=== PATIENT | female | born 1965 | race Caucasian/White ===

== ENCOUNTER 2021-01-23 13:18 | Emergency (ER) | payer SELFPAY ==
[2021-01-23 13:51] VITALS: BP 150/113; PULSE 118; RESP 15; TEMP 36.4; O2SAT 100; BMI 19.2
--- NOTE | 2021-01-23 14:03 | XR_ITS ---
WS: [id number] Exam: XR chest 1V portable [id number] Date/Time of Exam: 01/23/2021 2:03 PM Reason For Exam: SOB No priors. There is significant widening of the bilateral mediastinum with masses identified at both liza as we ll as the left infrahilar region. This may represent pulmonary neoplasm and/or lymphadenopathy. Large left-sided pleural effusion noted with compressive atelectasis of the left lower lobe. Heart size is normal. No pneumothorax. No infiltrates visualized. Regional bony structures are intact. Recommendations: Contrast CT scanning of the chest is recommended for further workup. XR/XR chest 1V portable [id number] IMPRESSION: 1. Probable extensive bilateral mediastinal lymphadenopathy. Left infrahilar pu lmonary mass that may represent primary lung neoplasm. This measures approximat becca 4 cm at greatest dimension. 2. Prominent left basal pleural effusion with compressive atelectasis of the le ft lower lobe.
--- NOTE | 2021-01-23 14:03 | CT_ITS ---
WS: [id number] CT NECK WITH CONTRAST HISTORY: large firm R neck mass TECHNIQUE: Contiguous 5 mm axial images are performed through the neck with intravenous contrast. Sag ittal and coronal reformats are also submitted. All CT scans at [facility] use at least o ne of these dose optimization techniques: automated exposure control; mA and/or kV adjustment per pat ient size (includes targeted exams where dose is matched to clinical indication); or iterative recons truction. CONTRAST: CONTRAST: Omnipaque 300; 95 mL IV. DLP: 362.28 mGy.cm COMPARISON: None available. There is a very large soft tissue mass centered in the RIGHT neck with increased vascularity and a fe w areas of necrosis and scattered calcifications. This mass begins posterior to the RIGHT sternocleid omastoid muscle at the C4 level and extends inferiorly and posterior to the clavicle into the upper m ediastinum. The largest confluent mass extends over a length of 11.5 cm and transversely by 6.4 cm. T his large mass is obliterating and possibly invading into the jugular vein. The RIGHT carotid artery is being medially displaced. There is also mild LEFT displacement of the larynx and thyroid. Mass ext ends into the upper mediastinum. There are additional masses in the anterior mediastinum. High RIGHT paratracheal and anterior LEFT mediastinal nodules. There are additional masses which are probably ly mph nodes along the cervical chains. There is an additional incompletely visualized RIGHT supraclavic ular mass measuring 2.9 x 3.4 cm posterior to the distal RIGHT clavicle. There are smaller left-sided cervical chain lymph nodes. Possible invasion into the sternocleidomastoid muscle on the LEFT. Upper esophagus is being displaced to the LEFT with loss of the normal fat plane. Small mucous retention cyst in the RIGHT maxillary sinus. Small layering LEFT pleural effusion. Area of fibrosis or nodule at the RIGHT apex. CT/CT neck w con* [id number] IMPRESSION: 1. Large confluent enhancing mass centered within the RIGHT neck extends over a length of 11.5 cm x 6.4 cm. Most consistent with lymphadenopathy. There are a dditional several lymph nodes along the RIGHT cervical chain, RIGHT supraclavic ular and upper mediastinum. Favor metastatic disease versus lymphoma. 2. Small layering LEFT pleural effusion. 3. Occluded RIGHT jugular vein. Mass appears to be invading the RIGHT sternocl eidomastoid muscle.
--- NOTE | 2021-01-23 14:04 | W.ED.GENADLT ---
Documented by User: DANYELLE Garay 01/23/21 16:34 HPI - General Adult General: Chief complaint: General Medical Stated complaint: mass on neck Time Seen by Provider: 01/23/21 13:50 Source: patient Mode of arrival: ambulatory Limitations: no limitations History of Present Illness: HPI narrative: Patient is a very nice 55-year-old female who presents to ED today after being sent here from [facility] for further evaluation. Patient has a complaint of a large mass to the right side of her neck that has been present over the past month. Patient states she did not seek medical evaluation sooner because she was scared. She tells me she has had a 30 to 40 unintentional pound weight loss over the past month. She is complaining of fatigue. She has noticed shortness of breath with minimal exertion. She complains of some numbness to the right posterior calf. She states she has been seeing a chiropractor for this. She has trouble using the leg during ambulating and with driving. Patient is not having any trouble swallowing. She has not been running fevers. She admittedly does not see a medical provider regularly. Onset (ago): month(s) Location: neck Relieving factors: none Exacerbating factors: none Associated symptoms: Reports dyspnea and malaise; Deny chest pain, confusion, headache(s), nausea, rash, palpitations, syncope or vomiting Review of Systems Const: Reports: fatigue and malaise; Denies: fever(s), chills or body aches Eyes: Denies: change in vision, blurry vision or photophobia ENMT: Denies: throat pain, enlarged tonsils or odynophagia Card: Reports: dyspnea on exertion; Denies: chest pain, palpitations, irregular heart rhythm, edema, swelling of feet/ankles, lightheadedness, syncope, pre-syncope or orthopnea Resp: Reports: dyspnea; Denies: productive cough, non-productive cough, pain on inspiration or chest congestion GI: Denies: abdominal pain, nausea, vomiting or diarrhea : Denies: flank pain, difficulty voiding, dysuria, urinary frequency, urinary urgency or urinary hesitancy Musc: Denies: neck pain, back pain, extremity pain, extremity swelling, joint pain or joint swelling Skin/Breast: Denies: rash Neuro: Reports: numbness in extremities (R posterior calf) and sensory changes; Denies: headache(s), frequent falls, dizziness or confusion PFSH ED PFSH: Social History Smoking and tobacco status: former smoker Alcohol intake: current Alcohol intake frequency: holidays/special occasions only Physical Exam Const: COMMON NORMALS: no acute distress, patient oriented x3, no limitations and alert GENERAL APPEARANCE: cooperative ORIENTATION/CONSCIOUSNESS: Yes awake, Yes oriented to person, Yes oriented to place and Yes oriented to time HENMT: COMMON NORMALS: normocephalic, atraumatic and Normal external nose present HEAD & SCALP: normal to inspection, normocephalic and atraumatic FACE & SINUS: normal facial exam NOSE: Normal external nose present THROAT: posterior oropharynx normal, tonsils normal and uvula midline Eye: COMMON NORMALS: Equal, round and reactive pupils present and EOMs intact bilaterally SCLERA: scleral abnormal Laterality of scleral abnormality: positive bilateral scleral icterus PUPIL: Yes Equal, round and reactive pupils present Neck/C-Spine: COMMON NORMALS: full ROM OTHER: pt has a very large extremely firm mass to the R lateral neck; she has a large firm lymph node present to the inferior posterior aspect of the mass Resp: COMMON NORMALS: normal respiratory effort and clear to auscultation bilaterally AUSCULTATION: clear to auscultation bilaterally Cardio: COMMON NORMALS: regular rate RATE: regular rate and tachycardic GI: COMMON NORMALS: Normal to inspection, nondistended, normoactive bowel sounds present, Soft to palpation, non-tender, No hepatosplenomegaly present and no masses PALPATION: Yes Soft to palpation and Yes No hepatosplenomegaly present : COMMON NORMALS: Yes no CVA tenderness BLADDER/KIDNEY EXAM: Yes no CVA tenderness OTHER: extremely dark urine noted in cup in room Back/Pelvis: COMMON NORMALS: no CVA tenderness Neuro: MAN COMA SCALE: document GCS findings Man coma scale eye opening: Spontaneous [place] coma scale verbal response: Orientated [place] coma scale motor response: Obey commands [place] coma scale total score: 15 COMMON NORMALS: patient oriented x3 SENSORIUM/ORIENTATION: Yes alert, Yes oriented to person, Yes oriented to place and Yes oriented to time Skin: COMMON NORMALS: no rashes or lesions noted GENERAL SKIN EXAM: no rashes or lesions noted Course Vital Signs: Vital signs: Vital Signs Temperature 97.5 F L 01/23/21 13:51 Pulse Rate 118 H 01/23/21 13:51 Respiratory Rate 15 01/23/21 13:51 Blood Pressure 150/113 01/23/21 13:51 Pulse Oximetry 100 01/23/21 13:51 MDM - General Adult MDM Narrative: Medical decision making narrative: I have sat and discussed patient's CT findings extensively with her. I have discussed the emergent need for transfer given her findings. Patient has extensive metastatic disease. She has a pancreatic mass causing biliary obstruction. She has a critical total bili of 7.2. Patient understandably is very tearful and overwhelmed. 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 I have explained the potential consequences of an untreated biliary obstruction and patient verbalizes understanding. Patient states that at this time she would like to go home and get all of her ducks in a row . She promises to return tomorrow and would be agreeable to transfer at that time. I explained that a lot can change in just 24 hours and yet again she verbalizes understanding of this. Patient will sign out AMA and will be encouraged to return as soon as possible. Lab Data: Labs: Lab Results 01/23/21 01/23/21 01/23/21 Range/Units 14:50 15:05 15:05 WBC 10.6 H (4.0-10.0) 10^3/ uL RBC 4.50 (4.1-5.3) 10^6/u L Hgb 14.3 (11.5-15.3) g/dL Hct 42.5 (37.0-47.0) % MCV 94.4 (81-99) fL MCH 31.8 (28.0-34.0) pg MCHC 33.6 (30.0-36.0) g/dL RDW 12.2 (12.1-15.1) % Plt Count 560 H (130-400) 10^3/c mm MPV 8.9 (7.4-10.4) fL Neut % (Auto) 79.0 % Lymph % (Auto) 10.5 % [place] % (Auto) 8.6 % Eos % (Auto) 0.6 % Baso % (Auto) 1.0 % Neut # (Auto) 8.36 H (1.8-7.7) 10^3/u L Lymph # (Auto) 1.1 (0.8-4.8) 10^3/u L [place] # (Auto) 0.9 (0.2-0.9) 10^3/u L Eos # (Auto) 0.1 (0.0-0.8) 10^3/u L Baso # (Auto) 0.1 (0.0-0.1) 10^3/u L Nucleated RBC % (a uto) 0 % Nucleated RBCs # 0.0 /100WBC PT (12.1-14.9) SECO NDS INR (0.8-1.2) Sodium 130 L (136-145) mmol/L Potassium 4.5 (3.5-5.1) mmol/L Chloride 92 L (98-107) mmol/L Carbon Dioxide 26 (22-29) mmol/L Anion Gap 16.5 (5-19) BUN 7 (6-20) mg/dL Creatinine 0.4 L (0.5-0.9) mg/dL GFR Calculation 165.1 H (90-130) mL/min Glucose 117 H (65-115) mg/dL Calculated Osmolal ity 269 L (285-295) mOsm/k g Lactic Acid (0.5-2.2) mmol/L Calcium 9.8 (8.5-10.5) mg/dL Total Bilirubin 7.2 H* (0.15-1.2) mg/dL AST 287 H (0-32) U/L ALT 563 H (0-33) U/L Alkaline Phosphata se 1181 H* (35-105) IU/L Total Protein 7.4 (6.6-8.7) g/dL Albumin 3.9 (3.5-5.2) g/dL Globulin 3.5 (1.3-4.6) g/dL Lipase 193 H (13-60) U/L Urine Color Milvia (Yellow) Urine Appearance Clear (CLEAR) Urine pH 5 (5-7) Ur Specific Gravit y 1.025 (1.005-1.030) Urine Protein 1+ H (Negative) Urine Glucose (UA) Norm (Normal) Urine Ketones Negative (Negative) Urine Blood Neg (Negative) Urine Nitrate Negative (Negative) Urine Bilirubin 3+ H (Negative) Urine Urobilinogen 4 H (Negative) mg/dL Ur Leukocyte Yajaira ase Negative (Negative) Urine RBC None (0-2) /hpf Urine WBC 0-4 H (0-5) /hpf Ur Squamous Epith Cells 5-10 H (0-5) /hpf Amorphous Sediment Not Reportable Urine Bacteria Trace (NONE) /hpf Urine Mucus 2+ /hpf Hepatitis A IgM Ab (Nonreactive) Hep Bs Antigen (Nonreactive) Hep B Core IgM Ab (Nonreactive) Hepatitis C Antibo dy (Nonreactive) 01/23/21 01/23/21 01/23/21 Range/Units 15:05 15:05 15:05 WBC (4.0-10.0) 10^3/ uL RBC (4.1-5.3) 10^6/u L Hgb (11.5-15.3) g/dL Hct (37.0-47.0) % MCV (81-99) fL MCH (28.0-34.0) pg MCHC (30.0-36.0) g/dL RDW (12.1-15.1) % Plt Count (130-400) 10^3/c mm MPV (7.4-10.4) fL Neut % (Auto) % Lymph % (Auto) % [place] % (Auto) % Eos % (Auto) % Baso % (Auto) % Neut # (Auto) (1.8-7.7) 10^3/u L Lymph # (Auto) (0.8-4.8) 10^3/u L [place] # (Auto) (0.2-0.9) 10^3/u L Eos # (Auto) (0.0-0.8) 10^3/u L Baso # (Auto) (0.0-0.1) 10^3/u L Nucleated RBC % (a uto) % Nucleated RBCs # /100WBC PT 13.50 (12.1-14.9) SECO NDS INR 1.00 (0.8-1.2) Sodium (136-145) mmol/L Potassium (3.5-5.1) mmol/L Chloride (98-107) mmol/L Carbon Dioxide (22-29) mmol/L Anion Gap (5-19) BUN (6-20) mg/dL Creatinine (0.5-0.9) mg/dL GFR Calculation (90-130) mL/min Glucose (65-115) mg/dL Calculated Osmolal ity (285-295) mOsm/k g Lactic Acid 1.0 (0.5-2.2) mmol/L Calcium (8.5-10.5) mg/dL Total Bilirubin (0.15-1.2) mg/dL AST (0-32) U/L ALT (0-33) U/L Alkaline Phosphata se (35-105) IU/L Total Protein (6.6-8.7) g/dL Albumin (3.5-5.2) g/dL Globulin (1.3-4.6) g/dL Lipase (13-60) U/L Urine Color (Yellow) Urine Appearance (CLEAR) Urine pH (5-7) Ur Specific Gravit y (1.005-1.030) Urine Protein (Negative) Urine Glucose (UA) (Normal) Urine Ketones (Negative) Urine Blood (Negative) Urine Nitrate (Negative) Urine Bilirubin (Negative) Urine Urobilinogen (Negative) mg/dL Ur Leukocyte Yajaira ase (Negative) Urine RBC (0-2) /hpf Urine WBC (0-5) /hpf Ur Squamous Epith Cells (0-5) /hpf Amorphous Sediment Urine Bacteria (NONE) /hpf Urine Mucus /hpf Hepatitis A IgM Ab Non-reactive (Nonreactive) Hep Bs Antigen Non-reactive (Nonreactive) Hep B Core IgM Ab Non-reactive (Nonreactive) Hepatitis C Antibo dy Non-reactive (Nonreactive) Imaging Data^: CXR: Radiologist's impression: [address] [address] XRay Report Signed Patient: Herminia Mcgill #: [id number] : 1965Acct#:[id number] Age/Sex: 55 / FADM Date: 01/23/21 Loc: ERRoom/Bed: Attending Dr: Ordering Provider/Ordering MD: Portia Coon Date of Service: 01/23/21 Procedure(s): XR chest 1V portable [id number] Accession Number(s): [id number] Report Number: [id number] WS: [id number] Exam: XR chest 1V portable [id number] Date/Time of Exam: 01/23/2021 2:03 PM Reason For Exam: SOB No priors. There is significant widening of the bilateral mediastinum with masses identified at both liza as well as the left infrahilar region. This may represent pulmonary neoplasm and/or lymphadenopathy. Large left-sided pleural effusion noted with compressive atelectasis of the left lower lobe. Heart size is normal. No pneumothorax. No infiltrates visualized. Regional bony structures are intact. Recommendations: Contrast CT scanning of the chest is recommended for further workup. XR/XR chest 1V portable [id number] IMPRESSION: 1. Probable extensive bilateral mediastinal lymphadenopathy. Left infrahilar pulmonary mass that may represent primary lung neoplasm. This measures approximately 4 cm at greatest dimension. 2. Prominent left basal pleural effusion with compressive atelectasis of the left lower lobe. Dictated By:Peter Fernandez DO Signed By:Lamberto Oleary Date/Time:01/23/21 1424 DD/ 1417 CT chest/abdomen/pelvis: Radiologist's impression: [place] [address] CT Scan Report Signed Patient: Herminia Mcgill #: [id number] : 1965Acct#:[id number] Age/Sex: 55 / FADM Date: 01/23/21 Loc: ERRoom/Bed: Attending Dr: Ordering Provider/Ordering MD: Portia Coon Date of Service: 01/23/21 Procedure(s): CT chest abd pel w con* Accession Number(s): [id number] Report Number: [id number] WS: [id number] CT CHEST, ABDOMEN AND PELVIS WITH IV CONTRAST. HISTORY: SOB, jaundice, neck mass, abnormal CXR, R LE/gait abnormality TECHNIQUE: Contiguous 5 mm axial imaging performed through the chest, abdomen and pelvis with IV contrast, oral contrast has not been provided. Coronal and sagittal reformats chest. Coronal and sagittal reformats through the abdomen and pelvis. All CT scans at [facility] use at least one of these dose optimization techniques: automated exposure control; mA and/or kV adjustment per patient size (includes targeted exams where dose is matched to clinical indication); or iterative reconstruction. CONTRAST: Omnipaque 300; 95 mL IV. DLP: 1052.59 mGy.cm COMPARISON: None available. Chest CT: There is extensive lymphadenopathy throughout the chest. The right-sided neck mass extends into the upper mediastinum and posterior to the trachea and abuts the esophagus and displaces the esophagus. Partial encasement of the RIGHT carotid artery. Bilateral extensive mediastinal and hilar lymph node enlargement. Prevascular abnormal lymph nodes and subcarinal lymph nodes. Large clusters of lymph nodes measure 5.0 x 6.4 cm. This large cluster is at the AP window. There are additional similar large groups of lymph nodes. Abnormal axillary lymph nodes, greater on the RIGHT than the LEFT. There is encasement of the RIGHT and LEFT pulmonary arteries and the central bronchovascular structures. Mild displacement and narrowing of the esophagus. There is a larger soft tissue component that extends inferiorly along the LEFT lower lobe bronchovascular pathway. Small layering LEFT pleural effusion. Abnormal lymph node or metastatic positive posterior to the distal thoracic aorta measures 1.5 cm in diameter. Additional lymph node along the pericardium. Abdomen CT: Liver is normal size. There is moderate intrahepatic and extra hepatic duct dilatation. There is a soft tissue mass at the pancreatic head measuring 2.9 x 3.5 cm. Mild dilatation of the pancreatic duct. No atrophy of the pancreatic tail. There is a subcapsular mass along the RIGHT lobe of the liver measuring 3.5 cm. Spleen is negative. Gallbladder is slightly distended. Bilateral adrenal masses. The largest on the RIGHT measures 3.8 x 1.7 cm. No renal obstruction. Mild atherosclerosis aorta. There are numerous metastatic deposits within the abdomen. Metastatic sites adjacent to the spleen and liver and also in the central mesentery. No ascites. No GI tract obstruction. Pelvic CT: No fluid in the pelvis. No metastatic lymph nodes are identified. No destructive bone lesions are appreciated. CT/CT chest abd pel w con* IMPRESSION: 1. Severe adenopathy within the chest as described above. Extensive lymphadenopathy within the RIGHT neck, axilla, supraclavicular, mediastinum and hilar regions, distal thoracic aorta, pericardiac. Small layering effusion. 2. Pulmonary mass versus adenopathy extending along the bronchovascular structures of the LEFT lower lobe and along the pleura. Mass encases and partially obstructs the LEFT lower lobe bronchi. 3. Marked intrahepatic and extrahepatic biliary dilatation secondary to pancreatic head mass measuring 2.9 x 3.5 cm. 4. Metastatic deposits adjacent to the RIGHT lobe of the liver, LEFT upper quadrant and in the mesentery. 5. Bilateral adrenal masses consistent with metastatic disease. Dictated By:Martha Ventura DO Signed By:Martha Ventura DOSigned Date/Time:01/23/[address] neck: Radiologist's impression: [address] [place] [address] CT Scan Report Signed Patient: Melany Mcgill Unit #: [id number] : 1965 Age/Sex: 55 / F ADM Date: 01/23/21 Loc: ER Room/Bed: Attending Dr: Ordering Provider/Ordering MD: Portia Coon Date of Service: 01/23/21 Procedure(s): CT neck w con* [id number] Accession Number(s): [id number] Report Number: [id number] WS: [id number] CT NECK WITH CONTRAST HISTORY: large firm R neck mass TECHNIQUE: Contiguous 5 mm axial images are performed through the neck with intravenous contrast. Sagittal and coronal reformats are also submitted. All CT scans at [facility] use at least one of these dose optimization techniques: automated exposure control; mA and/or kV adjustment per patient size (includes targeted exams where dose is matched to clinical indication); or iterative reconstruction. CONTRAST: CONTRAST: Omnipaque 300; 95 mL IV. DLP: 362.28 mGy.cm COMPARISON: None available. There is a very large soft tissue mass centered in the RIGHT neck with increased vascularity and a few areas of necrosis and scattered calcifications. This mass begins posterior to the RIGHT mini rnocleidomastoid muscle at the C4 level and extends inferiorly and posterior to the clavicle into the upper mediastinum. The largest confluent mass extends over a length of 11.5 cm and transversely by 6.4 cm. This large mass is obliterating and possibly invading into the jugular vein. The RIGHT carotid artery is being medially displaced. There is also mild LEFT displacement of the larynx and thyroid. Mass extends into the upper mediastinum. There are additional masses in the anterior mediastinum. High RIGHT paratracheal and anterior LEFT mediastinal nodules. There are additional masses which are probably lymph nodes along the cervical chains. There is an additional incompletely visualized RIGHT supraclavicular mass measuring 2.9 x 3.4 cm posterior to the distal RIGHT clavicle. There are smaller left-sided cervical chain lymph nodes. Possible invasion into the sternocleidomastoid muscle on the LEFT. Upper esophagus is being displaced to the LEFT with loss of the normal fat plane. Small mucous retention cyst in the RIGHT maxillary sinus. Small layering LEFT pleural effusion. Area of fibrosis or nodule at the RIGHT apex. CT/CT neck w con* [id number] IMPRESSION: 1. Large confluent enhancing mass centered within the RIGHT neck extends over a length of 11.5 cm x 6.4 cm. Most consistent with lymphadenopathy. There are additional several lymph nodes along the RIGHT cervical chain, RIGHT supraclavicular and upper mediastinum. Favor metastatic disease versus lymphoma. 2. Small layering LEFT pleural effusion. 3. Occluded RIGHT jugular vein. Mass appears to be invading the RIGHT sternocleidomastoid muscle. Dictated By: Martha Ventura DO Signed By: Martha Ventura DO Signed Date/Time: 01/23/21 1539 DD/ 1511 Discharge Plan Discharge Patient Disposition: Left Against Medical Advice Clinical Impression: Widespread metastatic malignant neoplastic disease, Cancer of head of pancreas, Biliary obstruction, Obstructive hyperbilirubinemia Condition: Stable Prescriptions: No Action No Known Home Medications RF: 0 Referrals: Chava [place] DO [Primary Care Provider] - Activity Restrictions/Additional Instructions: As we have discussed I highly encourage you to return to the emergency department as soon as possible for transfer and evaluation of the metastatic disease that was discovered today. I understand you feel very overwhelmed with this diagnosis. We have discussed that you have a blockage of your biliary system and leaving this untreated can cause liver failure, sepsis, and . In addition you have several other critical findings that were discussed on your imaging. Please return to our facility as early as possible. Coding Level of Care Code ED Entry Table Operator for Chg Fwd Exam Comprehensive Documented by User: Jordan Groves MD 01/24/21 18:14 HPI - General Adult General: Chief complaint: General Medical Stated complaint: mass on neck Time Seen by Provider: 01/23/21 13:50 PFSH ED PFSH: Social History Smoking and tobacco status: former smoker Alcohol intake: current Alcohol intake frequency: holidays/special occasions only Course Vital Signs: Vital signs: Vital Signs Temperature 97.5 F L 01/23/21 13:51 Pulse Rate 118 H 01/23/21 13:51 Respiratory Rate 15 01/23/21 13:51 Blood Pressure 150/113 01/23/21 13:51 Pulse Oximetry 100 01/23/21 13:51 MDM - General Adult Lab Data: Labs: Lab Results 01/23/21 01/23/21 01/23/21 Range/Units 14:50 15:05 15:05 WBC 10.6 H (4.0-10.0) 10^3/ uL RBC 4.50 (4.1-5.3) 10^6/u L Hgb 14.3 (11.5-15.3) g/dL Hct 42.5 (37.0-47.0) % MCV 94.4 (81-99) fL MCH 31.8 (28.0-34.0) pg MCHC 33.6 (30.0-36.0) g/dL RDW 12.2 (12.1-15.1) % Plt Count 560 H (130-400) 10^3/c mm MPV 8.9 (7.4-10.4) fL Neut % (Auto) 79.0 % Lymph % (Auto) 10.5 % [place] % (Auto) 8.6 % Eos % (Auto) 0.6 % Baso % (Auto) 1.0 % Neut # (Auto) 8.36 H (1.8-7.7) 10^3/u L Lymph # (Auto) 1.1 (0.8-4.8) 10^3/u L [place] # (Auto) 0.9 (0.2-0.9) 10^3/u L Eos # (Auto) 0.1 (0.0-0.8) 10^3/u L Baso # (Auto) 0.1 (0.0-0.1) 10^3/u L Nucleated RBC % (a uto) 0 % Nucleated RBCs # 0.0 /100WBC PT (12.1-14.9) SECO NDS INR (0.8-1.2) Sodium 130 L (136-145) mmol/L Potassium 4.5 (3.5-5.1) mmol/L Chloride 92 L (98-107) mmol/L Carbon Dioxide 26 (22-29) mmol/L Anion Gap 16.5 (5-19) BUN 7 (6-20) mg/dL Creatinine 0.4 L (0.5-0.9) mg/dL GFR Calculation 165.1 H (90-130) mL/min Glucose 117 H (65-115) mg/dL Calculated Osmolal ity 269 L (285-295) mOsm/k g Lactic Acid (0.5-2.2) mmol/L Calcium 9.8 (8.5-10.5) mg/dL Total Bilirubin 7.2 H* (0.15-1.2) mg/dL AST 287 H (0-32) U/L ALT 563 H (0-33) U/L Alkaline Phosphata se 1181 H* (35-105) IU/L Total Protein 7.4 (6.6-8.7) g/dL Albumin 3.9 (3.5-5.2) g/dL Globulin 3.5 (1.3-4.6) g/dL Lipase 193 H (13-60) U/L Urine Color Milvia (Yellow) Urine Appearance Clear (CLEAR) Urine pH 5 (5-7) Ur Specific Gravit y 1.025 (1.005-1.030) Urine Protein 1+ H (Negative) Urine Glucose (UA) Norm (Normal) Urine Ketones Negative (Negative) Urine Blood Neg (Negative) Urine Nitrate Negative (Negative) Urine Bilirubin 3+ H (Negative) Urine Urobilinogen 4 H (Negative) mg/dL Ur Leukocyte Yajaira ase Negative (Negative) Urine RBC None (0-2) /hpf Urine WBC 0-4 H (0-5) /hpf Ur Squamous Epith Cells 5-10 H (0-5) /hpf Amorphous Sediment Not Reportable Urine Bacteria Trace (NONE) /hpf Urine Mucus 2+ /hpf Hepatitis A IgM Ab (Nonreactive) Hep Bs Antigen (Nonreactive) Hep B Core IgM Ab (Nonreactive) Hepatitis C Antibo dy (Nonreactive) 01/23/21 01/23/21 01/23/21 Range/Units 15:05 15:05 15:05 WBC (4.0-10.0) 10^3/ uL RBC (4.1-5.3) 10^6/u L Hgb (11.5-15.3) g/dL Hct (37.0-47.0) % MCV (81-99) fL MCH (28.0-34.0) pg MCHC (30.0-36.0) g/dL RDW (12.1-15.1) % Plt Count (130-400) 10^3/c mm MPV (7.4-10.4) fL Neut % (Auto) % Lymph % (Auto) % [place] % (Auto) % Eos % (Auto) % Baso % (Auto) % Neut # (Auto) (1.8-7.7) 10^3/u L Lymph # (Auto) (0.8-4.8) 10^3/u L [place] # (Auto) (0.2-0.9) 10^3/u L Eos # (Auto) (0.0-0.8) 10^3/u L Baso # (Auto) (0.0-0.1) 10^3/u L Nucleated RBC % (a uto) % Nucleated RBCs # /100WBC PT 13.50 (12.1-14.9) SECO NDS INR 1.00 (0.8-1.2) Sodium (136-145) mmol/L Potassium (3.5-5.1) mmol/L Chloride (98-107) mmol/L Carbon Dioxide (22-29) mmol/L Anion Gap (5-19) BUN (6-20) mg/dL Creatinine (0.5-0.9) mg/dL GFR Calculation (90-130) mL/min Glucose (65-115) mg/dL Calculated Osmolal ity (285-295) mOsm/k g Lactic Acid 1.0 (0.5-2.2) mmol/L Calcium (8.5-10.5) mg/dL Total Bilirubin (0.15-1.2) mg/dL AST (0-32) U/L ALT (0-33) U/L Alkaline Phosphata se (35-105) IU/L Total Protein (6.6-8.7) g/dL Albumin (3.5-5.2) g/dL Globulin (1.3-4.6) g/dL Lipase (13-60) U/L Urine Color (Yellow) Urine Appearance (CLEAR) Urine pH (5-7) Ur Specific Gravit y (1.005-1.030) Urine Protein (Negative) Urine Glucose (UA) (Normal) Urine Ketones (Negative) Urine Blood (Negative) Urine Nitrate (Negative) Urine Bilirubin (Negative) Urine Urobilinogen (Negative) mg/dL Ur Leukocyte Yajaira ase (Negative) Urine RBC (0-2) /hpf Urine WBC (0-5) /hpf Ur Squamous Epith Cells (0-5) /hpf Amorphous Sediment Urine Bacteria (NONE) /hpf Urine Mucus /hpf Hepatitis A IgM Ab Non-reactive (Nonreactive) Hep Bs Antigen Non-reactive (Nonreactive) Hep B Core IgM Ab Non-reactive (Nonreactive) Hepatitis C Antibo dy Non-reactive (Nonreactive) Discharge Plan Discharge Patient Disposition: Left Against Medical Advice Clinical Impression: Widespread metastatic malignant neoplastic disease, Cancer of head of pancreas, Biliary obstruction, Obstructive hyperbilirubinemia Condition: Stable Prescriptions: No Action No Known Home Medications RF: 0 Referrals: Chava [place], DO [Primary Care Provider] - Activity Restrictions/Additional Instructions: As we have discussed I highly encourage you to return to the emergency department as soon as possible for transfer and evaluation of the metastatic disease that was discovered today. I understand you feel very overwhelmed with this diagnosis. We have discussed that you have a blockage of your biliary system and leaving this untreated can cause liver failure, sepsis, and . In addition you have several other critical findings that were discussed on your imaging. Please return to our facility as early as possible. Coding Level of Care Code ED Entry Table Operator for Alberto Fwd Exam Comprehensive
--- NOTE | 2021-01-23 14:25 | CT_ITS ---
WS: [id number] CT CHEST, ABDOMEN AND PELVIS WITH IV CONTRAST. HISTORY: SOB, jaundice, neck mass, abnormal CXR, R LE/gait abnormality TECHNIQUE: Contiguous 5 mm axial imaging performed through the chest, abdomen and pelvis with IV cont rast, oral contrast has not been provided. Coronal and sagittal reformats chest. Coronal and sagittal reformats through the abdomen and pelvis. All CT scans at [facility] use at least one of these dose optimization techniques: automated exposure control; mA and/or kV adjustment per patient size (includes targeted exams where dose is matched to clinical indication); or iterative reconstruct ion. CONTRAST: Omnipaque 300; 95 mL IV. DLP: 1052.59 mGy.cm COMPARISON: None available. Chest CT: There is extensive lymphadenopathy throughout the chest. The right-sided neck mass extends into the upper mediastinum and posterior to the trachea and abuts the esophagus and displaces the eso phagus. Partial encasement of the RIGHT carotid artery. Bilateral extensive mediastinal and hilar lym ph node enlargement. Prevascular abnormal lymph nodes and subcarinal lymph nodes. Large clusters of l ymph nodes measure 5.0 x 6.4 cm. This large cluster is at the AP window. There are additional similar large groups of lymph nodes. Abnormal axillary lymph nodes, greater on the RIGHT than the LEFT. Ther e is encasement of the RIGHT and LEFT pulmonary arteries and the central bronchovascular structures. Mild displacement and narrowing of the esophagus. There is a larger soft tissue component that extend s inferiorly along the LEFT lower lobe bronchovascular pathway. Small layering LEFT pleural effusion. Abnormal lymph node or metastatic positive posterior to the distal thoracic aorta measures 1.5 cm in diameter. Additional lymph node along the pericardium. Abdomen CT: Liver is normal size. There is moderate intrahepatic and extra hepatic duct dilatation. T here is a soft tissue mass at the pancreatic head measuring 2.9 x 3.5 cm. Mild dilatation of the panc reatic duct. No atrophy of the pancreatic tail. There is a subcapsular mass along the RIGHT lobe of t he liver measuring 3.5 cm. Spleen is negative. Gallbladder is slightly distended. Bilateral adrenal m asses. The largest on the RIGHT measures 3.8 x 1.7 cm. No renal obstruction. Mild atherosclerosis aor ta. There are numerous metastatic deposits within the abdomen. Metastatic sites adjacent to the spleen an d liver and also in the central mesentery. No ascites. No GI tract obstruction. Pelvic CT: No fluid in the pelvis. No metastatic lymph nodes are identified. No destructive bone lesions are appreciated. CT/CT chest abd pel w con* IMPRESSION: 1. Severe adenopathy within the chest as described above. Extensive lymphadeno greer within the RIGHT neck, axilla, supraclavicular, mediastinum and hilar reg ions, distal thoracic aorta, pericardiac. Small layering effusion. 2. Pulmonary mass versus adenopathy extending along the bronchovascular struct ures of the LEFT lower lobe and along the pleura. Mass encases and partially ob structs the LEFT lower lobe bronchi. 3. Marked intrahepatic and extrahepatic biliary dilatation secondary to pancre atic head mass measuring 2.9 x 3.5 cm. 4. Metastatic deposits adjacent to the RIGHT lobe of the liver, LEFT upper ella drant and in the mesentery. 5. Bilateral adrenal masses consistent with metastatic disease.
[2021-01-23 15:09] LABS: Basophils # 0.1 10^3/uL (0.0-0.1); Eosinophils # 0.1 10^3/uL (0.0-0.8); Eosinophils % 0.6 %; Hematocrit 42.5 % (37.0-47.0); Hemoglobin 14.3 g/dL (11.5-15.3); Lymphocytes # 1.1 10^3/uL (0.8-4.8); Lymphocytes % 10.5 %; Mean Corpuscular HGB Conc 33.6 g/dL (30.0-36.0); Mean Corpuscular Hemoglobin 31.8 pg (28.0-34.0); Mean Corpuscular Volume 94.4 fL (81-99); Mean Platelet Volume 8.9 fL (7.4-10.4); Monocytes # 0.9 10^3/uL (0.2-0.9); Monocytes % 8.6 %; Neutrophils # 8.36 10^3/uL (1.8-7.7); Nucleated Red Blood Cells % 0 %; Platelet Count 560 10^3/cmm (130-400); Red Cell Distribution Width 12.2 % (12.1-15.1); White Blood Count 10.6 10^3/uL (4.0-10.0)
[2021-01-23] MEDS: iohexol 300 mg/mL 100 mL Btl IV ×2 (15:09→15:12)
[2021-01-23 15:10] LABS: Bilirubin Urine 3+ (Negative); Blood Urine Neg (Negative); Glucose Urine UA Norm (Normal); Ketones Urine Negative (Negative); Nitrate Urine Negative (Negative); Protein Urine 1+ (Negative); Specific Gravity, Urine 1.025 (1.005-1.030); Urine Appearance Clear (CLEAR); Urine Color Amber (Yellow); pH Urine 5 (5-7)
[2021-01-23 15:11] LABS: Add Urine Culture? No; Add Urine Microscopic? YES; Bacteria Urine TRACE /hpf; Leukocyte Esterase Urine Negative (Negative); Mucus Urine 2+ /hpf; Urobilinogen Urine 4 mg/dL (Negative); WBC Urine 0-4 /hpf (0-5)
[2021-01-23 15:26] LABS: Alanine Aminotransferase 563 U/L (0-33); Albumin Level 3.9 g/dL (3.5-5.2); Alkaline Phosphatase 1181 IU/L (35-105); Anion Gap 16.5 (5-19); Aspartate Amino Transferase 287 U/L (0-32); Blood Urea Nitrogen 7 mg/dL (6-20); Calcium 9.8 mg/dL (8.5-10.5); Carbon Dioxide 26 mmol/L (22-29); Chloride 92 mmol/L (98-107); Globulin 3.5 g/dL (1.3-4.6); Glomerular Filtration Rate 165.1 mL/min (90-130); Glucose 117 mg/dL (65-115); Lipase 193 U/L (13-60); Osmolality Calculated 269 mOsm/kg (285-295); Potassium 4.5 mmol/L (3.5-5.1); Sodium 130 mmol/L (136-145); Total Protein 7.4 g/dL (6.6-8.7)
[2021-01-23 15:28] LABS: Total Bilirubin 7.2 mg/dL (0.15-1.2)
[2021-01-23 17:39] LABS: Hepatitis A Antibody IgM Non-Reactive (Nonreactive); Hepatitis B Core IgM Non-Reactive (Nonreactive); Hepatitis B Surface Antigen Non-Reactive (Nonreactive); Hepatitis C Virus Antibody Non-Reactive (Nonreactive)
== END 2021-01-23 16:25 | disposition left against medical advice (07) ==
PROVIDERS: Emergency Provider Physician Assistant; PCP Family Medicine
DX: C25.0 Malignant neoplasm of head of pancreas (principal); C79.9 Secondary malignant neoplasm of unspecified site; E80.6 Other disorders of bilirubin metabolism; K83.1 Obstruction of bile duct; Z87.891 Personal history of nicotine dependence; Z53.21 Procedure and treatment not carried out due to patient leaving prior to being seen by health care provider
CPT/HCPCS: 70491; 71045; 71260; 74177; 80053; 80074; 81001; 83605; 83690; 85025; 85610; 99284; Q9967

== ENCOUNTER 2021-01-24 09:48 | Emergency (ER) | payer SELFPAY ==
[2021-01-24 10:03] VITALS: BP 116/80; PULSE 108; RESP 18; TEMP 36.3; O2SAT 96; BMI 19.2
[2021-01-24 11:07] VITALS: O2SAT 99
[2021-01-24 11:34] VITALS: BP 153/94; PULSE 99; O2SAT 99
[2021-01-24 12:05] LABS: Basophils # 0.1 10^3/uL (0.0-0.1); Eosinophils % 0.3 %; Hematocrit 44.1 % (37.0-47.0); Hemoglobin 14.7 g/dL (11.5-15.3); Lymphocytes # 0.9 10^3/uL (0.8-4.8); Lymphocytes % 10.8 %; Mean Corpuscular HGB Conc 33.3 g/dL (30.0-36.0); Mean Corpuscular Hemoglobin 31.3 pg (28.0-34.0); Mean Corpuscular Volume 93.8 fL (81-99); Mean Platelet Volume 8.9 fL (7.4-10.4); Monocytes # 0.8 10^3/uL (0.2-0.9); Monocytes % 8.9 %; Neutrophils # 6.83 10^3/uL (1.8-7.7); Neutrophils % 78.5 %; Nucleated Red Blood Cells % 0 %; Platelet Count 561 10^3/cmm (130-400); Red Cell Distribution Width 12.1 % (12.1-15.1); White Blood Count 8.7 10^3/uL (4.0-10.0)
[2021-01-24 12:20] LABS: Ketone (Acetest) Serum Negative (Negative)
[2021-01-24] MEDS: sodium chloride 0.9% 1,000 ML 999 ML IV (12:20)
--- NOTE | 2021-01-24 12:23 | W.ED.RECABL ---
Documented by User: Kodak Cho DO 01/27/21 17:13 HPI - Recheck/Abnormal Lab/Rx General: Chief Complaint: Recheck/Abnormal Lab/Rx Stated Complaint: BLOOD WORK, WAS TOLD TO COME BACK TO ER Time Seen by Provider: 01/24/21 10:57 History of Present Illness: HPI narrative: 55-year-old female returns emergency room. 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 She also biliary obstruction with onset of jaundice she is somewhat worse today. She has a large lymph nodes emanating from the right side of the base of her neck as well. CT and labs from yesterday reviewed patient has very obvious scleral icterus. She denies any chest pain abdominal pain difficulty breathing. She is a lifelong smoker. She reports 30-40 weight pound weight loss in the last few months. Initial visit (ago): day(s) Review of Systems Const: Denies: fever(s), chills, body aches, change in appetite, fatigue or malaise ENMT: Denies: throat pain, ear or mastoid pain, nasal discharge or nasal congestion Card: Denies: chest pain, edema, dyspnea on exertion or orthopnea Resp: Denies: dyspnea, productive cough or non-productive cough GI: Denies: abdominal pain, nausea, vomiting, hematemesis, coffee ground emesis, diarrhea, constipation, bloating, hematochezia or melena : Denies: flank pain, difficulty voiding, dysuria, urinary frequency or urinary urgency Skin/Breast: Denies: rash or pruritus PFS ED PFSH: Social History Smoking and tobacco status: former smoker Alcohol intake: current Alcohol intake frequency: holidays/special occasions only Physical Exam Const: COMMON NORMALS: no acute distress GENERAL APPEARANCE: cooperative and comfortable ORIENTATION/CONSCIOUSNESS: Yes awake, Yes oriented to person, Yes oriented to place and Yes oriented to time HENMT: COMMON NORMALS: normocephalic, atraumatic and hearing grossly normal bilaterally HEAD & SCALP: normocephalic and atraumatic Neck/C-Spine: COMMON NORMALS: no JVD Lymph: LYMPHATIC: lymphadenopathy anterior cervical multiple, fixed, matted and tender Resp: COMMON NORMALS: normal respiratory effort, No retractions, No use of accessory muscles and clear to auscultation bilaterally AUSCULTATION: clear to auscultation bilaterally Cardio: COMMON NORMALS: no JVD, regular rate, regular rhythm and No murmurs present (Cardio) RATE: regular rate RHYTHM: regular rhythm GI: COMMON NORMALS: Soft to palpation and No hepatosplenomegaly present AUSCULTATION: Yes normoactive bowel sounds PALPATION: Yes Soft to palpation, No Tenderness to palpation present (GI), No Guarding due to palpation present (GI) and Yes No hepatosplenomegaly present Extremity: COMMON NORMALS: normal to inspection, capillary refill normal, no clubbing, cyanosis or edema, no calf tenderness and no pedal edema Neuro: SENSORIUM/ORIENTATION: Yes oriented to person, Yes oriented to place and Yes oriented to time Skin: COMMON NORMALS: no rashes or lesions noted GENERAL SKIN EXAM: no rashes or lesions noted Course Vital Signs: Vital signs: Vital Signs Temperature 97.3 F L 01/24/21 10:03 Pulse Rate 90 01/25/21 17:14 Respiratory Rate 20 H 01/25/21 17:14 Blood Pressure 165/94 01/25/21 17:14 Pulse Oximetry 97 01/25/21 17:14 MDM - Recheck/Abnormal Lab/Rx MDM Narrative: Medical decision making narrative: Arrangements made for transfer to [place] we have an accepting physician we are waiting on a bed assignment. Lab Data: Labs: Lab Results 01/24/21 01/24/21 01/24/21 Range/Units 11:50 11:50 11:50 WBC 8.7 (4.0-10.0) 10^3/ uL RBC 4.70 (4.1-5.3) 10^6/u L Hgb 14.7 (11.5-15.3) g/dL Hct 44.1 (37.0-47.0) % MCV 93.8 (81-99) fL MCH 31.3 (28.0-34.0) pg MCHC 33.3 (30.0-36.0) g/dL RDW 12.1 (12.1-15.1) % Plt Count 561 H (130-400) 10^3/c mm MPV 8.9 (7.4-10.4) fL Neut % (Auto) 78.5 % Lymph % (Auto) 10.8 % [place] % (Auto) 8.9 % Eos % (Auto) 0.3 % Baso % (Auto) 1.0 % Neut # (Auto) 6.83 (1.8-7.7) 10^3/u L Lymph # (Auto) 0.9 (0.8-4.8) 10^3/u L [place] # (Auto) 0.8 (0.2-0.9) 10^3/u L Eos # (Auto) 0.0 (0.0-0.8) 10^3/u L Baso # (Auto) 0.1 (0.0-0.1) 10^3/u L Nucleated RBC % (a uto) 0 % Nucleated RBCs # 0.0 /100WBC Sodium 128 L (136-145) mmol/L Potassium 4.2 (3.5-5.1) mmol/L Chloride 92 L (98-107) mmol/L Carbon Dioxide 24 (22-29) mmol/L Anion Gap 16.2 (5-19) BUN 9 (6-20) mg/dL Creatinine 0.3 L (0.5-0.9) mg/dL GFR Calculation 230.1 H (90-130) mL/min Glucose 103 (65-115) mg/dL Calculated Osmolal ity 265 L (285-295) mOsm/k g Lactic Acid 1.1 (0.5-2.2) mmol/L Calcium 9.6 (8.5-10.5) mg/dL Magnesium 2.2 (1.7-2.3) mg/dL Total Bilirubin 7.7 H* (0.15-1.2) mg/dL AST 259 H (0-32) U/L ALT 561 H (0-33) U/L Alkaline Phosphata se 1436 H* (35-105) IU/L Creatine Kinase 39 (26-192) U/L Total Protein 7.6 (6.6-8.7) g/dL Albumin 3.8 (3.5-5.2) g/dL Globulin 3.8 (1.3-4.6) g/dL Lipase 238 H (13-60) U/L Urine Color (Yellow) Urine Appearance (CLEAR) Urine pH (5-7) Ur Specific Gravit y (1.005-1.030) Urine Protein (Negative) Urine Glucose (UA) (Normal) Urine Ketones (Negative) Urine Blood (Negative) Urine Nitrate (Negative) Urine Bilirubin (Negative) Urine Urobilinogen (Negative) mg/dL Ur Leukocyte Yajaira ase (Negative) Urine RBC (0-2) /hpf Urine WBC (0-5) /hpf Ur Squamous Epith Cells (0-5) /hpf Amorphous Sediment Urine Bacteria (NONE) /hpf Urine Mucus /hpf Serum Ketones (Negative) SARS-CoV-2 Ag (Rap id) (Negative) 01/24/21 01/24/21 01/24/21 Range/Units 11:50 12:08 14:00 WBC (4.0-10.0) 10^3/ uL RBC (4.1-5.3) 10^6/u L Hgb (11.5-15.3) g/dL Hct (37.0-47.0) % MCV (81-99) fL MCH (28.0-34.0) pg MCHC (30.0-36.0) g/dL RDW (12.1-15.1) % Plt Count (130-400) 10^3/c mm MPV (7.4-10.4) fL Neut % (Auto) % Lymph % (Auto) % [place] % (Auto) % Eos % (Auto) % Baso % (Auto) % Neut # (Auto) (1.8-7.7) 10^3/u L Lymph # (Auto) (0.8-4.8) 10^3/u L [place] # (Auto) (0.2-0.9) 10^3/u L Eos # (Auto) (0.0-0.8) 10^3/u L Baso # (Auto) (0.0-0.1) 10^3/u L Nucleated RBC % (a uto) % Nucleated RBCs # /100WBC Sodium (136-145) mmol/L Potassium (3.5-5.1) mmol/L Chloride (98-107) mmol/L Carbon Dioxide (22-29) mmol/L Anion Gap (5-19) BUN (6-20) mg/dL Creatinine (0.5-0.9) mg/dL GFR Calculation (90-130) mL/min Glucose (65-115) mg/dL Calculated Osmolal ity (285-295) mOsm/k g Lactic Acid (0.5-2.2) mmol/L Calcium (8.5-10.5) mg/dL Magnesium (1.7-2.3) mg/dL Total Bilirubin (0.15-1.2) mg/dL AST (0-32) U/L ALT (0-33) U/L Alkaline Phosphata se (35-105) IU/L Creatine Kinase (26-192) U/L Total Protein (6.6-8.7) g/dL Albumin (3.5-5.2) g/dL Globulin (1.3-4.6) g/dL Lipase (13-60) U/L Urine Color Milvia (Yellow) Urine Appearance Cloudy (CLEAR) Urine pH 6.5 (5-7) Ur Specific Gravit y 1.020 (1.005-1.030) Urine Protein 1+ H (Negative) Urine Glucose (UA) Norm (Normal) Urine Ketones Negative (Negative) Urine Blood Neg (Negative) Urine Nitrate Negative (Negative) Urine Bilirubin 3+ H (Negative) Urine Urobilinogen 4 H (Negative) mg/dL Ur Leukocyte Yajaira ase Trace H (Negative) Urine RBC 0-4 H (0-2) /hpf Urine WBC 5-10 H (0-5) /hpf Ur Squamous Epith Cells 15-25 H (0-5) /hpf Amorphous Sediment Not Reportable Urine Bacteria 2+ H (NONE) /hpf Urine Mucus 2+ /hpf Serum Ketones Negative (Negative) SARS-CoV-2 Ag (Rap id) Negative (Negative) 01/25/21 01/25/21 Range/Units 15:10 15:10 WBC 7.5 (4.0-10.0) 10^3/ uL RBC 4.40 (4.1-5.3) 10^6/u L Hgb 13.9 (11.5-15.3) g/dL Hct 41.2 (37.0-47.0) % MCV 93.6 (81-99) fL MCH 31.6 (28.0-34.0) pg MCHC 33.7 (30.0-36.0) g/dL RDW 12.2 (12.1-15.1) % Plt Count 541 H (130-400) 10^3/c mm MPV 9.0 (7.4-10.4) fL Neut % (Auto) 73.6 % Lymph % (Auto) 13.7 % [place] % (Auto) 10.2 % Eos % (Auto) 0.8 % Baso % (Auto) 1.3 % Neut # (Auto) 5.48 (1.8-7.7) 10^3/u L Lymph # (Auto) 1.0 (0.8-4.8) 10^3/u L [place] # (Auto) 0.8 (0.2-0.9) 10^3/u L Eos # (Auto) 0.1 (0.0-0.8) 10^3/u L Baso # (Auto) 0.1 (0.0-0.1) 10^3/u L Nucleated RBC % (a uto) 0 % Nucleated RBCs # 0.0 /100WBC Sodium 125 L (136-145) mmol/L Potassium 4.3 (3.5-5.1) mmol/L Chloride 90 L (98-107) mmol/L Carbon Dioxide 27 (22-29) mmol/L Anion Gap 12.3 (5-19) BUN 7 (6-20) mg/dL Creatinine 0.3 L (0.5-0.9) mg/dL GFR Calculation 230.1 H (90-130) mL/min Glucose 95 (65-115) mg/dL Calculated Osmolal ity 258 L (285-295) mOsm/k g Lactic Acid (0.5-2.2) mmol/L Calcium 9.2 (8.5-10.5) mg/dL Magnesium (1.7-2.3) mg/dL Total Bilirubin 8.3 H* (0.15-1.2) mg/dL AST 221 H (0-32) U/L ALT 482 H (0-33) U/L Alkaline Phosphata se 1187 H* (35-105) IU/L Creatine Kinase (26-192) U/L Total Protein 7.1 (6.6-8.7) g/dL Albumin 3.7 (3.5-5.2) g/dL Globulin 3.4 (1.3-4.6) g/dL Lipase 210 H (13-60) U/L Urine Color (Yellow) Urine Appearance (CLEAR) Urine pH (5-7) Ur Specific Gravit y (1.005-1.030) Urine Protein (Negative) Urine Glucose (UA) (Normal) Urine Ketones (Negative) Urine Blood (Negative) Urine Nitrate (Negative) Urine Bilirubin (Negative) Urine Urobilinogen (Negative) mg/dL Ur Leukocyte Yajaira ase (Negative) Urine RBC (0-2) /hpf Urine WBC (0-5) /hpf Ur Squamous Epith Cells (0-5) /hpf Amorphous Sediment Urine Bacteria (NONE) /hpf Urine Mucus /hpf Serum Ketones (Negative) SARS-CoV-2 Ag (Rap id) (Negative) Discharge Plan Discharge Patient Disposition: Cancer/Child Hosp w Plan Readm Prescriptions: No Action No Known Home Medications RF: 0 Referrals: Chava Houston DO [Primary Care Provider] - Coding Level of Care Code ED [employer] Sales Agent for Chg Fwd Exam Comprehensive Documented by User: Ellie Encarnacion MD 01/24/21 19:46 HPI - Recheck/Abnormal Lab/Rx General: Chief Complaint: Recheck/Abnormal Lab/Rx Stated Complaint: BLOOD WORK, WAS TOLD TO COME BACK TO ER Time Seen by Provider: 01/24/21 10:57 PFSH ED PFSH: Social History Smoking and tobacco status: former smoker Alcohol intake: current Alcohol intake frequency: holidays/special occasions only Course ED course: I received signout on this patient at [address] Dubon. She has a new diagnosis of widely metastatic cancer and biliary obstruction, is awaiting transfer to [facility] for MRCP. Lab work reviewed, vital signs reviewed. Received update from [facility] that no beds will be available tonight, hopefully tomorrow after discharges. Went to speak with the patient and her friend to let her know of this development. She is agreeable to staying overnight. Her only pain at this time is her tailbone and buttocks area. On exam there is erythema but no skin breakdown or sores. We will try to switch her bed out for a regular hospital bed to make her more comfortable. She can start a clear liquid diet up until midnight, after which she should be n.p.o. unless we are informed of any further delay. 0.5 mg Ativan IV x1 to help her rest. Vital Signs: Vital signs: Vital Signs Temperature 97.3 F L 01/24/21 10:03 Pulse Rate 90 01/25/21 17:14 Respiratory Rate 20 H 01/25/21 17:14 Blood Pressure 165/94 01/25/21 17:14 Pulse Oximetry 97 01/25/21 17:14 MDM - Recheck/Abnormal Lab/Rx Lab Data: Labs: Lab Results 01/24/21 01/24/21 01/24/21 Range/Units 11:50 11:50 11:50 WBC 8.7 (4.0-10.0) 10^3/ uL RBC 4.70 (4.1-5.3) 10^6/u L Hgb 14.7 (11.5-15.3) g/dL Hct 44.1 (37.0-47.0) % MCV 93.8 (81-99) fL MCH 31.3 (28.0-34.0) pg MCHC 33.3 (30.0-36.0) g/dL RDW 12.1 (12.1-15.1) % Plt Count 561 H (130-400) 10^3/c mm MPV 8.9 (7.4-10.4) fL Neut % (Auto) 78.5 % Lymph % (Auto) 10.8 % [place] % (Auto) 8.9 % Eos % (Auto) 0.3 % Baso % (Auto) 1.0 % Neut # (Auto) 6.83 (1.8-7.7) 10^3/u L Lymph # (Auto) 0.9 (0.8-4.8) 10^3/u L [place] # (Auto) 0.8 (0.2-0.9) 10^3/u L Eos # (Auto) 0.0 (0.0-0.8) 10^3/u L Baso # (Auto) 0.1 (0.0-0.1) 10^3/u L Nucleated RBC % (a uto) 0 % Nucleated RBCs # 0.0 /100WBC Sodium 128 L (136-145) mmol/L Potassium 4.2 (3.5-5.1) mmol/L Chloride 92 L (98-107) mmol/L Carbon Dioxide 24 (22-29) mmol/L Anion Gap 16.2 (5-19) BUN 9 (6-20) mg/dL Creatinine 0.3 L (0.5-0.9) mg/dL GFR Calculation 230.1 H (90-130) mL/min Glucose 103 (65-115) mg/dL Calculated Osmolal ity 265 L (285-295) mOsm/k g Lactic Acid 1.1 (0.5-2.2) mmol/L Calcium 9.6 (8.5-10.5) mg/dL Magnesium 2.2 (1.7-2.3) mg/dL Total Bilirubin 7.7 H* (0.15-1.2) mg/dL AST 259 H (0-32) U/L ALT 561 H (0-33) U/L Alkaline Phosphata se 1436 H* (35-105) IU/L Creatine Kinase 39 (26-192) U/L Total Protein 7.6 (6.6-8.7) g/dL Albumin 3.8 (3.5-5.2) g/dL Globulin 3.8 (1.3-4.6) g/dL Lipase 238 H (13-60) U/L Urine Color (Yellow) Urine Appearance (CLEAR) Urine pH (5-7) Ur Specific Gravit y (1.005-1.030) Urine Protein (Negative) Urine Glucose (UA) (Normal) Urine Ketones (Negative) Urine Blood (Negative) Urine Nitrate (Negative) Urine Bilirubin (Negative) Urine Urobilinogen (Negative) mg/dL Ur Leukocyte Yajaira ase (Negative) Urine RBC (0-2) /hpf Urine WBC (0-5) /hpf Ur Squamous Epith Cells (0-5) /hpf Amorphous Sediment Urine Bacteria (NONE) /hpf Urine Mucus /hpf Serum Ketones (Negative) SARS-CoV-2 Ag (Rap id) (Negative) 01/24/21 01/24/21 01/24/21 Range/Units 11:50 12:08 14:00 WBC (4.0-10.0) 10^3/ uL RBC (4.1-5.3) 10^6/u L Hgb (11.5-15.3) g/dL Hct (37.0-47.0) % MCV (81-99) fL MCH (28.0-34.0) pg MCHC (30.0-36.0) g/dL RDW (12.1-15.1) % Plt Count (130-400) 10^3/c mm MPV (7.4-10.4) fL Neut % (Auto) % Lymph % (Auto) % [place] % (Auto) % Eos % (Auto) % Baso % (Auto) % Neut # (Auto) (1.8-7.7) 10^3/u L Lymph # (Auto) (0.8-4.8) 10^3/u L [place] # (Auto) (0.2-0.9) 10^3/u L Eos # (Auto) (0.0-0.8) 10^3/u L Baso # (Auto) (0.0-0.1) 10^3/u L Nucleated RBC % (a uto) % Nucleated RBCs # /100WBC Sodium (136-145) mmol/L Potassium (3.5-5.1) mmol/L Chloride (98-107) mmol/L Carbon Dioxide (22-29) mmol/L Anion Gap (5-19) BUN (6-20) mg/dL Creatinine (0.5-0.9) mg/dL GFR Calculation (90-130) mL/min Glucose (65-115) mg/dL Calculated Osmolal ity (285-295) mOsm/k g Lactic Acid (0.5-2.2) mmol/L Calcium (8.5-10.5) mg/dL Magnesium (1.7-2.3) mg/dL Total Bilirubin (0.15-1.2) mg/dL AST (0-32) U/L ALT (0-33) U/L Alkaline Phosphata se (35-105) IU/L Creatine Kinase (26-192) U/L Total Protein (6.6-8.7) g/dL Albumin (3.5-5.2) g/dL Globulin (1.3-4.6) g/dL Lipase (13-60) U/L Urine Color [place] (Yellow) Urine Appearance Cloudy (CLEAR) Urine pH 6.5 (5-7) Ur Specific Gravit y 1.020 (1.005-1.030) Urine Protein 1+ H (Negative) Urine Glucose (UA) Norm (Normal) Urine Ketones Negative (Negative) Urine Blood Neg (Negative) Urine Nitrate Negative (Negative) Urine Bilirubin 3+ H (Negative) Urine Urobilinogen 4 H (Negative) mg/dL Ur Leukocyte Yajaira ase Trace H (Negative) Urine RBC 0-4 H (0-2) /hpf Urine WBC 5-10 H (0-5) /hpf Ur Squamous Epith Cells 15-25 H (0-5) /hpf Amorphous Sediment Not Reportable Urine Bacteria 2+ H (NONE) /hpf Urine Mucus 2+ /hpf Serum Ketones Negative (Negative) SARS-CoV-2 Ag (Rap id) Negative (Negative) 01/25/21 01/25/21 Range/Units 15:10 15:10 WBC 7.5 (4.0-10.0) 10^3/ uL RBC 4.40 (4.1-5.3) 10^6/u L Hgb 13.9 (11.5-15.3) g/dL Hct 41.2 (37.0-47.0) % MCV 93.6 (81-99) fL MCH 31.6 (28.0-34.0) pg MCHC 33.7 (30.0-36.0) g/dL RDW 12.2 (12.1-15.1) % Plt Count 541 H (130-400) 10^3/c mm MPV 9.0 (7.4-10.4) fL Neut % (Auto) 73.6 % Lymph % (Auto) 13.7 % [place] % (Auto) 10.2 % Eos % (Auto) 0.8 % Baso % (Auto) 1.3 % Neut # (Auto) 5.48 (1.8-7.7) 10^3/u L Lymph # (Auto) 1.0 (0.8-4.8) 10^3/u L [place] # (Auto) 0.8 (0.2-0.9) 10^3/u L Eos # (Auto) 0.1 (0.0-0.8) 10^3/u L Baso # (Auto) 0.1 (0.0-0.1) 10^3/u L Nucleated RBC % (a uto) 0 % Nucleated RBCs # 0.0 /100WBC Sodium 125 L (136-145) mmol/L Potassium 4.3 (3.5-5.1) mmol/L Chloride 90 L (98-107) mmol/L Carbon Dioxide 27 (22-29) mmol/L Anion Gap 12.3 (5-19) BUN 7 (6-20) mg/dL Creatinine 0.3 L (0.5-0.9) mg/dL GFR Calculation 230.1 H (90-130) mL/min Glucose 95 (65-115) mg/dL Calculated Osmolal ity 258 L (285-295) mOsm/k g Lactic Acid (0.5-2.2) mmol/L Calcium 9.2 (8.5-10.5) mg/dL Magnesium (1.7-2.3) mg/dL Total Bilirubin 8.3 H* (0.15-1.2) mg/dL AST 221 H (0-32) U/L ALT 482 H (0-33) U/L Alkaline Phosphata se 1187 H* (35-105) IU/L Creatine Kinase (26-192) U/L Total Protein 7.1 (6.6-8.7) g/dL Albumin 3.7 (3.5-5.2) g/dL Globulin 3.4 (1.3-4.6) g/dL Lipase 210 H (13-60) U/L Urine Color (Yellow) Urine Appearance (CLEAR) Urine pH (5-7) Ur Specific Gravit y (1.005-1.030) Urine Protein (Negative) Urine Glucose (UA) (Normal) Urine Ketones (Negative) Urine Blood (Negative) Urine Nitrate (Negative) Urine Bilirubin (Negative) Urine Urobilinogen (Negative) mg/dL Ur Leukocyte Yajaira ase (Negative) Urine RBC (0-2) /hpf Urine WBC (0-5) /hpf Ur Squamous Epith Cells (0-5) /hpf Amorphous Sediment Urine Bacteria (NONE) /hpf Urine Mucus /hpf Serum Ketones (Negative) SARS-CoV-2 Ag (Rap id) (Negative) Discharge Plan Discharge Patient Disposition: Cancer/Child Hosp w Plan Readm Prescriptions: No Action No Known Home Medications RF: 0 Referrals: Chava Houston DO [Primary Care Provider] - Coding Level of Care Code ED [employer] Sales Agent for Chg Fwd Exam Comprehensive
[2021-01-24 12:26] LABS: Alanine Aminotransferase 561 U/L (0-33); Albumin Level 3.8 g/dL (3.5-5.2); Anion Gap 16.2 (5-19); Aspartate Amino Transferase 259 U/L (0-32); Blood Urea Nitrogen 9 mg/dL (6-20); Calcium 9.6 mg/dL (8.5-10.5); Carbon Dioxide 24 mmol/L (22-29); Chloride 92 mmol/L (98-107); Creatine Phosphokinase 39 U/L (26-192); Globulin 3.8 g/dL (1.3-4.6); Glomerular Filtration Rate 230.1 mL/min (90-130); Glucose 103 mg/dL (65-115); Lipase 238 U/L (13-60); Magnesium 2.2 mg/dL (1.7-2.3); Osmolality Calculated 265 mOsm/kg (285-295); Potassium 4.2 mmol/L (3.5-5.1); Sodium 128 mmol/L (136-145); Total Protein 7.6 g/dL (6.6-8.7)
[2021-01-24 12:28] LABS: Lactic Sepsis W/Reflex 1.1 mmol/L (0.5-2.2)
[2021-01-24 12:34] LABS: Total Bilirubin 7.7 mg/dL (0.15-1.2)
[2021-01-24 12:52] LABS: Alkaline Phosphatase 1436 IU/L (35-105)
[2021-01-24 12:56] LABS: Add Urine Microscopic? YES; Bilirubin Urine 3+ (Negative); Blood Urine Neg (Negative); Glucose Urine UA Norm (Normal); Ketones Urine Negative (Negative); Leukocyte Esterase Urine Trace (Negative); Nitrate Urine Negative (Negative); Protein Urine 1+ (Negative); Urine Appearance Cloudy (CLEAR); Urine Color Amber (Yellow); Urobilinogen Urine 4 mg/dL (Negative); pH Urine 6.5 (5-7)
[2021-01-24 12:57] LABS: RBC Urine 0-4 /hpf (0-2)
[2021-01-24 12:58] LABS: Bacteria Urine 2+ /hpf; Squamous Epithelial Cell Urine 15-25 /hpf (0-5)
[2021-01-24 12:59] LABS: Add Urine Culture? No; Mucus Urine 2+ /hpf
[2021-01-24 13:55] VITALS: BP 154/97; PULSE 102; RESP 19; O2SAT 98
[2021-01-24 15:28] LABS: SARS Covid-2 Antigen Negative (Negative)
[2021-01-24 17:06] VITALS: BP 157/112; PULSE 98; RESP 23; O2SAT 98
--- NOTE | 2021-01-24 19:00 | PC.NURSE ---
updated from [facility] and was told that bed will likely not be available until tomorrow. Dr. Encarnacion (ED physician) went into Pt's room to speak with Pt and update her on plan of care. Pt verbalized understanding. maintenance supervisor 2nd shift nurse states she will get pt a hospital bed for comfort and allow her to eat up until midnight tonight.
[2021-01-24 19:25] VITALS: BP 179/108; PULSE 98; RESP 18; O2SAT 99
[2021-01-25] VITALS (7 sets, daily range): BP systolic 157–169; BP diastolic 89–102; PULSE 86–99; RESP 18–20; O2SAT 96–99
--- NOTE | 2021-01-25 14:26 | PC.NURSE ---
ED physician in room to continue to update pt and her family. Pt and family verbalized understanding.
[2021-01-25] MEDS: D5-NS 0.45% + KCL 20 mEq 20 MEQ/1,000 ML BAG 125 MEQ IV (15:00)
[2021-01-25 15:23] LABS: Basophils # 0.1 10^3/uL (0.0-0.1); Basophils % 1.3 %; Eosinophils # 0.1 10^3/uL (0.0-0.8); Eosinophils % 0.8 %; Hematocrit 41.2 % (37.0-47.0); Hemoglobin 13.9 g/dL (11.5-15.3); Lymphocytes % 13.7 %; Mean Corpuscular HGB Conc 33.7 g/dL (30.0-36.0); Mean Corpuscular Hemoglobin 31.6 pg (28.0-34.0); Mean Corpuscular Volume 93.6 fL (81-99); Monocytes # 0.8 10^3/uL (0.2-0.9); Monocytes % 10.2 %; Neutrophils # 5.48 10^3/uL (1.8-7.7); Neutrophils % 73.6 %; Nucleated Red Blood Cells % 0 %; Platelet Count 541 10^3/cmm (130-400); Red Cell Distribution Width 12.2 % (12.1-15.1); White Blood Count 7.5 10^3/uL (4.0-10.0)
[2021-01-25 15:42] LABS: Alanine Aminotransferase 482 U/L (0-33); Albumin Level 3.7 g/dL (3.5-5.2); Anion Gap 12.3 (5-19); Aspartate Amino Transferase 221 U/L (0-32); Blood Urea Nitrogen 7 mg/dL (6-20); Calcium 9.2 mg/dL (8.5-10.5); Carbon Dioxide 27 mmol/L (22-29); Chloride 90 mmol/L (98-107); Globulin 3.4 g/dL (1.3-4.6); Glomerular Filtration Rate 230.1 mL/min (90-130); Glucose 95 mg/dL (65-115); Lipase 210 U/L (13-60); Osmolality Calculated 258 mOsm/kg (285-295); Potassium 4.3 mmol/L (3.5-5.1); Sodium 125 mmol/L (136-145); Total Protein 7.1 g/dL (6.6-8.7)
[2021-01-25 15:51] LABS: Total Bilirubin 8.3 mg/dL (0.15-1.2)
[2021-01-25 15:52] LABS: Alkaline Phosphatase 1187 IU/L (35-105)
== END 2021-01-25 18:00 | disposition designated cancer center or children's hospital, planned readmission (85) ==
PROVIDERS: Emergency Medicine; Emergency Provider Family Medicine; PCP Family Medicine
DX: C80.1 Malignant (primary) neoplasm, unspecified (principal); K83.1 Obstruction of bile duct; Z87.891 Personal history of nicotine dependence
CPT/HCPCS: 80053; 81001; 82009; 82550; 83605; 83690; 83735; 85025; 87426; 96365; 96366; 96375; 99284; J7040

== ENCOUNTER 2021-02-21 09:43 | Outpatient (CLI) | payer SELFPAY ==
[2021-02-21 13:19] LABS: Basophils % 0.7 %; Eosinophils # 0.1 10^3/uL (0.0-0.8); Eosinophils % 2.2 %; Hematocrit 34.6 % (37.0-47.0); Hemoglobin 11.4 g/dL (11.5-15.3); Lymphocytes # 0.7 10^3/uL (0.8-4.8); Lymphocytes % 25.8 %; Mean Corpuscular HGB Conc 32.9 g/dL (30.0-36.0); Mean Corpuscular Hemoglobin 31.2 pg (28.0-34.0); Mean Corpuscular Volume 94.8 fL (81-99); Mean Platelet Volume 8.4 fL (7.4-10.4); Monocytes # 0.5 10^3/uL (0.2-0.9); Monocytes % 19.6 %; Neutrophils # 1.41 10^3/uL (1.8-7.7); Neutrophils % 51.3 %; Nucleated Red Blood Cells % 0 %; Platelet Count 500 10^3/cmm (130-400); Red Blood Count 3.65 10^6/uL (4.1-5.3); Red Cell Distribution Width 12.9 % (12.1-15.1); White Blood Count 2.8 10^3/uL (4.0-10.0)
[2021-02-21 13:36] LABS: Alanine Aminotransferase 41 U/L (0-33); Albumin Level 3.9 g/dL (3.5-5.2); Alkaline Phosphatase 231 IU/L (35-105); Aspartate Amino Transferase 16 U/L (0-32); Blood Urea Nitrogen 9 mg/dL (6-20); Calcium 9.1 mg/dL (8.5-10.5); Carbon Dioxide 28 mmol/L (22-29); Chloride 95 mmol/L (98-107); Glomerular Filtration Rate 165.1 mL/min (90-130); Glucose 106 mg/dL (65-115); Osmolality Calculated 271 mOsm/kg (285-295); Sodium 131 mmol/L (136-145); Total Bilirubin 0.7 mg/dL (0.15-1.2); Total Protein 6.9 g/dL (6.6-8.7)
--- NOTE | 2021-02-21 17:01 | ONC CON_ITS ---
Dr. Chapman New Patient Note Patient: Melany Mcgill Unit #: [id number]: 1965 Dicatated By: Stephanie Chapman M.D.Date of Visit: Feb 21, 2021 Onc MED New Patient/Consult Referring Physician: [facility] History of Present Illness: Ms. Melany Ram, is a 55-year-old female with 1 month history of right neck mass which was nontender,, 30 to 40 pounds weight loss, jaundice, and also complaining of right lower extremity weakness/numbness for which she was seeing a chiropractor without much relief, eventually, on January 23, 2021 she presented to [facility] and her bilirubin level was 7.2, alk phos was 1181, AST 287, ALT 5.63, hepatitis panel was negative, CT neck showed large confluent enhancing mass in the right neck which was 11.5 x 6.4 cm with occlusion of right jugular vein and invading her right SCM muscle consistent with LAD with additional lymph nodes in the right cervical chain, right supraclavicular and upper mediastinum favored to be metastatic versus lymphoma, CT scan of chest abdomen pelvis showed severe adenopathy in the chest with LAD as noted above and also distal thoracic aorta, pericardiac, pulmonary mass versus adenopathy extending along bronchovascular structure of left lower lobe and along the pleura, mass encases and partially obstruct the left lower lobe bronchi, marked intrahepatic and extrahepatic biliary dilation secondary to pancreatic head mass measuring 2.9 x 3.5 cm, mets in the liver, bilateral adrenal glands., Patient was transferred to [facility] for biliary stent and malignancy work-up, Where she underwent MRI brain which showed brain mets, ultrasound guided biopsy of right neck mass done on January 26, 2021 was consistent with small cell carcinoma, biopsy of pancreatic head mass was also obtained which was consistent with small cell carcinoma as well. 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 Denies any abdominal pain no jaundice denies any hemoptysis or hematemesis denies any shortness of breath, right leg weakness is also improving., Patient has decided to pursue further chemotherapy in [place] Past Medical History: There is no documented medical history. Past Surgical History: Ms. Mcgill's surgical/procedural history consists of tonsillectomy in 1969. Medications: guaiFENesin-Codeine 5 mL (of 100-10 mg/5mL) Solution Oral PRN, Ibuprofen 1 Caplet (of 200 mg) Capsule Oral PRN Allergies: No Known Allergies. Social History: Ms. Mcgill is single. She quit smoking 1 year ago but had smoked 3.0 packs/day for 30 years. She drinks occasionally. Family History: Ms. Mcgill's mother at age 85: lymphoma. Ms. Mcgill's father at age 62: lymphoma. Ms. Mcgill has 1 brother who is : chronic kidney disease. Review Of Symptoms: Review of Systems is not available for this patient. Vital Signs: Performed on Feb 21, 2021 11:14: 9, 0, 19.52, 1.73 sq.m, 69 in, 99 %, 99 /min, 18 /min, 116/73 mm(hg), 98.3 F (LOW), and 132.2 lbs (HIGH). Performance Status: 2 - Ambulatory/capable of all self-care, unable to perform any work activities. Up and about more than 50% of waking hours. (ECOG) Physical Examination: ENMT - No mouth sores, no thrush, no jaundice, Respiratory - Lungs are clear to auscultation, Cardiovascular - Regular rate and rhythm of heart, Abdomen - Soft, bowel sounds present, Extremities - No visible edema. Lab/Imaging: Test performed on Feb 21, 2021 13:09 Creatinine 0.3 mg/dL Cr Clearance (Est) 198.22 mL/min Impression: Metastatic small cell lung cancer, per right neck mass biopsy done on January 26, 2021 biopsy-proven pancreatic head mass done on January 27, 2021, CT scan of the chest abdomen pelvis done on January 23 2021 showed extensive disease involving right neck mass 11.5 x 6.4 cm with occlusion of right jugular vein and invading right SCM muscle with additional lymph nodes in the right cervical chain, right supraclavicular upper mediastinum. And extensive lymphadenopathy in the chest also noted in thoracic aorta, pericardiac, pulmonary mass extending along bronchovascular structures of left lower lobe and along the pleura, mass encases and partially obstruct left lower lobe bronchi, marked intrahepatic and extrahepatic biliary dilation secondary to pancreatic head mass measuring 2.9 x 3.5 cm, liver mets, bilateral adrenal mets. Status post CBD stenting done on January 27, 2021, with improvement in jaundice as well as LFTs Started on systemic chemotherapy with carboplatin/etoposide on February 01, 2021 MRI scan of the brain showed brain mets status post radiation therapy completed on February 17, 2021 Plan: Discussed with patient regarding her disease status and treatment options, patient has received 1 cycle of chemotherapy with carboplatin/etoposide at [place] on February 01, 2021, for extensive disease involving the brain as well as liver, pancreas and bilateral adrenal glands, she tolerated her systemic chemotherapy well and she also received 10 days course of radiation therapy to the brain for brain mets. Due to inconvenience of traveling back and forth to [place], patient has decided to pursue further treatment here in [place] We will repeat her CBC CMP today to ensure blood count recovery and then consider second cycle of chemotherapy with carboplatin/etoposide, will also discuss about adding immunotherapy/Tecentriq and consider Port-A-Cath placement , CBC done today shows white blood count 2.8 hemoglobin 11.4 hematocrit 34.6 platelets 500,000 ANC 1410 CMP sodium 131 otherwise within normal range, we will repeat her CBC on Diego if it shows resolution of leukopenia/neutropenia, will start her on second cycle of chemotherapy with carboplatin/etoposide and will also ask patient navigator to seek drug assistance program for immunotherapy/Tecentriq Patient will return to clinic 1 week after her second cycle of chemotherapy with CBC CMP Signed By: Stephanie Chapman M.D. <<Signature on File>>
== END 2021-02-21 09:44 | disposition home or self-care (01) ==
PROVIDERS: PCP Internal Medicine; Visit Provider Internal Medicine Hematology & Oncology
DX: C25.0 Malignant neoplasm of head of pancreas (principal); C78.02 Secondary malignant neoplasm of left lung; C77.8 Secondary and unspecified malignant neoplasm of lymph nodes of multiple regions; C79.72 Secondary malignant neoplasm of left adrenal gland; C79.71 Secondary malignant neoplasm of right adrenal gland; C79.31 Secondary malignant neoplasm of brain; Z92.21 Personal history of antineoplastic chemotherapy; Z79.899 Other long term (current) drug therapy
CPT/HCPCS: 36415; 80053; 85025; 99205

== ENCOUNTER 2021-02-27 06:08 | Outpatient (CLI) | payer SELFPAY ==
[2021-02-27 10:49] LABS: Basophils # 0.1 10^3/uL (0.0-0.1); Basophils % 0.9 %; Eosinophils # 0.1 10^3/uL (0.0-0.8); Eosinophils % 0.7 %; Hematocrit 36.8 % (37.0-47.0); Hemoglobin 12.2 g/dL (11.5-15.3); Lymphocytes # 1.1 10^3/uL (0.8-4.8); Mean Corpuscular HGB Conc 33.2 g/dL (30.0-36.0); Mean Corpuscular Hemoglobin 31.7 pg (28.0-34.0); Mean Corpuscular Volume 95.6 fL (81-99); Mean Platelet Volume 8.1 fL (7.4-10.4); Monocytes # 0.9 10^3/uL (0.2-0.9); Monocytes % 10.1 %; Neutrophils # 6.94 10^3/uL (1.8-7.7); Nucleated Red Blood Cells % 0 %; Platelet Count 514 10^3/cmm (130-400); Red Blood Count 3.85 10^6/uL (4.1-5.3); Red Cell Distribution Width 13.3 % (12.1-15.1); White Blood Count 9.1 10^3/uL (4.0-10.0)
[2021-02-27 13:35] LABS: Alanine Aminotransferase 24 U/L (0-33); Albumin Level 3.5 g/dL (3.5-5.2); Alkaline Phosphatase 169 IU/L (35-105); Anion Gap 15.7 (5-19); Aspartate Amino Transferase 18 U/L (0-32); Blood Urea Nitrogen 11 mg/dL (6-20); Calcium 9.3 mg/dL (8.5-10.5); Carbon Dioxide 22 mmol/L (22-29); Chloride 99 mmol/L (98-107); Globulin 3.2 g/dL (1.3-4.6); Glomerular Filtration Rate 165.1 mL/min (90-130); Glucose 99 mg/dL (65-115); Osmolality Calculated 273 mOsm/kg (285-295); Potassium 4.7 mmol/L (3.5-5.1); Sodium 132 mmol/L (136-145); Total Bilirubin 0.6 mg/dL (0.15-1.2); Total Protein 6.7 g/dL (6.6-8.7)
[2021-02-27] MEDS: sodium chloride 0.9% 250 ML IV (14:13)
[2021-02-27] MEDS: ondansetron 2 mg/ML SDV 2 mL 8 MG IVP (14:13)
== END 2021-02-27 06:09 | disposition home or self-care (01) ==
LOC: ONCMED 06:09
PROVIDERS: PCP Internal Medicine; Visit Provider Internal Medicine Hematology & Oncology
DX: Z51.11 Encounter for antineoplastic chemotherapy (principal); C34.32 Malignant neoplasm of lower lobe, left bronchus or lung; Z79.899 Other long term (current) drug therapy
CPT/HCPCS: 80053; 85025; 96367; 96413; 96417; J1100; J2405; J7040; J7050; J9045; J9181

== ENCOUNTER 2021-03-01 07:18 | Outpatient (RCR) | payer SELFPAY ==
[2021-02-28] MEDS: ondansetron 2 mg/ML SDV 2 mL 8 MG IVP (11:08)
[2021-02-28] MEDS: sodium chloride 0.9% 250 ML IV (11:08)
[2021-02-28] MEDS: acetaminophen 650 mg/20.3 mL UDC PO (11:55)
[2021-03-01] MEDS: sodium chloride 0.9% 250 ML IV (10:35)
[2021-03-01] MEDS: palonosetron 0.25 mg/5 mL SDV IVP (10:39)
== END 2021-03-03 23:59 | disposition home or self-care (01) ==
LOC: ONCMED 07:18
PROVIDERS: PCP Internal Medicine; Visit Provider Internal Medicine Hematology & Oncology
DX: Z51.11 Encounter for antineoplastic chemotherapy (principal); C34.32 Malignant neoplasm of lower lobe, left bronchus or lung
CPT/HCPCS: 96367; 96413; J1100; J2405; J2469; J7040; J7050; J9181

== ENCOUNTER 2021-03-20 08:42 | Day surgery (SDC) | payer MEDICAID, SELFPAY ==
[2021-03-17 16:13] VITALS: BMI 18.7
--- NOTE | 2021-03-20 | SCC_ITS ---
Procedure Done: 1-Right subclavian vein PowerPort placement 2-Fluoroscopic guidance done by me through the whole entire procedure 25.1 seconds of fluoroscopic guidance, for a cumulative dose of 1.85 mGy, was provided to Dr. Sherwood by the radiology department. C-arm images of the chest were saved for the patient's permanent record. [facility]
--- NOTE | 2021-03-20 08:51 | SC_ITS ---
WS: [id number] INTRAOPERATIVE TECHNIQUE: 3 Spot fluoroscopic images for intraoperative purposes. FLUOROSCOPY TIME: 25.1 seconds CLINICAL INFORMATION: Powerport Placement COMPARISON: None. FINDINGS: Right Port-A-Cath with tip in the proximal SVC. No visualized pneumothorax. SC/C-arm FL for CVA [id number] IMPRESSION: Images obtained for intraoperative purposes.
[2021-03-20 09:04] VITALS: BP 120/79; PULSE 97; RESP 18; TEMP 36.2; O2SAT 100
[2021-03-20] MEDS: sodium chloride 0.9% 1,000 ML 30 ML IV (09:24)
--- NOTE | 2021-03-20 10:02 | ANES.PREANE2 ---
Pre-Anesthetic Assessment Pre-Anesthetic Assessment: Height/Weight: Height 1.75 m Weight 57.606 kg Temp Pulse Resp BP Pulse Ox 97.2 F L 97 18 120/79 100 03/20/21 09:04 03/20/21 09:04 03/20/21 09:04 03/20/21 09:04 03/20/21 09:04 Preop Diagnosis: Metastatic lung cancer Proposed Procedure: Operation Date: 03/20/21 10:30 Proposed Procedures p Portacath Placement 15693 C34.90(Not Applicable) - Jamil Sherwood MD Was Beta Jasson taken within 24 hours: N/A Was Clonidine taken within 24 hours: N/A Last intake: Intake Last Liquid Date 03/19/21 Last Liquid Time 23:45 Last Solid Date 03/19/21 Last Solid Time 21:00 Social: Social History: Tobacco and No alcohol Exam: Pre-Anes Outpt Exam: alert, oriented x 3 and regular rate & rhythm Airway: Submandibular: WNL Cervical ROM: WNL MP: 2 Dentition: Full Pulmonary: Pulmonary: COPD Comments: Small cell CA Anesthetic Plan: ASA status: 3 Anesthesia: MAC Risk of > 500 ml blood loss (7ml/kg in children): No Meds/Allergies Current Medications: Current Medications Generic Name Dose Route Start Last Admin Trade Name Freq PRN Reason Stop Dose Admin Sodium Chloride 1,000 mls @ 30 ml s/hr 03/20/21 09:00 03/20/21 09:24 Sodium Chloride 0.9% IV 03/21/21 08:59 30 mls/hr .Q24H TANISHA Administration PFSH Anesthesia PFSH: Family History Mother Cancer Father Cancer Other CAD (coronary artery disease) Denies family history of Diabetes Hypertension Stroke Social History Smoking and tobacco status: former smoker Alcohol intake: current Alcohol intake frequency: holidays/special occasions only Data Anesthesia Cardiac Studies: No Data to Display
--- NOTE | 2021-03-20 11:24 | W.PM.OPSUD ---
Surgery/Procedure H&P Update DATE OF PROCEDURE: March 20, 2021 DATE H&P PERFORMED: 03/08/21 H&P UPDATE INFORMATION: I have reviewed H&P completed within last 30 days, I have examined patient prior to procedure and No changes to prior documentation PREOP DIAGNOSIS: Metastatic lung cancer PRIMARY INDICATION FOR PROCEDURE: The same PLANNED PROCEDURE: Operation Date: 03/20/21 10:30 Proposed Procedures p Portacath Placement 92910 C34.90(Not Applicable) - Jamil Sherwood MD
[2021-03-20] MEDS: lidocaine 2% INJ 20 mL INJECTION (12:14)
[2021-03-20] MEDS: heparin, porcine 1,000 unit/mL INJ 10 mL 9000 UNIT XX (12:18)
--- NOTE | 2021-03-20 12:35 | PM.OP ---
Operative Report Date of procedure: March 20, 2021 Pre-op Diagnosis: Metastatic lung cancer Post-op diagnosis: same Procedure Done: 1-Right subclavian vein PowerPort placement 2-Fluoroscopic guidance done by me through the whole entire procedure Implants: Right subclavian vein PowerPort Surgeon: Jamil Sherwood Substation Electrician Supervisor: technical inspector Tommy/Megan Circulating nurses Keena and Johnathon Anesthesia: MAC (Shakir Floyd) Estimated blood loss (mL): 5 Condition: stable Disposition: same day Brief History: Lung cancer with metastatic disease requiring PowerPort placement.Full H&P and informed consent per chart. Procedure: Patient was identified in the holding area and taken to the operative room and placed in supine position IV propofol was given by the anesthesia provider ,both arms were tucked,Time-out was done verifying the patient's name/date of /planned procedure and destination after the procedure, all were in agreement. SCDs confirmed to be functioning, preoperative antibiotics administered per protocol, and beta tammy protocol was confirmed, appropriate positioning of the patient was done by me. Medications were reviewed to assess for anticoagulant usage. Risks and benefits and prevention of central line associated blood stream infection (CLABSI) were discussed with the patient/CPOA, and a consent was obtained. Monitors were in place and monitored throughout the procedure. All necessary supplies were available prior to start. Hand hygiene was completed prior to starting. Maximum barrier technique was utilized including a sterile gown, sterile gloves with a hat and mask. Site was was prepped with [chlorhexidine] and a full body drape was placed. 5 mL of 2% lidocaine was injected into the skin with a 25 gauge needle. Prep& drape was done under the usual sterile technique, lidocaine 2% was injected at the site of the stick, started by right subclavian stick that retrieved venous blood was obtained from the first stick, a guidewire was then threaded and under the guidance of fluoroscopy position was confirmed to be in the IVC and my interpretation, there was no PVC changes, at that point the guidewire was secured to the drapes with a hemostat and the needle was taken out, attention was then deviated towards creation of a pocket for the port were lidocaine 2% was injected using an 15 blade knife skin incision was created dissection using the Bovie to create a pocket for the Port-A-Cath to be accommodated, hemostasis was secured, after the port being appropriately flushed it was inserted into the pocket and a tunneler was used to accommodate the catheter of the port cath to be delivered through the incision first created at the site of the stick, at that point under fluoroscopy an estimated length was measured for the catheter and was cut at the designed level, followed by that a dilator with the sheath introduced onto the guidewire the dilator and the wire were retrieved and the catheter of the port was introduced via the sheath where it was peeled off and the catheter maintained to be in the SVC that was confirmed with fluoroscopy, and the fluoroscopy interpretation was done by me throughout the entire procedure. The port was kept in its pocket, 4-0 Vicryl deep subdermal interrupted sutures, skin was then closed by 4-0 Monocryl as subcuticular closure. The stick site was closed by 4-0 Monocryl and Dermabond was used followed by dressing. Patient tolerated the procedure well was taken to the recovery area Count was correct at the end of the procedure I was present for the whole entire procedure. Position of the catheter was checked with a postoperative chest x-ray and it was in good position without evidence of pneumothorax
--- NOTE | 2021-03-20 12:37 | XRR_ITS ---
PROCEDURE INFORMATION: Exam: XR Chest Exam date and time: 03/20/2021 12:38 PM Age: 55 years old Clinical indication: Other vascular access device placement or adjustment; Patient HX: Power port placement; Additional info: Status post right subclavian vein TECHNIQUE: Imaging protocol: XR of the chest. Views: 1 view. COMPARISON: CT chest abd pel w con* 01/23/2021 3:24 PM FINDINGS: Tubes, catheters and devices: Right central venous catheter tip in the superior vena cava. Common bile duct stent. Lungs: Minimal left lower lung opacity. Pleural spaces: Minimal left costophrenic angle blunting. No pneumothorax. Heart/Mediastinum: No cardiomegaly. Bones/joints: No acute findings. XR/XR chest 1V portable [id number] IMPRESSION: Right central venous catheter tip in the superior vena cava. Minimal left lower lung atelectasis versus pneumonia, possible small left pleural effusion.
[2021-03-20 12:42] VITALS: BP 114/73; PULSE 88; RESP 18; TEMP 36.2; O2SAT 100
[2021-03-20 12:45] VITALS: BP 115/74; PULSE 85; RESP 16; TEMP 36.2; O2SAT 100
[2021-03-20 13:00] VITALS: BP 143/99; PULSE 95; RESP 18; TEMP 37.1; O2SAT 100
--- NOTE | 2021-03-20 13:07 | SUR.PHASEII ---
Patient complaining of H/A . Will give pain med as ordered.
[2021-03-20 13:14] VITALS: BP 135/94; PULSE 96; RESP 18; O2SAT 100
[2021-03-20] MEDS: HYDROcodone-acetaminophen 5-325 mg Tablet 1 TAB PO (13:19)
--- NOTE | 2021-03-20 14:57 | ANE.PACU2 ---
Inpatient post-anesthesia follow up: Airway intact: Yes Vital signs: Temperature 98.7 F Pulse Rate 96 Respiratory Rate 18 Blood Pressure 135/94 Pulse Oximetry 100 Oxygen Delivery Me thod Room Air Oxygen Flow Rate Fraction of Inspir ed Oxygen Hydration adequate: Yes Nausea and vomiting: No Pain level: 1 Mental status: Baseline
== END 2021-03-20 13:45 | disposition home or self-care (01) ==
PROVIDERS: PCP Internal Medicine; Visit Provider Surgery
PROC: (CPT 36561; principal; 2021-03-20 10:20)
DX: C34.90 Malignant neoplasm of unspecified part of unspecified bronchus or lung (principal); J44.9 Chronic obstructive pulmonary disease, unspecified; Z87.891 Personal history of nicotine dependence
CPT/HCPCS: 36561; 71045; 77001; C1788; J0690; J1644; J7030

== ENCOUNTER 2021-03-30 05:37 | Outpatient (RCR) | payer MEDICAID, SELFPAY ==
[2021-03-08 10:46] LABS: Basophils % 1.4 %; Eosinophils % 1.1 %; Hematocrit 31.6 % (37.0-47.0); Hemoglobin 10.2 g/dL (11.5-15.3); Lymphocytes % 33.5 %; Mean Corpuscular HGB Conc 32.3 g/dL (30.0-36.0); Mean Corpuscular Hemoglobin 31.2 pg (28.0-34.0); Mean Corpuscular Volume 96.6 fL (81-99); Mean Platelet Volume 8.8 fL (7.4-10.4); Monocytes # 0.2 10^3/uL (0.2-0.9); Monocytes % 6.7 %; Neutrophils # 1.62 10^3/uL (1.8-7.7); Neutrophils % 56.9 %; Nucleated Red Blood Cells % 0 %; Platelet Count 206 10^3/cmm (130-400); Red Blood Count 3.27 10^6/uL (4.1-5.3); White Blood Count 2.8 10^3/uL (4.0-10.0)
[2021-03-08 11:03] LABS: Alanine Aminotransferase 178 U/L (0-33); Alkaline Phosphatase 459 IU/L (35-105); Anion Gap 9.7 (5-19); Aspartate Amino Transferase 52 U/L (0-32); Blood Urea Nitrogen 13 mg/dL (6-20); Calcium 9.4 mg/dL (8.5-10.5); Carbon Dioxide 30 mmol/L (22-29); Chloride 95 mmol/L (98-107); Globulin 2.9 g/dL (1.3-4.6); Glomerular Filtration Rate 127.6 mL/min (90-130); Glucose 110 mg/dL (65-115); Osmolality Calculated 273 mOsm/kg (285-295); Potassium 3.7 mmol/L (3.5-5.1); Sodium 131 mmol/L (136-145); Total Bilirubin 1.2 mg/dL (0.15-1.2); Total Protein 6.9 g/dL (6.6-8.7)
[2021-03-08] MEDS: sodium chloride 0.9% 1,000 ML 999 ML IV (14:36)
[2021-03-14 14:07] LABS: Basophils % 0.6 %; Hemoglobin 9.9 g/dL (11.5-15.3); Lymphocytes # 0.9 10^3/uL (0.8-4.8); Lymphocytes % 56.9 %; Mean Corpuscular Hemoglobin 31.7 pg (28.0-34.0); Mean Corpuscular Volume 96.2 fL (81-99); Mean Platelet Volume 9.2 fL (7.4-10.4); Monocytes # 0.3 10^3/uL (0.2-0.9); Monocytes % 18.1 %; Neutrophils % 24.4 %; Nucleated Red Blood Cells % 0 %; Platelet Count 259 10^3/cmm (130-400); Red Blood Count 3.12 10^6/uL (4.1-5.3); Red Cell Distribution Width 12.9 % (12.1-15.1); White Blood Count 1.6 10^3/uL (4.0-10.0)
[2021-03-14 14:31] LABS: Alanine Aminotransferase 69 U/L (0-33); Albumin Level 3.8 g/dL (3.5-5.2); Alkaline Phosphatase 250 IU/L (35-105); Anion Gap 12.2 (5-19); Aspartate Amino Transferase 25 U/L (0-32); Blood Urea Nitrogen 9 mg/dL (6-20); Carbon Dioxide 28 mmol/L (22-29); Chloride 97 mmol/L (98-107); Globulin 2.6 g/dL (1.3-4.6); Glomerular Filtration Rate 165.1 mL/min (90-130); Glucose 106 mg/dL (65-115); Osmolality Calculated 275 mOsm/kg (285-295); Potassium 4.2 mmol/L (3.5-5.1); Sodium 133 mmol/L (136-145); Thyroid Stimulating Hormone 1.73 uIU/mL (0.27-4.20); Total Bilirubin 0.6 mg/dL (0.15-1.2); Total Protein 6.4 g/dL (6.6-8.7)
[2021-03-14 14:58] LABS: Neutrophils # 0.39 10^3/uL (1.8-7.7); Slide Review Slide Review Perform
[2021-03-21 14:25] LABS: Basophils % 0.5 %; Hematocrit 29.5 % (37.0-47.0); Hemoglobin 9.7 g/dL (11.5-15.3); Lymphocytes # 1.1 10^3/uL (0.8-4.8); Lymphocytes % 29.8 %; Mean Corpuscular HGB Conc 32.9 g/dL (30.0-36.0); Mean Corpuscular Hemoglobin 31.6 pg (28.0-34.0); Mean Corpuscular Volume 96.1 fL (81-99); Mean Platelet Volume 8.4 fL (7.4-10.4); Monocytes # 0.8 10^3/uL (0.2-0.9); Monocytes % 21.8 %; Neutrophils # 1.72 10^3/uL (1.8-7.7); Neutrophils % 45.8 %; Nucleated Red Blood Cells % 0 %; Platelet Count 694 10^3/cmm (130-400); Red Blood Count 3.07 10^6/uL (4.1-5.3); Red Cell Distribution Width 14.6 % (12.1-15.1); White Blood Count 3.8 10^3/uL (4.0-10.0)
[2021-03-21 14:54] LABS: Alanine Aminotransferase 23 U/L (0-33); Albumin Level 3.6 g/dL (3.5-5.2); Alkaline Phosphatase 155 IU/L (35-105); Anion Gap 12.9 (5-19); Aspartate Amino Transferase 17 U/L (0-32); Blood Urea Nitrogen 8 mg/dL (6-20); Calcium 8.6 mg/dL (8.5-10.5); Carbon Dioxide 28 mmol/L (22-29); Chloride 97 mmol/L (98-107); Globulin 2.8 g/dL (1.3-4.6); Glomerular Filtration Rate 127.6 mL/min (90-130); Glucose 117 mg/dL (65-115); Osmolality Calculated 277 mOsm/kg (285-295); Potassium 3.9 mmol/L (3.5-5.1); Sodium 134 mmol/L (136-145); Total Bilirubin 0.4 mg/dL (0.15-1.2); Total Protein 6.4 g/dL (6.6-8.7)
--- NOTE | 2021-03-27 11:47 | ONC FU_ITS ---
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 Mcgill is a 55-year-old female with 1 month history of non tender right neck mass,30 to 40 pounds weight loss, jaundice, and right lower extremity weakness/numbness for which she was seeing a chiropractor without much relief. On January 23, 2021, she presented to [facility] ER and her bilirubin level was 7.2, alk phos was 1181, AST 287, ALT 563. Her hepatitis panel was negative. A CT of the neck with contrast showed large confluent enhancing mass in the right neck. It measeured 11.5 x 6.4 cm with occlusion of right jugular vein and invading her right SCM muscle. This was consistent with LAD with additional lymph nodes in the right cervical chain, right supraclavicular and upper mediastinum favored to be metastatic versus lymphoma. CT scan of chest abdomen pelvis with contrast showed severe adenopathy in the chest with LAD as noted above. It also reported distal thoracic, aorta, pericardiac, pulmonary mass versus adenopathy extending along bronchovascular structure of left lower lobe and along the pleura. The mass encased and partially obstructed the left lower lobe bronchus with marked intrahepatic and extrahepatic biliary dilation secondary to a pancreatic head mass measuring 2.9 x 3[address] also reported mets in the liver and bilateral adrenal glands. On January 25, 2021, she was transferred to [facility] for biliary stent and malignancy work-up. She underwent MRI brain which did show metastatic disease in the brain . An ultrasound guided biopsy of right neck mass done on January 26, 2021. This was consistent with small cell carcinoma. A biopsy of pancreatic head mass was also obtained which was consistent with small cell carcinoma as well. Ms Mcgill was started on systemic chemotherapy with carboplatin/etoposide on February 01, 2021. She tolerated first cycle of chemotherapy well. She was started on dexamethasone for brain mets and she was referred to radiation oncology for whole brain radiation therapy. She received 10 days of radiation therapy which she completed on February 17, 2021, Ms Mcgill underwent ERCP/EUS on January 27, 2021 for hyperbilirubinemia and elevated LFT. After stenting, her LFTs improved. 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 Her sodium was stable between 127-133 on discharge. Ms. Fay transferred her care to Dr. Chapman at [facility] [place] to be closer to home. She received her second dose of chemotherapy with carboplatin etoposide beginning on February 27, 2021. She tolerated it well. She presents today with mild chemotherapy-induced neutropenia with a day 8 ANC of 1620. She states overall she is feeling pretty good. Her energy is still marginal. Her appetite count of comes and goes but is okay for the most part . She is eating small amounts frequently throughout the day and tolerating this well. She denies any abdominal pain. She denies any fever or chills. She denies mouth sores, sore throat or difficulty swallowing. She has had some hair loss. She denies any mouth sores or sore throat. She had no trouble swallowing. She states the adenopathy is better overall. She denies any nausea or vomiting. She said no diarrhea or constipation. She denies any peripheral neuropathy. She still has some tingling and numbness but states it is overall much better than when she went to the ER on January 23, 2021. She states she is slowly feeling better. Her ECOG is 2. Past Medical History: Brain [id number]-Yitnfs in 2020 Past Surgical History: ERCP/EUS???[facility] in 2020 Fine-needle core biopsy pancreatic head mass???[facility] in 2020 Right neck lymph node core needle biopsy in 2020 Right neck, soft tissue core needle biopsy???[facility] in 2020 Tonsillectomy in 1970 Allergies: No Known Allergies. Medications: Acetaminophen 1 - 2 Tablet (of 325 mg) Oral daily PRN guaiFENesin-Codeine 5 mL (of 100-10 mg/5mL) Solution Oral PRN Ondansetron HCl 1 Tablet (of 4 mg) Oral q 4 hours PRN Family History: Ms. Mcgill's mother at age 85: lymphoma. Ms. Mcgill's father at age 62: lymphoma. Ms. Mcgill has 1 brother who is : chronic kidney disease. Social History: Ms. Mcgill is single. She quit smoking 1 year ago but had smoked 3.0 packs/day for 30 years. She drinks occasionally. Review Of Symptoms: <See Above> Vital Signs: Performed on March 08, 2021 13:21 Height - 69.00 in Weight - 124.6 lbs (LOW) BSA - 1.69 sq.m BMI - 18.40 Temperature - 97.0 F (LOW) Pulse - 80 /min Respiration - 17 /min BP - 87/59 mm(hg) (LOW) O2 Sat - 96 % Pain - 0,2 - Ambulatory/capable of all self-care, unable to perform any work activities. Up and about more than 50% of waking hours. (ECOG) Physical Examination: Constitutional Alert, oriented, no acute distress. Skin pink, warm and dry. Head Normocephalic; atraumatic. Eyes Conjunctivae and sclerae are clear and without icterus. Pupils are reactive and equal. ENMT No oral exudates, ulcers, masses, thrush or mucositis. Oropharynx clear. Tongue normal. Neck Supple without masses or thyromegaly. No jugular venous distension. Hematologic/Lymphatic No petechiae or purpura. No tender or palpable lymph nodes in the cervical or supraclavicular areas. Respiratory Lungs are clear to auscultation without rhonchi or wheezing. Cardiovascular Regular rate and rhythm of heart without murmurs,clicks, gallops or rubs. Abdomen Non-tender, non-distended, no masses or ascites. Good bowel sounds noted in all quads. No guarding or rebound tenderness. No pulsatile masses. Back/Spine Non-tender to palpation. Extremities No visible deformities, no cyanosis, clubbing or edema. Musculoskeletal No tenderness or swelling, normal range of motion without obvious weakness. Integumentary No rashes or lesions. Neurologic No sensory or motor deficits, normal cerebellar function, normal gait. Psychiatric Alert and oriented times three. Coherent speech. Verbalizes understanding of our discussions today. Laboratory:Test performed on March 08, 2021 10:31 Sodium 131 mmol/L Potassium 3.7 mmol/L Chloride 95 mmol/L CO2 30 mmol/L Anion Gap 9.7 BUN 13 mg/dL Creatinine 0.5 mg/dL Cr Clearance (Est) 118.9300 mL/min eGFR 127.6 mL/min Glucose 110 mg/dL Osmolality - Calculated 273 mOsm/kg Calcium 9.4 mg/dL Protein, Total 6.9 g/dL Albumin 4.0 g/dL Globulin 2.9 g/dL Bilirubin, Total 1.2 mg/dL ALT (SGPT) 178 U/L AST (SGOT) 52 U/L Alkaline Phosphatase 459 IU/L WBC 2.8 10 3/uL RBC 3.27 10 6/uL HGB 10.2 g/dL HCT 31.6 % MCV 96.6 fL MCH 31.2 pg MCHC 32.3 g/dL RDW 13.0 % Platelet Count 206 10 3/cmm MPV 8.8 fL Neutrophils 1.62 10 3/uL Lymphocytes 1.0 10 3/uL Monocytes 0.2 10 3/uL Eosinophils 0.0 10 3/uL Basophils 0.0 10 3/uL Neutrophil % 56.9 % Lymphocyte % 33.5 % Monocyte % 6.7 % Eosinophil % 1.1 % Basophils % 1.4 % NRBC % 0 % Impression: Metastatic small cell lung cancer, per right neck mass biopsy done on January 26, 2021 biopsy-proven pancreatic head mass done on January 27, 2021 @ [facility] CT scan of the chest abdomen pelvis done on January 23 2021 showed extensive disease involving right neck mass 11.5 x 6.4 cm with occlusion of right jugular vein and invading right SCM muscle with additional lymph nodes in the right cervical chain, right supraclavicular upper mediastinum. There was also extensive lymphadenopathy in the chest also noted in thoracic aorta, pericardiac, pulmonary mass extending along bronchovascular structures of left lower lobe and along the pleura, mass encases and partially obstruct left lower lobe bronchi, marked intrahepatic and extrahepatic biliary dilation secondary to pancreatic head mass measuring 2.9 x 3.5 cm, liver mets, bilateral adrenal mets. Status post CBD stenting done on January 27, 2021, with improvement in jaundice as well as LFTs Started on systemic chemotherapy with carboplatin/etoposide on February 01, 2021-first cycle given at [facility]. MRI scan of the brain showed brain mets status post radiation therapy completed on February 17, 2021 at [facility]. Plan/Problems Addressed at this Visit: 1. Metastatic small cell lung cancer involving right neck mass, pancreatic head mass and extensive lymphadenopathy in the chest abdomen and pelvis. She also had brain metastasis for which she received radiation therapy at [facility] completed on February 17, 2021. She began her first cycle of chemotherapy with carboplatin etoposide at [facility] on February 01, 2021. Her second cycle was given here on February 27, 2021. A. Proceed with cycle 2 this is day 8. B. She seems to be tolerating therapy well but we will do hydration today as she has had some decreased oral intake over the weekend. C. Today's labs reviewed in detail discussed with Mrs. Fay and a copy was given to her. WBC 2.8, hemoglobin 10.2, platelets 206,000 ANC is 1620. Sodium 131 which is stable creatinine 0.5 random glucose 110 her total bilirubin is 1.2, ALT is 178, AST is 52, alk phos is 459. D. We will plan to recheck her CBC CMP TSH in 1 week. She will have weekly CBC CMP in 2 weeks and follow-up in 3 weeks to include CBC CMP. E. I have also asked for an echocardiogram prior to her next appointment for HTN and chemo monitoring. F. She has follow-up with Dr. Sherwood later today for discussion of a Port-A-Cath for venous access. G. Ms. Mcgill was instructed to contact us in interim should questions or problems arise. H. She may have supportive care as needed in the interim to include hydration and antiemetics. I. Dr. Chapman's last office visit indicated that he is considering adding immunotherapy/Tecentriq to her treatment plan with cycle 3. She is to have a Port-A-Cath placed prior to that. Total time spent on Ms. Mcgill's care today included time reviewing her records prior to her visit; discussion of her treatment plan, identification and management of side effects and answering questions regarding disease and treatment plan and including post visit documentation was 60 minutes. Signed By: Dawood Avina-SMITHA, AOCNP Stephanie Chapman MD <<Signature on File>>
[2021-03-28 09:13] LABS: Basophils # 0.1 10^3/uL (0.0-0.1); Basophils % 0.7 %; Eosinophils % 0.3 %; Hematocrit 32.8 % (37.0-47.0); Hemoglobin 10.9 g/dL (11.5-15.3); Lymphocytes # 1.1 10^3/uL (0.8-4.8); Lymphocytes % 11.6 %; Mean Corpuscular HGB Conc 33.2 g/dL (30.0-36.0); Mean Corpuscular Hemoglobin 31.3 pg (28.0-34.0); Mean Corpuscular Volume 94.3 fL (81-99); Mean Platelet Volume 8.7 fL (7.4-10.4); Monocytes # 1.3 10^3/uL (0.2-0.9); Monocytes % 12.8 %; Neutrophils # 7.26 10^3/uL (1.8-7.7); Neutrophils % 74.1 %; Nucleated Red Blood Cells % 0 %; Platelet Count 517 10^3/cmm (130-400); Red Blood Count 3.48 10^6/uL (4.1-5.3); Red Cell Distribution Width 14.5 % (12.1-15.1); White Blood Count 9.8 10^3/uL (4.0-10.0)
[2021-03-28 09:31] LABS: Alanine Aminotransferase 18 U/L (0-33); Albumin Level 3.9 g/dL (3.5-5.2); Alkaline Phosphatase 136 IU/L (35-105); Anion Gap 12.4 (5-19); Aspartate Amino Transferase 22 U/L (0-32); Blood Urea Nitrogen 8 mg/dL (6-20); Carbon Dioxide 27 mmol/L (22-29); Chloride 95 mmol/L (98-107); Globulin 3.2 g/dL (1.3-4.6); Glomerular Filtration Rate 165.1 mL/min (90-130); Glucose 98 mg/dL (65-115); Osmolality Calculated 268 mOsm/kg (285-295); Potassium 4.4 mmol/L (3.5-5.1); Sodium 130 mmol/L (136-145); Total Bilirubin 0.4 mg/dL (0.15-1.2); Total Protein 7.1 g/dL (6.6-8.7)
[2021-03-28] MEDS: ondansetron 2 mg/ML SDV 2 mL 8 MG IVP (11:15)
[2021-03-28] MEDS: sodium chloride 0.9% 250 ML 75 ML IV (11:20)
--- NOTE | 2021-03-28 14:39 | ONC FU_ITS ---
Dr. Chapman follow up note Patient: Melany Mcgill Unit #: [id number]: 1965 Dicatated By: Stephanie Chapman M.D.Date of Visit:March 28, 2021 Onc Med Follow-up/Prog Note History of Present Illness: Ms. Mcgill is a 55-year-old female with 1 month history of non tender right neck mass,30 to 40 pounds weight loss, jaundice, and right lower extremity weakness/numbness for which she was seeing a chiropractor without much relief. On January 23, 2021, she presented to [facility] ER and her bilirubin level was 7.2, alk phos was 1181, AST 287, ALT 563. Her hepatitis panel was negative. A CT of the neck with contrast showed large confluent enhancing mass in the right neck. It measeured 11.5 x 6.4 cm with occlusion of right jugular vein and invading her right SCM muscle. This was consistent with LAD with additional lymph nodes in the right cervical chain, right supraclavicular and upper mediastinum favored to be metastatic versus lymphoma. CT scan of chest abdomen pelvis with contrast showed severe adenopathy in the chest with LAD as noted above. It also reported distal thoracic, aorta, pericardiac, pulmonary mass versus adenopathy extending along bronchovascular structure of left lower lobe and along the pleura. The mass encased and partially obstructed the left lower lobe bronchus with marked intrahepatic and extrahepatic biliary dilation secondary to a pancreatic head mass measuring 2.9 x 3.[address] also reported mets in the liver and bilateral adrenal glands. On January 25, 2021, she was transferred to [facility] for biliary stent and malignancy work-up. She underwent MRI brain which did show metastatic disease in the brain . An ultrasound guided biopsy of right neck mass done on January 26, 2021. This was consistent with small cell carcinoma. A biopsy of pancreatic head mass was also obtained which was consistent with small cell carcinoma as well. Ms Mcgill was started on systemic chemotherapy with carboplatin/etoposide on February 01, 2021. She tolerated first cycle of chemotherapy well. She was started on dexamethasone for brain mets and she was referred to radiation oncology for whole brain radiation therapy. She received 10 days of radiation therapy which she completed on February 17, 2021, Ms Mcgill underwent ERCP/EUS on January 27, 2021 for hyperbilirubinemia and elevated LFT. After stenting, her LFTs improved. 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 Her sodium was stable between 127-133 on discharge. Ms. Fay transferred her care us at [facility] to be closer to home. She received her second dose of chemotherapy with carboplatin etoposide beginning on February 27, 2021. She tolerated it well. She presents today with mild chemotherapy-induced neutropenia with a day 8 ANC of 1620. Came for follow-up, complaining of cough and postnasal discharge, still complaining of mass in the right neck but no dysphagia, no hemoptysis or hematemesis, no headaches no blurred vision, mild discomfort in the epigastric area,, no fever chills, no yellowish phlegm, no sore throat. Tolerating systemic chemotherapy with carboplatin/etoposide well . Medications: Acetaminophen 1 - 2 Tablet (of 325 mg) Oral daily PRN, guaiFENesin-Codeine 5 mL (of 100-10 mg/5mL) Solution Oral PRN, HYDROcodone-Acetaminophen (5-325 mg) Tablet Oral four times a day PRN, Ondansetron HCl 1 Tablet (of 4 mg) Oral q 4 hours PRN, Psyllium Powder Oral daily PRN Allergies: No Known Allergies. Review of Systems: Review of Systems is not available for this patient. Vital Signs: Performed on March 28, 2021 10:49 Height - 69.00 in Weight - 127.8 lbs (HIGH) BSA - 1.71 sq.m BMI - 18.87 Temperature - 96.4 F (LOW) Pulse - 101 /min (HIGH) Respiration - 18 /min BP - 99/62 mm(hg) O2 Sat - 99 % Pain - 1 Fatigue - 2 Performance Status: 1 - No physically strenuous activity, but ambulatory and able to carry out light or sedentary work (e.g. office work, light house work). (ECOG) Physical Examination: ENMT - No mouth sores, no thrush, no jaundice large lobulated mass in the right neck/supraclavicular area mildly tender, no overlying skin changes, Respiratory - Lungs are clear to auscultation, Cardiovascular - Regular rate and rhythm of heart, Abdomen - Soft, bowel sounds present, Extremities - No visible edema. Lab/Imaging: Test performed on March 28, 2021 08:38 Sodium 130 mmol/L Potassium 4.4 mmol/L Chloride 95 mmol/L CO2 27 mmol/L Anion Gap 12.4 BUN 8 mg/dL Creatinine 0.4 mg/dL Cr Clearance (Est) 148.6700 mL/min eGFR 165.1 mL/min Glucose 98 mg/dL Osmolality - Calculated 268 mOsm/kg Calcium 9.0 mg/dL Protein, Total 7.1 g/dL Albumin 3.9 g/dL Globulin 3.2 g/dL Bilirubin, Total 0.4 mg/dL ALT (SGPT) 18 U/L AST (SGOT) 22 U/L Alkaline Phosphatase 136 IU/L WBC 9.8 10 3/uL RBC 3.48 10 6/uL HGB 10.9 g/dL HCT 32.8 % MCV 94.3 fL MCH 31.3 pg MCHC 33.2 g/dL RDW 14.5 % Platelet Count 517 10 3/cmm MPV 8.7 fL Neutrophils 7.26 10 3/uL Lymphocytes 1.1 10 3/uL Monocytes 1.3 10 3/uL Eosinophils 0.0 10 3/uL Basophils 0.1 10 3/uL Neutrophil % 74.1 % Lymphocyte % 11.6 % Monocyte % 12.8 % Eosinophil % 0.3 % Basophils % 0.7 % NRBC % 0 % Impression: Metastatic small cell lung cancer, per right neck mass biopsy done on January 26, 2021 biopsy-proven pancreatic head mass done on January 27, 2021 @ [facility]. CT scan of the chest abdomen pelvis done on January 23 2021 showed extensive disease involving right neck mass 11.5 x 6.4 cm with occlusion of right jugular vein and invading right SCM muscle with additional lymph nodes in the right cervical chain, right supraclavicular upper mediastinum. There was also extensive lymphadenopathy in the chest also noted in thoracic aorta, pericardiac, pulmonary mass extending along bronchovascular structures of left lower lobe and along the pleura, mass encases and partially obstruct left lower lobe bronchi, marked intrahepatic and extrahepatic biliary dilation secondary to pancreatic head mass measuring 2.9 x 3.5 cm, liver mets, bilateral adrenal mets. Status post CBD stenting done on January 27, 2021, with improvement in jaundice as well as LFTs Started on systemic chemotherapy with carboplatin/etoposide on February 01, 2021-first cycle given at [facility]. MRI scan of the brain showed brain mets status post radiation therapy completed on February 17, 2021 at [facility]. Plan: Discussed with patient regarding her labs white blood count 9.8 hemoglobin 10.9 hematocrit 32.8 platelets 517,000 CMP within normal limit except sodium 130 Clinically, patient is doing well with no new signs symptom suggestive of disease progression but she has persistent right neck mass which is somewhat smaller, but no dysphagia, she is tolerating systemic therapy with carboplatin/etoposide well, will proceed with cycle #3 of carboplatin/etoposide today followed by Magdalenalasta to prevent chemotherapy-induced neutropenia, will also consider adding Tecentriq immunotherapy, patient return to clinic in 2 weeks with CBC CMP and if follow-up evaluation shows persistent right neck mass or no improvement, may consider rebiopsy of right neck mass to see if she has low-grade neuroendocrine tumor, otherwise will consider follow-up CT PET scan to assess overall disease response to the treatment and the PET scan shows improvement everywhere else but persistent right neck mass, may consider refer to radiation oncology for evaluation. As far as mildly productive cough is concerned, probably due to postnasal drip, patient was advised to try Claritin and Chloraseptic throat spray, and gargles and if no improvement consider evaluation. Signed By: Stephanie Chapman M.D. <<Signature on File>>
[2021-03-29] MEDS: ondansetron 2 mg/ML SDV 2 mL 8 MG IVP (15:25)
[2021-03-30] MEDS: sodium chloride 0.9% 250 ML IV (13:40)
[2021-03-30] MEDS: palonosetron 0.25 mg/5 mL SDV IVP (13:42)
[2021-03-30] MEDS: pegfilgrastim 6 mg/0.6 mL Kit (onpro) SUBCUT (15:01)
== END 2021-04-03 23:59 | disposition home or self-care (01) ==
LOC: ONCMED 05:37
PROVIDERS: Nurse Practitioner; PCP Internal Medicine; Visit Provider Internal Medicine Hematology & Oncology
DX: Z51.11 Encounter for antineoplastic chemotherapy (principal); C34.32 Malignant neoplasm of lower lobe, left bronchus or lung; C78.89 Secondary malignant neoplasm of other digestive organs; C77.8 Secondary and unspecified malignant neoplasm of lymph nodes of multiple regions; C79.31 Secondary malignant neoplasm of brain; R17 Unspecified jaundice; Z79.899 Other long term (current) drug therapy; Z92.21 Personal history of antineoplastic chemotherapy
CPT/HCPCS: 36415; 36591; 80053; 84443; 85025; 87635; 96360; 96367; 96375; 96377; 96413; 96417; 99215; J1100; J2250; J2405; J2469; J2505; J2704; J7030; J7040; J7050; J9045; J9181

== ENCOUNTER 2021-04-26 05:58 | Outpatient (RCR) | payer MEDICAID, SELFPAY ==
[2021-04-11 14:27] LABS: Basophils # 0.2 10^3/uL (0.0-0.1); Basophils % 0.8 %; Eosinophils % 0.2 %; Hematocrit 27.6 % (37.0-47.0); Hemoglobin 8.9 g/dL (11.5-15.3); Lymphocytes # 1.7 10^3/uL (0.8-4.8); Lymphocytes % 8.9 %; Mean Corpuscular HGB Conc 32.2 g/dL (30.0-36.0); Mean Corpuscular Hemoglobin 31.1 pg (28.0-34.0); Mean Corpuscular Volume 96.5 fL (81-99); Mean Platelet Volume 9.7 fL (7.4-10.4); Monocytes # 1.5 10^3/uL (0.2-0.9); Monocytes % 7.8 %; Neutrophils # 13.91 10^3/uL (1.8-7.7); Neutrophils % 73.4 %; Nucleated Red Blood Cells % 0.1 %; Platelet Count 152 10^3/cmm (130-400); Red Blood Count 2.86 10^6/uL (4.1-5.3); Red Cell Distribution Width 15.6 % (12.1-15.1); White Blood Count 18.9 10^3/uL (4.0-10.0)
[2021-04-11 14:40] LABS: Alanine Aminotransferase 94 U/L (0-33); Albumin Level 3.8 g/dL (3.5-5.2); Alkaline Phosphatase 351 IU/L (35-105); Aspartate Amino Transferase 30 U/L (0-32); Blood Urea Nitrogen 10 mg/dL (6-20); Calcium 8.7 mg/dL (8.5-10.5); Carbon Dioxide 28 mmol/L (22-29); Chloride 98 mmol/L (98-107); Globulin 2.9 g/dL (1.3-4.6); Glomerular Filtration Rate 165.1 mL/min (90-130); Glucose 118 mg/dL (65-115); Osmolality Calculated 278 mOsm/kg (285-295); Sodium 134 mmol/L (136-145); Total Bilirubin 0.2 mg/dL (0.15-1.2); Total Protein 6.7 g/dL (6.6-8.7)
[2021-04-11 14:45] LABS: Slide Review Slide Review Perform
--- NOTE | 2021-04-12 13:31 | ONC FU_ITS ---
Dr. Chapman follow up note Patient: Melany Mcgill Unit #: [id number]: 1965 Dicatated By: Stephanie Chapman M.D.Date of Visit:Apr 12, 2021 Onc Med Follow-up/Prog Note History of Present Illness: Ms. Mcgill is a 55-year-old female with 1 month history of non tender right neck mass,30 to 40 pounds weight loss, jaundice, and right lower extremity weakness/numbness for which she was seeing a chiropractor without much relief. On January 23, 2021, she presented to [facility] ER and her bilirubin level was 7.2, alk phos was 1181, AST 287, ALT 563. Her hepatitis panel was negative. A CT of the neck with contrast showed large confluent enhancing mass in the right neck. It measeured 11.5 x 6.4 cm with occlusion of right jugular vein and invading her right SCM muscle. This was consistent with LAD with additional lymph nodes in the right cervical chain, right supraclavicular and upper mediastinum favored to be metastatic versus lymphoma. CT scan of chest abdomen pelvis with contrast showed severe adenopathy in the chest with LAD as noted above. It also reported distal thoracic, aorta, pericardiac, pulmonary mass versus adenopathy extending along bronchovascular structure of left lower lobe and along the pleura. The mass encased and partially obstructed the left lower lobe bronchus with marked intrahepatic and extrahepatic biliary dilation secondary to a pancreatic head mass measuring 2.9 x 3[address] also reported mets in the liver and bilateral adrenal glands. On January 25, 2021, she was transferred to [facility] for biliary stent and malignancy work-up. She underwent MRI brain which did show metastatic disease in the brain . An ultrasound guided biopsy of right neck mass done on January 26, 2021. This was consistent with small cell carcinoma. A biopsy of pancreatic head mass was also obtained which was consistent with small cell carcinoma as well. Ms Mcgill was started on systemic chemotherapy with carboplatin/etoposide on February 01, 2021. She tolerated first cycle of chemotherapy well. She was started on dexamethasone for brain mets and she was referred to radiation oncology for whole brain radiation therapy. She received 10 days of radiation therapy which she completed on February 17, 2021, Ms Mcgill underwent ERCP/EUS on January 27, 2021 for hyperbilirubinemia and elevated LFT. After stenting, her LFTs improved. 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 Her sodium was stable between 127-133 on discharge. Ms. Fay transferred her care us at [facility] to be closer to home. She received her second dose of chemotherapy with carboplatin etoposide beginning on February 27, 2021. She tolerated it well. She presents today with mild chemotherapy-induced neutropenia with a day 8 ANC of 1620. Came for follow-up, denies any specific complaint, no fever chills, no nausea or vomiting, no diarrhea or constipation, as palpation, right neck mass is shrinking, tolerating systemic therapy with carboplatin/etoposide, well . Medications: Acetaminophen 1 - 2 Tablet (of 325 mg) Oral daily PRN, guaiFENesin-Codeine 5 mL (of 100-10 mg/5mL) Solution Oral PRN, HYDROcodone-Acetaminophen (5-325 mg) Tablet Oral four times a day PRN, Ondansetron HCl 1 Tablet (of 4 mg) Oral q 4 hours PRN, Psyllium Powder Oral daily PRN Allergies: No Known Allergies. Review of Systems: Review of Systems is not available for this patient. Vital Signs: Performed on Apr 12, 2021 08:17 Height - 69.00 in Weight - 131.4 lbs (HIGH) BSA - 1.73 sq.m BMI - 19.40 Temperature - 97.0 F (LOW) Pulse - 98 /min Respiration - 18 /min BP - 116/72 mm(hg) O2 Sat - 100 % Pain - 0 Performance Status: 0 - Fully active, able to carry on all predisease activities without restrictions. (ECOG) Physical Examination: ENMT - No mouth sores, no thrush, significant reduction in size of right neck/supraclavicular fullness, Respiratory - Lungs are clear to auscultation, Cardiovascular - Regular rate and rhythm of heart, Abdomen - Soft, bowel sounds present, Extremities - No visible edema. Lab/Imaging: Test performed on March 28, 2021 08:38 Sodium 130 mmol/L Potassium 4.4 mmol/L Chloride 95 mmol/L CO2 27 mmol/L Anion Gap 12.4 BUN 8 mg/dL Creatinine 0.4 mg/dL Cr Clearance (Est) 148.6700 mL/min eGFR 165.1 mL/min Glucose 98 mg/dL Osmolality - Calculated 268 mOsm/kg Calcium 9.0 mg/dL Protein, Total 7.1 g/dL Albumin 3.9 g/dL Globulin 3.2 g/dL Bilirubin, Total 0.4 mg/dL ALT (SGPT) 18 U/L AST (SGOT) 22 U/L Alkaline Phosphatase 136 IU/L WBC 9.8 10 3/uL RBC 3.48 10 6/uL HGB 10.9 g/dL HCT 32.8 % MCV 94.3 fL MCH 31.3 pg MCHC 33.2 g/dL RDW 14.5 % Platelet Count 517 10 3/cmm MPV 8.7 fL Neutrophils 7.26 10 3/uL Lymphocytes 1.1 10 3/uL Monocytes 1.3 10 3/uL Eosinophils 0.0 10 3/uL Basophils 0.1 10 3/uL Neutrophil % 74.1 % Lymphocyte % 11.6 % Monocyte % 12.8 % Eosinophil % 0.3 % Basophils % 0.7 % NRBC % 0 % Impression: Metastatic small cell lung cancer, per right neck mass biopsy done on January 26, 2021 biopsy-proven pancreatic head mass done on January 27, 2021 @ [facility] CT scan of the chest abdomen pelvis done on January 23 2021 showed extensive disease involving right neck mass 11.5 x 6.4 cm with occlusion of right jugular vein and invading right SCM muscle with additional lymph nodes in the right cervical chain, right supraclavicular upper mediastinum. There was also extensive lymphadenopathy in the chest also noted in thoracic aorta, pericardiac, pulmonary mass extending along bronchovascular structures of left lower lobe and along the pleura, mass encases and partially obstruct left lower lobe bronchi, marked intrahepatic and extrahepatic biliary dilation secondary to pancreatic head mass measuring 2.9 x 3.5 cm, liver mets, bilateral adrenal mets. Status post CBD stenting done on January 27, 2021, with improvement in jaundice as well as LFTs Started on systemic chemotherapy with carboplatin/etoposide on February 01, 2021-first cycle given at [place]. MRI scan of the brain showed brain mets status post radiation therapy completed on February 17, 2021 at [place]. Plan: Discussed with patient regarding her labs white blood count 18.9 hemoglobin 8.9 hematocrit 27.6 platelets 152,000 CMP within normal limits Clinically, patient doing well with no new signs symptom suggestive of disease progression, her right neck mass is significantly improved, at this point will consider follow-up CT PET scan if it shows excellent response and persistent activity in the right neck mass, may consider biopsy or excisional biopsy to rule out low-grade neuroendocrine tumor on the other hand if she has a persistent disease or progression may consider changing her therapy to other regimen. As well as mild/moderate normocytic normochromic anemia is concerned, etiology is unclear, could be due to chemotherapy, will consider anemia work-up including iron studies, B12 level, reticulocyte count return to clinic 1 week with follow-up CT PET scan and CBC CMP Signed By: Stephanie Chapman M.D. <<Signature on File>>
[2021-04-18 14:03] LABS: Basophils % 0.4 %; Eosinophils % 0.3 %; Hematocrit 28.5 % (37.0-47.0); Hemoglobin 9.2 g/dL (11.5-15.3); Lymphocytes # 1.3 10^3/uL (0.8-4.8); Lymphocytes % 13.5 %; Mean Corpuscular HGB Conc 32.3 g/dL (30.0-36.0); Mean Corpuscular Hemoglobin 31.1 pg (28.0-34.0); Mean Corpuscular Volume 96.3 fL (81-99); Mean Platelet Volume 8.4 fL (7.4-10.4); Monocytes # 1.2 10^3/uL (0.2-0.9); Monocytes % 12.4 %; Neutrophils # 7.17 10^3/uL (1.8-7.7); Neutrophils % 72.2 %; Nucleated Red Blood Cells % 0 %; Platelet Count 694 10^3/cmm (130-400); Red Blood Count 2.96 10^6/uL (4.1-5.3); Red Cell Distribution Width 16.4 % (12.1-15.1); White Blood Count 9.9 10^3/uL (4.0-10.0)
[2021-04-18 14:56] LABS: Ferritin 961 ng/mL (15-150); Iron 30 ug/dL (37-145); Percent Saturation 12.6 % (20-50); Total Iron Binding Capacity 237 mcg/dl; Unsaturated Iron Binding 207 ug/dL (112-347)
[2021-04-18 15:41] LABS: Vitamin B12 > 2000 pg/mL (232-1245)
[2021-04-18 17:12] LABS: Alanine Aminotransferase 28 U/L (0-33); Albumin Level 3.9 g/dL (3.5-5.2); Alkaline Phosphatase 173 IU/L (35-105); Anion Gap 16.1 (5-19); Aspartate Amino Transferase 16 U/L (0-32); Blood Urea Nitrogen 9 mg/dL (6-20); Calcium 8.8 mg/dL (8.5-10.5); Carbon Dioxide 23 mmol/L (22-29); Chloride 98 mmol/L (98-107); Globulin 2.7 g/dL (1.3-4.6); Glomerular Filtration Rate 127.6 mL/min (90-130); Glucose 122 mg/dL (65-115); Osmolality Calculated 276 mOsm/kg (285-295); Potassium 4.1 mmol/L (3.5-5.1); Sodium 133 mmol/L (136-145); Total Bilirubin 0.2 mg/dL (0.15-1.2); Total Protein 6.6 g/dL (6.6-8.7)
--- NOTE | 2021-04-19 17:28 | ONC FU_ITS ---
Dr. Chapman follow up note Patient: Melany Mcgill Unit #: [id number]: 1965 Dicatated By: Stephanie Chapman M.D.Date of Visit:Apr 19, 2021 Onc Med Follow-up/Prog Note History of Present Illness: Ms. Mcgill is a 55-year-old female with 1 month history of non tender right neck mass,30 to 40 pounds weight loss, jaundice, and right lower extremity weakness/numbness for which she was seeing a chiropractor without much relief. On January 23, 2021, she presented to [facility] ER and her bilirubin level was 7.2, alk phos was 1181, AST 287, ALT 563. Her hepatitis panel was negative. A CT of the neck with contrast showed large confluent enhancing mass in the right neck. It measeured 11.5 x 6.4 cm with occlusion of right jugular vein and invading her right SCM muscle. This was consistent with LAD with additional lymph nodes in the right cervical chain, right supraclavicular and upper mediastinum favored to be metastatic versus lymphoma. CT scan of chest abdomen pelvis with contrast showed severe adenopathy in the chest with LAD as noted above. It also reported distal thoracic, aorta, pericardiac, pulmonary mass versus adenopathy extending along bronchovascular structure of left lower lobe and along the pleura. The mass encased and partially obstructed the left lower lobe bronchus with marked intrahepatic and extrahepatic biliary dilation secondary to a pancreatic head mass measuring 2.9 x 3[address] also reported mets in the liver and bilateral adrenal glands. On January 25, 2021, she was transferred to [facility] for biliary stent and malignancy work-up. She underwent MRI brain which did show metastatic disease in the brain . An ultrasound guided biopsy of right neck mass done on January 26, 2021. This was consistent with small cell carcinoma. A biopsy of pancreatic head mass was also obtained which was consistent with small cell carcinoma as well. Ms Mcgill was started on systemic chemotherapy with carboplatin/etoposide on February 01, 2021. She tolerated first cycle of chemotherapy well. She was started on dexamethasone for brain mets and she was referred to radiation oncology for whole brain radiation therapy. She received 10 days of radiation therapy which she completed on February 17, 2021, Ms Mcgill underwent ERCP/EUS on January 27, 2021 for hyperbilirubinemia and elevated LFT. After stenting, her LFTs improved. 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 Her sodium was stable between 127-133 on discharge. Ms. Fay transferred her care us at [facility] to be closer to home. She received her second dose of chemotherapy with carboplatin etoposide beginning on February 27, 2021. She tolerated it well. She presents today with mild chemotherapy-induced neutropenia with a day 8 ANC of 1620. Follow-up CT PET scan after 3 cycles of carboplatin/etoposide on April 15, 2021 showed improvement in the right neck mass size from January 2021 CT scan now mass measured 4 x 3.4 cm with SUV of 5.3 compared to 11.5 x 6.[address] scan of neck. Uptake in 1.6 cm left lower lobe perihilar nodule which is SUV of 5.6. Left hilar lymph nodes have SUV up to 7.7. Multiple FDG positive mediastinal nodes are present in the AP window, prevascular, superior mediastinal, right thoracic inlet. Right paratracheal, left para-aortic [place]. Other FDG positive lymph nodes are evident in the right posterior triangle, cervical level 4 level 3 territories. At the level of abdomen, uptake in the pancreatic head has SUV of 3.9, evaluate mildly greater than the background. Biliary stent in place. Liver adrenal shows no abnormality. There is a dominant central mesenteric lymph node below the level of aortic bifurcation measuring 1.4 cm with SUV of 3.3. Came for follow-up, denies any specific complaints, no fever chills, no nausea or vomiting, no diarrhea constipation, no shortness of breath, no jaundice, no melena or hematochezia, no hemoptysis or hematemesis. Patient is anxious about her follow-up CTs PET scan report. As per patient she is supposed to go back to [place] for CBD stent replacement as it was placed in for 90 days only. . Medications: Acetaminophen 1 - 2 Tablet (of 325 mg) Oral daily PRN, guaiFENesin-Codeine 5 mL (of 100-10 mg/5mL) Solution Oral PRN, HYDROcodone-Acetaminophen (5-325 mg) Tablet Oral four times a day PRN, Ondansetron HCl 1 Tablet (of 4 mg) Oral q 4 hours PRN, Psyllium Powder Oral daily PRN Allergies: No Known Allergies. Review of Systems: Review of Systems is not available for this patient. Vital Signs: Performed on Apr 19, 2021 08:44 Height - 69.00 in Weight - 127.8 lbs (LOW) BSA - 1.71 sq.m BMI - 18.87 Temperature - 97.7 F (LOW) Pulse - 108 /min (HIGH) Respiration - 18 /min BP - 114/74 mm(hg) O2 Sat - 98 % Pain - 0 Performance Status: 0 - Fully active, able to carry on all predisease activities without restrictions. (ECOG) Physical Examination: ENMT - No mouth sores, no thrush, no jaundice, significant improvement in her right neck mass, Respiratory - Lungs are clear to auscultation, Cardiovascular - Regular rate and rhythm of heart, Abdomen - Soft, bowel sounds present, Extremities - No visible edema or rash. Lab/Imaging: Test performed on March 28, 2021 08:38 Sodium 130 mmol/L Potassium 4.4 mmol/L Chloride 95 mmol/L CO2 27 mmol/L Anion Gap 12.4 BUN 8 mg/dL Creatinine 0.4 mg/dL Cr Clearance (Est) 148.6700 mL/min eGFR 165.1 mL/min Glucose 98 mg/dL Osmolality - Calculated 268 mOsm/kg Calcium 9.0 mg/dL Protein, Total 7.1 g/dL Albumin 3.9 g/dL Globulin 3.2 g/dL Bilirubin, Total 0.4 mg/dL ALT (SGPT) 18 U/L AST (SGOT) 22 U/L Alkaline Phosphatase 136 IU/L WBC 9.8 10 3/uL RBC 3.48 10 6/uL HGB 10.9 g/dL HCT 32.8 % MCV 94.3 fL MCH 31.3 pg MCHC 33.2 g/dL RDW 14.5 % Platelet Count 517 10 3/cmm MPV 8.7 fL Neutrophils 7.26 10 3/uL Lymphocytes 1.1 10 3/uL Monocytes 1.3 10 3/uL Eosinophils 0.0 10 3/uL Basophils 0.1 10 3/uL Neutrophil % 74.1 % Lymphocyte % 11.6 % Monocyte % 12.8 % Eosinophil % 0.3 % Basophils % 0.7 % NRBC % 0 % Impression: Metastatic small cell lung cancer, per right neck mass biopsy done on January 26, 2021 biopsy-proven pancreatic head mass done on January 27, 2021 @ [facility]. CT scan of the chest abdomen pelvis done on January 23 2021 showed extensive disease involving right neck mass 11.5 x 6.4 cm with occlusion of right jugular vein and invading right SCM muscle with additional lymph nodes in the right cervical chain, right supraclavicular upper mediastinum. There was also extensive lymphadenopathy in the chest also noted in thoracic aorta, pericardiac, pulmonary mass extending along bronchovascular structures of left lower lobe and along the pleura, mass encases and partially obstruct left lower lobe bronchi, marked intrahepatic and extrahepatic biliary dilation secondary to pancreatic head mass measuring 2.9 x 3.5 cm, liver mets, bilateral adrenal mets. Status post CBD stenting done on January 27, 2021, with improvement in jaundice as well as LFTs Started on systemic chemotherapy with carboplatin/etoposide on February 01, 2021-first cycle given at [place]. MRI scan of the brain showed brain mets status post radiation therapy completed on February 17, 2021 at [place]. Follow-up CT PET scanAfter 3 cycles of chemotherapy with carboplatin/etoposide done on April 15, 2021 shows improvement in the right neck mass size no major 4 x 3.4 cm with SUV of 5.3 compared to 11.5 x 6.4 cm in January [address] scan. Normal liver and adrenal gland, significant improvement in extensive mediastinal, right-sided cervical and posterior cervical triangle lymphadenopathy. Also improvement in the left perihilar nodule. Solitary mesenteric FDG positive lymph node. Plan: Discussed with patient regarding her labs white blood count 9.9 hemoglobin 9.2 hematocrit 28.5 platelets 694,000 and iron saturation 12.6% ferritin 961 iron 30, TIBC 237, vitamin B12 more than 2000, calculated transferrin saturation about 12% and follow-up CT PET scan which showed excellent response when compared with diagnostic CT scan of chest and abdomen which showed extensive hepatic and adrenal metastatic disease as well as large right neck mass and extensive intrathoracic disease. Clinically, patient is doing well, tolerating systemic therapy with carboplatin/etoposide well, at this point, will consider adding Tecentriq if available through patient assistance and consider CT PET scan after 3 more cycles of systemic chemotherapy with carboplatin/etoposide plus Tecentriq if available. Patient will return to clinic on Saturday to start cycle #4 with carboplatin/etoposide plus Tecentriq 1200 mg every 3 weeks if available, all the side effect possible benefits associated Tecentriq including but not limited to allergic reaction, endocrinopathy especially hypothyroidism, risk of colitis, pneumonitis, jaundice, skin rash were mentioned, further teaching will done by chemotherapy nurse. As for the anemia is concerned, her ferritin is elevated probably as a inflammatory marker as iron saturation and iron level is low and calculated transferrin saturation is also low, she may benefit from iron supplement, will try oral iron Signed By: Stephanie Chapman M.D. <<Signature on File>>
[2021-04-24 10:38] LABS: Basophils # 0.1 10^3/uL (0.0-0.1); Basophils % 0.9 %; Eosinophils % 0.3 %; Hematocrit 30.5 % (37.0-47.0); Hemoglobin 9.9 g/dL (11.5-15.3); Lymphocytes # 0.8 10^3/uL (0.8-4.8); Lymphocytes % 8.8 %; Mean Corpuscular HGB Conc 32.5 g/dL (30.0-36.0); Mean Corpuscular Hemoglobin 31.4 pg (28.0-34.0); Mean Corpuscular Volume 96.8 fL (81-99); Mean Platelet Volume 8.7 fL (7.4-10.4); Monocytes # 0.9 10^3/uL (0.2-0.9); Monocytes % 9.9 %; Neutrophils # 7.16 10^3/uL (1.8-7.7); Neutrophils % 79.8 %; Nucleated Red Blood Cells % 0 %; Platelet Count 498 10^3/cmm (130-400); Red Blood Count 3.15 10^6/uL (4.1-5.3); Red Cell Distribution Width 16.3 % (12.1-15.1)
[2021-04-24 11:11] LABS: Alanine Aminotransferase 16 U/L (0-33); Albumin Level 3.8 g/dL (3.5-5.2); Alkaline Phosphatase 127 IU/L (35-105); Anion Gap 12.8 (5-19); Aspartate Amino Transferase 14 U/L (0-32); Blood Urea Nitrogen 10 mg/dL (6-20); Calcium 8.5 mg/dL (8.5-10.5); Carbon Dioxide 24 mmol/L (22-29); Chloride 99 mmol/L (98-107); Globulin 2.4 g/dL (1.3-4.6); Glomerular Filtration Rate 165.1 mL/min (90-130); Glucose 113 mg/dL (65-115); Osmolality Calculated 274 mOsm/kg (285-295); Potassium 3.8 mmol/L (3.5-5.1); Sodium 132 mmol/L (136-145); Total Bilirubin 0.3 mg/dL (0.15-1.2); Total Protein 6.2 g/dL (6.6-8.7)
[2021-04-24] MEDS: ondansetron 2 mg/ML SDV 2 mL 8 MG IVP (11:47)
[2021-04-24] MEDS: sodium chloride 0.9% 250 ML IV (11:47)
[2021-04-25] MEDS: sodium chloride 0.9% (100 ml) 100 ML 30 ML (14:32)
[2021-04-25] MEDS: ondansetron 2 mg/ML SDV 2 mL 8 MG IVP (14:32)
[2021-04-26] MEDS: palonosetron 0.25 mg/5 mL SDV IV (14:48)
[2021-04-26] MEDS: pegfilgrastim 6 mg/0.6 mL Kit (onpro) SUBCUT (16:12)
== END 2021-05-03 23:59 | disposition home or self-care (01) ==
LOC: ONCMED 05:58
PROVIDERS: PCP Internal Medicine; Visit Provider Internal Medicine Hematology & Oncology
DX: Z51.11 Encounter for antineoplastic chemotherapy (principal); C34.32 Malignant neoplasm of lower lobe, left bronchus or lung; C77.8 Secondary and unspecified malignant neoplasm of lymph nodes of multiple regions; C78.7 Secondary malignant neoplasm of liver and intrahepatic bile duct; C79.71 Secondary malignant neoplasm of right adrenal gland; C79.72 Secondary malignant neoplasm of left adrenal gland; C79.31 Secondary malignant neoplasm of brain; D50.9 Iron deficiency anemia, unspecified; Z79.899 Other long term (current) drug therapy
CPT/HCPCS: 36591; 80053; 82607; 82728; 83540; 83550; 85025; 96367; 96372; 96375; 96377; 96413; 96417; 99214; J1100; J2405; J2469; J2505; J7040; J7050; J9045; J9181

== ENCOUNTER 2021-05-17 05:57 | Outpatient (RCR) | payer MEDICAID, SELFPAY ==
[2021-05-04 12:44] LABS: Basophils # 0.1 10^3/uL (0.0-0.1); Basophils % 1.2 %; Eosinophils # 0.1 10^3/uL (0.0-0.8); Eosinophils % 0.8 %; Hematocrit 24.1 % (37.0-47.0); Hemoglobin 7.8 g/dL (11.5-15.3); Lymphocytes # 1.1 10^3/uL (0.8-4.8); Lymphocytes % 13.3 %; Mean Corpuscular HGB Conc 32.4 g/dL (30.0-36.0); Mean Corpuscular Hemoglobin 31.8 pg (28.0-34.0); Mean Corpuscular Volume 98.4 fL (81-99); Mean Platelet Volume 9.3 fL (7.4-10.4); Monocytes % 12.4 %; Neutrophils # 5.91 10^3/uL (1.8-7.7); Neutrophils % 71.5 %; Nucleated Red Blood Cells % 0 %; Platelet Count 184 10^3/cmm (130-400); Positive M 1; Red Blood Count 2.45 10^6/uL (4.1-5.3); Red Cell Distribution Width 15.8 % (12.1-15.1); White Blood Count 8.3 10^3/uL (4.0-10.0)
[2021-05-04 13:17] LABS: Alanine Aminotransferase 48 U/L (0-33); Albumin Level 3.8 g/dL (3.5-5.2); Alkaline Phosphatase 211 IU/L (35-105); Aspartate Amino Transferase 23 U/L (0-32); Blood Urea Nitrogen 10 mg/dL (6-20); Calcium 8.6 mg/dL (8.5-10.5); Carbon Dioxide 24 mmol/L (22-29); Chloride 98 mmol/L (98-107); Globulin 2.4 g/dL (1.3-4.6); Glomerular Filtration Rate 165.1 mL/min (90-130); Glucose 102 mg/dL (65-115); Osmolality Calculated 271 mOsm/kg (285-295); Sodium 131 mmol/L (136-145); Total Bilirubin 0.3 mg/dL (0.15-1.2); Total Protein 6.2 g/dL (6.6-8.7)
--- NOTE | 2021-05-05 11:58 | ONC FU_ITS ---
Dr. Chapman follow up note Patient: Melany Mcgill Unit #: [id number]: [id number] Dicatated By: Stephanie Chapman M.D.Date of Visit:May 05, 2021 Onc Med Follow-up/Prog Note History of Present Illness: Ms. Mcgill is a 55-year-old female with 1 month history of non tender right neck mass,30 to 40 pounds weight loss, jaundice, and right lower extremity weakness/numbness for which she was seeing a chiropractor without much relief. On January 23, 2021, she presented to [facility] and her bilirubin level was 7.2, alk phos was 1181, AST 287, ALT 563. Her hepatitis panel was negative. A CT of the neck with contrast showed large confluent enhancing mass in the right neck. It measeured 11.5 x 6.4 cm with occlusion of right jugular vein and invading her right SCM muscle. This was consistent with LAD with additional lymph nodes in the right cervical chain, right supraclavicular and upper mediastinum favored to be metastatic versus lymphoma. CT scan of chest abdomen pelvis with contrast showed severe adenopathy in the chest with LAD as noted above. It also reported distal thoracic, aorta, pericardiac, pulmonary mass versus adenopathy extending along bronchovascular structure of left lower lobe and along the pleura. The mass encased and partially obstructed the left lower lobe bronchus with marked intrahepatic and extrahepatic biliary dilation secondary to a pancreatic head mass measuring 2.9 x 3[address] also reported mets in the liver and bilateral adrenal glands. On January 25, 2021, she was transferred to [facility] for biliary stent and malignancy work-up. She underwent MRI brain which did show metastatic disease in the brain . An ultrasound guided biopsy of right neck mass done on January 26, 2021. This was consistent with small cell carcinoma. A biopsy of pancreatic head mass was also obtained which was consistent with small cell carcinoma as well. Ms Mcgill was started on systemic chemotherapy with carboplatin/etoposide on February 01, 2021. She tolerated first cycle of chemotherapy well. She was started on dexamethasone for brain mets and she was referred to radiation oncology for whole brain radiation therapy. She received 10 days of radiation therapy which she completed on February 17, 2021, Ms Mcgill underwent ERCP/EUS on January 27, 2021 for hyperbilirubinemia and elevated LFT. After stenting, her LFTs improved. 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 Her sodium was stable between 127-133 on discharge. Ms. Fay transferred her care us at [facility] to be closer to home. She received her second dose of chemotherapy with carboplatin etoposide beginning on February 27, 2021. She tolerated it well. She presents today with mild chemotherapy-induced neutropenia with a day 8 ANC of 1620. Follow-up CT PET scan after 3 cycles of carboplatin/etoposide on April 15, 2021 showed improvement in the right neck mass size from January 2021 CT scan now mass measured 4 x 3.4 cm with SUV of 5.3 compared to 11.5 x 6.[address] scan of neck. Uptake in 1.6 cm left lower lobe perihilar nodule which is SUV of 5.6. Left hilar lymph nodes have SUV up to 7.7. Multiple FDG positive mediastinal nodes are present in the AP window, prevascular, superior mediastinal, right thoracic inlet. Right paratracheal, left para-aortic Territories. Other FDG positive lymph nodes are evident in the right posterior triangle, cervical level 4 level 3 territories. At the level of abdomen, uptake in the pancreatic head has SUV of 3.9, evaluate mildly greater than the background. Biliary stent in place. Liver adrenal shows no abnormality. There is a dominant central mesenteric lymph node below the level of aortic bifurcation measuring 1.4 cm with SUV of 3.3. Came for follow-up, denies any specific complaints, no fever chills, no nausea or vomiting, no diarrhea constipation, still has persistent right neck mass which is smaller than before but fluctuating in size e.g. after chemotherapy it improves. But no dysphagia, no hemoptysis or hematemesis, no shortness of breath, no melena or hematochezia, no lightheadedness or dizziness. No jaundice . Medications: Acetaminophen 1 - 2 Tablet (of 325 mg) Oral daily PRN, guaiFENesin-Codeine 5 mL (of 100-10 mg/5mL) Solution Oral PRN, HYDROcodone-Acetaminophen (5-325 mg) Tablet Oral four times a day PRN, Ondansetron HCl 1 Tablet (of 4 mg) Oral q 4 hours PRN, Psyllium Powder Oral daily PRN Allergies: No Known Allergies. Review of Systems: Review of Systems is not available for this patient. Vital Signs: Performed on May 05, 2021 09:10 Height - 69.00 in Weight - 134.6 lbs (HIGH) BSA - 1.75 sq.m BMI - 19.88 Temperature - 97.4 F (LOW) Pulse - 103 /min (HIGH) Respiration - 18 /min BP - 106/64 mm(hg) O2 Sat - 99 % Pain - 0 Fatigue - 0 Performance Status: 1 - No physically strenuous activity, but ambulatory and able to carry out light or sedentary work (e.g. office work, light house work). (ECOG) Physical Examination: ENMT - No mouth sores, no thrush, no jaundice, Persistent right neck mass but smaller, Respiratory - Lungs are clear to auscultation, Cardiovascular - Regular rate and rhythm of heart, Abdomen - Soft, bowel sounds present, Extremities - No visible edema. Lab/Imaging: Test performed on Apr 24, 2021 11:27 Creatinine 0.4 mg/dL Cr Clearance (Est) 148.67 mL/min Test performed on March 28, 2021 08:38 Sodium 130 mmol/L Potassium 4.4 mmol/L Chloride 95 mmol/L CO2 27 mmol/L Anion Gap 12.4 BUN 8 mg/dL eGFR 165.1 mL/min Glucose 98 mg/dL Osmolality - Calculated 268 mOsm/kg Calcium 9.0 mg/dL Protein, Total 7.1 g/dL Albumin 3.9 g/dL Globulin 3.2 g/dL Bilirubin, Total 0.4 mg/dL ALT (SGPT) 18 U/L AST (SGOT) 22 U/L Alkaline Phosphatase 136 IU/L WBC 9.8 10 3/uL RBC 3.48 10 6/uL HGB 10.9 g/dL HCT 32.8 % MCV 94.3 fL MCH 31.3 pg MCHC 33.2 g/dL RDW 14.5 % Platelet Count 517 10 3/cmm MPV 8.7 fL Neutrophils 7.26 10 3/uL Lymphocytes 1.1 10 3/uL Monocytes 1.3 10 3/uL Eosinophils 0.0 10 3/uL Basophils 0.1 10 3/uL Neutrophil % 74.1 % Lymphocyte % 11.6 % Monocyte % 12.8 % Eosinophil % 0.3 % Basophils % 0.7 % NRBC % 0 % Impression: Metastatic small cell lung cancer, per right neck mass biopsy done on January 26, 2021 biopsy-proven pancreatic head mass done on January 27, 2021 @ [facility] CT scan of the chest abdomen pelvis done on January 23 2021 showed extensive disease involving right neck mass 11.5 x 6.4 cm with occlusion of right jugular vein and invading right SCM muscle with additional lymph nodes in the right cervical chain, right supraclavicular upper mediastinum. There was also extensive lymphadenopathy in the chest also noted in thoracic aorta, pericardiac, pulmonary mass extending along bronchovascular structures of left lower lobe and along the pleura, mass encases and partially obstruct left lower lobe bronchi, marked intrahepatic and extrahepatic biliary dilation secondary to pancreatic head mass measuring 2.9 x 3.5 cm, liver mets, bilateral adrenal mets. Status post CBD stenting done on January 27, 2021, with improvement in jaundice as well as LFTs Started on systemic chemotherapy with carboplatin/etoposide on February 01, 2021-first cycle given at [place]. MRI scan of the brain showed brain mets status post radiation therapy completed on February 17, 2021 at [place]. Follow-up CT PET scanAfter 3 cycles of chemotherapy with carboplatin/etoposide done on April 15, 2021 shows improvement in the right neck mass size no major 4 x 3.4 cm with SUV of 5.3 compared to 11.5 x 6.4 cm in January [address] scan. Normal liver and adrenal gland, significant improvement in extensive mediastinal, right-sided cervical and posterior cervical triangle lymphadenopathy. Also improvement in the left perihilar nodule. Solitary mesenteric FDG positive lymph node. Plan: Discussed with patient regarding her labs white blood count 8.3 hemoglobin 7.8 hematocrit 24.1 platelets 184,000 CMP within normal limit except sodium 131 Clinically, patient doing well with no new signs symptom except generalized weakness and fatigue which could be multifactorial including chemotherapy and progressive anemia, patient was offered packed RBC but patient declined, knowing it may improve her symptoms, patient will rather take oral iron supplement. As far as right neck mass is concerned, it is fluctuating in size just prior to chemotherapy it increases in size then after chemotherapy it improves, which is unusual as her recently done CT PET scan shows excellent response and other metastatic sites., At this point ,will consider another cycle of chemotherapy and after that we will consider CT PET scan if it shows no evidence of disease beyond right neck and then will refer him to radiation oncology for consolidation. And also trying to get patient assistance for Tecentriq, once available, will add to her chemotherapy regimen. Patient return to clinic in a week from Saturday with CBC CMP, if reasonable, for cycle #5 with carboplatin/etoposide and if Tecentriq is available, will add that too Signed By: Stephanie Chapman M.D. <<Signature on File>>
[2021-05-15 09:28] LABS: Basophils # 0.1 10^3/uL (0.0-0.1); Basophils % 0.6 %; Eosinophils # 0.1 10^3/uL (0.0-0.8); Eosinophils % 1.3 %; Hematocrit 28.2 % (37.0-47.0); Hemoglobin 8.9 g/dL (11.5-15.3); Lymphocytes # 0.9 10^3/uL (0.8-4.8); Mean Corpuscular HGB Conc 31.6 g/dL (30.0-36.0); Mean Corpuscular Volume 101.4 fL (81-99); Mean Platelet Volume 8.5 fL (7.4-10.4); Monocytes # 0.8 10^3/uL (0.2-0.9); Monocytes % 10.8 %; Neutrophils # 5.88 10^3/uL (1.8-7.7); Neutrophils % 75.4 %; Nucleated Red Blood Cells % 0 %; Platelet Count 277 10^3/cmm (130-400); Red Blood Count 2.78 10^6/uL (4.1-5.3); Red Cell Distribution Width 17.7 % (12.1-15.1); White Blood Count 7.8 10^3/uL (4.0-10.0)
[2021-05-15 09:53] LABS: Alanine Aminotransferase 318 U/L (0-33); Albumin Level 3.9 g/dL (3.5-5.2); Alkaline Phosphatase 394 IU/L (35-105); Anion Gap 13.5 (5-19); Aspartate Amino Transferase 239 U/L (0-32); Blood Urea Nitrogen 10 mg/dL (6-20); Calcium 8.9 mg/dL (8.5-10.5); Carbon Dioxide 24 mmol/L (22-29); Chloride 99 mmol/L (98-107); Globulin 2.7 g/dL (1.3-4.6); Glomerular Filtration Rate 165.1 mL/min (90-130); Glucose 94 mg/dL (65-115); Osmolality Calculated 273 mOsm/kg (285-295); Potassium 4.5 mmol/L (3.5-5.1); Sodium 132 mmol/L (136-145); Total Bilirubin 0.2 mg/dL (0.15-1.2); Total Protein 6.6 g/dL (6.6-8.7)
[2021-05-15] MEDS: ondansetron 2 mg/ML SDV 2 mL 8 MG IVP (11:35)
[2021-05-15] MEDS: sodium chloride 0.9% 250 ML IV (11:35)
[2021-05-16] MEDS: sodium chloride 0.9% 250 ML IV (10:28)
[2021-05-16] MEDS: ondansetron 2 mg/ML SDV 2 mL 8 MG IVP (10:28)
[2021-05-17] MEDS: palonosetron 0.25 mg/5 mL SDV IV (14:38)
[2021-05-17] MEDS: sodium chloride 0.9% (100 ml) 100 ML 75 ML (14:38)
[2021-05-17] MEDS: pegfilgrastim 6 mg/0.6 mL Kit (onpro) SUBCUT (16:04)
== END 2021-06-03 23:59 | disposition home or self-care (01) ==
LOC: ONCMED 05:57
PROVIDERS: PCP Internal Medicine; Visit Provider Internal Medicine Hematology & Oncology
DX: Z51.11 Encounter for antineoplastic chemotherapy (principal); C34.32 Malignant neoplasm of lower lobe, left bronchus or lung; C77.8 Secondary and unspecified malignant neoplasm of lymph nodes of multiple regions; C78.7 Secondary malignant neoplasm of liver and intrahepatic bile duct; C79.71 Secondary malignant neoplasm of right adrenal gland; C79.72 Secondary malignant neoplasm of left adrenal gland; C78.89 Secondary malignant neoplasm of other digestive organs; C79.31 Secondary malignant neoplasm of brain; Z79.899 Other long term (current) drug therapy; Z92.21 Personal history of antineoplastic chemotherapy
CPT/HCPCS: 36591; 80053; 85025; 96367; 96375; 96377; 96413; 96417; 99215; J1100; J2405; J2469; J2505; J7040; J7050; J9045; J9181

== ENCOUNTER 2021-06-26 05:32 | Outpatient (RCR) | payer MEDICAID, SELFPAY ==
[2021-06-05] MEDS: alteplase 1 mg/mL SDV 2 mL 2 MG IV (08:35)
[2021-06-05 09:20] LABS: Basophils % 0.5 %; Eosinophils # 0.1 10^3/uL (0.0-0.8); Eosinophils % 1.2 %; Hematocrit 25.8 % (37.0-47.0); Hemoglobin 8.2 g/dL (11.5-15.3); Lymphocytes # 0.9 10^3/uL (0.8-4.8); Lymphocytes % 22.7 %; Mean Corpuscular HGB Conc 31.8 g/dL (30.0-36.0); Mean Corpuscular Hemoglobin 32.9 pg (28.0-34.0); Mean Corpuscular Volume 103.6 fL (81-99); Monocytes # 0.5 10^3/uL (0.2-0.9); Monocytes % 12.7 %; Neutrophils % 62.4 %; Nucleated Red Blood Cells % 0 %; Platelet Count 240 10^3/cmm (130-400); Red Blood Count 2.49 10^6/uL (4.1-5.3); Red Cell Distribution Width 19.5 % (12.1-15.1)
[2021-06-05 09:45] LABS: Alanine Aminotransferase 28 U/L (0-33); Albumin Level 4.1 g/dL (3.5-5.2); Alkaline Phosphatase 167 IU/L (35-105); Anion Gap 13.2 (5-19); Aspartate Amino Transferase 21 U/L (0-32); Blood Urea Nitrogen 12 mg/dL (6-20); Calcium 9.1 mg/dL (8.5-10.5); Carbon Dioxide 25 mmol/L (22-29); Chloride 100 mmol/L (98-107); Globulin 2.7 g/dL (1.3-4.6); Glomerular Filtration Rate 127.2 mL/min (90-130); Glucose 93 mg/dL (65-115); Osmolality Calculated 277 mOsm/kg (285-295); Potassium 4.2 mmol/L (3.5-5.1); Sodium 134 mmol/L (136-145); Total Bilirubin 0.2 mg/dL (0.15-1.2); Total Protein 6.8 g/dL (6.6-8.7)
[2021-06-05] MEDS: ondansetron 2 mg/ML SDV 2 mL 8 MG IVP (11:00)
[2021-06-05] MEDS: sodium chloride 0.9% 250 ML IV (11:00)
--- NOTE | 2021-06-05 13:21 | ONC FU_ITS ---
Dr. Chapman follow up note Patient: Melany Mcgill Unit #: [id number]: [id number] Dicatated By: Stephanie Chapman M.D.Date of Visit:Jun 05, 2021 Onc Med Follow-up/Prog Note History of Present Illness: Ms. Mcgill is a 55-year-old female with 1 month history of non tender right neck mass,30 to 40 pounds weight loss, jaundice, and right lower extremity weakness/numbness for which she was seeing a chiropractor without much relief. On January 23, 2021, she presented to [facility] and her bilirubin level was 7.2, alk phos was 1181, AST 287, ALT 563. Her hepatitis panel was negative. A CT of the neck with contrast showed large confluent enhancing mass in the right neck. It measeured 11.5 x 6.4 cm with occlusion of right jugular vein and invading her right SCM muscle. This was consistent with LAD with additional lymph nodes in the right cervical chain, right supraclavicular and upper mediastinum favored to be metastatic versus lymphoma. CT scan of chest abdomen pelvis with contrast showed severe adenopathy in the chest with LAD as noted above. It also reported distal thoracic, aorta, pericardiac, pulmonary mass versus adenopathy extending along bronchovascular structure of left lower lobe and along the pleura. The mass encased and partially obstructed the left lower lobe bronchus with marked intrahepatic and extrahepatic biliary dilation secondary to a pancreatic head mass measuring 2.9 x 3[address] also reported mets in the liver and bilateral adrenal glands. On January 25, 2021, she was transferred to [facility] for biliary stent and malignancy work-up. She underwent MRI brain which did show metastatic disease in the brain . An ultrasound guided biopsy of right neck mass done on January 26, 2021. This was consistent with small cell carcinoma. A biopsy of pancreatic head mass was also obtained which was consistent with small cell carcinoma as well. Ms Mcgill was started on systemic chemotherapy with carboplatin/etoposide on February 01, 2021. She tolerated first cycle of chemotherapy well. She was started on dexamethasone for brain mets and she was referred to radiation oncology for whole brain radiation therapy. She received 10 days of radiation therapy which she completed on February 17, 2021, Ms Mcgill underwent ERCP/EUS on January 27, 2021 for hyperbilirubinemia and elevated LFT. After stenting, her LFTs improved. 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 Her sodium was stable between 127-133 on discharge. Ms. Fay transferred her care us at [facility] to be closer to home. She received her second dose of chemotherapy with carboplatin etoposide beginning on February 27, 2021. She tolerated it well. She presents today with mild chemotherapy-induced neutropenia with a day 8 ANC of 1620. Follow-up CT PET scan after 3 cycles of carboplatin/etoposide on April 15, 2021 showed improvement in the right neck mass size from January 2021 CT scan now mass measured 4 x 3.4 cm with SUV of 5.3 compared to 11.5 x 6.[address] scan of neck. Uptake in 1.6 cm left lower lobe perihilar nodule which is SUV of 5.6. Left hilar lymph nodes have SUV up to 7.7. Multiple FDG positive mediastinal nodes are present in the AP window, prevascular, superior mediastinal, right thoracic inlet. Right paratracheal, left para-aortic Territories. Other FDG positive lymph nodes are evident in the right posterior triangle, cervical level 4 level 3 territories. At the level of abdomen, uptake in the pancreatic head has SUV of 3.9, evaluate mildly greater than the background. Biliary stent in place. Liver adrenal shows no abnormality. There is a dominant central mesenteric lymph node below the level of aortic bifurcation measuring 1.4 cm with SUV of 3.3. Tecentriq was added to carboplatin/etoposide on June 05, 2021, Although it was ordered earlier but due to patient's self-pay status it took a long to get immunotherapy under patient assistance program Came for follow-up, denies any specific complaints, no fever chills, no nausea or vomiting, no diarrhea or constipation, no abdominal pain, no hemoptysis hematemesis, no dysphagia, as per patient her right neck mass usually shrink more than half after each chemotherapy and then grow back somewhat and it did happen this time too, denies any pain or discomfort in the mass denies any fever chills, denies any overlying skin changes and denies any right shoulder pain or weakness in right arm. Tolerating systemic therapy with carboplatin/etoposide well, because of her self-pay status, we could not get Tecentriq under patient assistance program earlier now finally we did get approval from [employer] and patient will receive her first dose of Tecentriq along with her carboplatin/etoposide today . Medications: Acetaminophen 1 - 2 Tablet (of 325 mg) Oral daily PRN, guaiFENesin-Codeine 5 mL (of 100-10 mg/5mL) Solution Oral PRN, HYDROcodone-Acetaminophen (5-325 mg) Tablet Oral four times a day PRN, Ondansetron HCl 1 Tablet (of 4 mg) Oral q 4 hours PRN, Psyllium Powder Oral daily PRN Allergies: No Known Allergies. Review of Systems: Review of Systems is not available for this patient. Vital Signs: Performed on Jun 05, 2021 10:55 Height - 69.00 in Weight - 139.6 lbs (HIGH) BSA - 1.77 sq.m BMI - 20.62 Temperature - 96.5 F (LOW) Pulse - 108 /min (HIGH) Respiration - 18 /min BP - 108/68 mm(hg) O2 Sat - 99 % Pain - 0 Fatigue - 0 Performance Status: 0 - Fully active, able to carry on all predisease activities without restrictions. (ECOG) Physical Examination: ENMT - Persistent mass in her right neck nontender no fluctuation no overlying skin changes no visible mouth sores or thrush, Respiratory - Lungs are clear to auscultation, Cardiovascular - Regular rate and rhythm of heart, Abdomen - Soft, bowel sounds present, Extremities - No visible edema. Lab/Imaging: Test performed on Jun 05, 2021 10:40 Creatinine 0.5 mg/dL Cr Clearance (Est) 117.52 mL/min Test performed on March 28, 2021 08:38 Sodium 130 mmol/L Potassium 4.4 mmol/L Chloride 95 mmol/L CO2 27 mmol/L Anion Gap 12.4 BUN 8 mg/dL eGFR 165.1 mL/min Glucose 98 mg/dL Osmolality - Calculated 268 mOsm/kg Calcium 9.0 mg/dL Protein, Total 7.1 g/dL Albumin 3.9 g/dL Globulin 3.2 g/dL Bilirubin, Total 0.4 mg/dL ALT (SGPT) 18 U/L AST (SGOT) 22 U/L Alkaline Phosphatase 136 IU/L WBC 9.8 10 3/uL RBC 3.48 10 6/uL HGB 10.9 g/dL HCT 32.8 % MCV 94.3 fL MCH 31.3 pg MCHC 33.2 g/dL RDW 14.5 % Platelet Count 517 10 3/cmm MPV 8.7 fL Neutrophils 7.26 10 3/uL Lymphocytes 1.1 10 3/uL Monocytes 1.3 10 3/uL Eosinophils 0.0 10 3/uL Basophils 0.1 10 3/uL Neutrophil % 74.1 % Lymphocyte % 11.6 % Monocyte % 12.8 % Eosinophil % 0.3 % Basophils % 0.7 % NRBC % 0 % Impression: Metastatic small cell lung cancer, per right neck mass biopsy done on January 26, 2021 biopsy-proven pancreatic head mass done on January 27, 2021 @ [facility]. CT scan of the chest abdomen pelvis done on January 23 2021 showed extensive disease involving right neck mass 11.5 x 6.4 cm with occlusion of right jugular vein and invading right SCM muscle with additional lymph nodes in the right cervical chain, right supraclavicular upper mediastinum. There was also extensive lymphadenopathy in the chest also noted in thoracic aorta, pericardiac, pulmonary mass extending along bronchovascular structures of left lower lobe and along the pleura, mass encases and partially obstruct left lower lobe bronchi, marked intrahepatic and extrahepatic biliary dilation secondary to pancreatic head mass measuring 2.9 x 3.5 cm, liver mets, bilateral adrenal mets. Status post CBD stenting done on January 27, 2021, with improvement in jaundice as well as LFTs Started on systemic chemotherapy with carboplatin/etoposide on February 01, 2021-first cycle given at [place]. MRI scan of the brain showed brain mets status post radiation therapy completed on February 17, 2021 at [place]. Follow-up CT PET scanAfter 3 cycles of chemotherapy with carboplatin/etoposide done on April 15, 2021 shows improvement in the right neck mass size no major 4 x 3.4 cm with SUV of 5.3 compared to 11.5 x 6.4 cm in January 2021 [address] scan. Normal liver and adrenal gland, significant improvement in extensive mediastinal, right-sided cervical and posterior cervical triangle lymphadenopathy. Also improvement in the left perihilar nodule. Solitary mesenteric FDG positive lymph node. Plan: Discussed with patient regarding her labs white blood count 4 hemoglobin 8.2 with hematocrit 25.8 platelets 240,000 CMP within normal limit except sodium 134 Clinically, patient doing reasonably well with no new signs symptom, she has persistent right neck mass which is fluctuating in size but no sign of infection, earlier plan was to consider CT PET scan after 5 doses of chemo but now patient got Tecentriq approved under patient assistance program so we will consider adding immunotherapy/Tecentriq to her next cycle of chemotherapy with carboplatin/etoposide today and then repeat CT PET scan prior to next visit and if it shows no evidence of disease anywhere else except in right neck, then will consider referring her to radiation oncology for evaluation for radiation therapy to right neck residual/persistent disease and switch her to maintenance therapy with Tecentriq alone. We will proceed with next cycle of chemotherapy with carboplatin/etoposide and also add Tecentriq 1200 mg every 3 weeks. As far as anemia is concerned, is due to iron deficiency patient is on oral iron, follow-up CBC shows no improvement so which could be due to noncompliance or iron malabsorption, patient was offered parenteral iron, again due to self-pay status patient is reluctant to consider parenteral iron in the meantime we will continue with oral and patient was advised to be compliant and follow her CBC and if there is a drop in her hemoglobin below 8 g, will consider blood transfusion. Signed By: Stephanie Chapman M.D. <<Signature on File>>
[2021-06-06] MEDS: ondansetron 2 mg/ML SDV 2 mL 8 MG IVP (14:50)
[2021-06-06] MEDS: sodium chloride 0.9% 250 ML IV (14:50)
[2021-06-07] MEDS: sodium chloride 0.9% 250 ML IV (14:30)
[2021-06-07] MEDS: palonosetron 0.25 mg/5 mL SDV IVP (14:30)
[2021-06-07] MEDS: pegfilgrastim 6 mg/0.6 mL Kit (onpro) SUBCUT (16:10)
[2021-06-26 08:53] LABS: Basophils % 0.6 %; Eosinophils # 0.1 10^3/uL (0.0-0.8); Eosinophils % 1.1 %; Hematocrit 26.3 % (37.0-47.0); Hemoglobin 8.3 g/dL (11.5-15.3); Lymphocytes % 15.2 %; Mean Corpuscular HGB Conc 31.6 g/dL (30.0-36.0); Mean Corpuscular Hemoglobin 33.5 pg (28.0-34.0); Mean Platelet Volume 8.6 fL (7.4-10.4); Monocytes # 0.9 10^3/uL (0.2-0.9); Monocytes % 14.5 %; Neutrophils # 4.29 10^3/uL (1.8-7.7); Nucleated Red Blood Cells % 0 %; Platelet Count 357 10^3/cmm (130-400); Red Blood Count 2.48 10^6/uL (4.1-5.3); Red Cell Distribution Width 21.4 % (12.1-15.1); White Blood Count 6.4 10^3/uL (4.0-10.0)
[2021-06-26 09:14] LABS: Alanine Aminotransferase 27 U/L (0-33); Albumin Level 3.9 g/dL (3.5-5.2); Alkaline Phosphatase 135 IU/L (35-105); Anion Gap 14.3 (5-19); Aspartate Amino Transferase 21 U/L (0-32); Blood Urea Nitrogen 9 mg/dL (6-20); Calcium 8.8 mg/dL (8.5-10.5); Carbon Dioxide 25 mmol/L (22-29); Chloride 100 mmol/L (98-107); Globulin 2.5 g/dL (1.3-4.6); Glomerular Filtration Rate 127.2 mL/min (90-130); Glucose 85 mg/dL (65-115); Osmolality Calculated 278 mOsm/kg (285-295); Potassium 4.3 mmol/L (3.5-5.1); Sodium 135 mmol/L (136-145); Total Bilirubin 0.2 mg/dL (0.15-1.2); Total Protein 6.4 g/dL (6.6-8.7)
[2021-06-26] MEDS: sodium chloride 0.9% 250 ML 999 ML IV (11:06)
--- NOTE | 2021-06-26 17:06 | ONC FU_ITS ---
Dr. Chapman follow up note Patient: Melany Mcgill Unit #: [id number]: [id number] Dicatated By: Stephanie Chapman M.D.Date of Visit:Jun 26, 2021 Onc Med Follow-up/Prog Note History of Present Illness: Ms. Mcgill is a 56-year-old female with 1 month history of non tender right neck mass,30 to 40 pounds weight loss, jaundice, and right lower extremity weakness/numbness for which she was seeing a chiropractor without much relief. On January 23, 2021, she presented to [facility] ER and her bilirubin level was 7.2, alk phos was 1181, AST 287, ALT 563. Her hepatitis panel was negative. A CT of the neck with contrast showed large confluent enhancing mass in the right neck. It measeured 11.5 x 6.4 cm with occlusion of right jugular vein and invading her right SCM muscle. This was consistent with LAD with additional lymph nodes in the right cervical chain, right supraclavicular and upper mediastinum favored to be metastatic versus lymphoma. CT scan of chest abdomen pelvis with contrast showed severe adenopathy in the chest with LAD as noted above. It also reported distal thoracic, aorta, pericardiac, pulmonary mass versus adenopathy extending along bronchovascular structure of left lower lobe and along the pleura. The mass encased and partially obstructed the left lower lobe bronchus with marked intrahepatic and extrahepatic biliary dilation secondary to a pancreatic head mass measuring 2.9 x 3[address] also reported mets in the liver and bilateral adrenal glands. On January 25, 2021, she was transferred to [facility] for biliary stent and malignancy work-up. She underwent MRI brain which did show metastatic disease in the brain . An ultrasound guided biopsy of right neck mass done on January 26, 2021. This was consistent with small cell carcinoma. A biopsy of pancreatic head mass was also obtained which was consistent with small cell carcinoma as well. Ms Mcgill was started on systemic chemotherapy with carboplatin/etoposide on February 01, 2021. She tolerated first cycle of chemotherapy well. She was started on dexamethasone for brain mets and she was referred to radiation oncology for whole brain radiation therapy. She received 10 days of radiation therapy which she completed on February 17, 2021, Ms Mcgill underwent ERCP/EUS on January 27, 2021 for hyperbilirubinemia and elevated LFT. After stenting, her LFTs improved. 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 Her sodium was stable between 127-133 on discharge. Ms. Fay transferred her care us at [facility] to be closer to home. She received her second dose of chemotherapy with carboplatin etoposide beginning on February 27, 2021. She tolerated it well. She presents today with mild chemotherapy-induced neutropenia with a day 8 ANC of 1620. Follow-up CT PET scan after 3 cycles of carboplatin/etoposide on April 15, 2021 showed improvement in the right neck mass size from January 2021 CT scan now mass measured 4 x 3.4 cm with SUV of 5.3 compared to 11.5 x 6.[address] scan of neck. Uptake in 1.6 cm left lower lobe perihilar nodule which is SUV of 5.6. Left hilar lymph nodes have SUV up to 7.7. Multiple FDG positive mediastinal nodes are present in the AP window, prevascular, superior mediastinal, right thoracic inlet. Right paratracheal, left para-aortic Territories. Other FDG positive lymph nodes are evident in the right posterior triangle, cervical level 4 level 3 territories. At the level of abdomen, uptake in the pancreatic head has SUV of 3.9, evaluate mildly greater than the background. Biliary stent in place. Liver adrenal shows no abnormality. There is a dominant central mesenteric lymph node below the level of aortic bifurcation measuring 1.4 cm with SUV of 3.3. Tecentriq was added to carboplatin/etoposide on June 05, 2021, Although it was ordered earlier but due to patient's self-pay status it took a long to get immunotherapy under patient assistance program Follow-up CT PET scan done on June 17, 2021, when compared with CT PET scan done on April 15, 2021, showed improvement in left perihilar nodule, hilar lymph nodes, mediastinal lymph nodes, no change in pancreatic head uptake and biliary stent placement. Resolution of activity and slightly mesenteric lymph node, reactive right axillary lymphadenopathy seen on prior studies resolved. But progressive right neck mass with stability of other right cervical lymph nodes Came for follow-up, denies any specific complaint except persistent right neck mass and off-and-on discomfort in the right shoulder but no dysphagia, no fever chills but generalized weakness and fatigue but no melena or hematochezia, no hemoptysis or hematemesis, no jaundice, no headaches blurred vision or double vision, no skin rash, no mucus in stool. Tolerated chemoimmunotherapy with carboplatin/etoposide/Tecentriq which was ordered first time with cycle #6 with carboplatin/etoposide . Medications: Acetaminophen 1 - 2 Tablet (of 325 mg) Oral daily PRN, guaiFENesin-Codeine 5 mL (of 100-10 mg/5mL) Solution Oral PRN, HYDROcodone-Acetaminophen (5-325 mg) Tablet Oral four times a day PRN, Ondansetron HCl 1 Tablet (of 4 mg) Oral q 4 hours PRN, Psyllium Powder Oral daily PRN Allergies: No Known Allergies. Review of Systems: Review of Systems is not available for this patient. Vital Signs: Performed on Jun 26, 2021 09:00 Height - 69.00 in Weight - 142.2 lbs (HIGH) BSA - 1.79 sq.m BMI - 21.00 Temperature - 97.6 F (LOW) Pulse - 97 /min Respiration - 18 /min BP - 107/69 mm(hg) O2 Sat - 99 % Pain - 0 Fatigue - 0 Performance Status: 0 - Fully active, able to carry on all predisease activities without restrictions. (ECOG) Physical Examination: ENMT - No mouth sores, no thrush, no jaundice but persistent right neck mass about 5 cm, nontender, Respiratory - Lungs are clear to auscultation, Cardiovascular - Regular rate and rhythm of heart, Abdomen - Soft, bowel sounds present, Extremities - No visible edema. Lab/Imaging: Test performed on Jun 26, 2021 08:20 Sodium 135 mmol/L Potassium 4.3 mmol/L Chloride 100 mmol/L CO2 25 mmol/L Anion Gap 14.3 BUN 9 mg/dL Creatinine 0.5 mg/dL Cr Clearance (Est) 117.5200 mL/min eGFR 127.2 mL/min Glucose 85 mg/dL Osmolality - Calculated 278 mOsm/kg Calcium 8.8 mg/dL Protein, Total 6.4 g/dL Albumin 3.9 g/dL Globulin 2.5 g/dL Bilirubin, Total 0.2 mg/dL ALT (SGPT) 27 U/L AST (SGOT) 21 U/L Alkaline Phosphatase 135 IU/L WBC 6.4 10 3/uL RBC 2.48 10 6/uL HGB 8.3 g/dL HCT 26.3 % MCV 106.0 fl MCH 33.5 pg MCHC 31.6 g/dL RDW 21.4 % Platelet Count 357 10 3/cmm MPV 8.6 fL Neutrophils 4.29 10 3/uL Lymphocytes 1.0 10 3/uL Monocytes 0.9 10 3/uL Eosinophils 0.1 10 3/uL Basophils 0.0 10 3/uL Neutrophil % 67.0 % Lymphocyte % 15.2 % Monocyte % 14.5 % Eosinophil % 1.1 % Basophils % 0.6 % NRBC % 0 % Impression: Metastatic small cell lung cancer, per right neck mass biopsy done on January 26, 2021 biopsy-proven pancreatic head mass done on January 27, 2021 @ [facility]. CT scan of the chest abdomen pelvis done on January 23 2021 showed extensive disease involving right neck mass 11.5 x 6.4 cm with occlusion of right jugular vein and invading right SCM muscle with additional lymph nodes in the right cervical chain, right supraclavicular upper mediastinum. There was also extensive lymphadenopathy in the chest also noted in thoracic aorta, pericardiac, pulmonary mass extending along bronchovascular structures of left lower lobe and along the pleura, mass encases and partially obstruct left lower lobe bronchi, marked intrahepatic and extrahepatic biliary dilation secondary to pancreatic head mass measuring 2.9 x 3.5 cm, liver mets, bilateral adrenal mets. Status post CBD stenting done on January 27, 2021, with improvement in jaundice as well as LFTs Started on systemic chemotherapy with carboplatin/etoposide on February 01, 2021-first cycle given at [place]. MRI scan of the brain showed brain mets status post radiation therapy completed on February 17, 2021 at [place]. Follow-up CT PET scanAfter 3 cycles of chemotherapy with carboplatin/etoposide done on April 15, 2021 shows improvement in the right neck mass size no major 4 x 3.4 cm with SUV of 5.3 compared to 11.5 x 6.4 cm in January [address] CT scan. Normal liver and adrenal gland, significant improvement in extensive mediastinal, right-sided cervical and posterior cervical triangle lymphadenopathy. Also improvement in the left perihilar nodule. Solitary mesenteric FDG positive lymph node. follow-up CT PET done after 6 cycles of carboplatin/etoposide and a dose of Tecentriq which was added with the last cycle, patient could not get it earlier because of her no insurance status and time taken by patient assistance program, done on June 17howed improvement in the left perihilar nodule, hilar nodes, mediastinal lymph nodes. No change in the pancreatic head uptake and biliary stent placement. Resolution of solitary mesenteric lymph node. Resolution of right axillary lymphadenopathy but progression of right neck mass with stability of other right cervical lymph node Carboplatin/etoposide was discontinued on June 26, 2021 but continue with single agent Tecentriq, while she was referred to [place] for evaluation of persistent right neck mass as patient was recommended right neck mass biopsy Plan: Discussed with patient regarding her labs white blood count 6.4 hemoglobin 8.3 hematocrit 26.3 platelets 357,000 CMP within normal limits except sodium 135 and follow-up CT PET scan done on June 17, 2000 6:21 cycles of carboplatin/etoposide and a dose of Tecentriq which was added with the last cycle, patient could not get it earlier because of her no insurance status and time taken by patient assistance program, showed improvement in the left perihilar nodule, hilar nodes, mediastinal lymph nodes. No change in the pancreatic head uptake and biliary stent placement. Resolution of solitary mesenteric lymph node. Resolution of right axillary lymphadenopathy but progression of right neck mass with stability of other right cervical lymph node Clinically, patient doing reasonably well, tolerating systemic chemotherapy with carboplatin/etoposide and with the last cycle, Tecentriq was added, well but with expected side effect e.g. persistent normocytic anemia, her follow-up CT PET scan shows overall good response e.g. resolution of hepatic metastatic disease and adrenal involvement and improvement in other multiple involved sites but concern is persistent right neck mass/lymphadenopathy, could be due to chemotherapy resistant disease or other other than small cell histology, right neck mass biopsies recommended to confirm persistent disease or verify the histology and also repeat molecular profile to identify therapeutic targetable mutations. As far as anemia is concerned, will consider repeating anemia work-up, iron studies B12 folic acid and reticulocyte count and supplement if needed or consider blood transfusion if hemoglobin less than 8 g We will refer her, back to [facility], patient is established patient here for right neck mass biopsy and also evaluation for clinical trial if available. In the meantime, we will discontinue carboplatin/etoposide but proceed with single agent Tecentriq and then she will return to clinic in 3 weeks with CBC CMP, Signed By: Stephanie Chapman M.D. <<Signature on File>>
== END 2021-07-04 23:59 | disposition home or self-care (01) ==
LOC: ONCMED 05:32
PROVIDERS: PCP Internal Medicine; Visit Provider Internal Medicine Hematology & Oncology
DX: Z51.12 Encounter for antineoplastic immunotherapy (principal); Z51.11 Encounter for antineoplastic chemotherapy; C34.32 Malignant neoplasm of lower lobe, left bronchus or lung; C78.89 Secondary malignant neoplasm of other digestive organs; C78.7 Secondary malignant neoplasm of liver and intrahepatic bile duct; C79.72 Secondary malignant neoplasm of left adrenal gland; C79.71 Secondary malignant neoplasm of right adrenal gland; C79.31 Secondary malignant neoplasm of brain; Z79.899 Other long term (current) drug therapy; Z92.21 Personal history of antineoplastic chemotherapy; Z92.3 Personal history of irradiation
CPT/HCPCS: 36415; 36593; 80053; 85025; 96367; 96372; 96375; 96377; 96413; 96417; 99215; J1100; J2405; J2469; J2505; J2997; J7040; J7050; J9022; J9045; J9181

== ENCOUNTER 2021-07-24 07:53 | Outpatient (RCR) | payer MEDICAID, SELFPAY ==
[2021-07-17 09:43] LABS: Basophils # 0.1 10^3/uL (0.0-0.1); Basophils % 1.2 %; Eosinophils # 0.3 10^3/uL (0.0-0.8); Hematocrit 32.5 % (37.0-47.0); Hemoglobin 11.1 g/dL (11.5-15.3); Lymphocytes # 0.8 10^3/uL (0.8-4.8); Lymphocytes % 12.8 %; Mean Corpuscular HGB Conc 34.2 g/dL (30.0-36.0); Mean Corpuscular Hemoglobin 33.2 pg (28.0-34.0); Mean Corpuscular Volume 97.3 fl (81-99); Mean Platelet Volume 8.5 fL (7.4-10.4); Monocytes # 0.8 10^3/uL (0.2-0.9); Neutrophils # 4.37 10^3/uL (1.8-7.7); Neutrophils % 67.7 %; Nucleated Red Blood Cells % 0 %; Platelet Count 318 10^3/cmm (130-400); Red Blood Count 3.34 10^6/uL (4.1-5.3); Red Cell Distribution Width 14.7 % (12.1-15.1); Reticulocyte % 2.6 % (0.5-2.0); White Blood Count 6.5 10^3/uL (4.0-10.0)
[2021-07-17 10:27] LABS: Alanine Aminotransferase 78 U/L (0-33); Albumin Level 4.4 g/dL (3.5-5.2); Alkaline Phosphatase 137 IU/L (35-105); Anion Gap 15.2 (5-19); Aspartate Amino Transferase 26 U/L (0-32); Blood Urea Nitrogen 11 mg/dL (6-20); Carbon Dioxide 23 mmol/L (22-29); Chloride 87 mmol/L (98-107); Ferritin 511 ng/mL (15-150); Globulin 2.9 g/dL (1.3-4.6); Glomerular Filtration Rate 229.3 mL/min (90-130); Glucose 97 mg/dL (65-115); Iron 52 ug/dL (37-145); Osmolality Calculated 251 mOsm/kg (285-295); Percent Saturation 17.7 % (20-50); Potassium 4.2 mmol/L (3.5-5.1); Sodium 121 mmol/L (136-145); Total Bilirubin 0.4 mg/dL (0.15-1.2); Total Iron Binding Capacity 293 mcg/dl; Total Protein 7.3 g/dL (6.6-8.7); Unsaturated Iron Binding 241 ug/dL (112-347)
[2021-07-17 10:40] LABS: Vitamin B12 1480 pg/mL (232-1245)
[2021-07-17] MEDS: sodium chloride 0.9% 250 ML 75 ML IV (12:25)
[2021-07-17 13:28] LABS: Folate Level 11.1 ng/mL (4.8-37.3)
--- NOTE | 2021-07-17 13:45 | ONC FU_ITS ---
Dr. Chapman follow up note Patient: Melany Mcgill Unit #: [id number]: [id number] Dicatated By: Stephanie Chapman M.D.Date of Visit:Jul 17, 2021 Onc Med Follow-up/Prog Note History of Present Illness: Ms. Mcgill is a 56-year-old female with 1 month history of non tender right neck mass,30 to 40 pounds weight loss, jaundice, and right lower extremity weakness/numbness for which she was seeing a chiropractor without much relief. On January 23, 2021, she presented to [facility] ER and her bilirubin level was 7.2, alk phos was 1181, AST 287, ALT 563. Her hepatitis panel was negative. A CT of the neck with contrast showed large confluent enhancing mass in the right neck. It measeured 11.5 x 6.4 cm with occlusion of right jugular vein and invading her right SCM muscle. This was consistent with LAD with additional lymph nodes in the right cervical chain, right supraclavicular and upper mediastinum favored to be metastatic versus lymphoma. CT scan of chest abdomen pelvis with contrast showed severe adenopathy in the chest with LAD as noted above. It also reported distal thoracic, aorta, pericardiac, pulmonary mass versus adenopathy extending along bronchovascular structure of left lower lobe and along the pleura. The mass encased and partially obstructed the left lower lobe bronchus with marked intrahepatic and extrahepatic biliary dilation secondary to a pancreatic head mass measuring 2.9 x 3[address] also reported mets in the liver and bilateral adrenal glands. On January 25, 2021, she was transferred to [facility] for biliary stent and malignancy work-up. She underwent MRI brain which did show metastatic disease in the brain . An ultrasound guided biopsy of right neck mass done on January 26, 2021. This was consistent with small cell carcinoma. A biopsy of pancreatic head mass was also obtained which was consistent with small cell carcinoma as well. Ms Mcgill was started on systemic chemotherapy with carboplatin/etoposide on February 01, 2021. She tolerated first cycle of chemotherapy well. She was started on dexamethasone for brain mets and she was referred to radiation oncology for whole brain radiation therapy. She received 10 days of radiation therapy which she completed on February 17, 2021, Ms Mcgill underwent ERCP/EUS on January 27, 2021 for hyperbilirubinemia and elevated LFT. After stenting, her LFTs improved. 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 Her sodium was stable between 127-133 on discharge. Ms. Fay transferred her care us at [facility] to be closer to home. She received her second dose of chemotherapy with carboplatin etoposide beginning on February 27, 2021. She tolerated it well. She presents today with mild chemotherapy-induced neutropenia with a day 8 ANC of 1620. Follow-up CT PET scan after 3 cycles of carboplatin/etoposide on April 15, 2021 showed improvement in the right neck mass size from January 2021 CT scan now mass measured 4 x 3.4 cm with SUV of 5.3 compared to 11.5 x 6.[address] scan of neck. Uptake in 1.6 cm left lower lobe perihilar nodule which is SUV of 5.6. Left hilar lymph nodes have SUV up to 7.7. Multiple FDG positive mediastinal nodes are present in the AP window, prevascular, superior mediastinal, right thoracic inlet. Right paratracheal, left para-aortic Territories. Other FDG positive lymph nodes are evident in the right posterior triangle, cervical level 4 level 3 territories. At the level of abdomen, uptake in the pancreatic head has SUV of 3.9, evaluate mildly greater than the background. Biliary stent in place. Liver adrenal shows no abnormality. There is a dominant central mesenteric lymph node below the level of aortic bifurcation measuring 1.4 cm with SUV of 3.3. Tecentriq was added to carboplatin/etoposide on June 05, 2021, Although it was ordered earlier but due to patient's self-pay status it took a long to get immunotherapy under patient assistance program Follow-up CT PET scan done on June 17, 2021, when compared with CT PET scan done on April 15, 2021, showed improvement in left perihilar nodule, hilar lymph nodes, mediastinal lymph nodes, no change in pancreatic head uptake and biliary stent placement. Resolution of activity and slightly mesenteric lymph node, reactive right axillary lymphadenopathy seen on prior studies resolved. But progressive right neck mass with stability of other right cervical lymph nodes Came for follow-up, denies any specific complaint except persistent right lower mass, with slightly more prominent, off and on pain/numbness in the right shoulder, also felt in the right throat but it was transient. Denies any dysphagia denies any hemoptysis or hematemesis denies any right arm weakness or radiating pain. Denies any skin rash denies any diarrhea denies any jaundice denies any headaches blurred vision or double vision tolerating maintenance immunotherapy with Tecentriq well, patient was referred back to [place] for evaluation of persistent/fluctuating right neck mass, patient was diagnosed at [place] with metastatic small cell lung cancer she received radiation therapy to her brain and the first course of chemotherapy at [place] but this time, because of her self-pay status, she was not accepted back for further evaluation . Medications: Acetaminophen 1 - 2 Tablet (of 325 mg) Oral daily PRN, guaiFENesin-Codeine 5 mL (of 100-10 mg/5mL) Solution Oral PRN, HYDROcodone-Acetaminophen (5-325 mg) Tablet Oral four times a day PRN, Ondansetron HCl 1 Tablet (of 4 mg) Oral q 4 hours PRN, Psyllium Powder Oral daily PRN Allergies: No Known Allergies. Review of Systems: Review of Systems is not available for this patient. Vital Signs: Performed on Jul 17, 2021 12:57 Height - 69.00 in Temperature - 97.5 F (LOW) Pulse - 81 /min Respiration - 18 /min BP - 104/70 mm(hg) O2 Sat - 99 % Performed on Jul 17, 2021 11:12 Height - 69.00 in Weight - 141.6 lbs (LOW) BSA - 1.78 sq.m BMI - 20.91 Temperature - 97.5 F (LOW) Pulse - 101 /min (HIGH) Respiration - 18 /min BP - 125/76 mm(hg) O2 Sat - 99 % Pain - 0 Fatigue - 8 Performance Status: 0 - Fully active, able to carry on all predisease activities without restrictions. (ECOG) Physical Examination: ENMT - No mouth sores, no thrush, no jaundice but persistent right lower neck mass with overlying skin changes but no discharge seen, mildly tender, Respiratory - Lungs are clear to auscultation, Cardiovascular - Regular rate and rhythm of heart, Abdomen - Soft, bowel sounds present, Extremities - No visible edema. Lab/Imaging: Test performed on Jul 17, 2021 11:27 Creatinine 0.3 mg/dL Cr Clearance (Est) 195.86 mL/min Test performed on Jul 17, 2021 09:08 Ferritin 511 ng/mL Iron 52 mcg/dL Sodium 121 mmol/L Vitamin B12 1480 pg/mL Iron Binding Capacity (TIBC) 293 mcg/dl Potassium 4.2 mmol/L % Iron Saturation 17.7 % Chloride 87 mmol/L CO2 23 mmol/L UIBC 241 mcg/dL Anion Gap 15.2 BUN 11 mg/dL eGFR 229.3 mL/min Glucose 97 mg/dL Osmolality - Calculated 251 mOsm/kg Calcium 9.0 mg/dL Protein, Total 7.3 g/dL Albumin 4.4 g/dL Globulin 2.9 g/dL Bilirubin, Total 0.4 mg/dL ALT (SGPT) 78 U/L AST (SGOT) 26 U/L Alkaline Phosphatase 137 IU/L Retic Count % 2.6 % WBC 6.5 10 3/uL RBC 3.34 10 6/uL HGB 11.1 g/dL HCT 32.5 % MCV 97.3 fl MCH 33.2 pg MCHC 34.2 g/dL RDW 14.7 % Platelet Count 318 10 3/cmm MPV 8.5 fL Neutrophils 4.37 10 3/uL Lymphocytes 0.8 10 3/uL Monocytes 0.8 10 3/uL Eosinophils 0.3 10 3/uL Basophils 0.1 10 3/uL Neutrophil % 67.7 % Lymphocyte % 12.8 % Monocyte % 13.0 % Eosinophil % 5.0 % Basophils % 1.2 % NRBC % 0 % Impression: Metastatic small cell lung cancer, per right neck mass biopsy done on January 26, 2021 biopsy-proven pancreatic head mass done on January 27, 2021 @ [facility]. CT scan of the chest abdomen pelvis done on January 23 2021 showed extensive disease involving right neck mass 11.5 x 6.4 cm with occlusion of right jugular vein and invading right SCM muscle with additional lymph nodes in the right cervical chain, right supraclavicular upper mediastinum. There was also extensive lymphadenopathy in the chest also noted in thoracic aorta, pericardiac, pulmonary mass extending along bronchovascular structures of left lower lobe and along the pleura, mass encases and partially obstruct left lower lobe bronchi, marked intrahepatic and extrahepatic biliary dilation secondary to pancreatic head mass measuring 2.9 x 3.5 cm, liver mets, bilateral adrenal mets. Status post CBD stenting done on January 27, 2021, with improvement in jaundice as well as LFTs Started on systemic chemotherapy with carboplatin/etoposide on February 01, 2021-first cycle given at [place]. MRI scan of the brain showed brain mets status post radiation therapy completed on February 17, 2021 at [place]. Follow-up CT PET scanAfter 3 cycles of chemotherapy with carboplatin/etoposide done on April 15, 2021 shows improvement in the right neck mass size no major 4 x 3.4 cm with SUV of 5.3 compared to 11.5 x 6.4 cm in January 2021 CT scan. Normal liver and adrenal gland, significant improvement in extensive mediastinal, right-sided cervical and posterior cervical triangle lymphadenopathy. Also improvement in the left perihilar nodule. Solitary mesenteric FDG positive lymph node. follow-up CT PET done after 6 cycles of carboplatin/etoposide and a dose of Tecentriq which was added with the last cycle, patient could not get it earlier because of her no insurance status and time taken by patient assistance program, done on June 17howed improvement in the left perihilar nodule, hilar nodes, mediastinal lymph nodes. No change in the pancreatic head uptake and biliary stent placement. Resolution of solitary mesenteric lymph node. Resolution of right axillary lymphadenopathy but progression of right neck mass with stability of other right cervical lymph node Carboplatin/etoposide was discontinued on June 26, 2021 but continue with single agent Tecentriq, while she was referred to [place] for evaluation of persistent right neck mass as patient was recommended right neck mass biopsy Plan: Discussed with patient regarding her labs white blood count 6.5 hemoglobin 11.1 g compared to 8.3 previously hematocrit 32.5 platelets 318,000, CMP pending Clinically, patient is doing reasonably well, now with persistent right neck mass, now being treated with maintenance therapy with Tecentriq, will proceed with the next dose of Tecentriq today and then return to clinic in 3 weeks As far as persistent right neck mass is concerned, either she has immune/chemo resistance disease or mixed histology or other primary as her follow-up scan shows response at other sites, she may benefit from repeat biopsy or needle aspiration as long as sufficient specimen is obtained for molecular profiling or histopathology. Patient was referred back to [place] for evaluation, as per office, because of patient's self-pay status she was not given a return appointment, in that case we will refer her to [facility] thoracic oncology for evaluation. In the meantime we will refer her to radiation oncology for evaluation, as if there is a further disease progression and causing symptoms, she may benefit from palliative radiotherapy. As far as anemia is concerned, her hemoglobin has improved, will continue to monitor. Patient was advised in case there is evidence of dysphagia or respiratory distress or worsening of pain or numbness in right shoulder, she need to call us or go to hospital immediately for further evaluation. Signed By: Stephanie Chapman M.D. <<Signature on File>>
[2021-07-24 09:06] LABS: Basophils # 0.1 10^3/uL (0.0-0.1); Basophils % 1.3 %; Eosinophils # 0.5 10^3/uL (0.0-0.8); Eosinophils % 8.8 %; Hematocrit 32.5 % (37.0-47.0); Hemoglobin 10.8 g/dL (11.5-15.3); Lymphocytes # 0.8 10^3/uL (0.8-4.8); Lymphocytes % 13.4 %; Mean Corpuscular HGB Conc 33.2 g/dL (30.0-36.0); Mean Corpuscular Hemoglobin 32.8 pg (28.0-34.0); Mean Corpuscular Volume 98.8 fl (81-99); Mean Platelet Volume 8.4 fL (7.4-10.4); Monocytes # 0.5 10^3/uL (0.2-0.9); Monocytes % 9.1 %; Neutrophils # 3.76 10^3/uL (1.8-7.7); Nucleated Red Blood Cells % 0 %; Platelet Count 293 10^3/cmm (130-400); Red Blood Count 3.29 10^6/uL (4.1-5.3); Red Cell Distribution Width 14.6 % (12.1-15.1); White Blood Count 5.6 10^3/uL (4.0-10.0)
[2021-07-24 09:26] LABS: Alanine Aminotransferase 148 U/L (0-33); Alkaline Phosphatase 176 IU/L (35-105); Anion Gap 12.8 (5-19); Aspartate Amino Transferase 36 U/L (0-32); Blood Urea Nitrogen 9 mg/dL (6-20); Calcium 9.2 mg/dL (8.5-10.5); Carbon Dioxide 24 mmol/L (22-29); Chloride 90 mmol/L (98-107); Globulin 2.7 g/dL (1.3-4.6); Glomerular Filtration Rate 164.5 mL/min (90-130); Glucose 111 mg/dL (65-115); Osmolality Calculated 255 mOsm/kg (285-295); Potassium 3.8 mmol/L (3.5-5.1); Sodium 123 mmol/L (136-145); Total Bilirubin 0.3 mg/dL (0.15-1.2); Total Protein 6.7 g/dL (6.6-8.7)
== END 2021-08-03 23:59 | disposition home or self-care (01) ==
LOC: ONCMED 07:53
PROVIDERS: PCP Internal Medicine; Visit Provider Internal Medicine Hematology & Oncology
DX: Z51.12 Encounter for antineoplastic immunotherapy (principal); C34.32 Malignant neoplasm of lower lobe, left bronchus or lung; C78.7 Secondary malignant neoplasm of liver and intrahepatic bile duct; C79.71 Secondary malignant neoplasm of right adrenal gland; C79.72 Secondary malignant neoplasm of left adrenal gland; C79.31 Secondary malignant neoplasm of brain; Z79.899 Other long term (current) drug therapy; Z92.21 Personal history of antineoplastic chemotherapy
CPT/HCPCS: 36591; 80053; 82607; 82728; 82746; 83540; 83550; 85025; 85045; 96413; 99215; J7050; J9022

== ENCOUNTER 2021-08-31 06:14 | Outpatient (RCR) | payer MEDICAID, SELFPAY ==
[2021-08-07 12:31] LABS: Basophils % 0.4 %; Eosinophils # 0.1 10^3/uL (0.0-0.8); Eosinophils % 1.2 %; Hematocrit 33.8 % (37.0-47.0); Hemoglobin 11.7 g/dL (11.5-15.3); Lymphocytes # 0.7 10^3/uL (0.8-4.8); Lymphocytes % 9.5 %; Mean Corpuscular HGB Conc 34.6 g/dL (30.0-36.0); Mean Corpuscular Hemoglobin 32.1 pg (28.0-34.0); Mean Corpuscular Volume 92.9 fl (81-99); Mean Platelet Volume 8.4 fL (7.4-10.4); Monocytes # 0.5 10^3/uL (0.2-0.9); Monocytes % 7.4 %; Neutrophils # 5.93 10^3/uL (1.8-7.7); Neutrophils % 81.2 %; Nucleated Red Blood Cells % 0 %; Platelet Count 369 10^3/cmm (130-400); Red Blood Count 3.64 10^6/uL (4.1-5.3); Red Cell Distribution Width 13.8 % (12.1-15.1); White Blood Count 7.3 10^3/uL (4.0-10.0)
[2021-08-07 12:43] LABS: Alanine Aminotransferase 369 U/L (0-33); Albumin Level 4.2 g/dL (3.5-5.2); Alkaline Phosphatase 1040 IU/L (35-105); Anion Gap 15.1 (5-19); Aspartate Amino Transferase 168 U/L (0-32); Blood Urea Nitrogen 7 mg/dL (6-20); Calcium 9.7 mg/dL (8.5-10.5); Carbon Dioxide 24 mmol/L (22-29); Chloride 83 mmol/L (98-107); Globulin 3.1 g/dL (1.3-4.6); Glomerular Filtration Rate 229.3 mL/min (90-130); Glucose 113 mg/dL (65-115); Osmolality Calculated 245 mOsm/kg (285-295); Potassium 4.1 mmol/L (3.5-5.1); Total Bilirubin 0.8 mg/dL (0.15-1.2); Total Protein 7.3 g/dL (6.6-8.7)
[2021-08-07 12:50] LABS: Sodium 118 mmol/L (136-145)
--- NOTE | 2021-08-09 11:45 | US_ITS ---
WS: [id number] RIGHT UPPER QUADRANT ULTRASOUND HISTORY: ELEVATED LIVER FUNCTION, LUNG CANCER COMPARISON: CT 01/23/2021, PET/CT 06/17/2021 Liver: 16.4 cm in length. Normal size liver. No mass is identified. There is moderate intrahepatic du ct dilatation which was previously described. Gallbladder: Normally distended gallbladder with no stones or wall thickening. CBD: 1.8 cm; moderate dilatation. Common bile duct stent was noted on a prior PET/CT but this is not evident today. Pancreas: There is a soft tissue mass centered in the region of the pancreatic head. This is a low ec hogenicity mass which is solid with increased vascularity measuring 3.9 x 2.7 cm. Right kidney: 10.6 cm in length. Normal size and echogenicity. No hydronephrosis or mass. Aorta and IVC: Unremarkable abdominal aorta and IVC. No ascites. US/US liver [id number] IMPRESSION: 1. No metastatic disease to the liver identified. 2. Intrahepatic and extra hepatic bile duct dilatation. 3. Hypoechoic mass centered in the pancreatic head measures 3.9 x 2.7 cm. Comm on bile duct stent is not identified by ultrasound. Stent was noted on a prior PET/CT of 06/17/2021.
--- NOTE | 2021-08-11 15:48 | ONC FU_ITS ---
Dr. Chapman follow up note Patient: Melany Mcgill Unit #: [id number]: [id number] Dicatated By: Stephanie Chapman M.D.Date of Visit:Aug 07, 2021 Onc Med Follow-up/Prog Note History of Present Illness: Ms. Mcgill is a 56-year-old female with 1 month history of non tender right neck mass,30 to 40 pounds weight loss, jaundice, and right lower extremity weakness/numbness for which she was seeing a chiropractor without much relief. On January 23, 2021, she presented to [facility] ER and her bilirubin level was 7.2, alk phos was 1181, AST 287, ALT 563. Her hepatitis panel was negative. A CT of the neck with contrast showed large confluent enhancing mass in the right neck. It measeured 11.5 x 6.4 cm with occlusion of right jugular vein and invading her right SCM muscle. This was consistent with LAD with additional lymph nodes in the right cervical chain, right supraclavicular and upper mediastinum favored to be metastatic versus lymphoma. CT scan of chest abdomen pelvis with contrast showed severe adenopathy in the chest with LAD as noted above. It also reported distal thoracic, aorta, pericardiac, pulmonary mass versus adenopathy extending along bronchovascular structure of left lower lobe and along the pleura. The mass encased and partially obstructed the left lower lobe bronchus with marked intrahepatic and extrahepatic biliary dilation secondary to a pancreatic head mass measuring 2.9 x 3[address] also reported mets in the liver and bilateral adrenal glands. On January 25, 2021, she was transferred to [facility] for biliary stent and malignancy work-up. She underwent MRI brain which did show metastatic disease in the brain . An ultrasound guided biopsy of right neck mass done on January 26, 2021. This was consistent with small cell carcinoma. A biopsy of pancreatic head mass was also obtained which was consistent with small cell carcinoma as well. Ms Mcgill was started on systemic chemotherapy with carboplatin/etoposide on February 01, 2021. She tolerated first cycle of chemotherapy well. She was started on dexamethasone for brain mets and she was referred to radiation oncology for whole brain radiation therapy. She received 10 days of radiation therapy which she completed on February 17, 2021, Ms Mcgill underwent ERCP/EUS on January 27, 2021 for hyperbilirubinemia and elevated LFT. After stenting, her LFTs improved. 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 Her sodium was stable between 127-133 on discharge. Ms. Fay transferred her care us at [facility] to be closer to home. She received her second dose of chemotherapy with carboplatin etoposide beginning on February 27, 2021. She tolerated it well. She presents today with mild chemotherapy-induced neutropenia with a day 8 ANC of 1620. Follow-up CT PET scan after 3 cycles of carboplatin/etoposide on April 15, 2021 showed improvement in the right neck mass size from January 2021 CT scan now mass measured 4 x 3.4 cm with SUV of 5.3 compared to 11.5 x 6.[address] scan of neck. Uptake in 1.6 cm left lower lobe perihilar nodule which is SUV of 5.6. Left hilar lymph nodes have SUV up to 7.7. Multiple FDG positive mediastinal nodes are present in the AP window, prevascular, superior mediastinal, right thoracic inlet. Right paratracheal, left para-aortic Territ[place]. Other FDG positive lymph nodes are evident in the right posterior triangle, cervical level 4 level 3 territories. At the level of abdomen, uptake in the pancreatic head has SUV of 3.9, evaluate mildly greater than the background. Biliary stent in place. Liver adrenal shows no abnormality. There is a dominant central mesenteric lymph node below the level of aortic bifurcation measuring 1.4 cm with SUV of 3.3. Tecentriq was added to carboplatin/etoposide on June 05, 2021, Although it was ordered earlier but due to patient's self-pay status it took a long to get immunotherapy under patient assistance program Follow-up CT PET scan done on June 17, 2021, when compared with CT PET scan done on April 15, 2021, showed improvement in left perihilar nodule, hilar lymph nodes, mediastinal lymph nodes, no change in pancreatic head uptake and biliary stent placement. Resolution of activity and slightly mesenteric lymph node, reactive right axillary lymphadenopathy seen on prior studies resolved. But progressive right neck mass with stability of other right cervical lymph nodes Came for follow-up, complaining of progressive right neck mass, generalized weakness and fatigue, no shortness of breath, no diarrhea constipation, no jaundice, no fever chills, patient said she received a call from [facility] radiation oncology department regarding follow-up as per patient she told them she would rather see medical oncology regarding her progressive right neck mass so the person and radiation oncologist told her that she would make some calls and try to get her back in the clinic., Patient is on Tecentriq, tolerating well otherwise . Medications: Acetaminophen 1 - 2 Tablet (of 325 mg) Oral daily PRN, Ondansetron HCl 1 Tablet (of 4 mg) Oral q 4 hours PRN, Psyllium Powder Oral daily PRN Allergies: No Known Allergies. Review of Systems: Review of Systems is not available for this patient. Vital Signs: Performed on Aug 07, 2021 16:15 Height - 69.00 in Weight - 137 lbs (LOW) BSA - 1.76 sq.m BMI - 20.23 Temperature - 97.9 F (LOW) Pulse - 108 /min (HIGH) Respiration - 18 /min BP - 116/73 mm(hg) O2 Sat - 100 % Pain - 4 Fatigue - 8 Performance Status: 1 - No physically strenuous activity, but ambulatory and able to carry out light or sedentary work (e.g. office work, light house work). (ECOG) Physical Examination: ENMT - No mouth sores, no thrush, no jaundice, about 10 x 12 cm mass in the right neck with mild skin erythema but no discharge, Respiratory - Lungs are clear to auscultation, Cardiovascular - Regular rate and rhythm of heart, Abdomen - Soft, bowel sounds present, Extremities - No visible edema. Lab/Imaging: Test performed on Aug 07, 2021 11:31 Creatinine 0.4 mg/dL Cr Clearance (Est) 146.90 mL/min Test performed on Jul 17, 2021 09:08 Ferritin 511 ng/mL Iron 52 mcg/dL Sodium 121 mmol/L Vitamin B12 1480 pg/mL Iron Binding Capacity (TIBC) 293 mcg/dl Potassium 4.2 mmol/L % Iron Saturation 17.7 % Chloride 87 mmol/L CO2 23 mmol/L UIBC 241 mcg/dL Anion Gap 15.2 BUN 11 mg/dL eGFR 229.3 mL/min Glucose 97 mg/dL Osmolality - Calculated 251 mOsm/kg Calcium 9.0 mg/dL Protein, Total 7.3 g/dL Albumin 4.4 g/dL Globulin 2.9 g/dL Bilirubin, Total 0.4 mg/dL ALT (SGPT) 78 U/L AST (SGOT) 26 U/L Alkaline Phosphatase 137 IU/L Retic Count % 2.6 % WBC 6.5 10 3/uL RBC 3.34 10 6/uL HGB 11.1 g/dL HCT 32.5 % MCV 97.3 fl MCH 33.2 pg MCHC 34.2 g/dL RDW 14.7 % Platelet Count 318 10 3/cmm MPV 8.5 fL Neutrophils 4.37 10 3/uL Lymphocytes 0.8 10 3/uL Monocytes 0.8 10 3/uL Eosinophils 0.3 10 3/uL Basophils 0.1 10 3/uL Neutrophil % 67.7 % Lymphocyte % 12.8 % Monocyte % 13.0 % Eosinophil % 5.0 % Basophils % 1.2 % NRBC % 0 % Impression: Metastatic small cell lung cancer, per right neck mass biopsy done on January 26, 2021 biopsy-proven pancreatic head mass done on January 27, 2021 @ [facility]. CT scan of the chest abdomen pelvis done on January 23 2021 showed extensive disease involving right neck mass 11.5 x 6.4 cm with occlusion of right jugular vein and invading right SCM muscle with additional lymph nodes in the right cervical chain, right supraclavicular upper mediastinum. There was also extensive lymphadenopathy in the chest also noted in thoracic aorta, pericardiac, pulmonary mass extending along bronchovascular structures of left lower lobe and along the pleura, mass encases and partially obstruct left lower lobe bronchi, marked intrahepatic and extrahepatic biliary dilation secondary to pancreatic head mass measuring 2.9 x 3.5 cm, liver mets, bilateral adrenal mets. Status post CBD stenting done on January 27, 2021, with improvement in jaundice as well as LFTs Started on systemic chemotherapy with carboplatin/etoposide on February 01, 2021-first cycle given at [facility]. MRI scan of the brain showed brain mets status post radiation therapy completed on February 17, 2021 at [facility]. Follow-up CT PET scanAfter 3 cycles of chemotherapy with carboplatin/etoposide done on April 15, 2021 shows improvement in the right neck mass size no major 4 x 3.4 cm with SUV of 5.3 compared to 11.5 x 6.4 cm in [address] scan. Normal liver and adrenal gland, significant improvement in extensive mediastinal, right-sided cervical and posterior cervical triangle lymphadenopathy. Also improvement in the left perihilar nodule. Solitary mesenteric FDG positive lymph node. follow-up CT PET done after 6 cycles of carboplatin/etoposide and a dose of Tecentriq which was added with the last cycle, patient could not get it earlier because of her no insurance status and time taken by patient assistance program, done on June 17howed improvement in the left perihilar nodule, hilar nodes, mediastinal lymph nodes. No change in the pancreatic head uptake and biliary stent placement. Resolution of solitary mesenteric lymph node. Resolution of right axillary lymphadenopathy but progression of right neck mass with stability of other right cervical lymph node Carboplatin/etoposide was discontinued on June 26, 2021 but continue with single agent Tecentriq, while she was referred to [facility] for evaluation of persistent right neck mass as patient was recommended right neck mass biopsy Plan: Discussed with patient regarding her labs white blood count 7.3 hemoglobin 11.7 hematocrit 33.8 platelets 369,000 CMP within normal limit except sodium 118 ALT 369 AST 168 alk phos 1040, bilirubin 0.8 Clinically, patient is doing reasonably well, she has persistent no progressive right neck mass and her lab work-up shows elevated transaminases, etiology unclear, metastatic disease versus immunotherapy related, at this point we will hold her chemotherapy with Tecentriq and consider right upper quadrant sonogram to assess liver status. And also as her right neck mass is progressive will discontinue Tecentriq and consider lurbinectedin , all the side effect possible benefits associated including but not limited to bone marrow suppression, generalized weakness and fatigue hepatotoxicity, poor appetite generalized muscle pain/discomfort, renal insufficiency were mentioned, further teaching will be done by chemotherapy nurse, will obtain approval from her insurance prior to the treatment Signed By: Stephanie Chapman M.D. <<Signature on File>>
[2021-08-23] MEDS: alteplase 1 mg/mL SDV 2 mL 2 MG IV (09:40)
[2021-08-23 09:56] LABS: Basophils % 0.7 %; Eosinophils # 0.1 10^3/uL (0.0-0.8); Eosinophils % 1.4 %; Hematocrit 33.6 % (37.0-47.0); Hemoglobin 11.5 g/dL (11.5-15.3); Lymphocytes # 0.4 10^3/uL (0.8-4.8); Lymphocytes % 7.6 %; Mean Corpuscular HGB Conc 34.2 g/dL (30.0-36.0); Mean Corpuscular Hemoglobin 31.3 pg (28.0-34.0); Mean Corpuscular Volume 91.3 fl (81-99); Mean Platelet Volume 8.2 fL (7.4-10.4); Monocytes # 0.5 10^3/uL (0.2-0.9); Monocytes % 7.9 %; Neutrophils # 4.65 10^3/uL (1.8-7.7); Nucleated Red Blood Cells % 0 %; Platelet Count 335 10^3/cmm (130-400); Red Blood Count 3.68 10^6/uL (4.1-5.3); Red Cell Distribution Width 14.3 % (12.1-15.1); White Blood Count 5.7 10^3/uL (4.0-10.0)
[2021-08-23 10:20] LABS: Alanine Aminotransferase 285 U/L (0-33); Albumin Level 3.9 g/dL (3.5-5.2); Anion Gap 15.7 (5-19); Aspartate Amino Transferase 133 U/L (0-32); Blood Urea Nitrogen 6 mg/dL (6-20); Calcium 9.4 mg/dL (8.5-10.5); Carbon Dioxide 25 mmol/L (22-29); Chloride 81 mmol/L (98-107); Glomerular Filtration Rate 164.5 mL/min (90-130); Glucose 118 mg/dL (65-115); Osmolality Calculated 245 mOsm/kg (285-295); Potassium 3.7 mmol/L (3.5-5.1); Total Bilirubin 3.4 mg/dL (0.15-1.2); Total Protein 6.9 g/dL (6.6-8.7)
[2021-08-23 10:22] LABS: Sodium 118 mmol/L (136-145)
[2021-08-23 10:34] LABS: Alkaline Phosphatase 1501 IU/L (35-105)
[2021-08-31 10:40] LABS: Basophils % 0.6 %; Eosinophils # 0.1 10^3/uL (0.0-0.8); Eosinophils % 1.6 %; Hematocrit 35.1 % (37.0-47.0); Hemoglobin 11.9 g/dL (11.5-15.3); Lymphocytes # 0.8 10^3/uL (0.8-4.8); Lymphocytes % 12.2 %; Mean Corpuscular HGB Conc 33.9 g/dL (30.0-36.0); Mean Corpuscular Hemoglobin 31.2 pg (28.0-34.0); Mean Corpuscular Volume 91.9 fl (81-99); Mean Platelet Volume 8.2 fL (7.4-10.4); Monocytes # 0.5 10^3/uL (0.2-0.9); Monocytes % 8.7 %; Neutrophils # 4.77 10^3/uL (1.8-7.7); Neutrophils % 76.6 %; Nucleated Red Blood Cells % 0 %; Platelet Count 309 10^3/cmm (130-400); Red Blood Count 3.82 10^6/uL (4.1-5.3); White Blood Count 6.2 10^3/uL (4.0-10.0)
[2021-08-31 10:56] LABS: Alanine Aminotransferase 67 U/L (0-33); Albumin Level 4.1 g/dL (3.5-5.2); Alkaline Phosphatase 746 IU/L (35-105); Aspartate Amino Transferase 29 U/L (0-32); Blood Urea Nitrogen 8 mg/dL (6-20); Calcium 9.3 mg/dL (8.5-10.5); Carbon Dioxide 25 mmol/L (22-29); Chloride 81 mmol/L (98-107); Globulin 2.9 g/dL (1.3-4.6); Glomerular Filtration Rate 164.5 mL/min (90-130); Glucose 116 mg/dL (65-115); Osmolality Calculated 239 mOsm/kg (285-295); Total Bilirubin 0.9 mg/dL (0.15-1.2)
[2021-08-31 10:57] LABS: Sodium 115 mmol/L (136-145)
[2021-08-31] MEDS: sodium chloride 0.9% 250 ML 75 ML IV (11:30)
[2021-08-31] MEDS: ondansetron 2 mg/ML SDV 2 mL 8 MG IV (11:32)
--- NOTE | 2021-08-31 14:14 | ONC FU_ITS ---
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 Mcgill is a 56-year-old female with 1 month history of non tender right neck mass,30 to 40 pounds weight loss, jaundice, and right lower extremity weakness/numbness for which she was seeing a chiropractor without much relief. On January 23, 2021, she presented to [facility] ER and her bilirubin level was 7.2, alk phos was 1181, AST 287, ALT 563. Her hepatitis panel was negative. A CT of the neck with contrast showed large confluent enhancing mass in the right neck. It measured 11.5 x 6.4 cm with occlusion of right jugular vein and invading her right SCM muscle. This was consistent with LAD with additional lymph nodes in the right cervical chain, right supraclavicular and upper mediastinum favored to be metastatic versus lymphoma. CT scan of chest abdomen pelvis with contrast showed severe adenopathy in the chest with LAD as noted above. It also reported distal thoracic, aorta, pericardiac, pulmonary mass versus adenopathy extending along bronchovascular structure of left lower lobe and along the pleura. The mass encased and partially obstructed the left lower lobe bronchus with marked intrahepatic and extrahepatic biliary dilation secondary to a pancreatic head mass measuring 2.9 x 3[address] also reported mets in the liver and bilateral adrenal glands. On January 25, 2021, she was transferred to [facility] for biliary stent and malignancy work-up. She underwent MRI brain which did show metastatic disease in the brain . An ultrasound guided biopsy of right neck mass done on January 26, 2021. This was consistent with small cell carcinoma. A biopsy of pancreatic head mass was also obtained which was consistent with small cell carcinoma as well. Ms Mcgill was started on systemic chemotherapy with carboplatin/etoposide on February 01, 2021. She tolerated first cycle of chemotherapy well. She was started on dexamethasone for brain mets and she was referred to radiation oncology for whole brain radiation therapy. She received 10 days of radiation therapy which she completed on February 17, 2021, Ms Mcgill underwent ERCP/EUS on January 27, 2021 for hyperbilirubinemia and elevated LFT. After stenting, her LFTs improved. 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 Her sodium was stable between 127-133 on discharge. Ms. Fay transferred her care us at [facility] to be closer to home. She received her second dose of chemotherapy with carboplatin etoposide beginning on February 27, 2021. She tolerated it well. She presents today with mild chemotherapy-induced neutropenia with a day 8 ANC of 1620. Follow-up CT PET scan after 3 cycles of carboplatin/etoposide on April 15, 2021 showed improvement in the right neck mass size from January 2021 CT scan now mass measured 4 x 3.4 cm with SUV of 5.3 compared to 11.5 x 6.[address] scan of neck. Uptake in 1.6 cm left lower lobe perihilar nodule which is SUV of 5.6. Left hilar lymph nodes have SUV up to 7.7. Multiple FDG positive mediastinal nodes are present in the AP window, prevascular, superior mediastinal, right thoracic inlet. Right paratracheal, left para-aortic Territ[place]. Other FDG positive lymph nodes are evident in the right posterior triangle, cervical level 4 level 3 territories. At the level of abdomen, uptake in the pancreatic head has SUV of 3.9, evaluate mildly greater than the background. Biliary stent in place. Liver adrenal shows no abnormality. There is a dominant central mesenteric lymph node below the level of aortic bifurcation measuring 1.4 cm with SUV of 3.3. Tecentriq was added to carboplatin/etoposide on June 05, 2021, Although it was ordered earlier but due to patient's self-pay status it took a long to get immunotherapy under patient assistance program Follow-up CT PET scan done on June 17, 2021, when compared with CT PET scan done on April 15, 2021, showed improvement in left perihilar nodule, hilar lymph nodes, mediastinal lymph nodes, no change in pancreatic head uptake and biliary stent placement. Resolution of activity and slightly mesenteric lymph node, reactive right axillary lymphadenopathy seen on prior studies resolved. But progressive right neck mass with stability of other right cervical lymph nodes Dr Chapman had seen her for followup on 08/07/2021. She had progressive right neck mass, generalized weakness and fatigue. She was followup on 09/06 & 09/07/2021 at [facility] for neck mass biopsy. Dr Chapman had recommended that she proceed with treatment of Zepzelca and she is here today for followup and initiation of her first cycle. She presents with mild jaundice and elevated LFTs. Her sodium is 118, total bilirubin 3.4, ALT 285, AST 133 and alk phos of 1501. Her CBC is stable. She denies any abdominal pain or concerns today. She states the neck mass is getting bigger and she is having some problems turning her neck. She denies any problems swallowing or choking. She states it does hurt at times but her pain medication helps with that and she feels it is controlled enough she does not want to change any pain medication. She denies any new breathing concerns or cough. She does not have nausea to speak of . She states her bowels and bladder is normal for her. She states she does not feel bad overall. She denies breathing concerns or cough. She has not had hemoptysis. Her ECOG is 1. . Past Medical History: Brain [id number] in 2020 Past Surgical History: ERCP/EUS???[facility] in 2020 Fine-needle core biopsy pancreatic head mass???[facility] in 2020 Right neck lymph node core needle biopsy in 2020 Right neck, soft tissue core needle biopsy???[facility] in 2020 Tonsillectomy in 1970 Allergies: No Known Allergies. Medications: Acetaminophen 1 - 2 Tablet (of 325 mg) Oral daily PRN Ondansetron HCl 1 Tablet (of 4 mg) Oral q 4 hours PRN Psyllium Powder Oral daily PRN Family History: Ms. Mcgill's mother at age 85: lymphoma. Ms. Mcgill's father at age 62: lymphoma. Ms. Mcgill has 1 brother who is : chronic kidney disease. Social History: Ms. Mcgill is single. She quit smoking 1 year ago but had smoked 3.0 packs/day for 30 years. She drinks occasionally. Review Of Symptoms: <See Above> Vital Signs: Performed on Aug 23, 2021 12:02 Height - 69.00 in Weight - 134 lbs (LOW) BSA - 1.74 sq.m BMI - 19.79 Temperature - 98.1 F (LOW) Pulse - 103 /min (HIGH) Respiration - 18 /min BP - 138/86 mm(hg) O2 Sat - 98 % Pain - 6 Fatigue - 0,1 - No physically strenuous activity, but ambulatory and able to carry out light or sedentary work (e.g. office work, light house work). (ECOG) Physical Examination: Constitutional Alert, oriented, no acute distress. Skin pink, warm and dry. Head Normocephalic; atraumatic. Eyes Conjunctivae normal but mild jaundice noted in bilateral sclerae.. Pupils are reactive and equal. ENMT No oral exudates, ulcers, masses, thrush or mucositis. Oropharynx clear. Tongue normal. Neck Supple without masses or thyromegaly. No jugular venous distension. Hematologic/Lymphatic No petechiae or purpura. No tender or palpable lymph nodes in the cervical or supraclavicular areas. Respiratory Lungs are clear to auscultation without rhonchi or wheezing. Cardiovascular Regular rate and rhythm of heart without murmurs,clicks, gallops or rubs. Abdomen Non-tender, non-distended, no masses or ascites. Good bowel sounds noted in all quads. No guarding or rebound tenderness. No pulsatile masses. Back/Spine Non-tender to palpation. Extremities No visible deformities, no cyanosis, clubbing or edema. Musculoskeletal No tenderness or swelling, normal range of motion without obvious weakness. Integumentary No rashes or lesions. Neurologic No sensory or motor deficits, normal cerebellar function, normal gait. Psychiatric Alert and oriented times three. Coherent speech. Verbalizes understanding of our discussions today. Laboratory:Test performed on Aug 23, 2021 09:42 Sodium 118 mmol/L Potassium 3.7 mmol/L Chloride 81 mmol/L CO2 25 mmol/L Anion Gap 15.7 BUN 6 mg/dL Creatinine 0.4 mg/dL Cr Clearance (Est) 148.90 mL/min eGFR 164.5 mL/min Glucose 118 mg/dL Osmolality - Calculated 245 mOsm/kg Calcium 9.4 mg/dL Protein, Total 6.9 g/dL Albumin 3.9 g/dL Globulin 3.0 g/dL Bilirubin, Total 3.4 mg/dL ALT (SGPT) 285 U/L AST (SGOT) 133 U/L Alkaline Phosphatase 1501 IU/L WBC 5.7 10 3/uL RBC 3.68 10 6/uL HGB 11.5 g/dL HCT 33.6 % MCV 91.3 fl MCH 31.3 pg MCHC 34.2 g/dL RDW 14.3 % Platelet Count 335 10 3/cmm MPV 8.2 fL Neutrophils 4.65 10 3/uL Lymphocytes 0.4 10 3/uL Monocytes 0.5 10 3/uL Eosinophils 0.1 10 3/uL Basophils 0.0 10 3/uL Neutrophil % 82.0 % Lymphocyte % 7.6 % Monocyte % 7.9 % Eosinophil % 1.4 % Basophils % 0.7 % NRBC % 0 % Test performed on Jul 17, 2021 09:08 Ferritin 511 ng/mL Iron 52 mcg/dL Vitamin B12 1480 pg/mL Iron Binding Capacity (TIBC) 293 mcg/dl % Iron Saturation 17.7 % UIBC 241 mcg/dL Retic Count % 2.6 % Impression: 1. Metastatic small cell lung cancer, per right neck mass biopsy done on January 26, 2021 2. biopsy-proven pancreatic head mass done on January 27, 2021 @ [facility]. Plan/Problems Addressed at this Visit: 1. Metastatic small cell lung cancer January 26, 2021. CT scan of the chest abdomen pelvis done on January 23 2021 showed extensive disease involving right neck mass 11.5 x 6.4 cm with occlusion of right jugular vein and invading right SCM muscle with additional lymph nodes in the right cervical chain, right supraclavicular upper mediastinum. There was also extensive lymphadenopathy in the chest also noted in thoracic aorta, pericardiac, pulmonary mass extending along bronchovascular structures of left lower lobe and along the pleura, mass encases and partially obstruct left lower lobe bronchi, marked intrahepatic and extrahepatic biliary dilation secondary to pancreatic head mass measuring 2.9 x 3.5 cm, liver mets, bilateral adrenal mets. Status post CBD stenting done on January 27, 2021, with improvement in jaundice as well as LFTs Started on systemic chemotherapy with carboplatin/etoposide on February 01, 2021-first cycle given at [facility]. MRI scan of the brain showed brain mets status post radiation therapy completed on February 17, 2021 at [facility]. Follow-up CT PET scanAfter 3 cycles of chemotherapy with carboplatin/etoposide done on April 15, 2021 shows improvement in the right neck mass size no major 4 x 3.4 cm with SUV of 5.3 compared to 11.5 x 6.4 cm in January [address] scan. Normal liver and adrenal gland, significant improvement in extensive mediastinal, right-sided cervical and posterior cervical triangle lymphadenopathy. Also improvement in the left perihilar nodule. Solitary mesenteric FDG positive lymph node. follow-up CT PET done after 6 cycles of carboplatin/etoposide and a dose of Tecentriq which was added with the last cycle, patient could not get it earlier because of her no insurance status and time taken by patient assistance program, done on June 17howed improvement in the left perihilar nodule, hilar nodes, mediastinal lymph nodes. No change in the pancreatic head uptake and biliary stent placement. Resolution of solitary mesenteric lymph node. Resolution of right axillary lymphadenopathy but progression of right neck mass with stability of other right cervical lymph node Carboplatin/etoposide was discontinued on June 26, 2021 but continue with single agent Tecentriq, while she was referred to [facility] for evaluation of persistent right neck mass as patient was recommended right neck mass biopsy. He biopsy is scheduled 09/06-02/2021. Dr Chapman has recommended that she pursue treatment with Zepzelca in the interim. \[CT scan of the chest abdomen pelvis done on January 23 2021 showed extensive disease involving right neck mass 11.5 x 6.4 cm with occlusion of right jugular vein and invading right SCM muscle with additional lymph nodes in the right cervical chain, right supraclavicular upper mediastinum. There was also extensive lymphadenopathy in the chest also noted in thoracic aorta, pericardiac, pulmonary mass extending along bronchovascular structures of left lower lobe and along the pleura, mass encases and partially obstruct left lower lobe bronchi, marked intrahepatic and extrahepatic biliary dilation secondary to pancreatic head mass measuring 2.9 x 3.5 cm, liver mets, bilateral adrenal mets. Status post CBD stenting done on January 27, 2021, with improvement in jaundice as well as LFTs Started on systemic chemotherapy with carboplatin/etoposide on February 01, 2021-first cycle given at [facility]. MRI scan of the brain showed brain mets status post radiation therapy completed on February 17, 2021 at [facility]. Follow-up CT PET scanAfter 3 cycles of chemotherapy with carboplatin/etoposide done on April 15, 2021 shows improvement in the right neck mass size no major 4 x 3.4 cm with SUV of 5.3 compared to 11.5 x 6.4 cm in January [address] scan. Normal liver and adrenal gland, significant improvement in extensive mediastinal, right-sided cervical and posterior cervical triangle lymphadenopathy. Also improvement in the left perihilar nodule. Solitary mesenteric FDG positive lymph node. follow-up CT PET done after 6 cycles of carboplatin/etoposide and a dose of Tecentriq which was added with the last cycle, patient could not get it earlier because of her no insurance status and time taken by patient assistance program, done on June 17howed improvement in the left perihilar nodule, hilar nodes, mediastinal lymph nodes. No change in the pancreatic head uptake and biliary stent placement. Resolution of solitary mesenteric lymph node. Resolution of right axillary lymphadenopathy but progression of right neck mass with stability of other right cervical lymph node Carboplatin/etoposide was discontinued on June 26, 2021 but continue with single agent Tecentriq, while she was referred to [facility] for evaluation of persistent right neck mass as patient was recommended right neck mass biopsy. She is scheduled for biopsy 09/06-02/2021. Dr Chapman recommended that she proceed with treatment with Zepzelca. 1. Hold planned initiation of Zepzelca due to elevated total bilirubin. elevated LFT's and alk phos. 2. She was instructed to proceed directly to [facility] ER for elevation of elevated LFT's and possible hepatic/biliary obstruction. 3. We will reassess her when she returns from [facility] and plan to initiate her treatment at that time. She is concerned that the neck mass is growing and does not want to delay treatment until the biopsy. 4. 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 We did discuss the pro's and con's of waiting with life threating obstruction being high on the list. She is aware of this but states she still wants to complete her CE. She is aware that she can present to the ER here at [facility] if needed and possibly be transferred out from there. 5. Ms Mcgill was enouraged to proceed to [facility] now, but was also encouraged to call us when she returns so that we may get her treatment started. Clinically, patient is doing reasonably well, she has persistent no progressive right neck mass and her lab work-up shows elevated transaminases, etiology unclear, metastatic disease versus immunotherapy related, at this point we will hold her chemotherapy with Tecentriq and consider right upper quadrant sonogram to assess liver status. And also as her right neck mass is progressive will discontinue Tecentriq and consider lurbinectedin , all the side effect possible benefits associated including but not limited to bone marrow suppression, generalized weakness and fatigue hepatotoxicity, poor appetite generalized muscle pain/discomfort, renal insufficiency were mentioned, further teaching will be done by chemotherapy nurse, will obtain approval from her insurance prior to the treatment Signed By: Dawood Avina-, AOCNP Stephanie Chapman MD <<Signature on File>>
== END 2021-09-03 23:59 | disposition home or self-care (01) ==
LOC: ONCMED 06:14
PROVIDERS: Nurse Practitioner; PCP Internal Medicine; Visit Provider Internal Medicine Hematology & Oncology
DX: Z51.11 Encounter for antineoplastic chemotherapy (principal); C34.32 Malignant neoplasm of lower lobe, left bronchus or lung; C79.31 Secondary malignant neoplasm of brain; C77.8 Secondary and unspecified malignant neoplasm of lymph nodes of multiple regions; C78.7 Secondary malignant neoplasm of liver and intrahepatic bile duct; C79.71 Secondary malignant neoplasm of right adrenal gland; C79.72 Secondary malignant neoplasm of left adrenal gland; Z79.899 Other long term (current) drug therapy; Z92.3 Personal history of irradiation
CPT/HCPCS: 36591; 36593; 76705; 80053; 85025; 96365; 96367; 96375; 96413; 99214; J1100; J2405; J2997; J7050; J9999

== ENCOUNTER 2021-09-27 06:30 | Outpatient (RCR) | payer MEDICAID, SELFPAY ==
[2021-09-05 12:18] LABS: Basophils % 0.6 %; Eosinophils # 0.1 10^3/uL (0.0-0.8); Eosinophils % 0.9 %; Lymphocytes # 0.7 10^3/uL (0.8-4.8); Lymphocytes % 12.7 %; Mean Corpuscular HGB Conc 34.3 g/dL (30.0-36.0); Mean Corpuscular Volume 90.4 fl (81-99); Mean Platelet Volume 7.9 fL (7.4-10.4); Monocytes # 0.1 10^3/uL (0.2-0.9); Monocytes % 0.9 %; Neutrophils # 4.47 10^3/uL (1.8-7.7); Neutrophils % 84.5 %; Nucleated Red Blood Cells % 0 %; Platelet Count 219 10^3/cmm (130-400); Red Blood Count 3.87 10^6/uL (4.1-5.3); White Blood Count 5.3 10^3/uL (4.0-10.0)
[2021-09-05 12:35] LABS: Alanine Aminotransferase 56 U/L (0-33); Albumin Level 4.1 g/dL (3.5-5.2); Alkaline Phosphatase 512 IU/L (35-105); Anion Gap 14.2 (5-19); Aspartate Amino Transferase 33 U/L (0-32); Blood Urea Nitrogen 10 mg/dL (6-20); Calcium 8.9 mg/dL (8.5-10.5); Carbon Dioxide 23 mmol/L (22-29); Chloride 85 mmol/L (98-107); Globulin 2.4 g/dL (1.3-4.6); Glomerular Filtration Rate 229.3 mL/min (90-130); Glucose 103 mg/dL (65-115); Osmolality Calculated 245 mOsm/kg (285-295); Potassium 4.2 mmol/L (3.5-5.1); Total Bilirubin 0.8 mg/dL (0.15-1.2); Total Protein 6.5 g/dL (6.6-8.7)
[2021-09-05 12:39] LABS: Sodium 118 mmol/L (136-145)
[2021-09-19 09:42] LABS: Basophils # 0.1 10^3/uL (0.0-0.1); Basophils % 1.5 %; Eosinophils % 0.3 %; Hematocrit 30.4 % (37.0-47.0); Hemoglobin 10.9 g/dL (11.5-15.3); Lymphocytes # 0.9 10^3/uL (0.8-4.8); Lymphocytes % 26.6 %; Mean Corpuscular HGB Conc 35.9 g/dL (30.0-36.0); Mean Corpuscular Hemoglobin 31.8 pg (28.0-34.0); Mean Corpuscular Volume 88.6 fl (81-99); Mean Platelet Volume 8.3 fL (7.4-10.4); Monocytes # 0.6 10^3/uL (0.2-0.9); Monocytes % 19.3 %; Neutrophils # 1.72 10^3/uL (1.8-7.7); Nucleated Red Blood Cells % 0 %; Platelet Count 275 10^3/cmm (130-400); Red Blood Count 3.43 10^6/uL (4.1-5.3); Red Cell Distribution Width 14.6 % (12.1-15.1); White Blood Count 3.3 10^3/uL (4.0-10.0)
[2021-09-19 10:10] LABS: Alanine Aminotransferase 20 U/L (0-33); Albumin Level 3.7 g/dL (3.5-5.2); Alkaline Phosphatase 216 IU/L (35-105); Blood Urea Nitrogen 6 mg/dL (6-20); Calcium 8.6 mg/dL (8.5-10.5); Carbon Dioxide 25 mmol/L (22-29); Chloride 87 mmol/L (98-107); Globulin 2.6 g/dL (1.3-4.6); Glomerular Filtration Rate 164.5 mL/min (90-130); Glucose 134 mg/dL (65-115); Osmolality Calculated 256 mOsm/kg (285-295); Sodium 123 mmol/L (136-145); Total Bilirubin 0.4 mg/dL (0.15-1.2); Total Protein 6.3 g/dL (6.6-8.7)
[2021-09-19 10:12] LABS: Anion Gap 14.4 (5-19); Aspartate Amino Transferase 18 U/L (0-32); Potassium 3.4 mmol/L (3.5-5.1)
[2021-09-27] MEDS: alteplase 1 mg/mL SDV 2 mL 2 MG IV (10:10)
[2021-09-27 10:47] LABS: Basophils % 0.2 %; Eosinophils # 0.2 10^3/uL (0.0-0.8); Eosinophils % 2.3 %; Hematocrit 33.3 % (37.0-47.0); Hemoglobin 11.7 g/dL (11.5-15.3); Lymphocytes # 0.7 10^3/uL (0.8-4.8); Mean Corpuscular HGB Conc 35.1 g/dL (30.0-36.0); Mean Corpuscular Hemoglobin 30.5 pg (28.0-34.0); Mean Corpuscular Volume 86.7 fl (81-99); Mean Platelet Volume 8.4 fL (7.4-10.4); Monocytes # 0.7 10^3/uL (0.2-0.9); Monocytes % 8.3 %; Neutrophils % 79.6 %; Nucleated Red Blood Cells % 0 %; Platelet Count 163 10^3/cmm (130-400); Red Blood Count 3.84 10^6/uL (4.1-5.3); Red Cell Distribution Width 15.1 % (12.1-15.1); White Blood Count 8.2 10^3/uL (4.0-10.0)
[2021-09-27 11:06] LABS: Alanine Aminotransferase 20 U/L (0-33); Albumin Level 3.8 g/dL (3.5-5.2); Alkaline Phosphatase 181 IU/L (35-105); Anion Gap 14.9 (5-19); Aspartate Amino Transferase 19 U/L (0-32); Blood Urea Nitrogen 6 mg/dL (6-20); Calcium 8.4 mg/dL (8.5-10.5); Carbon Dioxide 26 mmol/L (22-29); Chloride 87 mmol/L (98-107); Globulin 2.4 g/dL (1.3-4.6); Glomerular Filtration Rate 164.5 mL/min (90-130); Glucose 105 mg/dL (65-115); Osmolality Calculated 256 mOsm/kg (285-295); Potassium 3.9 mmol/L (3.5-5.1); Sodium 124 mmol/L (136-145); Total Bilirubin 0.4 mg/dL (0.15-1.2); Total Protein 6.2 g/dL (6.6-8.7)
--- NOTE | 2021-09-27 17:15 | ONC FU_ITS ---
Dr. Chapman follow up note Patient: Melany Mcgill Unit #: [id number]: 1965 Dicatated By: Stephanie Chapman M.D.Date of Visit:Sep 27, 2021 Onc Med Follow-up/Prog Note History of Present Illness: Ms. Mcgill is a 56-year-old female with 1 month history of non tender right neck mass,30 to 40 pounds weight loss, jaundice, and right lower extremity weakness/numbness for which she was seeing a chiropractor without much relief. On January 23, 2021, she presented to [facility] ER and her bilirubin level was 7.2, alk phos was 1181, AST 287, ALT 563. Her hepatitis panel was negative. A CT of the neck with contrast showed large confluent enhancing mass in the right neck. It measured 11.5 x 6.4 cm with occlusion of right jugular vein and invading her right SCM muscle. This was consistent with LAD with additional lymph nodes in the right cervical chain, right supraclavicular and upper mediastinum favored to be metastatic versus lymphoma. CT scan of chest abdomen pelvis with contrast showed severe adenopathy in the chest with LAD as noted above. It also reported distal thoracic, aorta, pericardiac, pulmonary mass versus adenopathy extending along bronchovascular structure of left lower lobe and along the pleura. The mass encased and partially obstructed the left lower lobe bronchus with marked intrahepatic and extrahepatic biliary dilation secondary to a pancreatic head mass measuring 2.9 x 3[address] also reported mets in the liver and bilateral adrenal glands. On January 25, 2021, she was transferred to [facility] for biliary stent and malignancy work-up. She underwent MRI brain which did show metastatic disease in the brain . An ultrasound guided biopsy of right neck mass done on January 26, 2021. This was consistent with small cell carcinoma. A biopsy of pancreatic head mass was also obtained which was consistent with small cell carcinoma as well. Ms Mcgill was started on systemic chemotherapy with carboplatin/etoposide on February 01, 2021. She tolerated first cycle of chemotherapy well. She was started on dexamethasone for brain mets and she was referred to radiation oncology for whole brain radiation therapy. She received 10 days of radiation therapy which she completed on February 17, 2021, Ms Mcgill underwent ERCP/EUS on January 27, 2021 for hyperbilirubinemia and elevated LFT. After stenting, her LFTs improved. 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 Her sodium was stable between 127-133 on discharge. Ms. Fay transferred her care us at [facility] [place]. She received her second dose of chemotherapy with carboplatin etoposide beginning on February 27, 2021. She tolerated it well. She presents today with mild chemotherapy-induced neutropenia with a day 8 ANC of 1620. Follow-up CT PET scan after 3 cycles of carboplatin/etoposide on April 15, 2021 showed improvement in the right neck mass size from January 2021 CT scan now mass measured 4 x 3.4 cm with SUV of 5.3 compared to 11.5 x 6.[address] scan of neck. Uptake in 1.6 cm left lower lobe perihilar nodule which is SUV of 5.6. Left hilar lymph nodes have SUV up to 7.7. Multiple FDG positive mediastinal nodes are present in the AP window, prevascular, superior mediastinal, right thoracic inlet. Right paratracheal, left para-aortic Territories. Other FDG positive lymph nodes are evident in the right posterior triangle, cervical level 4 level 3 territories. At the level of abdomen, uptake in the pancreatic head has SUV of 3.9, evaluate mildly greater than the background. Biliary stent in place. Liver adrenal shows no abnormality. There is a dominant central mesenteric lymph node below the level of aortic bifurcation measuring 1.4 cm with SUV of 3.3. Tecentriq was added to carboplatin/etoposide on June 05, 2021, Although it was ordered earlier but due to patient's self-pay status it took a long to get immunotherapy under patient assistance program Follow-up CT PET scan done on June 17, 2021, when compared with CT PET scan done on April 15, 2021, showed improvement in left perihilar nodule, hilar lymph nodes, mediastinal lymph nodes, no change in pancreatic head uptake and biliary stent placement. Resolution of activity and slightly mesenteric lymph node, reactive right axillary lymphadenopathy seen on prior studies resolved. But progressive right neck mass with stability of other right cervical lymph nodes Patient was referred to [place] for evaluation and for clinical trial if available she underwent CT PET scan on September 06, 2021 at [place] which shows marked in our clinic and metabolic progression of metastatic disease involving lymph nodes predominantly above the diaphragm and scattered below and suspected within left lung and possibly within left pleura since last PET scan done on April 15, 2021. Progressive activity surrounding and replaced biliary stent is favored to be inflammatory. Brain mets are much better evaluated on the concurrent MRI brain., MRI scan of the brain done on September 06, 2021 shows interval decrease in size and number of numerous cystic lesions within the bilateral cerebral and cerebellar hemispheres Patient was evaluated at the thoracic oncology clinic at [place] on September 07, [address] Ramirez, and her recommendations were, considering palliative therapy versus if patient agrees screening for clinical trial but because of inconvenience due to traveling back and forth, patient declined clinical trial unless other treatment done in [place]. And patient was informed our facility do not participate in those clinical trials so she has to travel to [place] in [place] for treatment if she chooses clinical trials. And patient declined. Patient underwent right neck lymph node biopsy on September 18, 2021 which confirmed metastatic small cell carcinoma, Came for follow-up, denies any specific complaint except generalized weakness and fatigue sore throat with yellowish phlegm, patient says she tried Augmentin for few days without much help but denies any fever or chills, or hemoptysis or hematemesis or shortness of breath at rest, no nausea or vomiting, no diarrhea or constipation, no headaches blurred vision or double vision denies any new bony pains . Medications: Acetaminophen 1 - 2 Tablet (of 325 mg) Oral daily PRN, Ondansetron HCl 1 Tablet (of 4 mg) Oral q 4 hours PRN, Psyllium Powder Oral daily PRN Allergies: No Known Allergies. Review of Systems: Review of Systems is not available for this patient. Vital Signs: Performed on Sep 27, 2021 11:23 Height - 69.00 in Weight - 126.6 lbs (LOW) BSA - 1.70 sq.m BMI - 18.70 Temperature - 98.8 F Pulse - 109 /min (HIGH) Respiration - 16 /min BP - 120/71 mm(hg) O2 Sat - 99 % Pain - 0 Fatigue - 8 Performance Status: 1 - No physically strenuous activity, but ambulatory and able to carry out light or sedentary work (e.g. office work, light house work). (ECOG) Physical Examination: ENMT - No mouth sores, no thrush, no jaundice, Persistent right neck mass with some crusting no discharge, status post biopsy done on September 18, 2021, Respiratory - Poor air entry otherwise clear, Cardiovascular - Regular rate and rhythm of heart, Abdomen - Soft, bowel sounds present, Extremities - No visible edema. Lab/Imaging: Test performed on Aug 31, 2021 10:15 Sodium 115 mmol/L Potassium 4.0 mmol/L Chloride 81 mmol/L CO2 25 mmol/L Anion Gap 13.0 BUN 8 mg/dL Creatinine 0.4 mg/dL Cr Clearance (Est) 148.9000 mL/min eGFR 164.5 mL/min Glucose 116 mg/dL Osmolality - Calculated 239 mOsm/kg Calcium 9.3 mg/dL Protein, Total 7.0 g/dL Albumin 4.1 g/dL Globulin 2.9 g/dL Bilirubin, Total 0.9 mg/dL ALT (SGPT) 67 U/L AST (SGOT) 29 U/L Alkaline Phosphatase 746 IU/L WBC 6.2 10 3/uL RBC 3.82 10 6/uL HGB 11.9 g/dL HCT 35.1 % MCV 91.9 fl MCH 31.2 pg MCHC 33.9 g/dL RDW 14.0 % Platelet Count 309 10 3/cmm MPV 8.2 fL Neutrophils 4.77 10 3/uL Lymphocytes 0.8 10 3/uL Monocytes 0.5 10 3/uL Eosinophils 0.1 10 3/uL Basophils 0.0 10 3/uL Neutrophil % 76.6 % Lymphocyte % 12.2 % Monocyte % 8.7 % Eosinophil % 1.6 % Basophils % 0.6 % NRBC % 0 % Test performed on Jul 17, 2021 09:08 Ferritin 511 ng/mL Iron 52 mcg/dL Vitamin B12 1480 pg/mL Iron Binding Capacity (TIBC) 293 mcg/dl % Iron Saturation 17.7 % UIBC 241 mcg/dL Retic Count % 2.6 % Impression: 1. Metastatic small cell lung cancer, per right neck mass biopsy done on January 26, 2021 , Status post carboplatin/etoposide till June 07, 2021 with mixed response e.g. persistent right neck mass, switched to Tecentriq alone on June 26, 2021, last dose was given on July 17, 2021 Due to persistent right neck mass, to rule out mixed histology,Underwent right neck biopsy at [place] on September 18, 2021 confirmed metastatic small cell lung cancer Patient was referred to [place] for evaluation and for clinical trial if available she underwent CT PET scan on September 06, 2021 at [place] which shows marked in our clinic and metabolic progression of metastatic disease involving lymph nodes predominantly above the diaphragm and scattered below and suspected within left lung and possibly within left pleura since last PET scan done on April 15, 2021. Progressive activity surrounding and replaced biliary stent is favored to be inflammatory. Brain mets are much better evaluated on the concurrent MRI brain., MRI scan of the brain done on September 06, 2021 shows interval decrease in size and number of numerous cystic lesions within the bilateral cerebral and cerebellar hemispheres Patient was evaluated at the thoracic oncology clinic at [place] on September 07, [address] Ramirez, and her recommendations were, considering palliative therapy versus if patient agrees screening for clinical trial but because of inconvenience due to traveling back and forth, patient declined clinical trial unless other treatment done in [place]. And patient was informed our facility do not participate in those clinical trials so she has to travel to [place] in [place] for treatment if she chooses clinical trials. And patient declined. Patient underwent right neck lymph node biopsy on September 18, 2021 which confirmed metastatic small cell carcinoma, 2. biopsy-proven pancreatic head mass done on January 27, 2021 @ [facility]. Plan: Discussed with patient regarding her labs white blood count 8.2 hemoglobin 11.7 hematocrit 33.3 platelets 163,000 CMP within normal limit except sodium 124 Clinically, patient is doing reasonably well not with acute signs symptom except mild sore throat, patient tried Augmentin without much help, at this point will try Levaquin 500 mg p.o. daily for 1 week Her case was discussed with Dr. Ramirez, medical oncologist at thoracic oncology at [place] and as patient underwent CT PET scan and MRI scan of brain as well as right neck biopsy at [place], her follow-up CT PET scan shows disease progression with extensive mediastinal lymphadenopathy and scattered intra-abdominal, treatment options were discussed with Dr. Ramirez and patient, earlier plan was to consider lurbinectedin, for resistant metastatic small cell lung cancer but there was a concern whether she has a mixed histology as her CT PET scan after systemic therapy with carboplatin/etoposide showed mixed response so as per discussion with Dr. Ramirez, taxane-based regimen may be better option so we will consider docetaxel 75 mg/m??? every 3 weeks with Neulasta support to prevent chemotherapy-induced neutropenia instead of lurbinectedin. All the side effect possible benefits associated with docetaxel including but not limited to hair loss, nausea vomiting, bone marrow suppression, peripheral neuropathy were discussed, further teaching will be done by chemotherapy nurse, will obtain approval from her insurance prior to the treatment that she return to clinic in 1 week with CBC CMP. As far as mild hyponatremia is concerned probably multifactorial including excessive free water intake and SIADH due to metastatic small cell lung cancer, patient was advised to cut down free water intake or use water with electrolytes or Gatorade. We will monitor her sodium level. Signed By: Stephanie Chapman M.D. <<Signature on File>>
== END 2021-10-03 23:59 | disposition home or self-care (01) ==
LOC: ONCMED 06:30
PROVIDERS: PCP Internal Medicine; Visit Provider Internal Medicine Hematology & Oncology
DX: C34.32 Malignant neoplasm of lower lobe, left bronchus or lung (principal); C79.31 Secondary malignant neoplasm of brain; C77.8 Secondary and unspecified malignant neoplasm of lymph nodes of multiple regions; Z79.899 Other long term (current) drug therapy; Z92.21 Personal history of antineoplastic chemotherapy
CPT/HCPCS: 36415; 36591; 36593; 80053; 85025; 96374; 99214; J2997

== ENCOUNTER 2021-10-05 06:51 | Outpatient (RCR) | payer MEDICAID, SELFPAY ==
[2021-10-05] MEDS: sodium chloride 0.9% 1,000 mL Bolus 999 ML IV (15:25)
[2021-10-05] MEDS: ondansetron 2 mg/ML SDV 2 mL 8 MG IVP (15:25)
[2021-10-05 15:58] LABS: Basophils % 0.3 %; Eosinophils % 0.6 %; Hematocrit 33.1 % (37.0-47.0); Hemoglobin 11.2 g/dL (11.5-15.3); Lymphocytes # 0.6 10^3/uL (0.8-4.8); Lymphocytes % 20.5 %; Mean Corpuscular HGB Conc 33.8 g/dL (30.0-36.0); Mean Corpuscular Hemoglobin 30.6 pg (28.0-34.0); Mean Corpuscular Volume 90.4 fl (81-99); Monocytes # 0.3 10^3/uL (0.2-0.9); Monocytes % 10.6 %; Neutrophils % 67.4 %; Nucleated Red Blood Cells % 0 %; Platelet Count 141 10^3/cmm (130-400); Red Blood Count 3.66 10^6/uL (4.1-5.3); Red Cell Distribution Width 15.8 % (12.1-15.1); White Blood Count 3.1 10^3/uL (4.0-10.0)
[2021-10-05 16:22] LABS: Alanine Aminotransferase 16 U/L (0-33); Albumin Level 3.7 g/dL (3.5-5.2); Alkaline Phosphatase 149 IU/L (35-105); Anion Gap 14.5 (5-19); Aspartate Amino Transferase 20 U/L (0-32); Blood Urea Nitrogen 8 mg/dL (6-20); Calcium 8.5 mg/dL (8.5-10.5); Carbon Dioxide 24 mmol/L (22-29); Chloride 91 mmol/L (98-107); Globulin 2.6 g/dL (1.3-4.6); Glomerular Filtration Rate 229.3 mL/min (90-130); Glucose 149 mg/dL (65-115); Osmolality Calculated 263 mOsm/kg (285-295); Potassium 3.5 mmol/L (3.5-5.1); Sodium 126 mmol/L (136-145); Total Bilirubin 0.4 mg/dL (0.15-1.2); Total Protein 6.3 g/dL (6.6-8.7)
== END 2021-10-05 16:00 | disposition home or self-care (01) ==
LOC: ONCMED 06:51
PROVIDERS: PCP Internal Medicine; Visit Provider Internal Medicine Hematology & Oncology
DX: C34.32 Malignant neoplasm of lower lobe, left bronchus or lung (principal); Z79.899 Other long term (current) drug therapy
CPT/HCPCS: 80053; 85025; 96374; J2405; J7030

== ENCOUNTER 2021-10-05 16:02 | Inpatient (IN) | payer MEDICAID, SELFPAY ==
[2021-10-05 16:08] VITALS: BP 132/99; PULSE 110; RESP 16; TEMP 36.3; O2SAT 95; BMI 18.4
--- NOTE | 2021-10-05 16:09 | ED_ITS ---
HPI - Syncope General: Chief Complaint: General Medical Stated Complaint: NEAR SYNCOPE/ POSSIBLE COVID Time Seen by Provider: 10/05/21 16:09 History of Present Illness: HPI narrative: Ms. Mcgill is a 56-year-old lady with significant history of lung cancer who presents to the emergency department due to near syncope. She endorses worsening frequent cough for the past 7 days and has felt weak and tired and generalized malaise for the past few days. She went to have routine blood draw and felt so weak that she was evaluated by the oncologist at that time. She received Zofran and fluids and was referred to the emergency department. Intensity of symptoms is moderate. Course has been worsening. She has not had chemotherapy for approximately 3 weeks due to blood labs. She denies other significant changes in health, specific exacerbating or alleviating factors. Review of Systems General: Reports: 10 or more systems reviewed and unremarkable except in HPI and below PFSH ED PFSH: Medical History (Updated 10/09/21 @ 00:00 by ) Chronic hyponatremia Metastatic lung cancer (metastasis from lung to other site) Neck mass Neck mass Orthostatic hypotension SIADH (syndrome of inappropriate ADH production) Surgical History (Updated 10/06/21 @ 04:43 by Liz Blakely MD) History of tonsillectomy Family History Mother Cancer Father Cancer Other CAD (coronary artery disease) Denies family history of Diabetes Hypertension Stroke Social History Smoking and tobacco status: former smoker Alcohol intake: current Alcohol intake frequency: holidays/special occasions only Physical Exam Narrative: EXAM NARRATIVE: GENERAL/CONSTITUTIONAL - quite ill appearance. Eyes - PERRL, no conjunctival injection ENMT - Atraumatic external nose and ears. Dry mucous membranes NECK - large right-sided neck mass without hemorrhage or airway compromise. Supple. trachea midline CARDIOVASCULAR -tachycardic rate and regular rhythm. Normal peripheral perfusion. RESPIRATORY -coarse to auscultation bilaterally. ABDOMEN/GI - Nontender/Nondistended. No tenderness to percussion or evidence of peritonitis MSK - Extremities without obvious deformity or tenderness to palpation SKIN - Warm, Dry NEURO - alert and appropriately oriented. No focal neurologic deficits. Moves all extremities equally. Course ED course: - Patient was seen and evaluated by me at bedside - Patient placed on cardiac monitors, IV access obtained - Initial evaluation notable for ill appearance, no focal findings. Patient does have productive cough and coarse breath sounds. -Fluids given. - Labs notable for mild leukopenia, normocytic anemia, thrombocytopenia present. Metabolic panel with hyponatremia though this is improved from baseline, bicarb mildly low. Urinalysis not concerning for urinary tract infection given squamous epithelial contamination. Covid negative. - Imaging notable for somewhat unimpressive findings given degree of patient's infectious symptoms/cough. She has been on courses of antibiotics. - Upon serial reexamination after treatment the patient was still ill in appearance. Additional fluids ordered. Despite 2 L of fluids patient remains ill, blood pressure is mildly improved however orthostatic hypotension continues to be present. As such patient requires further inpatient evaluation and rehydration. - Based on patient history, evaluation, labs, and imaging as interpreted the most likely cause of the patient's condition is dehydration with treatment refractory orthostatic hypotension, cough, metastatic lung cancer. - The results of ED evaluation were discussed with the patient including plan for admission due to requirement for level of care not available if discharged to prevent significant worsening/deterioration. - Hospitalist service contacted and agreed admit the patient. After discussion, will order CTA, results pending at time of admission. - Patient was admitted without further deterioration or significant events. Vital Signs: Vital signs: Vital Signs Temperature 98.5 F 10/08/21 15:45 Pulse Rate 88 10/08/21 15:45 Respiratory Rate 17 10/08/21 15:45 Blood Pressure 118/87 10/08/21 15:45 Pulse Oximetry 96 10/08/21 15:45 MDM - Syncope Medical Records: Attestation: I reviewed the patient's medical records. Lab Data: Attestation: I reviewed the patient's lab results. Labs: Lab Results 10/05/21 10/05/21 10/05/21 16:30 16:30 16:30 WBC 3.6 10^3/uL L 10^ 3/uL (4.0-10.0) RBC 3.54 10^6/uL L 10 ^6/uL (4.1-5.3) Hgb 10.9 g/dL L g/dL (11.5-15.3) Hct 31.8 % L % (37.0-47.0) MCV 89.8 fl fl (81-99) MCH 30.8 pg pg (28.0-34.0) MCHC 34.3 g/dL g/dL (30.0-36.0) RDW 15.8 % H % (12.1-15.1) Plt Count 123 10^3/cmm L 10 ^3/cmm (130-400) MPV 8.7 fL fL (7.4-10.4) Neut % (Auto) 74.2 % % Lymph % (Auto) 14.3 % % [place] % (Auto) 9.9 % % Eos % (Auto) 0.5 % % Baso % (Auto) 0.3 % % Neut # (Auto) 2.70 10^3/uL 10^3 /uL (1.8-7.7) Lymph # (Auto) 0.5 10^3/uL L 10^ 3/uL (0.8-4.8) [place] # (Auto) 0.4 10^3/uL 10^3/ uL (0.2-0.9) Eos # (Auto) 0.0 10^3/uL 10^3/ uL (0.0-0.8) Baso # (Auto) 0.0 10^3/uL 10^3/ uL (0.0-0.1) Nucleated RBC % (a uto) 0 % % Nucleated RBCs # 0.0 /100WBC /100W BC Sodium 128 mmol/L L mmol /L (136-145) Potassium 3.5 mmol/L mmol/L (3.5-5.1) Chloride 94 mmol/L L mmol/ L (98-107) Carbon Dioxide 20 mmol/L L mmol/ L (22-29) Anion Gap 17.5 (5-19) BUN 8 mg/dL mg/dL (6-20) Creatinine 0.3 mg/dL L mg/dL (0.5-0.9) GFR Calculation 229.3 mL/min H mL /min (90-130) Glucose 113 mg/dL mg/dL (65-115) Calculated Osmolal ity 265 mOsm/kg L mOs m/kg (285-295) Lactate 1.0 mmol/L mmol/L (0.5-2.2) Calcium 7.8 mg/dL L mg/dL (8.5-10.5) Iron TIBC % Saturation Unsat Iron Binding Total Bilirubin 0.3 mg/dL mg/dL (0.15-1.2) AST 17 U/L U/L (0-32) ALT 14 U/L U/L (0-33) Alkaline Phosphata se 144 IU/L H IU/L (35-105) C-Reactive Protein 19.7 mg/L H mg/L (0.0-4.9) NT-Pro-B Natriuret Pep Total Protein 5.5 g/dL L g/dL (6.6-8.7) Albumin 3.6 g/dL g/dL (3.5-5.2) Globulin 1.9 g/dL g/dL (1.3-4.6) Triglycerides Cholesterol LDL Cholesterol, C alc Total VLDL Cholest ene HDL Cholesterol Cholesterol/HDL Ra zoya Procalcitonin 0.27 ng/mL ng/mL (0-0.5) TSH Random Cortisol Urine Color Urine Appearance Urine pH Ur Specific Gravit y Urine Protein Urine Glucose (UA) Urine Ketones Urine Blood Urine Nitrate Urine Bilirubin Urine Urobilinogen Ur Leukocyte Yajaira ase Urine RBC Urine WBC Ur Squamous Epith Cells Amorphous Sediment Urine Bacteria Urine Mucus Ur Random Sodium Ur Random Potassiu m Ur Random Chloride Influenza Type A A g Influenza Type B A g SARS-CoV-2 RNA (RT -PCR) SARS-CoV-2 Ag (Rap id) 10/05/21 10/05/21 10/05/21 16:30 16:55 20:15 WBC RBC Hgb Hct MCV MCH MCHC RDW Plt Count MPV Neut % (Auto) Lymph % (Auto) [place] % (Auto) Eos % (Auto) Baso % (Auto) Neut # (Auto) Lymph # (Auto) [place] # (Auto) Eos # (Auto) Baso # (Auto) Nucleated RBC % (a uto) Nucleated RBCs # Sodium Potassium Chloride Carbon Dioxide Anion Gap BUN Creatinine GFR Calculation Glucose Calculated Osmolal ity Lactate Calcium Iron TIBC % Saturation Unsat Iron Binding Total Bilirubin AST ALT Alkaline Phosphata se C-Reactive Protein NT-Pro-B Natriuret Pep Total Protein Albumin Globulin Triglycerides Cholesterol LDL Cholesterol, C alc Total VLDL Cholest ene HDL Cholesterol Cholesterol/HDL Ra zoya Procalcitonin TSH 2.71 uIU/mL uIU/m L (0.27-4.20) Random Cortisol Urine Color Yellow (Yellow) Urine Appearance Hazy A (CLEAR) Urine pH 7 (5-7) Ur Specific Gravit y 1.015 (1.005-1.030) Urine Protein Neg (Negative) Urine Glucose (UA) Norm (Normal) Urine Ketones 1+ H (Negative) Urine Blood Neg (Negative) Urine Nitrate Negative (Negative) Urine Bilirubin 1+ H (Negative) Urine Urobilinogen 4 mg/dL H mg/dL (Negative) Ur Leukocyte Yajaira ase Trace H (Negative) Urine RBC Not Reportable Urine WBC 5-10 /hpf H /hpf (0-5) Ur Squamous Epith Cells 25-40 /hpf H /hpf (0-5) Amorphous Sediment Not Reportable Urine Bacteria Trace /hpf /hpf (NONE) Urine Mucus 2+ /hpf /hpf Ur Random Sodium Ur Random Potassiu m Ur Random Chloride Influenza Type A A g Influenza Type B A g SARS-CoV-2 RNA (RT -PCR) SARS-CoV-2 Ag (Rap id) Negative (Negative) 10/05/21 10/06/21 10/06/21 20:15 05:46 05:46 WBC RBC Hgb Hct MCV MCH MCHC RDW Plt Count MPV Neut % (Auto) Lymph % (Auto) [place] % (Auto) Eos % (Auto) Baso % (Auto) Neut # (Auto) Lymph # (Auto) [place] # (Auto) Eos # (Auto) Baso # (Auto) Nucleated RBC % (a uto) Nucleated RBCs # Sodium 124 mmol/L L mmol /L (136-145) Potassium 3.7 mmol/L mmol/L (3.5-5.1) Chloride 91 mmol/L L mmol/ L (98-107) Carbon Dioxide 20 mmol/L L mmol/ L (22-29) Anion Gap 16.7 (5-19) BUN 5 mg/dL L mg/dL (6-20) Creatinine 0.3 mg/dL L mg/dL (0.5-0.9) GFR Calculation 229.3 mL/min H mL /min (90-130) Glucose 94 mg/dL mg/dL (65-115) Calculated Osmolal ity 255 mOsm/kg L mOs m/kg (285-295) Lactate Calcium 8.0 mg/dL L mg/dL (8.5-10.5) Iron 33 ug/dL L ug/dL (37-145) TIBC 228 mcg/dl mcg/dl % Saturation 14.4 % L % (20-50) Unsat Iron Binding 195 ug/dL ug/dL (112-347) Total Bilirubin 0.3 mg/dL mg/dL (0.15-1.2) AST 20 U/L U/L (0-32) ALT 13 U/L U/L (0-33) Alkaline Phosphata se 138 IU/L H IU/L (35-105) C-Reactive Protein NT-Pro-B Natriuret Pep 182 pg/mL H pg/mL (0-125) Total Protein 5.8 g/dL L g/dL (6.6-8.7) Albumin 3.5 g/dL g/dL (3.5-5.2) Globulin 2.3 g/dL g/dL (1.3-4.6) Triglycerides 80 mg/dL mg/dL (0-150) Cholesterol 167 mg/dL mg/dL (0-200) LDL Cholesterol, C alc 120 mg/dL mg/dL (50-129) Total VLDL Cholest ene 16 mg/dL mg/dL (0-30) HDL Cholesterol 31 mg/dL L mg/dL (60-100) Cholesterol/HDL Ra zoya 5.39 mg/dL H mg/d L (0.0-4.40) Procalcitonin 0.19 ng/mL ng/mL (0-0.5) TSH Random Cortisol 20.06 ug/dL H ug/ dL (2.47-19.5) Urine Color Urine Appearance Urine pH Ur Specific Gravit y Urine Protein Urine Glucose (UA) Urine Ketones Urine Blood Urine Nitrate Urine Bilirubin Urine Urobilinogen Ur Leukocyte Yajaira ase Urine RBC Urine WBC Ur Squamous Epith Cells Amorphous Sediment Urine Bacteria Urine Mucus Ur Random Sodium 89 mmol/L mmol/L Ur Random Potassiu m 49 mmol/L mmol/L Ur Random Chloride 77 mmol/L mmol/L Influenza Type A A g Influenza Type B A g SARS-CoV-2 RNA (RT -PCR) SARS-CoV-2 Ag (Rap id) 10/06/21 10/06/21 14:23 14:25 WBC RBC Hgb Hct MCV MCH MCHC RDW Plt Count MPV Neut % (Auto) Lymph % (Auto) [place] % (Auto) Eos % (Auto) Baso % (Auto) Neut # (Auto) Lymph # (Auto) [place] # (Auto) Eos # (Auto) Baso # (Auto) Nucleated RBC % (a uto) Nucleated RBCs # Sodium Potassium Chloride Carbon Dioxide Anion Gap BUN Creatinine GFR Calculation Glucose Calculated Osmolal ity Lactate Calcium Iron TIBC % Saturation Unsat Iron Binding Total Bilirubin AST ALT Alkaline Phosphata se C-Reactive Protein NT-Pro-B Natriuret Pep Total Protein Albumin Globulin Triglycerides Cholesterol LDL Cholesterol, C alc Total VLDL Cholest ene HDL Cholesterol Cholesterol/HDL Ra zoya Procalcitonin TSH Random Cortisol Urine Color Urine Appearance Urine pH Ur Specific Gravit y Urine Protein Urine Glucose (UA) Urine Ketones Urine Blood Urine Nitrate Urine Bilirubin Urine Urobilinogen Ur Leukocyte Yajaira ase Urine RBC Urine WBC Ur Squamous Epith Cells Amorphous Sediment Urine Bacteria Urine Mucus Ur Random Sodium Ur Random Potass[place] m Ur Random Chloride Influenza Type A A g Negative (Negative) Influenza Type B A g Negative (Negative) SARS-CoV-2 RNA (RT -PCR) Detected A (NOT DETECTED) SARS-CoV-2 Ag (Rap id) Discharge Plan Discharge Patient Disposition: Placed in Observation Admit Provider: Liz Blakely Discharge Diet: Regular Discharge Activity: Resume usual activity Coding Level of Care Code ED 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
--- NOTE | 2021-10-05 16:25 | XRR_ITS ---
PROCEDURE INFORMATION: Exam: XR Chest Exam date and time: 10/05/2021 4:25 PM Age: 56 years old Clinical indication: Other: Near syncope/ possible covid; Prior surgery; Surgery type: Port; Additional info: Cough. HX of neck cancer TECHNIQUE: Imaging protocol: XR of the chest. Views: 1 view. COMPARISON: CR XR chest 1V portable [id number] 03/20/2021 12:52 PM FINDINGS: Tubes, catheters and devices: Right-sided Port-A-Cath. Lungs: Right lower lobe 2.2 cm rounded opacity may reflect the projection of the rib on end, however, a pulmonary nodule is somewhat of concern, consider further evaluation with a chest CT given patient's history of malignancy. Pleural spaces: Trace left pleural effusion. Heart/Mediastinum: Unremarkable. No cardiomegaly. Bones/joints: See Lungs finding. XR/XR chest 1V portable [id number] IMPRESSION: 1. Trace left pleural effusion. 2. Right lower lobe 2.2 cm rounded opacity may reflect the projection of the rib on end, however, a pulmonary nodule is somewhat of concern, consider further evaluation with a chest CT given patient's history of malignancy. Radiation Dose CTDIVOL = (mGy): DLP = (mGy-cm)
[2021-10-05 16:48] LABS: Basophils % 0.3 %; Eosinophils % 0.5 %; Hematocrit 31.8 % (37.0-47.0); Hemoglobin 10.9 g/dL (11.5-15.3); Lymphocytes # 0.5 10^3/uL (0.8-4.8); Lymphocytes % 14.3 %; Mean Corpuscular HGB Conc 34.3 g/dL (30.0-36.0); Mean Corpuscular Hemoglobin 30.8 pg (28.0-34.0); Mean Corpuscular Volume 89.8 fl (81-99); Mean Platelet Volume 8.7 fL (7.4-10.4); Monocytes # 0.4 10^3/uL (0.2-0.9); Monocytes % 9.9 %; Neutrophils % 74.2 %; Nucleated Red Blood Cells % 0 %; Platelet Count 123 10^3/cmm (130-400); Red Blood Count 3.54 10^6/uL (4.1-5.3); Red Cell Distribution Width 15.8 % (12.1-15.1); White Blood Count 3.6 10^3/uL (4.0-10.0)
[2021-10-05] MEDS: sodium chloride 0.9% 1,000 ML 999 ML IV (17:03)
[2021-10-05 17:04] VITALS: RESP 18
[2021-10-05] MEDS: morphine 4 mg/mL SDV 1 mL IVP (17:04)
[2021-10-05] MEDS: acetaminophen 325 mg Tablet 650 MG PO (17:05)
[2021-10-05 17:07] LABS: Alanine Aminotransferase 14 U/L (0-33); Albumin Level 3.6 g/dL (3.5-5.2); Alkaline Phosphatase 144 IU/L (35-105); Anion Gap 17.5 (5-19); Aspartate Amino Transferase 17 U/L (0-32); Blood Urea Nitrogen 8 mg/dL (6-20); C Reactive Protein 19.7 mg/L (0.0-4.9); Calcium 7.8 mg/dL (8.5-10.5); Carbon Dioxide 20 mmol/L (22-29); Chloride 94 mmol/L (98-107); Globulin 1.9 g/dL (1.3-4.6); Glomerular Filtration Rate 229.3 mL/min (90-130); Glucose 113 mg/dL (65-115); Osmolality Calculated 265 mOsm/kg (285-295); Potassium 3.5 mmol/L (3.5-5.1); Sodium 128 mmol/L (136-145); Total Bilirubin 0.3 mg/dL (0.15-1.2); Total Protein 5.5 g/dL (6.6-8.7)
[2021-10-05 17:14] LABS: Procalcitonin 0.27 ng/mL (0-0.5)
[2021-10-05 17:28] LABS: SARS Covid-2 Antigen Negative (Negative)
[2021-10-05 18:25] VITALS: BP 112/73; BP 93/67; BP 97/71; PULSE 110; PULSE 111; PULSE 112
[2021-10-05 19:26] VITALS: BP 148/93; PULSE 99; RESP 19; O2SAT 94
[2021-10-05 20:09] VITALS: BP 120/81; BP 124/98; BP 135/93; PULSE 104; PULSE 107; PULSE 99
[2021-10-05 20:22] LABS: Charge for UA Resulting for Rev
[2021-10-05 20:24] LABS: Add Urine Microscopic? YES; Bilirubin Urine 1+ (Negative); Blood Urine Neg (Negative); Glucose Urine UA Norm (Normal); Ketones Urine 1+ (Negative); Leukocyte Esterase Urine Trace (Negative); Nitrate Urine Negative (Negative); Protein Urine Neg (Negative); Specific Gravity, Urine 1.015 (1.005-1.030); Urine Appearance Hazy (CLEAR); Urine Color Yellow (Yellow); Urobilinogen Urine 4 mg/dL (Negative); pH Urine 7 (5-7)
[2021-10-05] MEDS: lactated ringers 1,000 ML 999 ML IV (20:26)
[2021-10-05 20:31] LABS: Squamous Epithelial Cell Urine 25-40 /hpf (0-5)
[2021-10-05 20:32] LABS: Add Urine Culture? No; Bacteria Urine TRACE /hpf; Other Sediment, Urine T
[2021-10-05 20:33] LABS: Mucus Urine 2+ /hpf
--- NOTE | 2021-10-05 21:14 | CTR_ITS ---
PROCEDURE INFORMATION: Exam: CTA Chest With Contrast Exam date and time: 10/05/2021 9:14 PM Age: 56 years old Clinical indication: Cough and shortness of breath; Prior surgery; Surgery type: Stent, port; Additional info: Tachycardia, syncope, cancer TECHNIQUE: Imaging protocol: Computed tomographic angiography of the chest with contrast. 3D rendering (Not supervised by radiologist): MIP and/or 3D reconstructed images were created by the technologist. Radiation optimization: All CT scans at this facility use at least one of these dose optimization techniques: automated exposure control; mA and/or kV adjustment per patient size (includes targeted exams where dose is matched to clinical indication); or iterative reconstruction. Contrast material: OMNI 350; Contrast volume: 62 ml; Contrast route: INTRAVENOUS (IV); COMPARISON: CT chest abd pel w con* 01/23/2021 3:24 PM RADIATION DOSE METRICS: Total DLP (mGy-cm): 480.06 FINDINGS: Tubes, catheters and devices: Common bile duct stent. Pulmonary arteries: Right hilar lymphadenopathy encases and narrows the right upper lobe pulmonary artery. Aorta: Unremarkable. No aortic aneurysm. No aortic dissection. Lungs: Small ground-glass opacity in the central right upper lobe. Ground-glass opacities in the peripheral anterior right lower lobe. Multiple nodular consolidations in the left lung apex and left upper lobe, measuring up to 1.8 cm. Irregular consolidation or fibrosis in the anterior lingula. 6 mm nodular consolidation in the inferior lingula. Complete collapse of the left lower lobe with obstruction of the bronchi. Pleural spaces: Small loculated fluid collection in the left major fissure. Old left rib fracture. No acute fracture. No lytic lesion. Heart: Pericardial effusion. Mediastinal space: Large mass in the base of the right neck has increased significantly in size measuring 6.3 x 7.2 cm. This is only partially visualized. Mass in the superior right mediastinum has increased in size measuring 6.1 cm, and partially encases the right common carotid artery. Lymph nodes: Extensive mediastinal and bilateral hilar lymphadenopathy is not significantly changed. Increased large left pleural effusion. Retroperitoneal lymphadenopathy measuring up to 2.0 cm. Stable right axillary lymphadenopathy. Gallbladder and bile ducts: Pneumobilia. Adrenal glands: 1.4 cm nodule inferior to the left adrenal gland. 2.2 cm nodule along the posterior aspect of the left kidney. Intraperitoneal space: Multiple nodular densities along the lateral aspect of the right liver lobe, most likely peritoneal metastasis. Bones/joints: See Pleural spaces finding. Soft tissues: Unremarkable. CT/CT angio chest PE protcl [id number] IMPRESSION: 1. No evidence for pulmonary embolus. 2. Larger 7.2 cm mass in the base of the right neck, consistent with primary or metastatic malignancy. 3. Stable mediastinal, hilar, right axillary, and retroperitoneal metastatic lymphadenopathy. 4. Nodules adjacent to the right liver lobe and posterior to the left kidney are consistent with metastatic disease. 5. Increased large left pleural effusion with complete collapse of the left lower lobe. 6. Small ground-glass opacities in the right upper and lower lobes, most likely pneumonia. 7. Multiple new nodular consolidations in the left lung, most likely metastatic disease. COMMENTS: Consistent with the [employer]'s Incidental Findings Committee white paper (J Am Hannah Radiol 2018): Any incidental renal lesion less than 1 cm or classified as too small to characterize, or any incidental cystic renal lesion characterized as simple-appearing, is likely benign. No follow-up imaging is recommended for these lesions per consensus recommendations based on imaging criteria. Radiation Dose CTDIVOL = (mGy): DLP = 480.06 (mGy-cm)
[2021-10-05] MEDS: iohexol 350 mg/mL 100 mL Btl IV (22:24)
[2021-10-05 22:33] LABS: Thyroid Stimulating Hormone 2.71 uIU/mL (0.27-4.20)
[2021-10-05 23:11] VITALS: BP 150/97; PULSE 94; RESP 18; O2SAT 94
[2021-10-06] VITALS (8 sets, daily range): BP systolic 122–163; BP diastolic 79–100; PULSE 96–108; RESP 16–18; TEMP 36.5–36.9; O2SAT 91–96; BMI 19.3
--- NOTE | 2021-10-06 04:37 | PM.HP ---
Providers/Chief Complaint Admitting Physician: Liz Blakely MD Primary Care Provider: Gonsalo Rodarte DO Chief Complaint: NEAR SYNCOPE/ POSSIBLE COVID History of Present Illness Melany Mcgill is a 56 year old female Metastatic small cell lung cancer, per right neck mass biopsy done on January 26, 2021 , Status post carboplatin/etoposide along with radiation at [facility] till June 07, 2021, switched to Tecentriq alone on June 26, 2021, last dose was given on July 17, 2021. Planned to change chemotherpeutic regimen in the upcoming days due to disease progression with extensive mediastinal and intraabdominal lymphadenopathy along with growth of the neck mass. She presented for outpatient blood work today, where the oncology team was concerned about patient being more lethargic and listless than usual. She was noted to be hypotensive, remained orthostatic in spite of 2 L fluid resuscitation. She reports an ongoing cough and dyspnea for the last 2 weeks. She has had additionally a sore throat, loss of taste and smell sensation over the past 1 week. No URI symptoms. She has had courses of amoxicillin and then levofloxacin more recently without any change in her symptoms. She does report expectoration. Denies aspiration. Saturating 94% on room air currently. 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 Review of Systems General: Reports: 10 or more systems reviewed and unremarkable except in HPI and below Const: Denies: fever(s), chills or body aches Eyes: Denies: change in vision, blurry vision or photophobia ENMT: Reports: hoarseness; Denies: throat pain, enlarged tonsils, odynophagia or nasal congestion Card: Denies: chest pain, palpitations, irregular heart rhythm, edema, swelling of feet/ankles, lightheadedness, pre-syncope, dyspnea on exertion or orthopnea Resp: Denies: dyspnea, productive cough, non-productive cough, wheezing, stridor, pain on inspiration, change in phlegm color, hemoptysis or chest congestion GI: Denies: abdominal pain, nausea, vomiting, hematemesis, coffee ground emesis, dysphagia, heartburn, diarrhea, constipation, GI cramping, change in stool character, hematochezia or melena : Denies: flank pain, difficulty voiding, dysuria, urinary frequency, urinary urgency, urinary hesitancy or hematuria Musc: Denies: neck pain, back pain, extremity pain, joint swelling, joint warmth or deformity Neuro: Denies: headache(s), numbness in extremities, weakness in extremities, sensory changes, difficulty walking, frequent falls, dizziness, vertigo, behavioral changes, Slurred speech present or seizure-like activity Psych: Denies: anxiety, depression, suicidal ideation or homicidal ideation Endo: Denies: polyuria, polydipsia, tired all the time, cold intolerance or hot flashes Lukas/Lymph: Denies: easy bruising or easy bleeding Medications/Allergies Home Medications Medication Instructions Recorded Confirmed Last Taken Type ondansetron 8 mg disintegrating 8 mg PO Q12H PRN 03/08/21 04/02/21 03/06/21 History tablet guaifenesin [Mucinex] 600 mg PO DAILY PRN 03/17/21 04/02/21 03/19/21 History levofloxacin 500 mg PO DAILY 03/17/21 04/02/21 03/19/21 History psyllium 1 packet PO DAILY PRN 03/17/21 04/02/21 03/19/21 History hydrocodone-acetaminophen 1 tab PO Q6H PRN #20 tab 03/20/21 04/02/21 Unknown Rx Allergies Allergy/AdvReac Type Severity Reaction Status Date / Time No Known Allergies Allergy Verified 10/06/21 00:12 PFSH Acute PFSH: Medical History (Updated 10/06/21 @ 04:44 by Liz Blakely MD) Chronic hyponatremia Neck mass SIADH (syndrome of inappropriate ADH production) Surgical History (Updated 10/06/21 @ 04:43 by Liz Blakely MD) History of tonsillectomy Family History Mother Cancer Father Cancer Other CAD (coronary artery disease) Denies family history of Diabetes Hypertension Stroke Social History Smoking and tobacco status: former smoker Alcohol intake: current Alcohol intake frequency: holidays/special occasions only Vitals/I&O/Wt Last Vital Signs Temp 97.4 F L 10/05/21 16:08 Pulse 94 10/05/21 23:11 Resp 18 10/05/21 23:11 BP 150/97 10/05/21 23:11 Pulse Ox 94 10/05/21 23:11 10/05/21 10/05/21 10/06/21 14:59 22:59 06:59 Intake Total 1000 / 1000 999 / 1999 Balance 1000 / 1000 1000 / 1999 Weight last 48 hrs Weight 59.194 kg Weight 56.699 kg Physical Exam Narrative: EXAM NARRATIVE: General: No acute distress, AO x3 HEENT: PERRLA, pupils bilaterally equal and reactive, pallors not present Chest: Normal vesicular breath sounds, no added sounds, equal good air entry bilaterally CVS: S1-S2 regular, no murmurs, no tachycardia, no gallops, no rubs Abdomen: Soft, nontender, no organomegaly, bowel sounds present Neuro: No focal deficits, no facial deformity, AO x3, power 5/5 in all limbs Extremities: no edema, clubbing or cyanosis Data : 10/05/21 16:30 10/05/21 16:30 Micro: Microbiology 10/05/21 16:55 Blood Culture - Preliminary Blood SPECIMEN COLLECTED 10/05/21 16:55 Blood Culture - Preliminary Blood SPECIMEN COLLECTED A&P Assessment and plan (1) Metastatic lung cancer (metastasis from lung to other site): Status: Acute Qualifiers: Laterality: unspecified laterality Qualified Code(s): C34.90 - Malignant neoplasm of unspecified part of unspecified bronchus or lung (2) Orthostatic hypotension: Status: Acute Additional A&P Information Patient with known metastatic lung cancer with progression in spite of treatment with chemoradiation and immunotherapy, presenting today with generalized weakness, malaise, 2 weeks of cough with minimal expectoration and orthostatic hypotension. She has thus far received 2 L of IV fluids in the ER but remains with orthostatic hypotension. Continue maintenance IV fluids normal saline at 75 cc an hour. Due to persisting cough and expectoration over the past 2 weeks with no resolution of symptoms with outpatient oral antibiotics, recommend to perform CT chest today to evaluate for possible pneumonia. Additionally obtain swallow evaluation given large neck mass which may be impairing swallow reflexes. Check Covid PCR given some concerning symptoms of loss of smell and taste over the last 1 week, persisting cough in spite of treatment of URI. Patient is unvaccinated for COVID-19. Check orthostatics qshift Attestations Medical Necessity Statement*: Anticipate less than 2 midnight admission for above defined care Coding Level of Care Code Acute [employer] Dies for Chg Fwd Diagnoses Metastatic lung cancer (metastasis from lung to other site) C34.90 Laterality: unspecified laterality Orthostatic hypotension I95.1
[2021-10-06] MEDS: sodium chloride 0.9% 1,000 ML 75 ML IV (05:55)
[2021-10-06] MEDS: cefTRIAXone 1,000 MG in sodium chloride 0.9% (plus) 50 ML 100 MG IV (05:57)
[2021-10-06] MEDS: enoxaparin 40 mg/0.4 mL Syringe SUBCUT (05:59)
[2021-10-06 06:30] LABS: Alanine Aminotransferase 13 U/L (0-33); Albumin Level 3.5 g/dL (3.5-5.2); Alkaline Phosphatase 138 IU/L (35-105); Blood Urea Nitrogen 5 mg/dL (6-20); Carbon Dioxide 20 mmol/L (22-29); Chloride 91 mmol/L (98-107); Cortisol Random 20.06 ug/dL (2.47-19.5); Globulin 2.3 g/dL (1.3-4.6); Glomerular Filtration Rate 229.3 mL/min (90-130); Glucose 94 mg/dL (65-115); Osmolality Calculated 255 mOsm/kg (285-295); Sodium 124 mmol/L (136-145); Total Bilirubin 0.3 mg/dL (0.15-1.2); Total Protein 5.8 g/dL (6.6-8.7)
[2021-10-06 06:31] LABS: Anion Gap 16.7 (5-19); Aspartate Amino Transferase 20 U/L (0-32); Potassium 3.7 mmol/L (3.5-5.1)
[2021-10-06] MEDS: acetaminophen 325 mg Tablet 650 MG PO ×2 (06:58→18:02)
--- NOTE | 2021-10-06 10:18 | FL_ITS ---
WS: [id number] MODIFIED BARIUM SWALLOW TECHNIQUE: Modified barium swallow with speech therapy using multiple consistencies. FLUOROSCOPY TIME: 3.3 minutes. CLINICAL INFORMATION: Oropharyngeal dysphagia COMPARISON: None. FINDINGS: Multiple consistencies utilized. No difficulties with barium tablet. Slightly delayed but otherwise n ormal oropharyngeal phase. No evidence of aspiration or penetration. No other significant findings. Please see speech therapy consult for further detail. FL/FL barium swallow modifd [id number] IMPRESSION: No evidence of aspiration or penetration.
--- NOTE | 2021-10-06 10:19 | CT_ITS ---
WS: [id number] CT HEAD TECHNIQUE: Noncontrast CT of the head obtained from the skullbase to the vertex. CLINICAL INFORMATION: possible mets COMPARISON: None. DLP: 730.[address] scans at [facility] use at least one of these dose optimization techniques: automated e xposure control; mA and/or kV adjustment per patient size (includes targeted exams where dose is matc hed to clinical indication); or iterative reconstruction. FINDINGS: No evidence of intracranial hemorrhage or mass effect. Ventricular system and basal cisterns are clarke nt. Mild small vessel changes with mild parenchymal volume loss. Cystic encephalomalacia with periphe ral calcification involving the left frontal lobe near the vertex likely due to prior ischemia or hem orrhage. A few small dystrophic calcifications in the cerebellum and right basal ganglia. No extra-ax ial fluid collections. No evidence of mass or mass effect. Paranasal sinusitis with air-fluid levels in the maxillary sinus. Opacification right mastoid air josie ls. Partial opacification the right middle ear. Partial opacification left mastoid air cells. CT/CT head wo con* [id number] IMPRESSION: 1. No evidence of intracranial hemorrhage or mass effect. 2. Chronic appearing cystic encephalomalacia involving the left frontal lobe n ear the vertex likely due to prior ischemia or hematoma. 3. A few incidental dystrophic calcifications in the right basal ganglia and c erebellum. 4. Mild small vessel changes with mild parenchymal volume loss. 5. Paranasal sinusitis with opacification right greater than left mastoid air cells. Partial opacification right middle ear.
--- NOTE | 2021-10-06 10:19 | CT_ITS ---
WS: [id number] CT NECK TECHNIQUE: Noncontrast CT of the neck with coronal and sagittal reformatted images. CLINICAL INFORMATION: large neck mass COMPARISON: PET/CT June 17, [address] January 23, 2021 DLP: 495.[address] scans at [facility] use at least one of these dose optimization techniques: automated e xposure control; mA and/or kV adjustment per patient size (includes targeted exams where dose is matc hed to clinical indication); or iterative reconstruction. FINDINGS: Contrast was not administered. Again seen is a large heterogeneous soft tissue mass in the right neck progressed compared to the June 17, 2021 PET/CT and similar to the prior neck CT January 23, 2021. T moni this measures approximately 12.2 x 6.7 x 6.9 CM. Associated internal dystrophic calcifications. This extends to the thoracic inlet with mass effect on the thoracic esophagus. Associated mass effect on the right submandibular gland with extension to the carotid and submandibular spaces. Retropharyn geal fluid. Diffuse cervical lymphadenopathy. Right jugular vein is occluded unchanged from previous. Partially visualized left pleural effusion. Diffuse mediastinal lymphadenopathy is partially visualiz ed. Encasement of the right common carotid artery. Common carotid appears patent on the recent CTA ch est with mild narrowing. Carotid bulb calcification. Paranasal sinusitis with air-fluid levels. Opacification right mastoid air cells. Normal parapharynge al fat. Minimal mass effect on the supraglottic larynx. Soft tissue thickening and edema involving th e epiglottis likely due to treatment-related effect. This is degraded by patient motion. Subglottic a irway is patent. Metastatic nodules visualized in the left upper lobe unchanged from the recent chest CT. Right centra l venous catheter with tip in the SVC. Mild disc osteophyte complex C5-C6 with mild central canal mini nosis. CT/CT neck wo con [id number] IMPRESSION: 1. Again seen is the large heterogeneous right neck mass progressed compared t o the prior PET/CT and is similar in configuration to the more remote neck CT M 2020. 2. Right neck mass results in mass effect on the esophagus at the thoracic inl et with loss of the fat plane. Invasion of the mediastinum with diffuse mediast inal lymphadenopathy. 3. Associated circumferential encasement of the right common carotid artery. T his appears patent with mild narrowing on the prior CTA chest October 05, 2021 . 4. Thickening of the epiglottis most likely due to treatment-related changes. Supraglottic larynx otherwise appears patent. Subglottic airway is patent. 5. Diffuse cervical lymphadenopathy right greater than left. 6. 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 7. Partially visualized left pleural effusion with metastatic lesions in the l eft upper lobe. Notified Masood Radford MD at 10/06/2021 3:21 PM.
[2021-10-06 10:35] LABS: NT Pro B Type Natriuretic Pept 182 pg/mL (0-125); Procalcitonin 0.19 ng/mL (0-0.5)
[2021-10-06 10:47] LABS: Chol HDL Ratio 5.39 mg/dL (0.0-4.40); Cholesterol 167 mg/dL (0-200); HDL Cholesterol 31 mg/dL (60-100); Iron 33 ug/dL (37-145); LDL Cholesterol Calculated 120 mg/dL (50-129); Triglycerides 80 mg/dL (0-150); VLDL Cholestrol Calculation 16 mg/dL (0-30)
[2021-10-06 10:56] LABS: Percent Saturation 14.4 % (20-50); Total Iron Binding Capacity 228 mcg/dl; Unsaturated Iron Binding 195 ug/dL (112-347)
[2021-10-06] MEDS: azithromycin 250 mg Tablet 500 MG PO (12:28)
[2021-10-06] MEDS: piperacillin-tazobactam 3.375 GM in sodium chloride 0.9% (plus) 50 ML IV ×2 (12:29→20:49)
[2021-10-06] MEDS: sodium chloride 1 gm Tablet PO ×2 (12:29→18:01)
[2021-10-06] MEDS: pantoprazole DR 40 mg Tablet PO (12:29)
[2021-10-06] MEDS: vancomycin 1,000 MG in sodium chloride 0.9% 250 ML 250 MG IV ×2 (12:29→23:34)
[2021-10-06 14:42] LABS: Potassium, Radom Urine 49 mmol/L; Urine Random Chloride 77 mmol/L; Urine Random Sodium 89 mmol/L
--- NOTE | 2021-10-06 14:55 | P.PN_ITS ---
Subjective Subjective: Interval history: Admitted overnight. Today morning on examination patient lying comfortably in bed. On walking in the room patient is sleeping. Wakes up to verbal stimulus. Able to have complete conversation. States she has been having difficulty in swallowing for last couple of weeks which has been getting worse with occasional cough. States her cough is better today though. Continues to remain on room air. Complaining of feeling tired and myalgias. Vitals/I&O/Wt Last Vital Signs Temp 98.0 F 10/06/21 12:05 Pulse 96 10/06/21 12:05 Resp 18 10/06/21 12:05 BP 139/83 10/06/21 12:05 Pulse Ox 92 10/06/21 12:05 10/05/21 10/06/21 10/06/21 22:59 06:59 14:59 Intake Total 1000 / 1000 1100 / 2100 1341.25 / 1341.25 Balance 1000 / 1000 1100 / 2100 1341.25 / 1341.25 Weight last 48 hrs Weight 59.239 kg Weight 59.194 kg Weight 56.699 kg Physical Exam Narrative: EXAM NARRATIVE: General: No acute distress, AO x3, mildly confused occasionally HEENT: PERRLA, pupils bilaterally equal and reactive, pallors not present, soft tissue swelling present in right side of the neck, red nonfluctuant Chest: Normal vesicular breath sounds, no added sounds, equal good air entry bilaterally CVS: S1-S2 regular, no murmurs, no tachycardia, no gallops, no rubs Abdomen: Soft, nontender, no organomegaly, bowel sounds present Neuro: No focal deficits, no facial deformity, AO x3, power 5/5 in all limbs Extremities: no edema, clubbing or cyanosis Data : 10/05/21 16:30 10/06/21 05:46 Micro: Microbiology 10/05/21 16:55 Blood Culture - Preliminary Blood SPECIMEN COLLECTED 10/05/21 16:55 Blood Culture - Preliminary Blood SPECIMEN COLLECTED A&P Assessment and plan (1) Orthostatic hypotension: Status: Acute (2) SIADH (syndrome of inappropriate ADH production): Status: Acute (3) Chronic hyponatremia: Status: Acute (4) Metastatic lung cancer (metastasis from lung to other site): Status: Acute Qualifiers: Laterality: unspecified laterality Qualified Code(s): C34.90 - Malignant neoplasm of unspecified part of unspecified bronchus or lung (5) Neck mass: Status: Acute Additional A&P Information Orthostatic hypotension: Resolving. Most likely secondary dehydration from poor oral intake along with multiple pain medications. Cortisol level on admission appropriate, TSH normal. Blood pressure is better. Stop IV fluids. If becomes orthostatic again we will start with midodrine. Continue to check orthostatic every shift. Acute on chronic hyponatremia: History of SIADH: Received fluid yesterday because of orthostatic hypotension. Stop IV fluids. Add urine lites to UA from yesterday. Urine osmolality 450, admission serum osmolarity 265 worsening today. Oral salt tablets twice daily. Repeat BMP at 4 PM. Neck mass: Metastatic lung cancer with possible brain mets: Check CT neck, CT head. N.p.o. for now. Modified barium swallow. Will advance diet according to the results. Currently on room air. Pneumonia: Currently on room air. COVID-19 PCR. Isolation precaution. For now start patient on vancomycin, Zosyn. Stop ceftriaxone. Continue azithromycin for 3 days. Will de-escalate antibiotics rapidly if patient remains on room air and hemodynamically stable. Check urine Legionella, bacterial antigen, sputum culture, MRSA swab, flu swab. Full code. N.p.o. Tonics for PUD prophylaxis. Lovenox for DVT prophylaxis Attestations Medical Necessity Statement*: Melany Mcgill is being changed to inpatient status as stay will now exceed 2 midnights. Ongoing hospital care is necessary for acute on chronic hyponatremia, neck mass to rule out esophageal invasion, possible aspiration pneumonia, orthostatic hypotension in setting of baseline metastatic lung cancer Time Spent in Patient Care: Greater than 35 minutes (>than 50% of time spent in counselling and/or direct pt care on unit) . Coding Level of Care Code Acute [employer] Leader for Chg Fwd Diagnoses Orthostatic hypotension I95.1 SIADH (syndrome of inappropriate ADH production) E22.2 Chronic hyponatremia E87.1 Metastatic lung cancer (metastasis from lung to other site) C34.90 Laterality: unspecified laterality Neck mass R22.1
[2021-10-06 15:23] LABS: Influenza A by IFA Negative (Negative); Influenza B by IFA Negative (Negative)
[2021-10-06 17:33] LABS: Blood Urea Nitrogen 6 mg/dL (6-20); Calcium 7.7 mg/dL (8.5-10.5); Carbon Dioxide 17 mmol/L (22-29); Chloride 92 mmol/L (98-107); Glomerular Filtration Rate 366.1 mL/min (90-130); Glucose 92 mg/dL (65-115); Osmolality Calculated 255 mOsm/kg (285-295); Sodium 124 mmol/L (136-145)
[2021-10-06 17:36] LABS: Anion Gap 19.2 (5-19); Potassium 4.2 mmol/L (3.5-5.1)
[2021-10-07 04:00] VITALS: BP 143/87; PULSE 101; RESP 20; TEMP 36.7; O2SAT 93
[2021-10-07] MEDS: enoxaparin 40 mg/0.4 mL Syringe SUBCUT (05:28)
[2021-10-07] MEDS: piperacillin-tazobactam 3.375 GM in sodium chloride 0.9% (plus) 50 ML IV (05:28)
[2021-10-07 05:36] LABS: Basophils % 0.5 %; Eosinophils % 0.5 %; Hemoglobin 10.7 g/dL (11.5-15.3); Lymphocytes # 0.6 10^3/uL (0.8-4.8); Lymphocytes % 15.8 %; Mean Corpuscular HGB Conc 33.4 g/dL (30.0-36.0); Mean Corpuscular Hemoglobin 29.8 pg (28.0-34.0); Mean Corpuscular Volume 89.1 fl (81-99); Mean Platelet Volume 8.9 fL (7.4-10.4); Monocytes # 0.4 10^3/uL (0.2-0.9); Monocytes % 9.6 %; Neutrophils # 2.82 10^3/uL (1.8-7.7); Neutrophils % 72.8 %; Nucleated Red Blood Cells % 0 %; Platelet Count 139 10^3/cmm (130-400); Red Blood Count 3.59 10^6/uL (4.1-5.3); Red Cell Distribution Width 15.7 % (12.1-15.1); White Blood Count 3.9 10^3/uL (4.0-10.0)
[2021-10-07 06:22] LABS: Alanine Aminotransferase 14 U/L (0-33); Albumin Level 3.5 g/dL (3.5-5.2); Alkaline Phosphatase 138 IU/L (35-105); Anion Gap 15.9 (5-19); Aspartate Amino Transferase 18 U/L (0-32); Blood Urea Nitrogen 4 mg/dL (6-20); Calcium 8.3 mg/dL (8.5-10.5); Carbon Dioxide 24 mmol/L (22-29); Chloride 86 mmol/L (98-107); Globulin 2.6 g/dL (1.3-4.6); Glomerular Filtration Rate 229.3 mL/min (90-130); Glucose 94 mg/dL (65-115); Osmolality Calculated 251 mOsm/kg (285-295); Potassium 3.9 mmol/L (3.5-5.1); Sodium 122 mmol/L (136-145); Total Bilirubin 0.4 mg/dL (0.15-1.2); Total Protein 6.1 g/dL (6.6-8.7)
[2021-10-07 06:26] LABS: Estmated Average Glucose 114; Hemoglobin A1C 5.6 % (4.0-6.0)
[2021-10-07 08:00] VITALS: BP 159/94; PULSE 103; RESP 18; TEMP 36.8; O2SAT 95
[2021-10-07] MEDS: azithromycin 250 mg Tablet 500 MG PO (10:48)
[2021-10-07] MEDS: sodium chloride 1 gm Tablet PO ×3 (10:49→20:27)
[2021-10-07] MEDS: pantoprazole DR 40 mg Tablet PO (10:49)
[2021-10-07 11:52] VITALS: BP 154/88; PULSE 103; RESP 18; TEMP 36.8; O2SAT 97
[2021-10-07 12:10] LABS: Vancomycin Trough 5.2 ug/mL (10-15)
[2021-10-07] MEDS: metoprolol tartrate 25 mg Tablet PO ×2 (14:22→20:27)
[2021-10-07] MEDS: FUROsemide 20 mg Tablet PO (14:23)
--- NOTE | 2021-10-07 15:24 | P.PN_ITS ---
Subjective Subjective: Interval history: Blood pressure is better. No acute events overnight. Still orthostatic but patient denies any further dizziness on changing position. Denies any nausea, vomiting, headache. Continues to remain on room air. Having occasional cough. Has remained hemodynamically stable and afebrile. Vitals/I&O/Wt Last Vital Signs Temp 98.3 F 10/07/21 11:52 Pulse 103 H 10/07/21 11:52 Resp 18 10/07/21 11:52 BP 154/88 10/07/21 11:52 Pulse Ox 97 10/07/21 11:52 10/07/21 10/07/21 10/07/21 06:59 14:59 22:59 Intake Total 300 / 1811.25 320 / 320 Balance 300 / 1811.25 320 / 320 Weight last 48 hrs Weight 59.239 kg Weight 59.194 kg Weight 56.699 kg Physical Exam Narrative: EXAM NARRATIVE: General: No acute distress, AO x3, HEENT: PERRLA, pupils bilaterally equal and reactive, pallors not present, soft tissue swelling present in right side of the neck, red nonfluctuant Chest: Normal vesicular breath sounds, no added sounds, equal good air entry bilaterally CVS: S1-S2 regular, no murmurs, no tachycardia, no gallops, no rubs Abdomen: Soft, nontender, no organomegaly, bowel sounds present Neuro: No focal deficits, no facial deformity, AO x3, power 5/5 in all limbs Extremities: no edema, clubbing or cyanosis Data : 10/07/21 03:34 10/07/21 03:34 Micro: Microbiology 10/06/21 18:39 MRSA Culture - Final Nose 10/05/21 16:55 Blood Culture - Preliminary Blood NEGATIVE TO DATE 10/05/21 16:55 Blood Culture - Preliminary Blood NEGATIVE TO DATE 10/05/21 20:15 Bacterial Antigens - Final Urine Kidney 10/05/21 20:15 Legionella Urinary Antigen - Final Unknown Source A&P Assessment and plan (1) Orthostatic hypotension: Status: Acute (2) SIADH (syndrome of inappropriate ADH production): Status: Acute (3) Chronic hyponatremia: Status: Acute (4) Metastatic lung cancer (metastasis from lung to other site): Status: Acute Qualifiers: Laterality: unspecified laterality Qualified Code(s): C34.90 - Malignant neoplasm of unspecified part of unspecified bronchus or lung (5) Neck mass: Status: Acute Additional A&P Information Orthostatic hypotension: Resolving. Most likely secondary dehydration from poor oral intake along with multiple pain medications. Cortisol level on admission appropriate, TSH normal. Blood pressure better. Continues to remain orthostatic but asymptomatic. Continue to monitor. Acute on chronic hyponatremia: History of SIADH: Received fluid yesterday because of orthostatic hypotension. Add urine lites to UA from yesterday. Calculated U rine osmolality 450, admission serum osmolarity 265 worsening today. Fluid restriction up to 1500 cc. Lasix 20 mg once. Salt tablets 3 times a day. Neck mass: Metastatic lung cancer with possible brain mets: CT neck, CT head, modified barium swallow results appreciated. Mechanical soft diet. Currently on room air. Pneumonia: Currently on room air. COVID-19 PCR results awaited. Continue with isolation precaution. Legionella, bacterial antigen, MRSA swab results appreciated. For now discontinue antibiotics and continue to monitor for hemodynamically stable, on room air and afebrile for next 24 hours. Full code. Mechanical soft diet Protonix for PUD prophylaxis. Lovenox for DVT prophylaxis Plan for day: Salt tab 3 times a day, fluid restriction, oral Lasix, stop antibiotics, monitor for hemodynamic instability, fever, orthostatic check. Discharge planning: If patient remains hemodynamically stable, afebrile without any signs of active infection with stable sodium levels we will plan to discharge in next 24 hours. Attestations Medical Necessity Statement*: Requires further hospitalization for management orthostatic hypotension, acute on chronic hyponatremia requiring further monitoring Time Spent in Patient Care: Greater than 35 minutes (>than 50% of time spent in counselling and/or direct pt care on unit) . Coding Level of Care Code Acute [employer] Manager for g Fwd Diagnoses Orthostatic hypotension I95.1 SIADH (syndrome of inappropriate ADH production) E22.2 Chronic hyponatremia E87.1 Metastatic lung cancer (metastasis from lung to other site) C34.90 Laterality: unspecified laterality Neck mass R22.1
[2021-10-07 16:00] VITALS: BP 141/92; PULSE 87; RESP 18; TEMP 36.7; O2SAT 96
[2021-10-07 17:42] LABS: Quest SARS-CoV-2 RNA DETECTED (NOT DETECTED)
[2021-10-07 17:49] LABS: Anion Gap 14.5 (5-19); Blood Urea Nitrogen 5 mg/dL (6-20); Carbon Dioxide 25 mmol/L (22-29); Chloride 84 mmol/L (98-107); Glomerular Filtration Rate 229.3 mL/min (90-130); Glucose 97 mg/dL (65-115); Osmolality Calculated 247 mOsm/kg (285-295); Potassium 3.5 mmol/L (3.5-5.1); Sodium 120 mmol/L (136-145)
[2021-10-07] MEDS: ferrous gluconate 324 mg Tablet PO (18:37)
[2021-10-07 20:00] VITALS: BP 100/68; BP 120/80; BP 133/77; BP 148/89; PULSE 102; PULSE 92; PULSE 98; RESP 19; TEMP 36.8; O2SAT 92
--- NOTE | 2021-10-07 20:55 | PC.NURSE ---
Shift report received from Clarisa DELAROSA. Patient resting in bed watching TV. Patient able to state name/. Denies pain/ no s/s of pain or discomfort. Spoke with patient regarding Bam infusion that was ordered at 1830 this evening. Patient unable to comprehend need for infusion and is declining to sign consent prior to speaking with physician. Hospitalist notified per secure message per recommendation from charge nurse Keena UNGER. No other needs voiced at this time.
[2021-10-08] VITALS: BP 137/95; PULSE 88; RESP 18; TEMP 36.9; O2SAT 92
--- NOTE | 2021-10-08 00:12 | PC.NURSE ---
Patient awake in bed watching TV. Denies pain or discomfort. No s/s of pain or discomfort. No needs voiced at this time
--- NOTE | 2021-10-08 02:43 | PC.NURSE ---
Patient in bed resting at this time/ no s/s of pain or discomfort.
[2021-10-08 04:00] VITALS: BP 148/89; PULSE 98; RESP 18; TEMP 37.3; O2SAT 92
[2021-10-08] MEDS: enoxaparin 40 mg/0.4 mL Syringe SUBCUT (05:07)
[2021-10-08 07:36] VITALS: BP 170/108; PULSE 92; RESP 16; TEMP 36.9; O2SAT 94
[2021-10-08 08:00] VITALS: BP 109/75; BP 118/87; BP 120/78; PULSE 87; PULSE 88; PULSE 89
[2021-10-08] MEDS: azithromycin 250 mg Tablet 500 MG PO (08:00)
[2021-10-08] MEDS: sodium chloride 1 gm Tablet PO ×2 (08:01→15:26)
[2021-10-08] MEDS: pantoprazole DR 40 mg Tablet PO (08:01)
[2021-10-08] MEDS: ferrous gluconate 324 mg Tablet PO (08:01)
[2021-10-08] MEDS: metoprolol tartrate 25 mg Tablet PO (08:01)
[2021-10-08] MEDS: amlodipine 10 mg Tablet PO (11:33)
[2021-10-08 12:00] VITALS: BP 118/87; PULSE 88; RESP 17; TEMP 36.9; O2SAT 96
[2021-10-08 12:45] LABS: Alanine Aminotransferase 20 U/L (0-33); Albumin Level 3.8 g/dL (3.5-5.2); Alkaline Phosphatase 144 IU/L (35-105); Anion Gap 18.2 (5-19); Aspartate Amino Transferase 24 U/L (0-32); Blood Urea Nitrogen 7 mg/dL (6-20); Calcium 8.2 mg/dL (8.5-10.5); Carbon Dioxide 22 mmol/L (22-29); Chloride 85 mmol/L (98-107); Glomerular Filtration Rate 229.3 mL/min (90-130); Glucose 89 mg/dL (65-115); Osmolality Calculated 249 mOsm/kg (285-295); Potassium 4.2 mmol/L (3.5-5.1); Sodium 121 mmol/L (136-145); Total Bilirubin 0.4 mg/dL (0.15-1.2); Total Protein 5.8 g/dL (6.6-8.7)
--- NOTE | 2021-10-08 14:24 | PM.DCS ---
Discharge Providers Date of Admission: 10/06/21 16:05 Date of Discharge: October 08, 2021 Attending Provider at Admission: Liz Blakely MD Attending Provider at Discharge: Masood Radford MD Primary Care Provider: Gonsalo Rodarte DO Diagnoses at Discharge Discharge Diagnosis (1) Orthostatic hypotension: Status: Acute (2) SIADH (syndrome of inappropriate ADH production): Status: Acute (3) Chronic hyponatremia: Status: Acute (4) Metastatic lung cancer (metastasis from lung to other site): Status: Acute Qualifiers: Laterality: unspecified laterality Qualified Code(s): C34.90 - Malignant neoplasm of unspecified part of unspecified bronchus or lung (5) Neck mass: Status: Acute Reason for Visit Reason for Visit: NEAR SYNCOPE/ POSSIBLE COVID Hospital Course Hospital Course Melany Mcgill is a 56 year old female with past medical history of chronic hyponatremia secondary to SIADH, metastatic small cell lung cancer, per right neck mass biopsy done on January 26, 2021 , Status post carboplatin/etoposide along with radiation at [facility] till June 07, 2021, switched to Tecentriq alone on June 26, 2021, last dose was given on July 17, 2021. Planned to change chemotherpeutic regimen in the upcoming days due to disease progression with extensive mediastinal and intraabdominal lymphadenopathy along with growth of the neck mass. She presented for outpatient blood work today, where the oncology team was concerned about patient being more lethargic and listless than usual. She was noted to be hypotensive, remained orthostatic in spite of 2 L fluid resuscitation. She reports an ongoing cough and dyspnea for the last 2 weeks. She has had additionally a sore throat, loss of taste and smell sensation over the past 1 week. No URI symptoms. She has had courses of amoxicillin and then levofloxacin more recently without any change in her symptoms. She does report expectoration. Denies aspiration. Saturating 94% on room air currently. Patient will go to the hospital for further evaluation and management of myalgias, weakness and orthostatic hypotension. Patient's orthostatic hypotension improved with IV hydration. Patient was found to be positive for COVID-19. Patient during hospitalization remained on room air. Bacterial pneumonia was ruled out. After consent and confirming with patient's outpatient oncologist patient received monoclonal antibody on 10/08. Patient's hospitalization was unremarkable other than her developing hyponatremia which was managed with fluid restriction and salt tablets. Patient sodium levels remain stable Patient is been discharged in hemodynamically stable condition with advice to continue taking her salt tablets and regular diet with fluid restriction up to 1500 cc for next 1 week. She advised to follow-up with her primary care provider within next 1 week for repeat CMP check. Patient is advised to take Advair nebulization twice daily and continue with vitamin C and zinc. She is advised to maintain isolation for next 14 days. Physical Exam Narrative: EXAM NARRATIVE: General: No acute distress, AO x3, occasional confusion HEENT: PERRLA, pupils bilaterally equal and reactive, pallors not present, soft tissue swelling present in right side of the neck, red nonfluctuant Chest: Normal vesicular breath sounds, no added sounds, equal good air entry bilaterally CVS: S1-S2 regular, no murmurs, no tachycardia, no gallops, no rubs Abdomen: Soft, nontender, no organomegaly, bowel sounds present Neuro: No focal deficits, no facial deformity, AO x3, power 5/5 in all limbs Extremities: no edema, clubbing or cyanosis Discharge Data Data Completed and Pending: Completed Studies During Hospitalization Category Date Time Status CT angio chest PE protcl 07534 Urge nt Cat Scan 10/05/21 21:[address] head wo con* 7 0450 Routine Cat Scan 10/06/21 10:[address] neck wo con 70 490 Routine Cat Scan 10/06/21 10:19 Completed [place] barium swallow modifd 23142 Rout ine Exams 10/06/21 10:18 Completed XR chest 1V sonia ble 68373 Urgent Exams 10/05/21 16:25 Completed Pending at discharge Category Date Time Status Blood Culture Sta t Lab 10/05/21 16:55 Results Sputum Culture an d Gram Stain Stat Lab 10/06/21 10:01 Uncollected Labs from last 24 hours 10/08/21 10/07/21 10/06/21 12:10 17:18 14:23 Sodium 121 L 120 L Potassium 4.2 3.5 Chloride 85 L 84 L Carbon Dioxide 22 25 Anion Gap 18.2 14.5 BUN 7 5 L Creatinine 0.3 L 0.3 L GFR Calculation 229.3 H 229.3 H Glucose 89 97 Calculated Osmolal ity 249 L 247 L Calcium 8.2 L 8.0 L Total Bilirubin 0.4 AST 24 ALT 20 Alkaline Phosphata se 144 H Total Protein 5.8 L Albumin 3.8 Globulin 2.0 SARS-CoV-2 RNA (RT -PCR) Detected A Addt'l Data from Hospital Stay: Laboratory Results WBC 3.9 10^3/uL (4.0- 10.0) L 10/07/21 03:34 RBC 3.59 10^6/uL (4.1 -5.3) L 10/07/21 03:34 Hgb 10.7 g/dL (11.5-1 5.3) L 10/07/21 03:34 Hct 32.0 % (37.0-47.0 ) L 10/07/21 03:34 MCV 89.1 fl (81-99) 10/07/21 03:34 MCH 29.8 pg (28.0-34. 0) 10/07/21 03:34 MCHC 33.4 g/dL (30.0-3 6.0) 10/07/21 03:34 RDW 15.7 % (12.1-15.1 ) H 10/07/21 03:34 Plt Count 139 10^3/cmm (130 -400) 10/07/21 03:34 MPV 8.9 fL (7.4-10.4) 10/07/21 03:34 Neut % (Auto) 72.8 % 10/07/21 03:34 Lymph % (Auto) 15.8 % 10/07/21 03:34 Thayer % (Auto) 9.6 % 10/07/21 03:34 Eos % (Auto) 0.5 % 10/07/21 03:34 Baso % (Auto) 0.5 % 10/07/21 03:34 Neut # (Auto) 2.82 10^3/uL (1.8 -7.7) 10/07/21 03:34 Lymph # (Auto) 0.6 10^3/uL (0.8- 4.8) L 10/07/21 03:34 Thayer # (Auto) 0.4 10^3/uL (0.2- 0.9) 10/07/21 03:34 Eos # (Auto) 0.0 10^3/uL (0.0- 0.8) 10/07/21 03:34 Baso # (Auto) 0.0 10^3/uL (0.0- 0.1) 10/07/21 03:34 Nucleated RBC % (a uto) 0 % 10/07/21 03:34 Nucleated RBCs # 0.0 /100WBC 10/07/21 03:34 Sodium 121 mmol/L (136-1 45) L 10/08/21 12:10 Potassium 4.2 mmol/L (3.5-5 .1) 10/08/21 12:10 Chloride 85 mmol/L (98-107 ) L 10/08/21 12:10 Carbon Dioxide 22 mmol/L (22-29) 10/08/21 12:10 Anion Gap 18.2 (5-19) 10/08/21 12:10 BUN 7 mg/dL (6-20) 10/08/21 12:10 Creatinine 0.3 mg/dL (0.5-0. 9) L 10/08/21 12:10 GFR Calculation 229.3 mL/min (90- 130) H 10/08/21 12:10 Glucose 89 mg/dL (65-115) 10/08/21 12:10 Estimat Average Gl ucose 114 10/07/21 03:34 Hemoglobin A1c 5.6 % (4.0-6.0) 10/07/21 03:34 Calculated Osmolal ity 249 mOsm/kg (285- 295) L 10/08/21 12:10 Lactate 1.0 mmol/L (0.5-2 .2) 10/05/21 16:30 Calcium 8.2 mg/dL (8.5-10 .5) L 10/08/21 12:10 Iron 33 ug/dL (37-145) L 10/06/21 05:46 TIBC 228 mcg/dl 10/06/21 05:46 % Saturation 14.4 % (20-50) L 10/06/21 05:46 Unsat Iron Binding 195 ug/dL (112-34 7) 10/06/21 05:46 Total Bilirubin 0.4 mg/dL (0.15-1 .2) 10/08/21 12:10 AST 24 U/L (0-32) 10/08/21 12:10 ALT 20 U/L (0-33) 10/08/21 12:10 Alkaline Phosphata se 144 IU/L (35-105) H 10/08/21 12:10 C-Reactive Protein 19.7 mg/L (0.0-4. 9) H 10/05/21 16:30 NT-Pro-B Natriuret Pep 182 pg/mL (0-125) H 10/06/21 05:46 Total Protein 5.8 g/dL (6.6-8.7 ) L 10/08/21 12:10 Albumin 3.8 g/dL (3.5-5.2 ) 10/08/21 12:10 Globulin 2.0 g/dL (1.3-4.6 ) 10/08/21 12:10 Triglycerides 80 mg/dL (0-150) 10/06/21 05:46 Cholesterol 167 mg/dL (0-200) 10/06/21 05:46 LDL Cholesterol, C alc 120 mg/dL (50-129 ) 10/06/21 05:46 Total VLDL Cholest ene 16 mg/dL (0-30) 10/06/21 05:46 HDL Cholesterol 31 mg/dL (60-100) L 10/06/21 05:46 Cholesterol/HDL Ra zoya 5.39 mg/dL (0.0-4 .40) H 10/06/21 05:46 Procalcitonin 0.19 ng/mL (0-0.5 ) 10/06/21 05:46 TSH 2.71 uIU/mL (0.27 -4.20) 10/05/21 16:30 Random Cortisol 20.06 ug/dL (2.47 -19.5) H 10/06/21 05:46 Urine Color Yellow (Yellow) 10/05/21 20:15 Urine Appearance Hazy (CLEAR) A 10/05/21 20:15 Urine pH 7 (5-7) 10/05/21 20:15 Ur Specific Gravit y 1.015 (1.005-1.0 30) 10/05/21 20:15 Urine Protein Neg (Negative) 10/05/21 20:15 Urine Glucose (UA) Norm (Normal) 10/05/21 20:15 Urine Ketones 1+ (Negative) H 10/05/21 20:15 Urine Blood Neg (Negative) 10/05/21 20:15 Urine Nitrate Negative (Negati ve) 10/05/21 20:15 Urine Bilirubin 1+ (Negative) H 10/05/21 20:15 Urine Urobilinogen 4 mg/dL (Negative ) H 10/05/21 20:15 Ur Leukocyte Yajaira ase Trace (Negative) H 10/05/21 20:15 Urine RBC Not Reportable 10/05/21 20:15 Urine WBC 5-10 /hpf (0-5) H 10/05/21 20:15 Ur Squamous Epith Cells 25-40 /hpf (0-5) H 10/05/21 20:15 Amorphous Sediment Not Reportable 10/05/21 20:15 Urine Bacteria Trace /hpf (NONE) 10/05/21 20:15 Urine Mucus 2+ /hpf 10/05/21 20:15 Ur Random Sodium 89 mmol/L 10/05/21 20:15 Ur Random Potassiu m 49 mmol/L 10/05/21 20:15 Ur Random Chloride 77 mmol/L 10/05/21 20:15 Vancomycin Trough 5.2 ug/mL (10-15) L 10/07/21 10:56 Influenza Type A A g Negative (Negati ve) 10/06/21 14:25 Influenza Type B A g Negative (Negati ve) 10/06/21 14:25 SARS-CoV-2 RNA (RT -PCR) Detected (NOT DE TECTED) A 10/06/21 14:23 SARS-CoV-2 Ag (Rap id) Negative (Negati ve) 10/05/21 16:55 Impressions Chest X-Ray 10/05/21 16:25 IMPRESSION: 1. Trace left pleural effusion. 2. Right lower lobe 2.2 cm rounded opacity may reflect the projection of the rib on end, however, a pulmonary nodule is somewhat of concern, consider further evaluation with a chest CT given patient's history of malignancy. Radiation Dose CTDIVOL = (mGy): DLP = (mGy-cm) Chest CTA 10/05/21 21:14 IMPRESSION: 1. No evidence for pulmonary embolus. 2. Larger 7.2 cm mass in the base of the right neck, consistent with primary or metastatic malignancy. 3. Stable mediastinal, hilar, right axillary, and retroperitoneal metastatic lymphadenopathy. 4. Nodules adjacent to the right liver lobe and posterior to the left kidney are consistent with metastatic disease. 5. Increased large left pleural effusion with complete collapse of the left lower lobe. 6. Small ground-glass opacities in the right upper and lower lobes, most likely pneumonia. 7. Multiple new nodular consolidations in the left lung, most likely metastatic disease. COMMENTS: Consistent with the [employer]'s Incidental Findings Committee white paper (J Am Hannah Radiol 2018): Any incidental renal lesion less than 1 cm or classified as too small to characterize, or any incidental cystic renal lesion characterized as simple-appearing, is likely benign. No follow-up imaging is recommended for these lesions per consensus recommendations based on imaging criteria. Radiation Dose CTDIVOL = (mGy): DLP = 480.06 (mGy-cm) Modified Barium Swallow 10/06/21 10:18 IMPRESSION: No evidence of aspiration or penetration. Head CT 10/06/21 10:19 IMPRESSION: 1. No evidence of intracranial hemorrhage or mass effect. 2. Chronic appearing cystic encephalomalacia involving the left frontal lobe near the vertex likely due to prior ischemia or hematoma. 3. A few incidental dystrophic calcifications in the right basal ganglia and cerebellum. 4. Mild small vessel changes with mild parenchymal volume loss. 5. Paranasal sinusitis with opacification right greater than left mastoid air cells. Partial opacification right middle ear. Neck CT 10/06/21 10:19 IMPRESSION: 1. Again seen is the large heterogeneous right neck mass progressed compared to the prior PET/CT and is similar in configuration to the more remote neck CT January 23, 2021. 2. Right neck mass results in mass effect on the esophagus at the thoracic inlet with loss of the fat plane. Invasion of the mediastinum with diffuse mediastinal lymphadenopathy. 3. Associated circumferential encasement of the right common carotid artery. This appears patent with mild narrowing on the prior CTA chest October 05, 2021. 4. Thickening of the epiglottis most likely due to treatment-related changes. Supraglottic larynx otherwise appears patent. Subglottic airway is patent. 5. Diffuse cervical lymphadenopathy right greater than left. 6. 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 7. Partially visualized left pleural effusion with metastatic lesions in the left upper lobe. Notified Masood Radford MD at 10/06/2021 3:21 PM. Microbiology 10/06/21 18:39 Nose MRSA Culture - Final 10/05/21 16:55 Blood Blood Culture - Preliminary NEGATIVE TO DATE 10/05/21 16:55 Blood Blood Culture - Preliminary NEGATIVE TO DATE 10/05/21 20:15 Urine Kidney Bacterial Antigens - Final 10/05/21 20:15 Unknown Source Legionella Urinary Antigen - Final Vitals: Last Vital Signs Temp 98.5 F 10/08/21 12:00 Pulse 88 10/08/21 12:00 Resp 17 10/08/21 12:00 BP 118/87 10/08/21 12:00 Pulse Ox 96 10/08/21 12:00 Discharge Plan Discharge Patient Disposition: Home Condition: Stable Prescriptions: New sodium chloride 1 gram Tablet 1 g PO TID 10 Days Qty: 30 RF: 0 amlodipine 10 mg Tablet 5 mg PO DAILY 30 Days Qty: 30 RF: 0 pantoprazole 40 mg Tablet,Delayed Release (Dr/Ec) 40 mg PO DAILY 30 Days Qty: 30 RF: 0 metoprolol tartrate 25 mg Tablet 25 mg PO BID@0900,2100 30 Days Qty: 60 RF: 0 zinc 50 mg tablet 50 mg PO DAILY Qty: 14 RF: 0 ascorbate calcium (vitamin C) 500 mg tablet 500 mg PO BID Qty: 20 RF: 0 Advair Diskus 250-50 mcg/dose blister with device 1 inh inhalation BID 14 Days Qty: 28 RF: 0 Continued ondansetron 8 mg tablet,disintegrating 8 mg PO Q12H PRN (Reason: Nausea) RF: 0 prochlorperazine maleate 10 mg tablet 10 mg PO Q4H PRN (Reason: Nausea) RF: 0 dexamethasone 4 mg tablet See Rx Instructions .ROUTE .COMPLEX RF: 0 guaifenesin [Mucinex] 600 mg Tablet Extended Release 12hr 600 mg PO DAILY PRN (Reason: Cough) RF: 0 hydrocodone-acetaminophen 5-325 mg tablet 1 tab PO Q6H PRN (Reason: pain) Qty: 20 RF: 0 Discontinued amoxicillin-pot clavulanate 875-125 mg tablet 1 tab PO BID RF: 0 Discharge Orders: Discharge Order (Routine); Ordered 10/08/21 Ordered By: Masood Radford Referrals: Gonsalo Denny MD [Hospitalist] - 4-7 days (Please call on Saturday to schedule an appointment to be seen in 4-7 days.) Gonsalo Rodarte DO [Primary Care Provider] - 4-7 days (Please call on Diego to schedule an appointment to be seen in 4-7 days. Repeat BMP ) Discharge Diet: Regular Discharge Activity: Resume usual activity Patient Instructions: Metoprolol (By mouth) (Lopressor, Toprol XL), Ascorbic Acid (By mouth) (Ascocid, C-500, C-Time w/Melisa Hips, Vitamin C250), Amlodipine (By mouth) (Hypertenipine-2.5, Norvasc), Pantoprazole (By mouth) (Protonix), Fluticasone/Salmeterol (By breathing) (Advair Diskus 100/50, Advair..., Zinc Supplement (By mouth) (Galzin, Orazinc 110, Zinc-220, Zn-50), Sodium Chloride (By mouth), Opioid Safety Activity Restrictions/Additional Instructions: Being discharged in hemodynamically stable condition. Advised to take inhalation treatment with Advair daily. Advised to follow-up with your primary care provider and oncologist within the next 4 to 7 days. Can take his COVID-19 vaccination in 3 months. Advised to continue following social distancing and isolation protocol for next 10 days. Advised to come back to the ER if fever of more than 101 Fahrenheit, more difficulty breathing than usual or requiring higher oxygen supplementation. Please continue taking salt tablets 3 times a day. Please continue with your restriction up to 1500 cc daily. Please follow-up with your primary care provider within next 1 week for repeat BMP. Discharge Attestations Time Spent in Discharge Care*: greater than 30 min Specific Discharge Activities: educating patient, educating and/or supporting family/caregiver, discussing with pcp/other providers, discussing with correctional case records supervisor/social workers/dc planners, documenting/other paperwork and evaluating patient/reviewing data Status at Discharge: Cognitive status at discharge: mildly impaired cognition, Behavioral status at discharge: cooperative, Functional status at discharge: independent ambulation Overall status at discharge: patient is progressing back to baseline Quality Metrics Clinical Quality Measures During this hospital stay, did patient experience: None Coding Level of Care Code Acute Chg DC note Diagnoses Orthostatic hypotension I95.1 SIADH (syndrome of inappropriate ADH production) E22.2 Chronic hyponatremia E87.1 Metastatic lung cancer (metastasis from lung to other site) C34.90 Laterality: unspecified laterality Neck mass R22.1
[2021-10-08 15:45] VITALS: BP 118/87; PULSE 88; RESP 17; TEMP 36.9; O2SAT 96
== END 2021-10-08 15:45 | disposition home or self-care (01) | DRG 177 ==
LOC: ER 22:22 → MEDSURG 23:29
PROVIDERS: Admitting Provider Student in an Organized Health Care Education/Training Program; Emergency Provider Emergency Medicine; PCP Internal Medicine; Visit Provider Student in an Organized Health Care Education/Training Program
DX: U07.1 COVID-19 (principal); J18.9 Pneumonia, unspecified organism; C34.90 Malignant neoplasm of unspecified part of unspecified bronchus or lung; E22.2 Syndrome of inappropriate secretion of antidiuretic hormone; C79.89 Secondary malignant neoplasm of other specified sites; C77.8 Secondary and unspecified malignant neoplasm of lymph nodes of multiple regions; I95.1 Orthostatic hypotension; Z79.899 Other long term (current) drug therapy; Z92.3 Personal history of irradiation; Z92.21 Personal history of antineoplastic chemotherapy; E86.0 Dehydration; R41.0 Disorientation, unspecified; Z80.9 Family history of malignant neoplasm, unspecified; Z87.891 Personal history of nicotine dependence
CPT/HCPCS: 36415; 70450; 70490; 71045; 71275; 74230; 80048; 80053; 80061; 80202; 81001; 81003; 82436; 82533; 83036; 83540; 83550; 83605; 83880; 84133; 84145; 84300; 84443; 85025; 86140; 86403; 87040; 87426; 87449; 87635; 87641; 87804; 92611; 96361; 96372; 96374; 99285; G0378; J0696; J1650; J2270; J2543; J3370; J7030; J7050; Q0144; Q9967

== ENCOUNTER 2021-10-19 06:16 | Outpatient (RCR) | payer MEDICAID, SELFPAY ==
[2021-10-16 09:55] LABS: Basophils % 0.2 %; Eosinophils % 0.2 %; Hematocrit 34.2 % (37.0-47.0); Hemoglobin 11.6 g/dL (11.5-15.3); Lymphocytes # 0.7 10^3/uL (0.8-4.8); Lymphocytes % 14.6 %; Mean Corpuscular HGB Conc 33.9 g/dL (30.0-36.0); Mean Corpuscular Hemoglobin 30.9 pg (28.0-34.0); Mean Platelet Volume 8.4 fL (7.4-10.4); Monocytes # 0.4 10^3/uL (0.2-0.9); Monocytes % 8.5 %; Neutrophils # 3.49 10^3/uL (1.8-7.7); Neutrophils % 76.3 %; Nucleated Red Blood Cells % 0 %; Platelet Count 275 10^3/cmm (130-400); Red Blood Count 3.76 10^6/uL (4.1-5.3); Red Cell Distribution Width 17.3 % (12.1-15.1); White Blood Count 4.6 10^3/uL (4.0-10.0)
[2021-10-16 10:14] LABS: Alanine Aminotransferase 15 U/L (0-33); Albumin Level 4.2 g/dL (3.5-5.2); Alkaline Phosphatase 127 IU/L (35-105); Aspartate Amino Transferase 16 U/L (0-32); Blood Urea Nitrogen 14 mg/dL (6-20); Calcium 9.3 mg/dL (8.5-10.5); Carbon Dioxide 21 mmol/L (22-29); Chloride 91 mmol/L (98-107); Globulin 2.7 g/dL (1.3-4.6); Glomerular Filtration Rate 164.5 mL/min (90-130); Glucose 138 mg/dL (65-115); Osmolality Calculated 269 mOsm/kg (285-295); Sodium 128 mmol/L (136-145); Total Bilirubin 0.4 mg/dL (0.15-1.2); Total Protein 6.9 g/dL (6.6-8.7)
--- NOTE | 2021-10-16 17:15 | ONC FU_ITS ---
Dr. Chapman follow up note Patient: Melany Mcgill < Unit #: [id number]: 1965 Dicatated By: Stephanie Chapman M.D.Date of Visit:Oct 16, 2021 Onc Med Follow-up/Prog Note History of Present Illness: Ms. Mcgill is a 56-year-old female with 1 month history of non tender right neck mass,30 to 40 pounds weight loss, jaundice, and right lower extremity weakness/numbness for which she was seeing a chiropractor without much relief. On January 23, 2021, she presented to [facility] ER and her bilirubin level was 7.2, alk phos was 1181, AST 287, ALT 563. Her hepatitis panel was negative. A CT of the neck with contrast showed large confluent enhancing mass in the right neck. It measured 11.5 x 6.4 cm with occlusion of right jugular vein and invading her right SCM muscle. This was consistent with LAD with additional lymph nodes in the right cervical chain, right supraclavicular and upper mediastinum favored to be metastatic versus lymphoma. CT scan of chest abdomen pelvis with contrast showed severe adenopathy in the chest with LAD as noted above. It also reported distal thoracic, aorta, pericardiac, pulmonary mass versus adenopathy extending along bronchovascular structure of left lower lobe and along the pleura. The mass encased and partially obstructed the left lower lobe bronchus with marked intrahepatic and extrahepatic biliary dilation secondary to a pancreatic head mass measuring 2.9 x 3[address] also reported mets in the liver and bilateral adrenal glands. On January 25, 2021, she was transferred to [facility] for biliary stent and malignancy work-up. She underwent MRI brain which did show metastatic disease in the brain . An ultrasound guided biopsy of right neck mass done on January 26, 2021. This was consistent with small cell carcinoma. A biopsy of pancreatic head mass was also obtained which was consistent with small cell carcinoma as well. Ms Mcgill was started on systemic chemotherapy with carboplatin/etoposide on February 01, 2021. She tolerated first cycle of chemotherapy well. She was started on dexamethasone for brain mets and she was referred to radiation oncology for whole brain radiation therapy. She received 10 days of radiation therapy which she completed on February 17, 2021, Ms Mcgill underwent ERCP/EUS on January 27, 2021 for hyperbilirubinemia and elevated LFT. After stenting, her LFTs improved. 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 Her sodium was stable between 127-133 on discharge. Ms. Fay transferred her care us at [facility] to be closer to home. She received her second dose of chemotherapy with carboplatin etoposide beginning on February 27, 2021. She tolerated it well. She presents today with mild chemotherapy-induced neutropenia with a day 8 ANC of 1620. Follow-up CT PET scan after 3 cycles of carboplatin/etoposide on April 15, 2021 showed improvement in the right neck mass size from January 2021 CT scan now mass measured 4 x 3.4 cm with SUV of 5.3 compared to 11.5 x 6.[address] scan of neck. Uptake in 1.6 cm left lower lobe perihilar nodule which is SUV of 5.6. Left hilar lymph nodes have SUV up to 7.7. Multiple FDG positive mediastinal nodes are present in the AP window, prevascular, superior mediastinal, right thoracic inlet. Right paratracheal, left para-aortic Territories. Other FDG positive lymph nodes are evident in the right posterior triangle, cervical level 4 level 3 territories. At the level of abdomen, uptake in the pancreatic head has SUV of 3.9, evaluate mildly greater than the background. Biliary stent in place. Liver adrenal shows no abnormality. There is a dominant central mesenteric lymph node below the level of aortic bifurcation measuring 1.4 cm with SUV of 3.3. Tecentriq was added to carboplatin/etoposide on June 05, 2021, Although it was ordered earlier but due to patient's self-pay status it took a long to get immunotherapy under patient assistance program Follow-up CT PET scan done on June 17, 2021, when compared with CT PET scan done on April 15, 2021, showed improvement in left perihilar nodule, hilar lymph nodes, mediastinal lymph nodes, no change in pancreatic head uptake and biliary stent placement. Resolution of activity and slightly mesenteric lymph node, reactive right axillary lymphadenopathy seen on prior studies resolved. But progressive right neck mass with stability of other right cervical lymph nodes Patient was referred to [facility] for evaluation and for clinical trial if available she underwent CT PET scan on September 06, 2021 at [facility] which shows marked in our clinic and metabolic progression of metastatic disease involving lymph nodes predominantly above the diaphragm and scattered below and suspected within left lung and possibly within left pleura since last PET scan done on April 15, 2021. Progressive activity surrounding and replaced biliary stent is favored to be inflammatory. Brain mets are much better evaluated on the concurrent MRI brain., MRI scan of the brain done on September 06, 2021 shows interval decrease in size and number of numerous cystic lesions within the bilateral cerebral and cerebellar hemispheres Patient was evaluated at the thoracic oncology clinic at [facility] on September 07, [address] Ramirez, and her recommendations were, considering palliative therapy versus if patient agrees screening for clinical trial but because of inconvenience due to traveling back and forth, patient declined clinical trial unless other treatment done in [place]. And patient was informed our facility do not participate in those clinical trials so she has to travel to [facility] in [place] for treatment if she chooses clinical trials. And patient declined. Patient underwent right neck lymph node biopsy on September 18, 2021 which confirmed metastatic small cell carcinoma, Patient was started on Lurbinectidin on August 31, 2021, as per patient it did not improve her right neck mass which continue to progress, case was discussed with Dr. Ramirez at [facility] and it was suggested to consider docetaxel, while being evaluated patient was admitted to hospital on October 06, 2021 with cough, sore throat generalized weakness and fatigue she was diagnosed with Covid infection she was given a course of monoclonal antibody/steroids Came for follow-up, complaining of cough with yellowish phlegm and generalized weakness and fatigue and progressive right neck mass but no dysphagia but discomfort in the right neck. Occasional chills but no fever, no hemoptysis or hematemesis, no nausea or vomiting, complaining of loss of smell and appetite, she was diagnosed with Covid infection recently denies any headaches or blurred vision . Medications: Advair Diskus 1 Inhalation Aerosol Powder, Breath Activated Inhalation b.i.d., amLODIPine Besylate 0.5 Tablet (of 5 mg) Oral daily, [employer] Mucus Extended Release 1 Tablet (of 600 mg) Tablet SR 12 HR Oral daily PRN, Dexamethasone (8 mg) Tablet Oral Take as Directed, HYDROcodone-Acetaminophen Tablet Oral Take as Directed, Metoprolol Tartrate 1 Tablet (of 25 mg) Oral b.i.d., Ondansetron HCl 1 Tablet (of 4 mg) Oral q 4 hours PRN, Pantoprazole Sodium 1 Tablet (of 40 mg) Tablet, enteric coated Oral daily, Prochlorperazine Maleate (10 mg) Tablet Oral Take as Directed, Sodium Chloride 1 Tablet (of 1 g) Oral t.i.d., Vitamin C 1 Capsule (of 500 mg) Oral b.i.d., Zinc 1 Tablet (of 50 mg) Oral daily Allergies: No Known Allergies. Review of Systems: Review of Systems is not available for this patient. Vital Signs: Performed on Oct 16, 2021 16:51 Height - 69.00 in Temperature - 97.4 F (LOW) Pulse - 104 /min (HIGH) Respiration - 18 /min BP - 121/84 mm(hg) O2 Sat - 99 % Pain - 0 Fatigue - 3 Performance Status: 1 - No physically strenuous activity, but ambulatory and able to carry out light or sedentary work (e.g. office work, light house work). (ECOG) Physical Examination: ENMT - No mouth sores, no thrush, no jaundice, large right neck mass with crusting, Respiratory - Mild wheezing bilaterally, Cardiovascular - Regular rate and rhythm of heart, Abdomen - Soft, bowel sounds present, Extremities - No visible edema. Lab/Imaging: Test performed on Aug 31, 2021 10:15 Sodium 115 mmol/L Potassium 4.0 mmol/L Chloride 81 mmol/L CO2 25 mmol/L Anion Gap 13.0 BUN 8 mg/dL Creatinine 0.4 mg/dL Cr Clearance (Est) 148.9000 mL/min eGFR 164.5 mL/min Glucose 116 mg/dL Osmolality - Calculated 239 mOsm/kg Calcium 9.3 mg/dL Protein, Total 7.0 g/dL Albumin 4.1 g/dL Globulin 2.9 g/dL Bilirubin, Total 0.9 mg/dL ALT (SGPT) 67 U/L AST (SGOT) 29 U/L Alkaline Phosphatase 746 IU/L WBC 6.2 10 3/uL RBC 3.82 10 6/uL HGB 11.9 g/dL HCT 35.1 % MCV 91.9 fl MCH 31.2 pg MCHC 33.9 g/dL RDW 14.0 % Platelet Count 309 10 3/cmm MPV 8.2 fL Neutrophils 4.77 10 3/uL Lymphocytes 0.8 10 3/uL Monocytes 0.5 10 3/uL Eosinophils 0.1 10 3/uL Basophils 0.0 10 3/uL Neutrophil % 76.6 % Lymphocyte % 12.2 % Monocyte % 8.7 % Eosinophil % 1.6 % Basophils % 0.6 % NRBC % 0 % Test performed on Jul 17, 2021 09:08 Ferritin 511 ng/mL Iron 52 mcg/dL Vitamin B12 1480 pg/mL Iron Binding Capacity (TIBC) 293 mcg/dl % Iron Saturation 17.7 % UIBC 241 mcg/dL Retic Count % 2.6 % Impression: 1. Metastatic small cell lung cancer, per right neck mass biopsy done on January 26, 2021 , Status post carboplatin/etoposide till June 07, 2021 with mixed response e.g. persistent right neck mass, switched to Tecentriq alone on June 26, 2021, last dose was given on July 17, 2021 Due to persistent right neck mass, to rule out mixed histology,Underwent right neck biopsy at [facility] on September 18, 2021 confirmed metastatic small cell lung cancer 2. biopsy-proven pancreatic head mass done on January 27, 2021 @ [facility]. Plan: Discussed with patient regarding her labs white blood count 4.6 hemoglobin 11.6 hematocrit 34.2 platelets 235,000 CMP within normal limit except sodium 128 Clinically, patient is doing reasonably well, now recovering from recent Covid infection, she was treated with monoclonal antibody/steroid combination., Now complaining of cough with yellowish phlegm, patient is still smoking, earlier she was treated with Augmentin prior to her admission to hospital with Covid, now she may have superimposed infection, will consider treating her with Z-Porfirio and then she will return to clinic on , as palliative therapy with docetaxel is under consideration, patient also need Neulasta to prevent chemotherapy-induced neutropenia/leukopenia, will obtain approval from her insurance and she will return to clinic on , but that time before cough with yellowish phlegm/bronchitis improves, will consider starting her on docetaxel on the other hand if her symptoms persist, will request radiation oncology to consider palliative radiation therapy to her right neck while she is recovering from infection/Covid and then once she completed her radiation, will consider starting her on palliative therapy. We will discontinue lurbinectedin as her disease continue to progress after first cycle of treatment, Also discussed about hospice care, patient wants to think and she was also advised to quit smoking and was offered any assistance she may need. Signed By: Stephanie Chapman M.D. <<Signature on File>>
--- NOTE | 2021-10-19 10:53 | N.ONRAD NP_ITS ---
Radiation Oncology Consultation Patient Name: Melany Mcgill Date of : 1965 Date of Service: 10/19/2021 Attending Physician: Tre Landon M.D. Melany Mcgill was seen in consultation this afternoon at the request of Brayden Chapman M.D. for consideration of palliative radiotherapy for the management of metastatic small cell lung cancer. She was evaluated in January at the [facility]'s Emergency Department a right neck mass. Initial laboratory data revealed hyponatremia, hyperbilirubinemia, and elevated liver enzymes. A neck CT scan identified an 11.5 cm x 6.4 cm right neck mass posterior to the sternocleidomastoid muscle. A thoracoabdominopelvic CT scan demonstrated bilateral hilar and mediastinal lymphadenopathy a left pleural effusion, a pancreatic head soft tissue mass measuring 2.9 cm x 3.5 cm, a subscapular mass within the right lobe of the liver measuring 3.5 cm, bilateral adrenal masses, and extra and intrahepatic duct dilatation. She was transferred to [facility] in [place], [place]. An ultrasound-guided core biopsy obtained on January 26, 2021 of tissue right neck mass diagnosed small cell carcinoma. MRI of the brain identified rim-enhancing cystic lesions in the cerebellum and cerebrum. Cranial radiotherapy was prescribed (February 06, 2021 through February 17, 2021; 30 Gy in 10 fractions). An upper endoscopic ultrasonography completed on January 27, 2021 demonstrated a 2.3 cm x 1.9 cm pancreatic head mass. Biopsy of the pancreatic lesion consistent with small cell carcinoma. And endoscopic retrograde cholangiopancreatography confirmed a 2 cm long stenosis in the lower third of the main duct. A biliary sphincterotomy was executed with a 10 Fr x 7 cm plastic stent placed. Prior to discharge, carboplatin and etoposide (cycle 1 day 1) was administered on February 01, 2021. She received an additional 3 cycles under the supervision of Brayden Chapman M.D. February 27, 2021 through June 05, 2021 with Tecentriq during the fourth cycle. Restaging PET CT ordered on June 17, 2021 indicated aggression of the right neck mass, stable pancreatic head mass, and partial response within the hilar and mediastinal lymphadenopathy. A repeat mass biopsy on September 18, 2021 confirmed metastatic small cell carcinoma. Zepzelca was prescribed with the first dose administered August 31, 2021. However, continued progression was noted of the right neck mass. She was recently diagnosed with Covid???19 and prescribed monoclonal antibodies with steroids thereby delaying continued chemotherapy. The patient was evaluated for palliative radiotherapy in the setting of a persistent right neck mass. I discussed with the role for palliative radiotherapy. I would recommend a 2-week course of radiation therapy if she elects to defer hospice. A CT scan will be acquired for radiotherapy planning prior to beginning treatment to delineate the gross tumor volume. The potential toxicities of radiotherapy were reviewed. The patient has verbalized understanding would like to proceed as recommended. I will request a referral to the wound care clinic on account of the right neck mass. Her medical treatment plan has been discussed with Brayden Chapman M.D. Signed by: Dr. Tre Landon 10/19/2021 10:51:50 AM
--- NOTE | 2021-10-19 18:19 | ONC FU_ITS ---
Dr. Chapman follow up note Patient: Melany Mcgill Unit #: [id number]: 1965 Dicatated By: Stephanie Chapman M.D.Date of Visit:Oct 19, 2021 Onc Med Follow-up/Prog Note History of Present Illness: Ms. Mcgill is a 56-year-old female with 1 month history of non tender right neck mass,30 to 40 pounds weight loss, jaundice, and right lower extremity weakness/numbness for which she was seeing a chiropractor without much relief. On January 23, 2021, she presented to [facility] ER and her bilirubin level was 7.2, alk phos was 1181, AST 287, ALT 563. Her hepatitis panel was negative. A CT of the neck with contrast showed large confluent enhancing mass in the right neck. It measured 11.5 x 6.4 cm with occlusion of right jugular vein and invading her right SCM muscle. This was consistent with LAD with additional lymph nodes in the right cervical chain, right supraclavicular and upper mediastinum favored to be metastatic versus lymphoma. CT scan of chest abdomen pelvis with contrast showed severe adenopathy in the chest with LAD as noted above. It also reported distal thoracic, aorta, pericardiac, pulmonary mass versus adenopathy extending along bronchovascular structure of left lower lobe and along the pleura. The mass encased and partially obstructed the left lower lobe bronchus with marked intrahepatic and extrahepatic biliary dilation secondary to a pancreatic head mass measuring 2.9 x 3[address] also reported mets in the liver and bilateral adrenal glands. On January 25, 2021, she was transferred to [facility] for biliary stent and malignancy work-up. She underwent MRI brain which did show metastatic disease in the brain . An ultrasound guided biopsy of right neck mass done on January 26, 2021. This was consistent with small cell carcinoma. A biopsy of pancreatic head mass was also obtained which was consistent with small cell carcinoma as well. Ms Mcgill was started on systemic chemotherapy with carboplatin/etoposide on February 01, 2021. She tolerated first cycle of chemotherapy well. She was started on dexamethasone for brain mets and she was referred to radiation oncology for whole brain radiation therapy. She received 10 days of radiation therapy which she completed on February 17, 2021, Ms Mcgill underwent ERCP/EUS on January 27, 2021 for hyperbilirubinemia and elevated LFT. After stenting, her LFTs improved. 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 Her sodium was stable between 127-133 on discharge. Ms. Fay transferred her care us at [facility] to be closer to home. She received her second dose of chemotherapy with carboplatin etoposide beginning on February 27, 2021. She tolerated it well. She presents today with mild chemotherapy-induced neutropenia with a day 8 ANC of 1620. Follow-up CT PET scan after 3 cycles of carboplatin/etoposide on April 15, 2021 showed improvement in the right neck mass size from January 2021 CT scan now mass measured 4 x 3.4 cm with SUV of 5.3 compared to 11.5 x 6.[address] scan of neck. Uptake in 1.6 cm left lower lobe perihilar nodule which is SUV of 5.6. Left hilar lymph nodes have SUV up to 7.7. Multiple FDG positive mediastinal nodes are present in the AP window, prevascular, superior mediastinal, right thoracic inlet. Right paratracheal, left para-aortic Territories. Other FDG positive lymph nodes are evident in the right posterior triangle, cervical level 4 level 3 territories. At the level of abdomen, uptake in the pancreatic head has SUV of 3.9, evaluate mildly greater than the background. Biliary stent in place. Liver adrenal shows no abnormality. There is a dominant central mesenteric lymph node below the level of aortic bifurcation measuring 1.4 cm with SUV of 3.3. Tecentriq was added to carboplatin/etoposide on June 05, 2021, Although it was ordered earlier but due to patient's self-pay status it took a long to get immunotherapy under patient assistance program Follow-up CT PET scan done on June 17, 2021, when compared with CT PET scan done on April 15, 2021, showed improvement in left perihilar nodule, hilar lymph nodes, mediastinal lymph nodes, no change in pancreatic head uptake and biliary stent placement. Resolution of activity and slightly mesenteric lymph node, reactive right axillary lymphadenopathy seen on prior studies resolved. But progressive right neck mass with stability of other right cervical lymph nodes Patient was referred to [place] [facility] for evaluation and for clinical trial if available she underwent CT PET scan on September 06, 2021 at [place] which shows marked in our clinic and metabolic progression of metastatic disease involving lymph nodes predominantly above the diaphragm and scattered below and suspected within left lung and possibly within left pleura since last PET scan done on April 15, 2021. Progressive activity surrounding and replaced biliary stent is favored to be inflammatory. Brain mets are much better evaluated on the concurrent MRI brain., MRI scan of the brain done on September 06, 2021 shows interval decrease in size and number of numerous cystic lesions within the bilateral cerebral and cerebellar hemispheres Patient was evaluated at the thoracic oncology clinic at [facility] [facility] on September 07, [address] Ramirez, and her recommendations were, considering palliative therapy versus if patient agrees screening for clinical trial but because of inconvenience due to traveling back and forth, patient declined clinical trial unless other treatment done in [place]. And patient was informed our facility do not participate in those clinical trials so she has to travel to [facility] [facility] in [place] for treatment if she chooses clinical trials. And patient declined. Patient underwent right neck lymph node biopsy on September 18, 2021 which confirmed metastatic small cell carcinoma, Patient was started on Lurbinectidin on August 31, 2021, as per patient it did not improve her right neck mass which continue to progress, case was discussed with Dr. Ramirez at [place] [facility] and it was suggested to consider docetaxel, while being evaluated patient was admitted to hospital on October 06, 2021 with cough, sore throat generalized weakness and fatigue she was diagnosed with Covid infection she was given a course of monoclonal antibody/steroids Came for follow-up, complaining of cough with yellowish phlegm some chills but no fever, on oral antibiotics, still smoking about half pack a day, also complaining of bilateral neck fullness and prominent blood vessels in the upper extremity but no dysphagia, no hemoptysis or hematemesis, no headaches, right neck mass wound progressing after biopsy. Overall feeling weak and tired . Medications: Advair Diskus 1 Inhalation Aerosol Powder, Breath Activated Inhalation b.i.d., amLODIPine Besylate 0.5 Tablet (of 5 mg) Oral daily, CVS Mucus Extended Release 1 Tablet (of 600 mg) Tablet SR 12 HR Oral daily PRN, Dexamethasone (8 mg) Tablet Oral Take as Directed, HYDROcodone-Acetaminophen Tablet Oral Take as Directed, Metoprolol Tartrate 1 Tablet (of 25 mg) Oral b.i.d., Ondansetron HCl 1 Tablet (of 4 mg) Oral q 4 hours PRN, Pantoprazole Sodium 1 Tablet (of 40 mg) Tablet, enteric coated Oral daily, Prochlorperazine Maleate (10 mg) Tablet Oral Take as Directed, Sodium Chloride 1 Tablet (of 1 g) Oral t.i.d., Vitamin C 1 Capsule (of 500 mg) Oral b.i.d., Zinc 1 Tablet (of 50 mg) Oral daily Allergies: No Known Allergies. Review of Systems: Review of Systems is not available for this patient. Vital Signs: Performed on Oct 19, 2021 11:25 Height - 69.00 in Temperature - 97.5 F (LOW) Pulse - 99 /min Respiration - 18 /min BP - 86/56 mm(hg) (LOW) O2 Sat - 99 % Pain - 4 Fatigue - 2 Performed on Oct 19, 2021 11:06 Height - 69.00 in Temperature - 97.4 F Pulse - 104 /min (HIGH) Respiration - 18 /min BP - 121/84 mm(hg) O2 Sat - 99 % Pain - 4 Fatigue - 3 Performance Status: 3 - Capable of only limited self-care, confined to bed or chair more than 50% of waking hours. (ECOG) Physical Examination: ENMT - Poor oral hygiene, bilateral neck swelling with prominent blood vessel and right neck mass with wound infection, Respiratory - Poor air entry otherwise clear, Cardiovascular - Regular rate and rhythm of heart, Abdomen - Soft, bowel sounds present, Extremities - Trace edema bilaterally. Lab/Imaging: Test performed on Aug 31, 2021 10:15 Sodium 115 mmol/L Potassium 4.0 mmol/L Chloride 81 mmol/L CO2 25 mmol/L Anion Gap 13.0 BUN 8 mg/dL Creatinine 0.4 mg/dL Cr Clearance (Est) 148.9000 mL/min eGFR 164.5 mL/min Glucose 116 mg/dL Osmolality - Calculated 239 mOsm/kg Calcium 9.3 mg/dL Protein, Total 7.0 g/dL Albumin 4.1 g/dL Globulin 2.9 g/dL Bilirubin, Total 0.9 mg/dL ALT (SGPT) 67 U/L AST (SGOT) 29 U/L Alkaline Phosphatase 746 IU/L WBC 6.2 10 3/uL RBC 3.82 10 6/uL HGB 11.9 g/dL HCT 35.1 % MCV 91.9 fl MCH 31.2 pg MCHC 33.9 g/dL RDW 14.0 % Platelet Count 309 10 3/cmm MPV 8.2 fL Neutrophils 4.77 10 3/uL Lymphocytes 0.8 10 3/uL Monocytes 0.5 10 3/uL Eosinophils 0.1 10 3/uL Basophils 0.0 10 3/uL Neutrophil % 76.6 % Lymphocyte % 12.2 % Monocyte % 8.7 % Eosinophil % 1.6 % Basophils % 0.6 % NRBC % 0 % Test performed on Jul 17, 2021 09:08 Ferritin 511 ng/mL Iron 52 mcg/dL Vitamin B12 1480 pg/mL Iron Binding Capacity (TIBC) 293 mcg/dl % Iron Saturation 17.7 % UIBC 241 mcg/dL Retic Count % 2.6 % Impression: 1. Metastatic small cell lung cancer, per right neck mass biopsy done on January 26, 2021 , Status post carboplatin/etoposide till June 07, 2021 with mixed response e.g. persistent right neck mass, switched to Tecentriq alone on June 26, 2021, last dose was given on July 17, 2021 Due to persistent right neck mass, to rule out mixed histology,Underwent right neck biopsy at [place] on September 18, 2021 confirmed metastatic small cell lung cancer 2. biopsy-proven pancreatic head mass done on January 27, 2021 @ [facility]. Plan: Discussed with patient regarding her her disease status and overall condition, clinically it appears patient has persistent bronchitis with some improvement with oral antibiotic, still smoking. On exam she has progressive right neck mass now causing superior vena cava syndrome, patient was referred to radiation oncologist she supposed to see them today. Treatment options including starting her on docetaxel today, concern is recent Covid infection and persistent bronchitis, which can flare although planning is to give her Neulasta after the docetaxel infusion but now with persistent bronchitis and right neck mass wound infection as well as recent history of Covid infection, risk versus benefit with chemotherapy were discussed especially Covid infection flare. As concern is she may have mixed histology although her biopsy of right neck mass showed small cell lung cancer which did not respond well to second line therapy with lurbinectiden, palliative radiation therapy is under consideration, if radiation controls her neck mass while securing her upper airway and prevent dysphagia or superior vena cava syndrome, then after radiation therapy is completed, palliative chemotherapy with docetaxel can be considered. Other option would be hospice care. Patient wants to discuss with her Joseph and with radiation therapy before she consider chemotherapy knowing the risk versus benefits and after discussion with radiation therapy and with her she will make a decision whether she will proceed with palliative radiation therapy or hospice care., Will wait for her decision. Signed By: Stephanie Chapman M.D. <<Signature on File>>
== END 2021-11-03 23:59 | disposition home or self-care (01) ==
LOC: ONCMED 06:16
PROVIDERS: Absent Provider Radiology Radiation Oncology; PCP Internal Medicine; Visit Provider Internal Medicine Hematology & Oncology
DX: C34.32 Malignant neoplasm of lower lobe, left bronchus or lung (principal); C77.8 Secondary and unspecified malignant neoplasm of lymph nodes of multiple regions; C78.7 Secondary malignant neoplasm of liver and intrahepatic bile duct; C79.71 Secondary malignant neoplasm of right adrenal gland; C79.72 Secondary malignant neoplasm of left adrenal gland; C79.31 Secondary malignant neoplasm of brain; C78.89 Secondary malignant neoplasm of other digestive organs; F17.210 Nicotine dependence, cigarettes, uncomplicated; E87.1 Hypo-osmolality and hyponatremia; E80.6 Other disorders of bilirubin metabolism; R74.01 Elevation of levels of liver transaminase levels; J42 Unspecified chronic bronchitis; I87.1 Compression of vein; Z86.16 Personal history of COVID-19; Z79.52 Long term (current) use of systemic steroids; Z92.25 Personal history of immunosuppression therapy; Z79.2 Long term (current) use of antibiotics; Z79.899 Other long term (current) drug therapy
CPT/HCPCS: 36415; 36593; 80053; 85025; 96374; 99205; 99214; 99215

== ENCOUNTER 2021-10-30 20:29 | Inpatient (IN) | payer MEDICAID, SELFPAY ==
[2021-10-30] VITALS (7 sets, daily range): BP systolic 99–126; BP diastolic 70–76; PULSE 88–109; RESP 16–22; O2SAT 91–100; BMI 17.7
--- NOTE | 2021-10-30 20:34 | XRR_ITS ---
PROCEDURE INFORMATION: Exam: XR Chest Exam date and time: 10/30/2021 8:34 PM Age: 56 years old Clinical indication: Shortness of breath; Additional info: SOB TECHNIQUE: Imaging protocol: XR of the chest. Views: 1 view. COMPARISON: CR XR chest 1V portable [id number] 10/05/2021 4:31 PM FINDINGS: Tubes, catheters and devices: Right-sided Port-A-Cath. Lungs: Right upper lobe pneumonic infiltrate. Emphysematous changes suspected. Pleural spaces: Small left pleural effusion. Heart/Mediastinum: Unremarkable. No cardiomegaly. Bones/joints: Unremarkable. XR/XR chest 1V portable [id number] IMPRESSION: 1. Right upper lobe pneumonic infiltrate. 2. Small left pleural effusion. 3. Emphysematous changes suspected.
--- NOTE | 2021-10-30 20:35 | ECG_ITS ---
[facility] Test Date: 2021-10-30 Pat Name: Melany Mcgill Department: Room: Gender: Female Sole Trimmer: : 1965 Requested By: Gregory López Order Number: [id number] Yanelis MD: Maya David M.D. Measurements Intervals [place] Rate: 89 P: 70 MN: 152 QRS: 65 QRSD: 105 T: 62 QT: 358 QTc: 436 Interpretive Statements SINUS RHYTHM POSSIBLE LEFT ATRIAL ENLARGEMENT [-0.1mV P-WAVE IN V1/V2] LOW QRS VOLTAGE IN PRECORDIAL LEADS [QRS DEFLECTION < 1.0 mV IN CHEST LEADS] POSSIBLE RIGHT VENTRICULAR CONDUCTION DELAY [RSR (QR) IN V1/V2] No previous ECG available for comparison Electronically Signed On 10-30-2021 22:18:27 PROFESSIONAL BASS FISHERMAN by Maya David M.D. [id number]
--- NOTE | 2021-10-30 20:40 | W.ED.SOB ---
HPI - SOB/Dyspnea General: Chief Complaint: Shortness of Breath/Dyspnea Stated Complaint: RESP. DISTRESS Time Seen by Provider: 10/30/21 20:32 Source: patient and EMS Mode of arrival: EMS Limitations: no limitations History of Present Illness: HPI Narrative: 56-year-old female has a history of lung cancer with liver mets that and called EMS for severe shortness of breath on EMS arrival states she was wheezing severe distress with pulse ox in the 60s had placed her on CPAP given her Solu-Medrol and breathing treatments. Patient still has tachypnea diffuse wheezing no recent fever she has had a slight cough patient is not currently on chemo. No vomiting no diarrhea Associated symptoms: Deny abdominal pain, chest pain, fever(s), nausea or vomiting Review of Systems Const: Denies: fever(s), chills, body aches or change in appetite Eyes: Denies: blurry vision or eye discomfort ENMT: Denies: throat pain or dental pain Card: Denies: chest pain Resp: Reports: dyspnea GI: Denies: abdominal pain, nausea, vomiting or diarrhea : Denies: dysuria Musc: Denies: neck pain or back pain Skin/Breast: Denies: rash Neuro: Denies: headache(s) Psych: Denies: depression Lukas/Lymph: Denies: easy bruising All/Imm: Denies: urticaria PFSH ED PFSH: Medical History Chronic hyponatremia Metastatic lung cancer (metastasis from lung to other site) Neck mass Neck mass Orthostatic hypotension SIADH (syndrome of inappropriate ADH production) Surgical History History of tonsillectomy Family History Mother Cancer Father Cancer Other CAD (coronary artery disease) Denies family history of Diabetes Hypertension Stroke Social History Smoking and tobacco status: former smoker Alcohol intake: current Alcohol intake frequency: holidays/special occasions only Physical Exam Const: COMMON NORMALS: patient oriented x3 GENERAL APPEARANCE: in distress and ill appearing HENMT: COMMON NORMALS: normocephalic and atraumatic HEAD & SCALP: normocephalic and atraumatic Eye: COMMON NORMALS: Equal, round and reactive pupils present and EOMs intact bilaterally PUPIL: Yes Equal, round and reactive pupils present Neck/C-Spine: COMMON NORMALS: full ROM and supple Chest: COMMONS NORMALS: normal inspection of the chest and normal palpation of entire chest wall Resp: EFFORT & INSPECTION: Yes tachypneic and Yes respiratory distress AUSCULTATION: wheezes Cardio: COMMON NORMALS: regular rate, regular rhythm and No murmurs present (Cardio) RATE: regular rate RHYTHM: regular rhythm GI: COMMON NORMALS: Normal to inspection, nondistended, normoactive bowel sounds present, Soft to palpation, non-tender and no masses PALPATION: Yes Soft to palpation Extremity: COMMON NORMALS: normal to inspection and full ROM Neuro: COMMON NORMALS: patient oriented x3, moves all extremities and no focal motor deficits Psych: COMMON NORMALS: mental status grossly normal, Normal thought process present and cooperative THOUGHT PROCESS: Normal thought process present Skin: COMMON NORMALS: no rashes or lesions noted and no wounds GENERAL SKIN EXAM: no rashes or lesions noted Course Vital Signs: Vital signs: Vital Signs Pulse Rate 88 10/30/21 21:49 Respiratory Rate 16 10/30/21 20:33 Blood Pressure 126/74 10/30/21 20:33 Pulse Oximetry 100 10/30/21 21:49 MDM - SOB/Dyspnea MDM Narrative: Medical decision making narrative: Patient presents here with cough severe dyspnea and hypoxia improving on BiPAP x-ray does show a right upper lobe pneumonia likely causing her dyspnea no signs of acute coronary syndrome or pulmonary was my spoke to hospitalist will admit the patient start patient on IV antibiotics in the ER. Lab Data: Labs: Lab Results 10/30/21 10/30/21 10/30/21 20:34 20:40 20:40 WBC 13.6 10^3/uL H 10 ^3/uL (4.0-10.0) RBC 3.01 10^6/uL L 10 ^6/uL (4.1-5.3) Hgb 9.7 g/dL L g/dL (11.5-15.3) Hct 30.0 % L % (37.0-47.0) MCV 99.7 fl H fl (81-99) MCH 32.2 pg pg (28.0-34.0) MCHC 32.3 g/dL g/dL (30.0-36.0) RDW 19.6 % H % (12.1-15.1) Plt Count 291 10^3/cmm 10^3 /cmm (130-400) MPV 9.0 fL fL (7.4-10.4) Neut % (Auto) 90.3 % % Lymph % (Auto) 5.7 % % [place] % (Auto) 3.2 % % Eos % (Auto) 0.1 % % Baso % (Auto) 0.1 % % Neut # (Auto) 12.30 10^3/uL H 1 0^3/uL (1.8-7.7) Lymph # (Auto) 0.8 10^3/uL 10^3/ uL (0.8-4.8) [place] # (Auto) 0.4 10^3/uL 10^3/ uL (0.2-0.9) Eos # (Auto) 0.0 10^3/uL 10^3/ uL (0.0-0.8) Baso # (Auto) 0.0 10^3/uL 10^3/ uL (0.0-0.1) Nucleated RBC % (a uto) 0 % % Nucleated RBCs # 0.0 /100WBC /100W BC PT 13.10 SECONDS SEC ONDS (12.1-14.9) INR 0.96 (0.8-1.2) D-Dimer 1.38 ug/mIFEU H u g/mIFEU (0-0.59) Specimen Type Arterial Sample Site Brachial, right ABG pH 7.43 (7.35-7.45) ABG pCO2 37.4 mmHg mmHg (35-45) ABG pO2 46.0 mmHg L mmHg (80.0-100.0) ABG HCO3 24.9 mmol/L mmol/ L (22-26) ABG Base Excess 0.7 mmol/L mmol/L (-2.0-2.0) [place] Test N/a Hematocrit 30.6 % L % (37-47) O2 Delivery Device Bipap FiO2 35.0 % % Farm Implement Engine Mechanic ID [id number] Sodium Potassium Chloride Carbon Dioxide Anion Gap BUN Creatinine GFR Calculation Glucose Calculated Osmolal ity Calcium Total Bilirubin AST ALT Alkaline Phosphata se Troponin T Baselin e NT-Pro-B Natriuret Pep Total Protein Albumin Globulin 10/30/21 10/30/21 20:40 20:40 WBC RBC Hgb Hct MCV MCH MCHC RDW Plt Count MPV Neut % (Auto) Lymph % (Auto) [place] % (Auto) Eos % (Auto) Baso % (Auto) Neut # (Auto) Lymph # (Auto) [place] # (Auto) Eos # (Auto) Baso # (Auto) Nucleated RBC % (a uto) Nucleated RBCs # PT INR D-Dimer Specimen Type Sample Site ABG pH ABG pCO2 ABG pO2 ABG HCO3 ABG Base Excess [place] Test Hematocrit O2 Delivery Device FiO2 Farm Implement Engine Mechanic ID Sodium 127 mmol/L L mmol /L (136-145) Potassium 4.8 mmol/L mmol/L (3.5-5.1) Chloride 90 mmol/L L mmol/ L (98-107) Carbon Dioxide 22 mmol/L mmol/L (22-29) Anion Gap 19.8 H (5-19) BUN 15 mg/dL mg/dL (6-20) Creatinine 0.4 mg/dL L mg/dL (0.5-0.9) GFR Calculation 164.5 mL/min H mL /min (90-130) Glucose 118 mg/dL H mg/dL (65-115) Calculated Osmolal ity 266 mOsm/kg L mOs m/kg (285-295) Calcium 8.4 mg/dL L mg/dL (8.5-10.5) Total Bilirubin 0.4 mg/dL mg/dL (0.15-1.2) AST 23 U/L U/L (0-32) ALT 14 U/L U/L (0-33) Alkaline Phosphata se 231 IU/L H IU/L (35-105) Troponin T Baselin e 7 ng/L ng/L (0-10) NT-Pro-B Natriuret Pep 388 pg/mL H pg/mL (0-125) Total Protein 6.6 g/dL g/dL (6.6-8.7) Albumin 3.5 g/dL g/dL (3.5-5.2) Globulin 3.1 g/dL g/dL (1.3-4.6) Imaging Data^: CXR: Attestation: I personally reviewed and interpreted this imaging study as follows: My impression: rul pneumonia EKG Data^: EKG 1: Attestation: I personally reviewed and interpreted this EKG as follows: EKG Interpretation Date: 10/30/21 EKG interpretation time: 20:55 Interpretation: nsr hr [address] or t wave abnormalities qrs 105 qtc 404 EKG 2: Attestation: I personally reviewed and interpreted this EKG as follows: EKG Interpretation Date: 10/30/21 EKG interpretation time: 22:42 Interpretation: nsr hr [address] or t wave abnormalities qrs 98 qtc 410 Discharge Plan Discharge Patient Disposition: Admitted As Inpatient Admit Provider: Liz Blakely Clinical Impression: Lung cancer Respiratory failure, unspecified with hypoxia Qualifiers: Chronicity: acute Qualified Code(s): J96.01 - Acute respiratory failure with hypoxia Community acquired pneumonia Qualifiers: Laterality: right Lung location: upper lobe of lung Qualified Code(s): J18.9 - Pneumonia, unspecified organism Condition: Stable Coding Level of Care Code ED Tanning Wheel Operator for g Fwd Exam Comprehensive
[2021-10-30 20:59] LABS: ABG PCO2 37.4 mmHg (35-45); ABG PH Result 7.43 (7.35-7.45); Arterial Blood Gas Hematocrit 30.6 % (37-47); Base Excess ABG 0.7 mmol/L (-2.0-2.0); Blood Gas Sample Site Brachial, right; Blood Gas Sample Type Arterial; HCO3 ABG 24.9 mmol/L (22-26); Oxygen Device BIPAP
[2021-10-30 21:13] LABS: Basophils % 0.1 %; Eosinophils % 0.1 %; Hemoglobin 9.7 g/dL (11.5-15.3); Lymphocytes # 0.8 10^3/uL (0.8-4.8); Lymphocytes % 5.7 %; Mean Corpuscular HGB Conc 32.3 g/dL (30.0-36.0); Mean Corpuscular Hemoglobin 32.2 pg (28.0-34.0); Mean Corpuscular Volume 99.7 fl (81-99); Monocytes # 0.4 10^3/uL (0.2-0.9); Monocytes % 3.2 %; Neutrophils % 90.3 %; Nucleated Red Blood Cells % 0 %; Platelet Count 291 10^3/cmm (130-400); Red Blood Count 3.01 10^6/uL (4.1-5.3); Red Cell Distribution Width 19.6 % (12.1-15.1); White Blood Count 13.6 10^3/uL (4.0-10.0)
[2021-10-30 21:30] LABS: D Dimer 1.38 ug/mIFEU (0-0.59)
[2021-10-30 21:31] LABS: INR 0.96 (0.8-1.2)
[2021-10-30 21:35] LABS: Troponin(5th) Baseline 7 ng/L (0-10)
[2021-10-30 21:49] LABS: Alanine Aminotransferase 14 U/L (0-33); Albumin Level 3.5 g/dL (3.5-5.2); Alkaline Phosphatase 231 IU/L (35-105); Aspartate Amino Transferase 23 U/L (0-32); Blood Urea Nitrogen 15 mg/dL (6-20); Calcium 8.4 mg/dL (8.5-10.5); Carbon Dioxide 22 mmol/L (22-29); Chloride 90 mmol/L (98-107); Globulin 3.1 g/dL (1.3-4.6); Glomerular Filtration Rate 164.5 mL/min (90-130); Glucose 118 mg/dL (65-115); NT Pro B Type Natriuretic Pept 388 pg/mL (0-125); Osmolality Calculated 266 mOsm/kg (285-295); Sodium 127 mmol/L (136-145); Total Bilirubin 0.4 mg/dL (0.15-1.2); Total Protein 6.6 g/dL (6.6-8.7)
[2021-10-30] MEDS: piperacillin-tazobactam 3.375 GM in sodium chloride 0.9% (plus) 50 ML IV (21:49)
[2021-10-30 21:56] LABS: Anion Gap 19.8 (5-19); Potassium 4.8 mmol/L (3.5-5.1)
--- NOTE | 2021-10-30 22:35 | ECG_ITS ---
[facility] Test Date: 2021-10-30 Pat Name: Melany Mcgill Department: Room: 107 Gender: Female Mold Breaker: : 1965 Requested By: Gregory López Order Number: [id number] Yanelis MD: Mike Green M.D. Measurements Intervals [place] Rate: 90 P: 72 [place]: 144 QRS: 66 QRSD: 98 T: 65 QT: 362 QTc: 444 Interpretive Statements SINUS RHYTHM WITH SINUS ARRHYTHMIA POSSIBLE LEFT ATRIAL ENLARGEMENT [-0.1mV P-WAVE IN V1/V2] POSSIBLE RIGHT VENTRICULAR CONDUCTION DELAY [RSR (QR) IN V1/V2] Compared to ECG 10/30/2021 20:55:14 No significant changes Electronically Signed On 11-01-2021 0:08:55 TREAD BOOKER by Mike Green M.D. [id number]
[2021-10-30] MEDS: vancomycin 1,000 MG in sodium chloride 0.9% 250 ML 250 MG IV (23:08)
[2021-10-31] VITALS (68 sets, daily range): BP systolic 100–140; BP diastolic 77–92; PULSE 70–120; RESP 14–36; TEMP 35.8–36.7; O2SAT 66–100; BMI 18.5
[2021-10-31 01:33] LABS: Glucose Point of Care 165 mg/dL (70-110)
--- NOTE | 2021-10-31 02:35 | ECG_ITS ---
[facility] Test Date: 2021-10-31 Pat Name: Melany Mcgill Department: Room: 107 Gender: Female Fur Dyer: : 1965 Requested By: Gregory López Order Number: [id number] Yanelis MD: Mike Green M.D. Measurements Intervals [place] Rate: 104 P: 69 MD: 150 QRS: 74 QRSD: 102 T: 70 QT: 334 QTc: 440 Interpretive Statements SINUS TACHYCARDIA INCOMPLETE RIGHT BUNDLE BRANCH BLOCK [90+ ms QRS DURATION, TERMINAL R IN V1/V2, 40+ ms S IN I/aVL/V4/V5/V6] NONSPECIFIC T-WAVE ABNORMALITY ABNORMAL RHYTHM ECG Compared to ECG 10/30/2021 22:42:58 Incomplete right bundle-branch block now present T-wave abnormality now present Sinus rhythm no longer present Sinus arrhythmia no longer present Electronically Signed On 11-01-2021 0:09:18 BACK LINE COOK by Mike Green M.D. [id number]
--- NOTE | 2021-10-31 05:01 | PM.HP ---
Providers/Chief Complaint Admitting Physician: Liz Blakely MD Primary Care Provider: Gonsalo Rodarte DO Chief Complaint: RESP. DISTRESS History of Present Illness Melany Mcgill is a 56 year old female with a history of metastatic small cell lung cancer, right neck mass which is progressively increasing in size with superior vena cava syndrome, mass encasing the right carotid artery. Referred for palliative radiation recently, status post multiple lines of chemotherapy, in discussion with oncology and radon teams regarding further palliative chemo radiation versus transition to hospice care, pending final decision making in this regard. Recently hospitalized here between October 06 to October 08 for COVID-19 pneumonia, received monoclonal antibody infusion, has had some persistent symptoms of bronchitis which have been treated as outpatient with p.o. azithromycin. She presented to the emergency room overnight for severe shortness of breath, upon EMS arrival she was noted to be wheezing, her oxygen saturation was noted to be in 60s on room air, she was placed on a CPAP given IV steroids and nebulization. Upon presentation at the ER she still had diffuse wheezing which is now somewhat improved after getting multiple rounds of nebulization. She does have a cough which has been lasting for about a month now. Chest x-ray showed right upper lobe consolidation consistent with pneumonia. Also noted leukocytosis. Patient is currently on 8 L/min via oxygen mask at the time of my assessment. Her wheezing is improved. Patient does display intermittent confusion which was additionally also noted on last hospital admission. There was no noted metastatic disease to the brain. It did however note chronic appearing since cystic encephalomalacia involving the left frontal lobe likely due to prior ischemia versus hematoma. There were dystrophic calcifications in the right basal ganglia and cerebellum. Modified barium swallow was performed and aspiration was ruled out. She has mild hyponatremia with sodium of 128 today, however this has remained stable since last hospital discharge. Review of Systems General: Reports: 10 or more systems reviewed and unremarkable except in HPI and below Const: Denies: fever(s), chills or body aches Eyes: Denies: change in vision, blurry vision or photophobia ENMT: Reports: hoarseness; Denies: throat pain, enlarged tonsils, odynophagia or nasal congestion Card: Denies: chest pain, palpitations, irregular heart rhythm, edema, swelling of feet/ankles, lightheadedness, pre-syncope, dyspnea on exertion or orthopnea Resp: Denies: dyspnea, productive cough, non-productive cough, wheezing, stridor, pain on inspiration, change in phlegm color, hemoptysis or chest congestion GI: Denies: abdominal pain, nausea, vomiting, hematemesis, coffee ground emesis, dysphagia, heartburn, diarrhea, constipation, GI cramping, change in stool character, hematochezia or melena : Denies: flank pain, difficulty voiding, dysuria, urinary frequency, urinary urgency, urinary hesitancy or hematuria Musc: Denies: neck pain, back pain, extremity pain, joint swelling, joint warmth or deformity Neuro: Denies: headache(s), numbness in extremities, weakness in extremities, sensory changes, difficulty walking, frequent falls, dizziness, vertigo, behavioral changes, Slurred speech present or seizure-like activity Psych: Denies: anxiety, depression, suicidal ideation or homicidal ideation Endo: Denies: polyuria, polydipsia, tired all the time, cold intolerance or hot flashes Lukas/Lymph: Denies: easy bruising or easy bleeding Medications/Allergies Home Medications Medication Instructions Recorded Confirmed Last Taken Type ondansetron 8 mg disintegrating 8 mg PO Q12H PRN 03/08/21 10/06/21 03/06/21 History tablet guaifenesin [Mucinex] 600 mg PO DAILY PRN 03/17/21 10/06/21 03/19/21 History hydrocodone-acetaminophen 1 tab PO Q6H PRN #20 tab 03/20/21 10/06/21 Unknown Rx dexamethasone See Rx Instructions .ROUTE .COMPLEX 10/06/21 10/06/21 Unknown History prochlorperazine maleate 10 mg PO Q4H PRN 10/06/21 10/06/21 Unknown History amlodipine 5 mg PO DAILY 30 Days #30 tab 10/08/21 Unknown Rx ascorbate calcium (vitamin C) 500 mg PO BID #20 tab 10/08/21 Unknown Rx metoprolol tartrate 25 mg PO BID@0900,2100 30 Days #60 10/08/21 Unknown Rx tab pantoprazole 40 mg PO DAILY 30 Days #30 tab 10/08/21 Unknown Rx zinc 50 mg PO DAILY #14 tab 10/08/21 Unknown Rx Allergies Allergy/AdvReac Type Severity Reaction Status Date / Time No Known Allergies Allergy Verified 10/30/21 20:42 PFSH Acute PFSH: Medical History Chronic hyponatremia Metastatic lung cancer (metastasis from lung to other site) Neck mass Neck mass Orthostatic hypotension SIADH (syndrome of inappropriate ADH production) Surgical History History of tonsillectomy Family History Mother Cancer Father Cancer Other CAD (coronary artery disease) Denies family history of Diabetes Hypertension Stroke Social History Smoking and tobacco status: former smoker Alcohol intake: current Alcohol intake frequency: holidays/special occasions only Vitals/I&O/Wt Last Vital Signs Temp 98 F 10/31/21 03:09 Pulse 91 10/31/21 00:54 Resp 26 H 10/31/21 03:09 BP 112/77 10/31/21 03:09 Pulse Ox 94 10/31/21 03:09 10/30/21 10/30/21 10/31/21 14:59 22:59 06:59 Intake Total 50 / 50 100 / 150 Output Total 450 / 450 Balance 50 / 50 -350 / -300 Weight last 48 hrs Weight 56.835 kg Weight 54.431 kg Physical Exam Narrative: EXAM NARRATIVE: General: No acute distress, AO x2-3 HEENT: PERRLA, pupils bilaterally equal and reactive, pallors not present Chest: coarse breath sounds right worse than left, scattered wheezing CVS: S1-S2 regular, no murmurs, no tachycardia, no gallops, no rubs Abdomen: Soft, nontender, no organomegaly, bowel sounds present Neuro: No focal deficits, no facial deformity, AO x3, power 5/5 in all limbs Extremities: no edema, clubbing or cyanosis Data : 10/30/21 20:40 10/30/21 20:40 Micro: Microbiology 10/30/21 21:40 Blood Culture - Preliminary Blood SPECIMEN COLLECTED 10/30/21 21:45 Blood Culture - Preliminary Blood SPECIMEN COLLECTED Attestation for Other Data: I personally reviewed and interpreted the following: Other data: Laboratory Results WBC 13.6 10^3/uL (4.0-10.0) H 10/30/21 20:40 RBC 3.01 10^6/uL (4.1-5.3) L 10/30/21 20:40 Hgb 9.7 g/dL (11.5-15.3) L 10/30/21 20:40 Hct 30.0 % (37.0-47.0) L 10/30/21 20:40 MCV 99.7 fl (81-99) H 10/30/21 20:40 MCH 32.2 pg (28.0-34.0) 10/30/21 20:40 MCHC 32.3 g/dL (30.0-36.0) 10/30/21 20:40 RDW 19.6 % (12.1-15.1) H 10/30/21 20:40 Plt Count 291 10^3/cmm (130-400) 10/30/21 20:40 MPV 9.0 fL (7.4-10.4) 10/30/21 20:40 Neut % (Auto) 90.3 % 10/30/21 20:40 Lymph % (Auto) 5.7 % 10/30/21 20:40 [place] % (Auto) 3.2 % 10/30/21 20:40 Eos % (Auto) 0.1 % 10/30/21 20:40 Baso % (Auto) 0.1 % 10/30/21 20:40 Neut # (Auto) 12.30 10^3/uL (1.8-7.7) H 10/30/21 20:40 Lymph # (Auto) 0.8 10^3/uL (0.8-4.8) 10/30/21 20:40 Highlands # (Auto) 0.4 10^3/uL (0.2-0.9) 10/30/21 20:40 Eos # (Auto) 0.0 10^3/uL (0.0-0.8) 10/30/21 20:40 Baso # (Auto) 0.0 10^3/uL (0.0-0.1) 10/30/21 20:40 Nucleated RBC % (auto) 0 % 10/30/21 20:40 Nucleated RBCs # 0.0 /100WBC 10/30/21 20:40 PT 13.10 SECONDS (12.1-14.9) 10/30/21 20:40 INR 0.96 (0.8-1.2) 10/30/21 20:40 D-Dimer 1.38 ug/mIFEU (0-0.59) H 10/30/21 20:40 Specimen Type Arterial 10/30/21 20:34 Sample Site Brachial, right 10/30/21 20:34 ABG pH 7.43 (7.35-7.45) 10/30/21 20:34 ABG pCO2 37.4 mmHg (35-45) 10/30/21 20:34 ABG pO2 46.0 mmHg (80.0-100.0) L 10/30/21 20:34 ABG HCO3 24.9 mmol/L (22-26) 10/30/21 20:34 ABG Base Excess 0.7 mmol/L (-2.0-2.0) 10/30/21 20:34 Colton Test N/a 10/30/21 20:34 Hematocrit 30.6 % (37-47) L 10/30/21 20:34 O2 Delivery Device Bipap 10/30/21 20:34 FiO2 35.0 % 10/30/21 20:34 Patient Access Director ID [email or web address] 10/30/21 20:34 Sodium 127 mmol/L (136-145) L 10/30/21 20:40 Potassium 4.8 mmol/L (3.5-5.1) 10/30/21 20:40 Chloride 90 mmol/L (98-107) L 10/30/21 20:40 Carbon Dioxide 22 mmol/L (22-29) 10/30/21 20:40 Anion Gap 19.8 (5-19) H 10/30/21 20:40 BUN 15 mg/dL (6-20) 10/30/21 20:40 Creatinine 0.4 mg/dL (0.5-0.9) L 10/30/21 20:40 GFR Calculation 164.5 mL/min (90-130) H 10/30/21 20:40 Glucose 118 mg/dL (65-115) H 10/30/21 20:40 POC Glucose 165 mg/dL (70-110) H 10/31/21 01:29 Calculated Osmolality 266 mOsm/kg (285-295) L 10/30/21 20:40 Calcium 8.4 mg/dL (8.5-10.5) L 10/30/21 20:40 Total Bilirubin 0.4 mg/dL (0.15-1.2) 10/30/21 20:40 AST 23 U/L (0-32) 10/30/21 20:40 ALT 14 U/L (0-33) 10/30/21 20:40 Alkaline Phosphatase 231 IU/L (35-105) H 10/30/21 20:40 Troponin T Baseline 7 ng/L (0-10) 10/30/21 20:40 Troponin T 120 Minute 6.00 ng/L (0-10) 10/30/21 22:39 Delta Troponin T -1.00 ABS# (0-10) L 10/30/21 22:39 Troponin T Hi Sens 6Hr 6.00 ng/L (0-10) 10/31/21 02:30 Troponin T Hi Sens 6Hr Delta -1.00 ng/L (0-12) L 10/31/21 02:30 NT-Pro-B Natriuret Pep 388 pg/mL (0-125) H 10/30/21 20:40 Total Protein 6.6 g/dL (6.6-8.7) 10/30/21 20:40 Albumin 3.5 g/dL (3.5-5.2) 10/30/21 20:40 Globulin 3.1 g/dL (1.3-4.6) 10/30/21 20:40 Impressions Chest X-Ray 10/30/21 20:34 IMPRESSION: 1. Right upper lobe pneumonic infiltrate. 2. Small left pleural effusion. 3. Emphysematous changes suspected. A&P Assessment and plan (1) Pneumonia: Status: Acute (2) Lung cancer: Status: Acute Additional A&P Information Patient with metastatic lung cancer, large neck mass with SVC syndrome, encasing the right carotids, recent COVID-19 infection presenting today with worsening dyspnea, new oxygen requirement of 8 L/min via oxygen mask. Chest x-ray with right upper lobe pneumonia/consolidation which may be bacterial in etiology. Failure of outpatient treatment with oral azithromycin Admit to [facility] in view of current pneumonia. Empiric antibiotic treatment with piperacillin tazobactam and vancomycin. Check bacterial antigen, urine Legionella antigen, MRSA PCR and influenza AMB antigen. Less likely to be atypical infection given outpatient treatment with azithromycin, will continue presumptive course for 3 days. Inhalation with DuoNeb every 6 hours scheduled. Supplemental O2 to keep saturation greater than 92%. Given advanced malignancy patient is at high risk of progression to respiratory failure, this was discussed with the patient. It appears there have been outpatient discussions regarding transition to hospice care, however patient states at this time she would like to be full code. Continue home doses of metoprolol, [place] for pain management. Attestations Medical Necessity Statement*: Anticipate greater than 2 midnight admission for management of pneumonia, need for IV antibiotics, close monitoring of respiratory status Coding Level of Care Code Acute Supervisor [employer] for [facility] Fwd Diagnoses Pneumonia J18.9 Lung cancer C34.90
--- NOTE | 2021-10-31 05:36 | PC.PHAR ---
Pharmacokinetic dosing service Date: 10/31/21 Time: 529 Objective: Patient: Melany Mcgill Floor: 107-1 Age: 56 yo Serum creatinine: 0.4 mg/dL Height: 69.0 Inches Weight (kg): 56.835 Diagnosis: Relevant medical/social history: Cultures and sensitivities: Other labs: Assessment: IBW (kg): 66.20 Dosing wt(kg): 56.835 Estimated Creatinine clearance (ml/min): 130 Clearance limited to 130 ml/min to reduce risk of overdosing. CRCL method: Cockcroft and Gault using ibw(default). Drug selected: Vancomycin Loading dose (mg): 0 Vd (liters): 51.2 (factor used: 0.9 L/kg) Arthur (hr-1): 0.112 Half life (hrs): 6.19 Recommended dose: 1000 mg Interval: 8 hrs Infusion time (hrs): 1.5 Predicted peak (mcg/mL): 30.4 Predicted trough (mcg/mL): 14.68 Total body weight is being used for vancomycin dosing. Renal function is stable [ ] /unstable [ ] Recommendations: Give Vancomycin 1000 mg q 8 hrs with an expected Cpeak of 30.4 mcg/ml and an expected Ctrough of 14.68 mcg/ml Renal dosing of other antibiotics (review renal dosing of other medications and list guidelines here): Thank you for the consult, will continue to follow. Signature: Jeanne Griffith [facility]
[2021-10-31] MEDS: enoxaparin 40 mg/0.4 mL Syringe SUBCUT (05:48)
[2021-10-31] MEDS: vancomycin 1,000 MG in sodium chloride 0.9% 250 ML 250 MG IV ×3 (07:48→23:21)
[2021-10-31] MEDS: ipratropium-albuterol 3 mL Neb INHALATION ×3 (09:19→19:38)
[2021-10-31] MEDS: predniSONE 20 mg Tablet 40 MG PO (10:05)
[2021-10-31] MEDS: amlodipine 5 mg Tablet PO (10:06)
[2021-10-31] MEDS: metoprolol tartrate 25 mg Tablet PO ×2 (10:06→21:12)
[2021-10-31] MEDS: azithromycin 250 mg Tablet 500 MG PO (10:06)
[2021-10-31] MEDS: pantoprazole DR 40 mg Tablet PO (10:06)
[2021-10-31] MEDS: piperacillin-tazobactam 3.375 GM in sodium chloride 0.9% (plus) 50 ML IV ×2 (10:07→18:04)
[2021-10-31] MEDS: sodium chloride 0.9% 1,000 ML 500 ML IV (10:31)
--- NOTE | 2021-10-31 10:54 | PM.MISC ---
Miscellaneous Note Note: Patient would like to discuss goals of care with her significant other, right now she is feeling better, no active shortness of breath, she is doing well on 5 L nasal cannula Heart rate high 120s Sinus tachycardia Leukocytosis Sodium 127 Clinically looks dehydrated Ulcerating right supraclavicular lymphadenopathy Awake and alert with short attention span Hair loss No signs of edema Abdomen soft S1, S2 sinus tachycardia Plan Discussed goals of care with her significant other Hydrate her with normal saline, will give 1 L bolus, she is tachycardic heart rate in 120s Chronic hyponatremia, patient is stating that she required salt tablets in the past She does not want to go to any residential, Plan to get CTA chest to rule out pulmonary embolism
--- NOTE | 2021-10-31 10:57 | CT_ITS ---
WS: [id number] CTA OF THE CHEST WITH PULMONARY EMBOLISM PROTOCOL TECHNIQUE: High-resolution contrast enhanced CTA of the chest with coronal and sagittal reformatted i mages with pulmonary embolism protocol. MIP images are also reviewed. CLINICAL INFORMATION: Hypoxia COMPARISON: CTA October 05, 2021 DLP: 450.[address] scans at [facility] use at least one of these dose optimization techniques: automated e xposure control; mA and/or kV adjustment per patient size (includes targeted exams where dose is matc hed to clinical indication); or iterative reconstruction. FINDINGS: Proximal main pulmonary arteries are patent. Stable narrowing of the left greater than right main pul monary arteries due to diffuse masslike mediastinal and hilar lymphadenopathy. Normal segmental and s ubsegmental pulmonary arteries. No filling defects to indicate pulmonary embolus. Moderate left pleural effusion similar to the prior examination. Compressive atelectasis left lower l obe. Normal caliber thoracic aorta. Aortic calcification. Masslike anterior mediastinal, hilar and tanner bcarinal lymphadenopathy appears progressed compared to October 05, 2021. Mild narrowing of the main stem bronchi which remain patent. Tiny pericardial effusion/thickening. Metastatic implant along the anterior pericardium measuring 2 cm unchanged. Diffuse masslike lymphadenopathy in the right neck partially visualized extending into the supraclavi cular region and thoracic inlet. This extends into the mediastinum similar in appearance to the prior examination. Lymphadenopathy appears slightly progressed in the right neck. Diffuse body wall anasar ca. Axillary lymphadenopathy. Diffuse hazy groundglass infiltrates in the right upper lobe is new from previous. Recommend correlat ion for pneumonia. This Metastatic nodules in the left upper lobe. Biliary stent. Pneumobilia. Adrenal glands are normal. Metastatic nodule in the right crura right hem idiaphragm measuring [address]/CT angio chest PE protcl 16412 IMPRESSION: 1. No evidence of pulmonary embolus. 2. New hazy diffuse groundglass infiltrates developed in the right upper lobe compared to previous. Recommend correlation for pneumonitis. 3. Moderate left pleural effusion with compressive atelectasis left lower lobe is unchanged. 4. Masslike mediastinal and hilar lymphadenopathy has progressed compared to D ecember 2020. 5. Diffuse partially visualized right neck masslike lymphadenopathy also appea rs progressed. This extends into the right thoracic inlet and mediastinum with involvement of the great vessels similar to previous. 6. Bilateral axillary lymphadenopathy appears progressed. Diffuse body wall an asarca.
--- NOTE | 2021-10-31 10:58 | USCV_ITS ---
Melany Mcgill Age: 56 Gender: F : 1965 Exam Date: 10/31/2021 11:24 Ordering Phys: Marco A Ryan MD Technologist: JOI Exam Location: [facility] [place] Indication: c/o LEFT arm edema. Patient is poor historian. Has RIGHT jugular chemo port. Patient denies hx of DVT. HISTORY: c/o LEFT arm edema. Patient is poor historian. Has RIGHT jugular chemo port. Patient denies hx of DVT. PROCEDURES: Venous duplex imaging was performed in only the left upper extremity. The following venous structures were evaluated: internal jugular vein, subclavian vein, axillary vein, and brachial veins. In addition, the basilic vein and cephalic vein. In addition, the radial vein and ulnar vein. Serial compression, augmentation maneuvers, and spectral Doppler flow evaluation were performed. 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 LEFT subclavian vein does NOT compress. Poor augmentation in the partial channel. 2) LEFT internal jugular vein appears normal, though venous pressure is high in that compression requires significant effort. There is good spontaneity. Augmentation is poor in the LEFT internal jugular vein, and patient is unable to perform the Valsalva maneuver. 3) The LEFT axillary vein, LEFT brachial veins, LEFT cephalic vein, LEFT basilic vein, left radial and ulnar veins demonstrate good compressibility, spontaneity, and augmentation throughout. Echolucent areas in the subcutaneous tissue throughout CONCLUSIONS 1. Features of venous thrombosis causing partial occlusion in the left subclavian vein, possibly extending into the brachiocephalic vein. Poor augmentation and compressibility of the left jugular vein, most likely suggest proximal occlusion. 2. No evidence of thrombosis in the axillary, brachial, cephalic, basilic, radial and ulnar veins on the left side. 3. Features of edema/fluid retention in the left upper extremity. No similar previous studies are available for comparison Dr Mike Green MD [facility] (Electronically Signed) Final Date: 01 November 2021 19:25 S
[2021-10-31] MEDS: iohexol 350 mg/mL 100 mL Btl IV (12:45)
[2021-10-31 14:18] LABS: Vancomycin Trough 12.6 ug/mL (10-15)
[2021-10-31] MEDS: sodium chloride 0.9% 1,000 ML 75 ML IV (16:52)
--- NOTE | 2021-10-31 19:40 | PC.NURSE ---
pt very restless today with shortness of breath. has had increased oxygen demand throughout the day, requiring increased oxygen to [address] angiogram completed today as well as left upper extremity edema. Some intermittent confusion has been noted but the patient has been able to be redirected. mother in law was present at bedside for the majority of the day. confirmed multiple times today with the patient that she wants to be a full code and will be intubated if necessary.
[2021-10-31 21:05] LABS: Influenza A by IFA Negative (Negative); Influenza B by IFA Negative (Negative)
--- NOTE | 2021-10-31 21:38 | PM.MISC ---
Miscellaneous Note Purpose of Documentation: Extensive goals of care discussion Note: I was called by patient's nurse to bedside due to respiratory distress. Patient desaturating down to 75 to 79% on high flow nasal cannula at 15 L/min. She has been intermittently confused through the evening. She has been taking of heated high flow, did not tolerate on an earlier trial, did not tolerate a trial of BiPAP. Intermittently also removes her high flow nasal cannula. On my assessment earlier this morning before 7 AM patient was additionally also intermittently confused. Had some instances where she had been able to tell me her correct name and the fact that she was in a hospital, however at other times she had stated that she is 36 years old and did not know where she was. She has had intermittent confusion even on the prior admission per records. Possible that hypoxia may be contributing here as well. With the desaturation episodes I reached out to her listed contacts Ms. Renetta Perez, who is her best friend for over 35 years and has been involved in her decision making process for several years. I also reached out to Kerry Gaspar who is listed as family, patient refers to her as [id number], however patient is not and Ms. Gaspar is the mother of her long-term partner Joseph. Ms. Gaspar tells me that Joseph is very overwhelmed with Melany's poor condition currently and is having a tough time dealing with her illness. He is not in a position to make any [facility] decisions at this time. My discussion was therefore with Ms gaspar and Ms. Perez. Patient had told me earlier this morning to reach out to Joseph Jackson Barbara in case of any acute events. Given patient's worsening respiratory status, I discussed with Ms. Perez and Violeta Gaspar that the next steps from here on would be placing the patient on BiPAP, perhaps with alongside Precedex to see if she is able to tolerate this better and if noninvasive ventilation does not help with respiratory status in the next steps would be intubation an dmechanical ventilation. Per review of her medical records including oncology notes there had been discussion about transitioning patient to hospice. Her friend Renetta Perez did come to bedside after my phone call and talked directly with the patient. Patient was more lucid, calm when Ms. Perez was at bedside. There was a pia discussion regarding her poor prognosis and that mechanical ventilation will be highly unlikely to change her overall clinical situation, her chief morbidity which is currently being contributed by advancing cancer particularly her neck mass which has been progressively increasing in size and encasing both the subclavian veins and the carotid artery. She has had recurrent bouts of respiratory infections over the past month including COVID and now right sided pneumonia. She has exhausted several lines of chemotherapy. 2 days ago her neck mass had started to bleed and put out a greenish discharge, likely indicating underlying necrosis. Patient had declined transfer to hospital with the bleeding mass as she wanted to be comfortbale ta home. Patient has been agreeable for hospice, however it appears home hospice was not a favored option due to people coming into shared home with her partner. After discussion of her current clinical status and review of recent hospital notes and outpatient oncology notes, patient and Ms. perez are aware of her critical condition and end stage cancer. They do not wish to proceed with any aggressive interventions beyond this point. No chets compressions, intubation, central lines or pressors. Patient does not want a trial of heated high flow as she is comfortable on NC and wants to continue this way understanding that she is hypoxic. In keeping with this, code status changed to DNR/DNI, no further escalation care. Medical management with abx, fluids, po meds as needed to continue. Should she suffer further clinical decline, call will be placed to Violeta Nicolás with likely transition to comfort care. Should patient survive this admission, inpatient hospice may be a consideration, however undecided in this regard currently. Ms. Gaspar indicates that she is agreeable with decisions made after discussion with Ms. perez and what appears to be clinically appropriate. Will update morning team
[2021-10-31] MEDS: LORazepam 2 mg/mL INJ 1 mL 0.5 MG IVP (23:05)
[2021-11-01] MEDS: piperacillin-tazobactam 3.375 GM in sodium chloride 0.9% (plus) 50 ML IV (00:41)
[2021-11-01] MEDS: ipratropium-albuterol 3 mL Neb INHALATION (01:29)
[2021-11-01 01:33] VITALS: PULSE 102; RESP 24; O2SAT 90
[2021-11-01 04:00] VITALS: BP 131/89; PULSE 114; RESP 21; TEMP 35.9; O2SAT 92
[2021-11-01] MEDS: sodium chloride 0.9% 1,000 ML 75 ML IV (05:01)
[2021-11-01 05:11] LABS: Basophils % 0.1 %; Hematocrit 29.6 % (37.0-47.0); Hemoglobin 9.7 g/dL (11.5-15.3); Lymphocytes # 0.9 10^3/uL (0.8-4.8); Lymphocytes % 4.1 %; Mean Corpuscular HGB Conc 32.8 g/dL (30.0-36.0); Mean Corpuscular Hemoglobin 32.6 pg (28.0-34.0); Mean Corpuscular Volume 99.3 fl (81-99); Mean Platelet Volume 8.7 fL (7.4-10.4); Monocytes # 1.1 10^3/uL (0.2-0.9); Monocytes % 4.8 %; Neutrophils # 19.69 10^3/uL (1.8-7.7); Neutrophils % 90.4 %; Nucleated Red Blood Cells % 0 %; Platelet Count 320 10^3/cmm (130-400); Red Blood Count 2.98 10^6/uL (4.1-5.3); White Blood Count 21.8 10^3/uL (4.0-10.0)
[2021-11-01 05:22] VITALS: PULSE 110
[2021-11-01 06:03] LABS: Alanine Aminotransferase 14 U/L (0-33); Albumin Level 3.6 g/dL (3.5-5.2); Alkaline Phosphatase 246 IU/L (35-105); Aspartate Amino Transferase 25 U/L (0-32); Blood Urea Nitrogen 12 mg/dL (6-20); Calcium 8.9 mg/dL (8.5-10.5); Carbon Dioxide 21 mmol/L (22-29); Chloride 93 mmol/L (98-107); Globulin 3.4 g/dL (1.3-4.6); Glomerular Filtration Rate 164.5 mL/min (90-130); Glucose 121 mg/dL (65-115); Osmolality Calculated 267 mOsm/kg (285-295); Sodium 128 mmol/L (136-145); Total Bilirubin 0.3 mg/dL (0.15-1.2)
[2021-11-01 06:08] LABS: Procalcitonin 0.42 ng/mL (0-0.5)
[2021-11-01 06:09] LABS: Anion Gap 18.5 (5-19); Potassium 4.5 mmol/L (3.5-5.1)
[2021-11-01] MEDS: LORazepam 2 mg/mL INJ 1 mL 0.5 MG IVP (06:15)
[2021-11-01] MEDS: vancomycin 1,000 MG in sodium chloride 0.9% 250 ML 250 MG IV (06:19)
[2021-11-01] MEDS: enoxaparin 40 mg/0.4 mL Syringe SUBCUT (06:19)
--- NOTE | 2021-11-01 06:40 | PC.NURSE ---
Around 1999: Patient pulling off high flow nasal canula repeatedly, refusing bipap, not maintaining adequate oxygenation levels. Notified Dr. Brizuela. Dr. Blakely to contact MICHELE Jackson and put in orders. Around 629: Patient in afib, sustaining in the 140s-150s. Notified Dr. Brizuela, Hospitalist. Dr. Brizuela to put in order. Will continue to monitor.
[2021-11-01] MEDS: metoprolol tartrate 1 mg/1 mL SDV 5 mL 5 MG IVP (06:56)
--- NOTE | 2021-11-01 07:02 | P.PN_ITS ---
Subjective Subjective: Interval history: Patient was put on Precedex as she was anxious, for hypoxia she was put on high flow nasal cannula and she was more cooperative with oxygen supplementation overnight, refused BiPAP Afebrile Persistent sinus tachycardia Her goals of care were discussed with the family, CODE STATUS changed overnight by Dr. Blakely Vitals/I&O/Wt Last Vital Signs Temp 96.7 F L 11/01/21 04:00 Pulse 110 H 11/01/21 05:22 Resp 21 H 11/01/21 04:00 BP 131/89 11/01/21 04:00 Pulse Ox 92 11/01/21 04:00 10/31/21 11/01/21 11/01/21 22:59 06:59 14:59 Intake Total 1550 / 2320 1311.25 / 3631.25 Output Total 360 / 360 Balance 1190 / 1960 1311.25 / 3271.25 Weight last 48 hrs Weight 56.835 kg Weight 54.431 kg Physical Exam Narrative: EXAM NARRATIVE: High flow nasal cannula 15 L Sinus tachycardia Clinically dehydrated S1, S2 sinus tachycardia Right supraclavicular ulcerating mass No facial plethora or significant prominence of veins on anterior chest Abdomen soft No signs of leg edema Appears anxious Data : 11/01/21 04:30 11/01/21 04:30 Micro: Microbiology 10/30/21 21:40 Blood Culture - Preliminary Blood NEGATIVE TO DATE 10/30/21 21:45 Blood Culture - Preliminary Blood NEGATIVE TO DATE A&P Assessment and plan (1) Community acquired pneumonia: Status: Acute Qualifiers: Laterality: right Lung location: upper lobe of lung Qualified Code(s): J18.9 - Pneumonia, unspecified organism (2) Lung cancer: Status: Acute (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 Additional A&P Information Acute hypoxia 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 Patient was recommended palliative radiotherapy versus hospice, she wanted to talk with her Joseph who is currently dealing with emotional stress unfortunately Overnight CODE STATUS was changed by letter business analysis professional 10/06 she contracted COVID-19 Hypoxia worsening currently on high flow nasal cannula CTA ruled out pulmonary embolism Underlying regnancy worsening Continue broad-spectrum antibiotics Significant increase in leukocytosis, I will hold prednisone for now Continue normal saline for dehydration related tachycardia, no signs of PE She carries a guarded prognosis which was discussed with the patient and the family Hyponatremia related to dehydration and underlying lung cancer DNR/DNI Attestations Medical Necessity Statement*: Continue medical management Time Spent in Patient Care: 16 - 35 minutes Coding Level of Care Code Acute Assistant Financial Accountant for Chg Fwd Diagnoses Community acquired pneumonia J18.9 Laterality: right Lung location: upper lobe of lung Lung cancer C34.90 Superior vena cava syndrome I87.1
[2021-11-01 07:05] VITALS: BP 115/88; PULSE 123; RESP 26; O2SAT 88
[2021-11-01 07:45] LABS: ABG PCO2 45.9 mmHg (35-45); ABG PH Result 7.33 (7.35-7.45); Arterial Blood Gas Hematocrit 29.1 % (37-47); Base Excess ABG -1.6 mmol/L (-2.0-2.0); Blood Gas Sample Site Radial, right; Blood Gas Sample Type Arterial; HCO3 ABG 24.3 mmol/L (22-26); Oxygen Device NRB; PO2 ABG 52.6 mmHg (80.0-100.0)
--- NOTE | 2021-11-01 08:44 | PC.NURSE ---
Addendum entered by Phoebe Ferrell RN 11/01/21 09:06: Patient passing [id number] Original Note: shortly after bedside round with provider. provider spoke with Jen Jackson about plan of care to make patient comfortable, Renetta agreed with comfort care. just after decision made quality assurance monitor final alerted to asytole, upon entering room patient had removed o2 was found with no pulse no respiration confirmed with Second RN Dr. Ryan made aware of events notified of patients passing Renetta Li notified by provider
--- NOTE | 2021-11-01 09:37 | PC.CHAP ---
Pastoral Care Encounter/Spiritual Assessment Type of Contact [] Declined pesticide applicator visit [] Patient/Family/Request visit [] Outpatient visit [] Follow-up visit [] Physician referral [] Code/Alert [x] Routine visit [] Staff referral [] Actively dying [] Patient sleeping [] Family support [] [] Out of room [] Palliative care [] [] Receiving care in room [] Pre-surgical visit [] Trauma [] Long length of stay [] ICU visit [] Other: Relational/Emotional Strength [] Patient feels connected with others/family/visitors/staff [] Distress [] Loneliness/isolation [] Abandonment Spirituality of Patient [] Person of Cici [] Attends Scientologist of their Cici [] Believes in Prayer [] Reads Bible or Anabaptist materials [] There are Spiritual issues to be addressed Casino Supervisor Interventions [x] Prayer [] Active listening [] Non-anxious presence [] Spiritual/emotional support [] Crisis/trauma care [] Spiritual counseling [x] Bereavement support [] Provided bereavement packet [] Provided Bible/devotional materials [] Provided toy/stuffed animal, coloring book to patient or family member [] Provided Communion [] Anointing/[place] [] Salvation [x] Completed spiritual assessment [] Other: Impact on Illness or Injury [] Angry [] Fearful [] Anxious [] Often cries [] Exhaustion [] Unable to work [] Unable to attend anabaptism [] Unable to walk/stand [] Unable to read [] Unable to drive [] Unable to eat/drink [] Unable to sleep [] Unable to be with family [] Patient intubated [] Other: Summary upon my visit to patient its noted she had already passed... family friends arrived.. prayer for family and all those that will miss her Time spent with patient 20 min
--- NOTE | 2021-11-01 10:37 | PM.DDS ---
Discharge Providers DDS Date of Admission: 10/31/21 00:40 Date Summary Completed: 11/01/21 Attending Provider at Admission: Liz Blakely MD Time of : 08:36 Attending Provider at Discharge: Marco A Ryan MD Primary Care Provider: Gonsalo Rodarte DO DS Diagnoses Hospital Diagnoses (1) Community acquired pneumonia: Qualifiers: Laterality: right Lung location: upper lobe of lung Qualified Code(s): J18.9 - Pneumonia, unspecified organism (2) Lung cancer: (3) Superior vena cava syndrome: Reason for Visit Reason for Visit: RESP. DISTRESS Summary Date and Time of Date of : 11/01/21 Time of : 08:36 Summary Summary: [address] [id number] & Physical ReportSigned Patient: Melany McgillMR#: [id number]: 1965Acct#:[id number]/Sex: 56 / FADM Date: 10/31/21Loc: [facility] Room/Bed: [address] [place] [address] Date: 10/31/21Attending Dr: Marco A Ryan MD Report Number: [id number] Providers/Chief Complaint Admitting Physician: Liz Blakely MD Primary Care Provider: Gonsalo Rodarte DO Chief Complaint: RESP. DISTRESS History of Present Illness by Dr Reddy Chicasmelanie Mcgill is a 56 year old female with a history of metastatic small cell lung cancer, right neck mass which is progressively increasing in size with superior vena cava syndrome, mass encasing the right carotid artery. Referred for palliative radiation recently, status post multiple lines of chemotherapy, in discussion with oncology and radon teams regarding further palliative chemo radiation versus transition to hospice care, pending final decision making in this regard. Recently hospitalized here between October 06 to October 08 for COVID-19 pneumonia, received monoclonal antibody infusion, has had some persistent symptoms of bronchitis which have been treated as outpatient with p.o. azithromycin. She presented to the emergency room overnight for severe shortness of breath, upon EMS arrival she was noted to be wheezing, her oxygen saturation was noted to be in 60s on room air, she was placed on a CPAP given IV steroids and nebulization. Upon presentation at the ER she still had diffuse wheezing which is now somewhat improved after getting multiple rounds of nebulization. She does have a cough which has been lasting for about a month now. Chest x-ray showed right upper lobe consolidation consistent with pneumonia. Also noted leukocytosis. Patient is currently on 8 L/min via oxygen mask at the time of my assessment. Her wheezing is improved. Patient does display intermittent confusion which was additionally also noted on last hospital admission. There was no noted metastatic disease to the brain. It did however note chronic appearing since cystic encephalomalacia involving the left frontal lobe likely due to prior ischemia versus hematoma. There were dystrophic calcifications in the right basal ganglia and cerebellum. Modified barium swallow was performed and aspiration was ruled out. She has mild hyponatremia with sodium of 128 today, however this has remained stable since last hospital discharge Hosp course: Patient was admitted for management of hypoxia related to underlying pneumonia and lung cancer. Patient's mentation was waxing and waning, I did talk with her family to discuss current diagnosis, treatment plan and guarded prognosis. Renetta wanted to wait until patient talked with her significant other (Joseph). As per Renetta Joseph is not in good state to make any decision for her because of his emotional health. Overnight she deteriorated, became more hypoxic, she kept refusing BiPAP(testing increased neck pain around her ulcerating right-sided supraclavicular lymphadenopathy). Her CODE STATUS was changed to DNR/DNI by Dr. Blakely. In the morning when I evaluated her she was opening eyes to noxious stimuli only, her heart rate was in 140s I updated her family/Renetta right away. Stat ABG requested, she was not coherent enough to synchronize breathing with her BiPAP, while we were arranging to give her metoprolol 5 mg IVP, she went into PEA and at 8:36 AM. Additional Data Confirmation of as documented by pronouncing clinician: no pulse, no respirations, no heart sounds and pupils fixed and dilated Family: contacted Additional persons at bedside: nursing staff Attending/PCP notified?: I am attending Was code activated?: No Autopsy requested?: No Advance directives?: No Hospice patient?: Yes Discharge Plan Discharge Patient Disposition: Condition: Prescriptions: No Action ondansetron 8 mg tablet,disintegrating 8 mg PO Q12H PRN (Reason: Nausea) RF: 0 dexamethasone 4 mg tablet See Rx Instructions .ROUTE .COMPLEX RF: 0 amlodipine 10 mg Tablet 5 mg PO DAILY 30 Days Qty: 30 RF: 0 pantoprazole 40 mg Tablet,Delayed Release (Dr/Ec) 40 mg PO DAILY 30 Days Qty: 30 RF: 0 metoprolol tartrate 25 mg Tablet 25 mg PO BID@0900,2100 30 Days Qty: 60 RF: 0 zinc 50 mg tablet 50 mg PO DAILY Qty: 14 RF: 0 ascorbate calcium (vitamin C) 500 mg tablet 500 mg PO BID Qty: 20 RF: 0 lidocaine-prilocaine 2.5-2.5 % cream 1 applic topical DAILY PRN (Reason: Pain) RF: 0 Wixela Inhub 250-50 mcg/dose blister with device 1 ea INHALATION BID RF: 0 guaifenesin [Mucinex] 600 mg Tablet Extended Release 12hr 600 mg PO DAILY PRN (Reason: Cough) RF: 0 hydrocodone-acetaminophen 5-325 mg tablet 1 tab PO Q6H PRN (Reason: pain) Qty: 20 RF: 0 Patient Instructions: Opioid Safety Probable Cause of Probable cause of : Cardiac arrest DS Attestations Time Spent in /Discharge Care*: less than 30 min Quality - AMI: AMI present?: No Quality - Stroke: CVA present?: No Symptom Onset Unknown: No Quality - VTE: VTE present?: No Deep Vein Thrombosis/Pulmonary Embolism Present on Admission: No Coding Level of Care Code Acute Ferry Operator for carter Fwd Diagnoses Community acquired pneumonia J18.9 Laterality: right Lung location: upper lobe of lung Lung cancer C34.90 Superior vena cava syndrome I87.1
--- NOTE | 2021-11-01 12:45 | PC.NURSE ---
picked up by Ren[facility] choi home 12:36
== END 2021-11-01 12:36 | disposition expired | DRG 194 ==
LOC: ER 22:31 → CSU 22:45
PROVIDERS: Admitting Provider Student in an Organized Health Care Education/Training Program; Emergency Provider Emergency Medicine; PCP Internal Medicine; Visit Provider Internal Medicine
DX: J18.9 Pneumonia, unspecified organism (principal); C34.90 Malignant neoplasm of unspecified part of unspecified bronchus or lung; C78.7 Secondary malignant neoplasm of liver and intrahepatic bile duct; E22.2 Syndrome of inappropriate secretion of antidiuretic hormone; I87.1 Compression of vein; I82.B12 Acute embolism and thrombosis of left subclavian vein; Z87.891 Personal history of nicotine dependence; R59.0 Localized enlarged lymph nodes; Z92.21 Personal history of antineoplastic chemotherapy; Z86.16 Personal history of COVID-19; G93.89 Other specified disorders of brain; E86.0 Dehydration; R00.0 Tachycardia, unspecified; I46.9 Cardiac arrest, cause unspecified; Z66 Do not resuscitate; R41.0 Disorientation, unspecified
CPT/HCPCS: 36415; 36416; 36600; 71045; 71275; 80053; 80202; 82803; 82962; 83880; 84145; 84484; 85025; 85378; 85610; 87040; 87641; 87804; 93005; 93971; 94640; 94660; 94664; 96365; 96367; 96372; 99291; J1650; J2060; J2543; J3370; J3490; J7030; J7050; J7512; J7611; Q0144; Q9967